=== PATIENT | female | born 1945 | race Caucasian/White ===

== ENCOUNTER 2016-11-07 08:13 | Observation (INO) | payer MEDICARE ==
[~2016-11-07] VITALS: Ht 162.6 cm; Wt 56.5 kg
[2016-11-07] VITALS (12 sets, daily range): BP systolic 134–165; BP diastolic 65–85; PULSE 60–148; RESP 17–23; O2SAT 93–100
[~2016-11-07 08:13] MED LIST: ALBU2.5V4 INHALATION; ALBU8.5H2 INHALATION; ALEN70TA51 PO; ATOR20TA PO; BECL8.7A6 INHALATION; BUSP15TA3 PO; CALC1CAP22 PO; CHOL10008 PO; DIGO125T73 PO; FLUO20CA25 PO; FLUT16SP NS; FURO40TA4 PO; KEN1O TOP; LISI10TA PO; LORA0.5T PO; METO-272 PO; MIRT15TA6 PO; OXYB5TAB10 PO; OXYC1TAB24 PO; PHEN30CA PO; PHN100C PO; POTA20TA16 PO; PRE10 PO; SENN-133 PO; SLO64 PO; TIOT18CA3 IH; WARF2.5T82 PO
[2016-11-07] MEDS ORDERED: 0.9% Sodium Chloride 1,000 ML IV ONE (08:47)
[2016-11-07] MEDS ORDERED: MeTOProlol 1 mg/mL 5 mL Inj IVPUSH SCH (08:55)
[2016-11-07] MEDS ORDERED: Albuterol-Ipratropium 3 mL Inhalation Solution NEB ONE ×2 (08:55→10:50)
[2016-11-07] MEDS ORDERED: FURO40TA4 PO (09:16)
[2016-11-07] MEDS ORDERED: VITA80006 PO (09:16)
[2016-11-07] MEDS ORDERED: METO100T3 PO (09:16)
[2016-11-07 09:21] LABS: BASOPHILS % (AUTO) 0.5 % (0-3); EOSINOPHILS % (AUTO) 2.1 % (0-5); MONOCYTES % (AUTO) 16.8 % (4-12); Mean Corpuscular Hemoglobin 34.3 pg (27.0-35.0); Mean Corpuscular Volume 104.5 fL (81-100); NEUTROPHILS % (AUTO) 58.9 % (40-74); Platelet Count 138 bil/L (150-400)
--- NOTE | 2016-11-07 09:37 | DRSVH ---
PROCEDURE: X-RAY CHEST ONE VIEW, PORTABLE ([id number]) INDICATIONS: SHORTNESS OF BREATH TECHNIQUE: One view of the chest was acquired. COMPARISON: [facility], CR, XR CHEST 1VW (PORTABLE), 10/28/2016, 8:27. FINDINGS: Surgical changes and devices: None. Lungs and pleura: No pleural effusions or pneumothorax. Interstitium is prominent similar to prior examination. Mild bibasilar airspace opacities present. Mediastinum: Mediastinal contours appear normal. Heart size is normal. Aortic calcification and tor tuosity. Bones and chest wall: No suspicious bony lesions. Overlying soft tissues appear unremarkable. IMPRESSION: 1. Mild interstitial prominence similar to prior examination. 2. Minimal bibasilar patchy densities which may be related to atelectasis but developing pneumonia or aspiration cannot be excluded. Correlate clinically. Dictated by: Nuno Chatterjee [facility] Interpreted: Fely Wilde MD on 11/07/2016 at 9:37 Transcribed by: LEXIE on 11/07/2016 at 9:37 Approved by: Fely Wilde MD, PhD on 11/07/2016 at 16:11
--- NOTE | 2016-11-07 09:47 | ED.REPORT ---
HPI-Dyspnea / Wheezing Date of Service Nov 07, 2016 ED Provider: Tammie Garcia MD Ms. Rebolledo is a 70-year-old female past medical history of COPD, CHF ( diastolic dysfunction), persistent A. fib with RVR, hypertension and hemachromatosis presents to ER via EMS secondary to shortness of breath 1 month with increase in severity over the last few days. This is accompanied with a chest tightness and productive cough of green thick sputum. Patient's downstairs neighbor called EMS this morning as she was kept awake throughout the night by patient's audible coughing from her upstairs apartment. On EMS arrival patient found to be satting in the low 90s on home O2 with increase in saturation level is 96% after nebulizer treatment. Patient also endorses diarrhea 1 month. Of note recently hospitalized and of September for same. Discussed status with patient, she confirms her wishes to be DNR/DNI. Nursing Notes Stated Complaint: SHORTNESS OF BREATH Chief Complaint: Respiratory Distress Nursing Notes Reviewed: Yes Allergies: Coded Allergies: Macrolide Antibiotics (Verified Allergy, Severe, SWELLING, 11/07/16) HIVES, SWELLING, SOB Penicillins (Verified Allergy, Severe, SWELLING, HIVES, 11/07/16) HIVES, SWELLING, SOB codeine (Verified Allergy, Severe, VOMITING, 11/07/16) erythromycin ethylsuccinate (Verified Allergy, Severe, INSIDE SWELL UP, ) TAPE (Verified Allergy, Unknown, PLASTIC TAPE, 11/07/16) ampicillin (Verified Allergy, Unknown, UNKNOWN, 11/07/16) clindamycin (Verified Allergy, Unknown, UNKNOWN, 11/07/16) GI BLEED... (07/11/15.. pt contacted at pharmacy request and asked about clindamycin allergy- states she knows something at one time had given her black stools- but she is not certain of whether or not it was clindamycin. Pharmacy notified of pt response.) Scheduled Alendronate (Binosto) 70 Mg Tablet.eff 70 MG PO WEEKLY ON SATURDAYS Atorvastatin (Lipitor) 20 Mg Tablet 20 MG PO DAILY Beclomethasone Dipropionate (Qvar) 8.7 Gm Aer.w.adap 1 PUFF INHALATION BID Buspirone (Buspirone) 15 Mg Tablet 15 MG PO TID AM, NOON, PM Calcium Carbonate/Vitamin D3 (Calcium 600 + Vit D 400 Softgl) 1 Each Capsule 1 EACH PO QAM Cholecalciferol (Vitamin D3) (Vitamin D3) 1,000 Unit Tab.chew 1,000 UNIT PO DAILY Digoxin (Digoxin) 125 Mcg Tablet 125 MCG PO noon Fluoxetine (Fluoxetine) 20 Mg Capsule 40 MG PO DAILY Furosemide (Furosemide) 40 Mg Tablet 60 MG PO DAILY Lisinopril (Lisinopril) 10 Mg Tablet 10 MG PO BID Metoprolol Tartrate (Metoprolol Tartrate) 100 Mg Tablet 100 MG PO BID Mirtazapine (Mirtazapine) 15 Mg Tablet 15 MG PO HS Oxybutynin Chloride (Oxybutynin Chloride) 5 Mg Tablet 5 MG PO TID AM, NOON, PM Phenytoin Sodium ER (Dilantin) 100 Mg Cap 100 MG PO TID AM, NOON, PM Phenytoin Sodium ER (Dilantin) 30 Mg Capsule 30 MG PO TID AM, NOON, PM Potassium Chloride (Potassium Chloride) 20 Meq Tab.er.prt 20 MEQ PO DAILYWL Sennosides (Senna) 8.6 Mg Tablet 17.2 MG PO QAM Vitamin A (Vitamin A) 8,000 Unit Capsule 8,000 UNIT PO QAM Warfarin Sodium (Warfarin Sodium) 2.5 Mg Tablet 2.5 MG PO ,, Warfarin Sodium (Warfarin Sodium) 2.5 Mg Tablet 5 MG PO ,,, Scheduled PRN Albuterol HFA (Proair HFA) 8.5 Gm Hfa.aer.ad 1 PUFFS INHALATION Q4H PRN PRN For Shortness of Breath Albuterol Neb Soln (Albuterol Neb Soln) 2.5 Mg/3 Ml Vial.neb 1 NEB INHALATION TID PRN PRN For Shortness of Breath Lorazepam (Lorazepam) 0.5 Mg Tablet 0.5 MG PO BID PRN PRN For Anxiety oxyCODONE-Acetaminophen 5-325 mg (oxyCODONE-Acetaminophen 5-325 mg) 1 Each Tablet 1 EACH PO BID PRN PRN For Pain General Time Seen by MD: 08:40 Chief Complaint Shortness of breath Past Medical History Past Medical History Notes: PCP: Arlene Dowling Past Medical History Cataracts Cirrhosis Hepatitis C Kidney stones Acute respiratory failure and hypoxemia Diastolic heart failure Anxiety hemachromatosis Arthritis Reports: Asthma, COPD, Congestive heart failure, Hypertension Reports: Atrial fibrillation, Depression, Renal failure, Seizure disorder Past Surgical History Knee surgery Appendectomy with partial colectomy Eye surgery Phlebotomy Hemochromotosis Tubal Shunt in arm Reports: Carpal tunnel Family History Noncontributory Smoking History Former Smoker Social History Alcohol Use: Denies alcohol use Drug Use: Denies drug use Other Social History: Lives alone, Local resident Occupation lives by self, has help once a week 09/27/2016 Ambulatory Status Walker Review of Systems Basic Review of Systems Eyes: Vision NL GI: No abdominal pain Hematologic: No bleeding Constitutional: Denies: Chills, Fever Respiratory: Reports: Dyspnea on exertion, Prod cough, green, Shortness of breath, Wheezing Cardiovascular: Reports: Dyspnea on exertion, Palpitations, Denies: Chest pain Musculoskeletal: Denies: Back pain Skin: Reports Bruising, Denies Rash Physical Exam General: Moderate distress, well-developed, well-nourished, appropriately interactive HEENT: Normocephalic, atraumatic. External ears without defect. Pupils equal, round, and reactive to light and accommodation. Neck: Supple with full range of motion. No jugular venous distension. Cardiovascular: Irregular rhythm with tachycardic rate, soft blowing murmur, heard best at left sternal second intercostal space. Pulmonary: Poor air movement slight expiratory crackles/wheezes. No accessory muscle usage noted Abdomen: Bowel tones present. Soft, nontender, nondistended. Extremities: No clubbing, cyanosis. Bilateral lower extremity edema, mild. Skin: Normal temperature, turgor, and texture; multiple areas of ecchymosis upper extremities. Neurological: Cranial nerves grossly intact. Psychiatric: Normal mood and affect. Alert and oriented to person, place, and time. Initial Vital Signs Vital Signs (First) Date Time Temp Pulse Resp B/P Pulse Ox O2 Delivery O2 Flow Rate FiO2 11/07/16 08:30 37.2 148 23 165/85 98 Nasal Cannula 3 Interpretation & Diagnostics X-RAY CHEST ONE VIEW, PORTABLE IMPRESSION: 1. Mild interstitial prominence similar to prior examination. 2. Minimal bibasilar patchy densities which may be related to atelectasis but developing pneumonia or aspiration cannot be excluded. Correlate clinically. Dictated by: Nuno NAPIER Interpreted: Fely Wilde MD on 11/07/2016 at 9:37 Lab Results Interpretation Result Diagram: 11/07/16 0906 11/07/16 0906 Test 11/07/16 09:06 11/07/16 09:40 White Blood Count 8.1th/mm3 (3.8-10.1) Red Blood Count 3.59mil/mm3 (3.90-5.20) Hemoglobin 12.3g/dL (12.0-15.6) Hematocrit 37.5% (35.0-46.0) Mean Corpuscular Volume 104.5fL (81-100) Mean Corpuscular Hemoglobin 34.3pg (27.0-35.0) Mean Corpuscular Hemoglobin Concent 32.8% (32.0-37.0) Red Cell Distribution Width 14.4% (12.3-15.4) Platelet Count 138bil/L (150-400) Neutrophils (%) (Auto) 58.9% (40-74) Lymphocytes (%) (Auto) 21.3% (14-46) Monocytes (%) (Auto) 16.8% (4-12) Eosinophils (%) (Auto) 2.1% (0-5) Basophils (%) (Auto) 0.5% (0-3) Sodium Level 140mEq/L (134-144) Potassium Level 3.6mEq/L (3.5-5.2) Chloride Level 100mEq/L (97-108) Carbon Dioxide Level 26mmol/L (18-29) Blood Urea Nitrogen 18mg/dL (8-27) Creatinine 0.92mg/dL (0.57-1.00) Estimat Glomerular Filtration Rate 86mL/min (>59) Glucose Level 95mg/dL (60-99) Calcium Level 8.9mg/dL (8.5-10.1) Magnesium Level 1.4mg/dL (1.6-2.6) Total Bilirubin 1.5mg/dL (0.0-1.2) Aspartate Amino Transf (AST/SGOT) 72U/L (0-50) Alanine Aminotransferase (ALT/SGPT) 33U/L (0-32) Alkaline Phosphatase 160U/L (25-165) Troponin T < 0.010ug/L (0.0-0.011) Pro-B-Type Natriuretic Peptide 5057pg/mL (0-301) Total Protein 7.8g/dL (6.4-8.4) Albumin 3.6g/dL (3.4-5.0) Procalcitonin 0.46ng/mL (See Comment) Digoxin Level 0.3nG/mL (0.9-2.0) Lactic Acid Level 1.2mmol/L (0.4-2.0) ECG Interpretation ECG Interpretation: A. fib with rapid ventricular response, anterior infarct old Interpreted by: ED physician (resident physician) Re-Eval/Medical Decision Med Decision/Clinical Course Patient presented with shortness of breath which was relieved with oxygen placement. Patient was originally tachycardic 170s, metoprolol 53 given with the fact as well as reinitiation of patient's home metoprolol tartrate 100 twice a day. Heart rate stabilized to low 100s though blood pressure remained elevated. Respiratory rate remained in 20s. Laboratory analysis unremarkable, barring low magnesium level slightly elevated liver function tests. Digoxin level unremarkable. Chest x-ray showed patchy densities possible developing pneumonia and a mild interstitial prominence similar to prior imaging. Patient responded to oxygen therapy, though was unable to saturate above 81% on ambulatory road test in ED Last echo 09/29/2016 showed EF of 60-65% with severe left and right atrial dilation Patient admitted to hospital for further evaluation. Consultation : Consulted With: Hospitalist Call Returned at: 11:23 Visual Specialist: Will see patient, Agrees with plan, Accepts admit Note: Plan and clinical presentation reviewed with Dr Jones Discharge & Departure Shift Change Sign-Out Patient Care Transferred: Yes Discussed Complaint(s): Yes Laboratory Evaluation: Lab evaluation discussed Imaging Studies: Imaging discussed Response to Therapy: Improved Impression: Primary Impression: A-fib Atrial fibrillation type: persistent Qualified Code: I48.1 - Persistent atrial fibrillation Additional Impressions: COPD with acute exacerbation Diastolic CHF Congestive heart failure chronicity: chronic Qualified Code: I50.32 - Chronic diastolic (congestive) heart failure Disposition: ADMITTED TO HOSPITAL Referrals: Arlene Dowling MD (PCP) Attending Statement Seen and examined Worsening dyspnea progressive over the last month. Very poor air movement throughout all lung lees on exam today No evidence for infection based on chest x-ray white blood cell count and lactic acid and pro calcitonin antibiotics not started in the emergency department Exacerbation of her chronic COPD, exacerbation of her chronic diastolic heart failure all contributing to her chronic atrial fibrillation now with rapid ventricular response responding well to her chronic medications Deciding factor for admission his oxygen saturations dropping to 80-81% on 2 L of oxygen with less than 50 feet of ambulation in the emergency department Agree with documentation and plan as above QAMAR CORRAL DO Nov 07, 2016 09:47 Tammie Garcia MD Nov 07, 2016 11:25
[2016-11-07 09:48] LABS: Magnesium 1.4 mg/dL (1.6-2.6)
[2016-11-07 09:52] LABS: TROPONIN T < 0.010 ug/L (0.0-0.011)
[2016-11-07] MEDS ORDERED: MAGNESIUM SULFATE IM ONE (10:35)
[2016-11-07] MEDS ORDERED: Hydrocortisone 50 mg/mL 2 mL Inj IVPUSH ONE (10:35)
[2016-11-07] MEDS ORDERED: Magnesium Sulf 2 Gm/50mL Water 2 GM in IV Premix 1 EACH IV ONE (10:40)
[2016-11-07] MEDS ORDERED: MethylprednisoLONE Sodium Succinate 62.5 mg/mL 2 mL Inj IVPUSH ONE (10:40)
[2016-11-07] MEDS ORDERED: Alum-Mag Hydrox-Simeth 30 mL Suspension PO PRN (11:40)
[2016-11-07] MEDS ORDERED: Ondansetron 2 mg/mL 2 mL Inj IVPUSH PRN (11:40)
--- NOTE | 2016-11-07 14:02 | NUR ---
Admit Pt admitted from ED, report received from Barbara Reina. Pt transported via stretcher, was able to transfer self to bed. Pt a/o x 3, oriented to room and call light, denies pain/discomfort.
[2016-11-07] MEDS ORDERED: Albuterol 2.5 mg/3 mL Inhalation Solution NEB PRN (16:15)
[2016-11-07] MEDS ORDERED: LORazepam 0.5 mg Tablet PO PRN (16:35)
--- NOTE | 2016-11-07 16:37 | PCM.HPMED ---
Subjective Date of Service Nov 07, 2016 Primary Provider: Admitting Physician: Ghulam Jones DO Primary Care Physician: Arlene Dowling MD Attending Physician: Ghulam Jones DO Admit Status: From the Emergency Department, Admit to [place] Team Chief Complaint: Shortness of breath History of Present Illness: Ms. Rebolledo is a 70 year old woman with history of hemochromatosis, epilepsy, COPD, and atrial fibrillation, that presented to [facility] via EMS for shortness of breath and increased productive cough. She was admitted for evaluation and treatment of suspected COPD exacerbation. She states she has had increased shortness of breath and increased cough for most recent day prior to admission. Denies any fever, chills, nausea, vomiting. Admits to history of diarrhea x recent month. Recent hospitalization approximately one month prior to this admission date for similar presentation of symptoms. She states that yesterday was a stressful day with family dynamics , and may have triggered her current symptoms. She was around small children. No known sick contacts. She says she feels safe returning home. She lives alone , has a vest tailor that comes by. She does not drive. Reports home O2 at 2L baseline. In the ED, T37.2, P148, BP 165/85, 98%NC3L; WBC 8.1; Mg 1.4, total bili 1.5, AST 72, ALT 33; troponin <0.010. Sputum and blood cultures obtained. CXR noted bibasilar patchy densities suggestive of PNA vs atelectasis. Patient [place] [facility]. Review of Systems: Complete ROS obtained; Pertinent positives and negatives as noted in HPI Allergies Coded Allergies: Macrolide Antibiotics (Verified Allergy, Severe, SWELLING, 11/07/16) HIVES, SWELLING, SOB Penicillins (Verified Allergy, Severe, SWELLING, HIVES, 11/07/16) HIVES, SWELLING, SOB codeine (Verified Allergy, Severe, VOMITING, 11/07/16) erythromycin ethylsuccinate (Verified Allergy, Severe, INSIDE SWELL UP, ) TAPE (Verified Allergy, Unknown, PLASTIC TAPE, 11/07/16) ampicillin (Verified Allergy, Unknown, UNKNOWN, 11/07/16) clindamycin (Verified Allergy, Unknown, UNKNOWN, 11/07/16) GI BLEED... (9/2/15.. pt contacted at pharmacy request and asked about clindamycin allergy- states she knows something at one time had given her black stools- but she is not certain of whether or not it was clindamycin. Pharmacy notified of pt response.) Home Medications From ED documentation at admission; med rec to be completed Alendronate (Binosto) 70 Mg Tablet.eff 70 MG PO WEEKLY ON SATURDAYS Atorvastatin (Lipitor) 20 Mg Tablet 20 MG PO DAILY Beclomethasone Dipropionate (Qvar) 8.7 Gm Aer.w.adap 1 PUFF INHALATION BID Buspirone (Buspirone) 15 Mg Tablet 15 MG PO TID AM, NOON, PM Calcium Carbonate/Vitamin D3 (Calcium 600 + Vit D 400 Softgl) 1 Each Capsule 1 EACH PO QAM Cholecalciferol (Vitamin D3) (Vitamin D3) 1,000 Unit Tab.chew 1,000 UNIT PO DAILY Digoxin (Digoxin) 125 Mcg Tablet 125 MCG PO noon Fluoxetine (Fluoxetine) 20 Mg Capsule 40 MG PO DAILY Furosemide (Furosemide) 40 Mg Tablet 60 MG PO DAILY Lisinopril (Lisinopril) 10 Mg Tablet 10 MG PO BID Metoprolol Tartrate (Metoprolol Tartrate) 100 Mg Tablet 100 MG PO BID Mirtazapine (Mirtazapine) 15 Mg Tablet 15 MG PO HS Oxybutynin Chloride (Oxybutynin Chloride) 5 Mg Tablet 5 MG PO TID AM, NOON, PM Phenytoin Sodium ER (Dilantin) 100 Mg Cap 100 MG PO TID AM, NOON, PM Phenytoin Sodium ER (Dilantin) 30 Mg Capsule 30 MG PO TID AM, NOON, PM Potassium Chloride (Potassium Chloride) 20 Meq Tab.er.prt 20 MEQ PO DAILYWL Sennosides (Senna) 8.6 Mg Tablet 17.2 MG PO QAM Vitamin A (Vitamin A) 8,000 Unit Capsule 8,000 UNIT PO QAM Warfarin Sodium (Warfarin Sodium) 2.5 Mg Tablet 2.5 MG PO ,, Warfarin Sodium (Warfarin Sodium) 2.5 Mg Tablet 5 MG PO ,,, Scheduled PRN Albuterol HFA (Proair HFA) 8.5 Gm Hfa.aer.ad 1 PUFFS INHALATION Q4H PRN PRN For Shortness of Breath Albuterol Neb Soln (Albuterol Neb Soln) 2.5 Mg/3 Ml Vial.neb 1 NEB INHALATION TID PRN PRN For Shortness of Breath Lorazepam (Lorazepam) 0.5 Mg Tablet 0.5 MG PO BID PRN PRN For Anxiety oxyCODONE-Acetaminophen 5-325 mg (oxyCODONE-Acetaminophen 5-325 mg) 1 Each Tablet 1 EACH PO BID PRN PRN For Pain PMH Cataracts Cirrhosis Hepatitis C Kidney stones Chronic respiratory failure and hypoxemia Diastolic heart failure Anxiety hemachromatosis Arthritis Reports: Asthma, COPD, Congestive heart failure, Hypertension Reports: Atrial fibrillation, Depression, Renal failure, Seizure disorder Surgical History Knee surgery Appendectomy with partial colectomy Eye surgery Phlebotomy Hemochromotosis Tubal Shunt in arm Reports: Carpal tunnel Family History Father: D. 53; unknown causes; suspect cancer Mother: D. late 80s, suspect 'old age' No other family has Dx hemochromatosis; denies FHx cardiac disease Social History Occupation: unemployed Hx Alcohol Use: No Hx Substance Use: No Hx Tobacco Use: Yes Smoking Status: Former Smoker Living Arrangement: Alone Exam Vital Signs Vital Sign - Last Date Time Temp Pulse Resp B/P Pulse Ox O2 Delivery O2 Flow Rate FiO2 11/07/16 14:51 Supplement Oxygen 11/07/16 14:00 36.9 74 18 148/84 98 2.00 Exam General: Frail; no acute distress; AAOx3 HENT: Atraumatic, sclera anicteric; mucus membranes moist Neck: Soft, trachea midline Cardiac: Irregular rate and rhythm at time of examination; no murmurs appreciated Respiratory: Adequate air flow all lees; no wheeze, no coarse sounds; no use accessory muscles Abdomen: Soft, nontender, nondistended Extremities: No edema; Healed scarring noted R knee Skin: Warm and dry Neuro: CNII-XII grossly intact; speech normal; no facial asymmetry Psych: Appropriate mood, affect, and responses to questioning; pleasant Lab and Diagnostics Result Diagram: 11/07/1690511/07/16905 Assessment & Plan Ms. Rebolledo is a 70 year old woman with history of hemochromatosis, epilepsy, COPD, and atrial fibrillation, that presented to [facility] via EMS for shortness of breath and increased productive cough. She was admitted for evaluation and treatment of suspected CHF and COPD exacerbation. - Hospital day 1 Acute COPD exacerbation, present on admission. Under therapy - Sx: Increased productive cough, increased SOB - DuoNeb QIDWA - Accuneb q2h prn - Budesonide neb BID - Prednisone 40mg x5 days - Incentive spirometer Exacerbation of Diastolic heart failure, acute on chronic. - Improved with Lasix given in the ER - Echo 09/2016: EF60-65, normal LV function; borderline RV enlargement, borderline reduction in function; severe dilation of LA and RA; severe TR; mild MR and AR - Continue Lasix Acute on chronic hypoxemic respiratory failure, present on admission. Resolved - Baseline reported as 2L continuous - Treat underlying cause: Suspected COPD and CHF exacerbation - H/o Rhinovirus September 2016 - Goals 88-92% - Resp PCR Diarrhea, chronicity unknown, present on admission. Under evaluation - Reports recent abx course, and contact with others, small children - Stool PCR Epilepsy, chronic. Presumed stable - Continue antiepileptic medications Atrial fibrillation on anticoagulation therapy, chronic. Presumed stable - Warfarin per pharmacy - Continue home meds - Digoxin levels as needed Electrolyte abnormalities, acute, present on admission. Treated - Mg replacement Elevated bili and transaminases, chronic. Presumed stable - Likely secondary to reported hemochromatosis - Monitor Other chronic conditions: Anxiety HCV Hemochromatosis - PRN: Bowel/fever/pain/antiemetic - DVT: Hep q8 - GI: Not indicated - DIET: Heart healthy - Code: DNR/DNI - PCP: Nitesh Patient status: Due to severity of presenting symptoms, likely course of care, and risk of adverse events, anticipated LOS > 2 midnights. Patient admitted with INPT status. Current needs include PT evaluation, HOG COOLER evaluation for possible addition of services if qualified. Pain Evaluation: Adequate Pain Control GI Prophylaxis: Not indicated VTE Prophylaxis: Sub-Q Heparin (Unfractionated) Resuscitation Status: DNR/DNI:Do Not Resuscitate/Intubate Time spent 65 minutes Attending Statement I reviewed this patients chart, discussed the plan of care with the resident and examined the patient. I agree with the above physical exam and assessment and plan. Mulu Mendoza DO Nov 07, 2016 16:34 Ghulam Jones DO Nov 08, 2016 14:46
[2016-11-07] MEDS ORDERED: Magnesium Chloride SR 64 mg ER24 Tablet PO SCH (16:40)
[2016-11-07] MEDS: Heparin 5,000 Unit/mL Inj SUBQ SCH (18:24)
[2016-11-07] MEDS: predniSONE 20 mg Tablet PO SCH (18:24)
[2016-11-07 19:00] LABS: APPEARANCE,URINE CLEAR (CLEAR,HAZY); COLOR,URINE DARK YELLOW (YELLOW); OCCULT BLOOD,URINE NEGATIVE (NEGATIVE)
[2016-11-07 19:10] LABS: INR 1.49 ratio
[2016-11-07] MEDS: Phenytoin 100 mg ER Capsule PO SCH (20:31)
[2016-11-07] MEDS: PHENYTOIN 30 MG PO SCH (20:31)
[2016-11-07] MEDS: BusPIRone 15 mg Dividose Tablet PO SCH (20:31)
[2016-11-07] MEDS: Budesonide 0.5 mg/2 mL Inhalation Solution NEB SCH (21:12)
[2016-11-07] MEDS: Albuterol-Ipratropium 3 mL Inhalation Solution NEB SCH (21:12)
[2016-11-08] VITALS (12 sets, daily range): BP systolic 141–173; BP diastolic 81–102; PULSE 51–113; RESP 18–22; O2SAT 91–99
[2016-11-08] MEDS: Heparin 5,000 Unit/mL Inj SUBQ SCH ×3 (00:30→18:10)
--- NOTE | 2016-11-08 03:40 | NUR ---
Uneventful night patient on 3L via NC. 02 maintained above 90% while sleeping. Patient has had no loose stools this shift. patient and family education on C-DIFF. patient states diarrhea started way before she had antibiotics for pneumonia and she does not believe the antibiotics caused her diarrhea. She reports coughing up mac/green sputum occasionally, none seen this shift. will continue to monitor.
[2016-11-08 07:02] LABS: BASOPHILS % (AUTO) 0.2 % (0-3); EOSINOPHILS % (AUTO) 0 % (0-5); MONOCYTES % (AUTO) 12.7 % (4-12); Mean Corpuscular Hemoglobin 34.4 pg (27.0-35.0); Mean Corpuscular Volume 103.3 fL (81-100); NEUTROPHILS % (AUTO) 77.4 % (40-74); Platelet Count 114 bil/L (150-400)
[2016-11-08 07:18] LABS: INR 1.51 ratio
[2016-11-08] MEDS: Albuterol-Ipratropium 3 mL Inhalation Solution NEB SCH ×4 (07:49→19:37)
[2016-11-08] MEDS: Budesonide 0.5 mg/2 mL Inhalation Solution NEB SCH ×2 (07:57→19:37)
[2016-11-08] MEDS ORDERED: Influenza (Adult) Vaccine 0.5 mL Syringe IM ONE (08:30)
[2016-11-08] MEDS: PHENYTOIN 30 MG PO SCH ×3 (09:56→19:59)
[2016-11-08] MEDS: Phenytoin 100 mg ER Capsule PO SCH ×3 (09:56→21:25)
[2016-11-08] MEDS: BusPIRone 15 mg Dividose Tablet PO SCH ×3 (09:57→19:58)
[2016-11-08] MEDS: predniSONE 20 mg Tablet PO SCH (09:58)
[2016-11-08 10:44] LABS: Magnesium 1.9 mg/dL (1.6-2.6); Phosphorus 2.4 mg/dL (2.5-4.9)
--- NOTE | 2016-11-08 10:55 | NUR ---
Flu Shot Pt. states that she does want flu shot but would like to wait until she is ready to discharge.
[2016-11-08] MEDS: oxyCODONE-Acetamin 5-325 mg Tablet PO PRN ×2 (11:32→20:00)
[2016-11-08] MEDS: Potassium Chloride 20 mEq SR Tablet PO SCH (14:03)
[2016-11-08 14:58] LABS: BASOPHILS % (AUTO) 0.1 % (0-3); EOSINOPHILS % (AUTO) 0.1 % (0-5); MONOCYTES % (AUTO) 10.2 % (4-12); Mean Corpuscular Hemoglobin 34.4 pg (27.0-35.0); Mean Corpuscular Volume 104.4 fL (81-100); NEUTROPHILS % (AUTO) 82.2 % (40-74); Platelet Count 143 bil/L (150-400)
--- NOTE | 2016-11-08 16:11 | NUR ---
Social Work-initial assessment/ readiness for discharge: Data:See initial assessment. Pt is a 70 y/o female who was admitted on 11/07/16 for AFIB per H&P. Pt's insurance is [facility] and PCP is Arlene Dowling MD. EMR Reviewed. CATRACHITO met with pt at bedside to discuss discharge planning, SW role explained.Pt alert and oriented x3.Pt resides at home alone in a ground floor apartment where pt remains independent with ADls. Pt uses a fww at baseline and does not drive. Pt either uses dial a ride or friends for transport. Pt has had HH in the past, but has never been to SNF. SW printed DPOA/ advanced directive paperwork on file, pt reviewed, and states this is the most up to date. SW placed copy in the chart. Pt states she has no issues getting her medications and is not interested in a supplemental insurance at this time. Pt has no LTC insurance or VA benefits. Pt states she hires a caregiver to come in and assist her. [facility] [employer]. Pt states her grandson Yovani [phone] or Gómez [phone] will provide transport home when medically stable. SW discussed HH services with pt, pt agreeable and states she is homebound. SW provided pt with HH choice list, pt would like to use [facility] having used them in the past. CATRACHITO spoke with Jenaro Kraft at [facility], Jenaro states they cannot take pt back on service. SW to follow up with pt regarding [facility]. CATRACHITO phone number and plan written on the [place] board.F2F in folder. SW will continue to follow. Assessment:Pt who is independent at baseline. Plan:Pt to likely discharge home when medically stable via POV. SW to follow up with pt regarding [facility] if she would be agreeable to this because [facility] not willing to take pt on service.F2F in folder. SW will continue to follow. ISHAN Layne Addendum: 11/08/16 at 1613 by JOSE KOHLER SS Amended: Links added.
--- NOTE | 2016-11-08 18:47 | PCM.PNMED ---
Subjective Date of Service Nov 08, 2016 Subjective Pt reports that she feels very weak. She states that she is weaker than normal. Pt reported to myself that she was experiencing diarrhea, but informed the hospitalist she had not had a bowel movement since admission. Pt reports that her chest hurts when she coughs. Pt reports that she is still finding it hard to breath. Exam Vital Signs Vital Sign - Last Date Time Temp Pulse Resp B/P Pulse Ox O2 Delivery O2 Flow Rate FiO2 11/08/16 15:32 20 Nasal Cannula 2.00 11/08/16 14:12 36.6 71 158/102 92 Intake and Output 11/07/16 11/07/16 11/08/16 Cumulative From/Thru 15:00 23:00 07:00 11/07/16 08:30 - 11/08/16 06:19 Intake Total 1000 ml 873 ml 336 ml 2209 ml Output Total 100 ml 0 ml 100 ml Balance 1000 ml 773 ml 336 ml 2109 ml Intake Oral 873 ml 336 ml 1209 ml IV Total 1000 ml 1000 ml Output Urine Total 100 ml 0 ml 100 ml # Bowel Movements 0 0 Exam General: No acute distress, appropriately interactive HEENT: Nasal canula in place. Normocephalic, atraumatic. Pupils equal, round, and reactive to light and accommodation. Anicteric sclerae, moist conjunctivae. Oropharynx with moist mucosa. Neck: Supple with full range of motion. Cardiovascular: Irregularly irregular rate and rhythm with no murmurs, rubs, or gallops appreciated Pulmonary: Clear to auscultation bilaterally with no crackles, wheezes, or rhonchi. Normal respiratory effort with no use of accessory muscles. Abdomen: Bowel tones present. Soft, nontender, nondistended. Extremities: No clubbing, cyanosis, edema, or lymphadenopathy appreciated. Skin: Normal temperature, turgor, and texture; no rash, ulcers, or subcutaneous nodules appreciated. Psychiatric: Normal mood and affect. Alert and oriented to person, place, and time. IVs and Medications Medications Reviewed: Medications were reviewed in detail Lab and Diagnostics Result Diagram: 11/08/16 1440 11/08/16 1440 X-Rays, CTs and MRIs PROCEDURE: X-RAY CHEST ONE VIEW, PORTABLE ([id number]) COMPARISON: [facility], CR, XR CHEST 1VW (PORTABLE), 10/28/2016, 8 :27. FINDINGS: Surgical changes and devices: None. Lungs and pleura: No pleural effusions or pneumothorax. Interstitium is prominent similar to prior examination. Mild bibasilar airspace opacities present. Mediastinum: Mediastinal contours appear normal. Heart size is normal. Aortic calcification and tortuosity. Bones and chest wall: No suspicious bony lesions. Overlying soft tissues appear unremarkable. IMPRESSION: 1. Mild interstitial prominence similar to prior examination. 2. Minimal bibasilar patchy densities which may be related to atelectasis but developing pneumonia or aspiration cannot be excluded. Correlate clinically. Dictated by: Nuno Chatterjee RRA Interpreted: Fely Wilde MD on 11/07/2016 at 9:37 Transcribed by: LEXIE on 11/07/2016 at 9:37 Approved by: Fely Wilde MD, PhD on 11/07/2016 at 16:11 Assessment & Plan Ms. Rebolledo is a 70 year old woman with history of hemochromatosis, epilepsy, COPD, and atrial fibrillation, that presented to [facility] via EMS for shortness of breath and increased productive cough. She was admitted for evaluation and treatment of suspected CHF and COPD exacerbation. - Hospital day 2 Acute exacerbation of COPD, present on admission. ongoing - Sx: Increased productive cough, increased SOB - DuoNeb QIDWA - Accuneb q2h prn - Budesonide neb BID - Prednisone 40mg x5 days - Incentive spirometer Acute exacerbation of chronic diastolic heart failure, present on admission, ongoing - Improved with Lasix given in the ER - Echo 09/2016: EF60-65, normal LV function; borderline RV enlargement, borderline reduction in function; severe dilation of LA and RA; severe TR; mild MR and AR - Continue Lasix home dose 60mg PO daily Atrial fibrillation on anticoagulation therapy, chronic. ongoing - Warfarin per pharmacy - Continue home meds--digoxin - Digoxin levels as needed -Review of records show pt was discharge home on 10/08, and advised to take Metoprolol XR 150mg daily, but she never filled the rx.Pt unaware of her medications for her afib. -Considering switching metoprolol 100mg BID to 150mg daily. Will reassess in the AM. Diarrhea, chronicity unknown, present on admission, - Reports recent abx course, and sick contacts - Stool PCR Cdiff ordered Acute on chronic hypoxemic respiratory failure, present on admission. Resolved - Baseline reported as 2L continuous - Treat underlying cause: Suspected COPD and CHF exacerbation - H/o Rhinovirus September 2016 - Goals 88-92% - Resp PCR negative Epilepsy, chronic. Presumed stable - Continue antiepileptic medications Electrolyte abnormalities, acute, present on admission. - Mg replacement as appropriate Elevated bili and transaminases, chronic. Presumed stable - Likely secondary to reported hemochromatosis - Monitor Other chronic conditions: Anxiety HCV Hemochromatosis - PRN: Bowel/fever/pain/antiemetic - DVT: Hep q8 - GI: Not indicated - DIET: Heart healthy - Code: DNR/DNI - PCP: [facility] Prophylaxis: Not indicated VTE Prophylaxis: Sub-Q Heparin (Unfractionated) Resuscitation Status: DNR/DNI:Do Not Resuscitate/Intubate Attending Statement I reviewed this patients chart, discussed the plan of care with the resident and examined the patient. I agree with the above physical exam and assessment and plan. Charu Eid DO Nov 08, 2016 17:24 Ghulam Jones DO Nov 09, 2016 16:57
--- NOTE | 2016-11-08 20:47 | NUR ---
Observation information provided and explained.
[2016-11-09] VITALS (7 sets, daily range): BP systolic 157–172; BP diastolic 91–99; PULSE 58–107; RESP 18–22; O2SAT 90–94
[2016-11-09] MEDS: Heparin 5,000 Unit/mL Inj SUBQ SCH ×2 (01:55→09:38)
[2016-11-09] MEDS: oxyCODONE-Acetamin 5-325 mg Tablet PO PRN (05:58)
[2016-11-09 06:27] LABS: BASOPHILS % (AUTO) 0.4 % (0-3); EOSINOPHILS % (AUTO) 0.9 % (0-5); MONOCYTES % (AUTO) 14.8 % (4-12); Mean Corpuscular Hemoglobin 34.4 pg (27.0-35.0); Mean Corpuscular Volume 104.8 fL (81-100); Platelet Count 180 bil/L (150-400)
[2016-11-09] MEDS: Albuterol-Ipratropium 3 mL Inhalation Solution NEB SCH ×2 (06:30→13:09)
[2016-11-09] MEDS: Budesonide 0.5 mg/2 mL Inhalation Solution NEB SCH (06:30)
[2016-11-09 06:49] LABS: INR 2.45 ratio
[2016-11-09] MEDS: Phenytoin 100 mg ER Capsule PO SCH ×2 (08:31→13:28)
[2016-11-09] MEDS: PHENYTOIN 30 MG PO SCH ×2 (08:31→13:26)
[2016-11-09] MEDS: BusPIRone 15 mg Dividose Tablet PO SCH ×2 (08:32→13:27)
[2016-11-09] MEDS: predniSONE 20 mg Tablet PO SCH (08:33)
[2016-11-09] MEDS ORDERED: guaiFENesin 600 mg ER12 Tablet PO SCH (09:25)
[2016-11-09] MEDS ORDERED: GUAI600T86 PO (12:07)
[2016-11-09] MEDS ORDERED: PRED-508 PO (12:07)
[2016-11-09] MEDS ORDERED: BENZ100C8 PO (12:07)
--- NOTE | 2016-11-09 12:14 | PCM.DIMED ---
Discharge Instructions Date of Service Nov 09, 2016 Dates of Hospitalization Nov 07, 2016 at 13:18 Discharge Diagnosis Discharge Diagnosis Acute exacerbation of COPD, present on admission. Improved Acute exacerbation of chronic diastolic heart failure, present on admission. Resolved Atrial fibrillation on anticoagulation therapy, chronic. Stable Diarrhea, chronicity unknown, present on admission, Resolved Acute on chronic hypoxemic respiratory failure, present on admission. Resolved Epilepsy, chronic. Presumed stable Electrolyte abnormalities, acute, present on admission. Resolved Elevated bili and transaminases, chronic. Presumed stable Medication Instructions NEW MEDICATIONS - Tessalon Perles - Take one tab three times daily as needed for cough - Guaifenesin 1200mg - Take 1200mg TWICE daily - This will help with chest congestion - Prednisone 40mg - Take 40mg daily, preferably in morning - Take your first dose tomorrow morning - Take for the next two days after discharge - Hard copies have been provided to you - We did not change any of your home medications; please continue to take as directed by their prescriber Diet Heart Healthy Activity Home Health Phyical Therapy Call your provider Fever or Chills, Shortness of breath, Bleeding, Chest pain, Excessive diarrhea, Weakness (unilateral) Patient Instructions - Participate in physical therapy; continue exercises safe to complete alone throughout the day - Stay well hydrated, drink water throughout the day Follow-up plan Follow up with your primary care within 7-10 days; at that visit, discuss - Your respiratory status - This hospitalization - Determine ways, if any, that can help prevent future admissions Follow-up Provider: Arlene Dowling MD Follow-up with PCP in: 2 weeks Mulu Mendoza DO Nov 09, 2016 12:14
[2016-11-09] MEDS: Potassium Chloride 20 mEq SR Tablet PO SCH (13:28)
--- NOTE | 2016-11-09 13:31 | NUR ---
choice list. ISHAN Layne
--- NOTE | 2016-11-09 13:32 | NUR ---
Social Work-discharge: Data:EMR Reviewed. Pt is on day 2 of hospitalization for AFIB per H&P. Pt is medically stable to discharge home today. Per RN notes, pt has been up independent in the room. SW followed up with pt regarding HH services. SW explained [facility] is not able to take pt on service, pt agreeable to [facility]. SW provided Referral to [facility] and faxed in F2F and orders for RN and PT. Pt has questions regarding finances, SW answered questions. Pt informed CATRACHITO that her grandson will provide transport home today. All updated and agreeable to plan. Assessment:Pt to benefit from HH. Plan:Pt to discharge home today via POV. F2F and orders faxed into [facility] for RN and PT. All updated and agreeable to plan. ISHAN Layne
[2016-11-09] MEDS ORDERED: Influenza (Adult) Vaccine 0.5 mL Syringe IM ONE (13:35)
--- NOTE | 2016-11-09 16:05 | NUR ---
Discharge Pt d/c home as ordered. Removed IV, catheter intact, no bleeding. Provided pt with d/c paperwork and instructions, including carenotes and prescriptions. All questions answered. Pt ready to d/c at 2pm but grandson could not pick up attendant until now. Pt taken off [facility]uel via w/c by SHIRIN, home in private vehicle with family.
--- NOTE | 2016-11-09 17:14 | PCM.DC.MED ---
Discharge Summary Date of Service Nov 09, 2016 Dates of Hospitalization Date of Hospital Admission Nov 07, 2016 at 13:18 Date of Discharge: Nov 09, 2016 Providers: Admitting Physician: Ghulam Jones DO Primary Care Physician: Arlene Dowling MD Attending Physician: Ghulam Jones DO Diagnosis at Time of Discharge Diagnosis at Time of Discharge Acute exacerbation of COPD, present on admission. Improved Acute exacerbation of chronic diastolic heart failure, present on admission. Resolved Atrial fibrillation on anticoagulation therapy, chronic. Stable Diarrhea, chronicity unknown, present on admission, Resolved Acute on chronic hypoxemic respiratory failure, present on admission. Resolved Epilepsy, chronic. Presumed stable Electrolyte abnormalities, acute, present on admission. Resolved Elevated bili and transaminases, chronic. Presumed stable Consultations None Procedures XRay, CTs & MRIs PROCEDURE: X-RAY CHEST ONE VIEW, PORTABLE ([id number]) IMPRESSION: 1. Mild interstitial prominence similar to prior examination. 2. Minimal bibasilar patchy densities which may be related to atelectasis but developing pneumonia or aspiration cannot be excluded. Correlate clinically. Dictated by: Nuno Chatterjee RRA Interpreted: Fely Wilde MD on 11/07/2016 at 9:37 Brief History History obtained from admission note, dated 11/07/2016, composed by Dr. Boby Goins: Ms. Rebolledo is a 70 year old woman with history of hemochromatosis, epilepsy, COPD, and atrial fibrillation, that presented to [facility] via EMS for shortness of breath and increased productive cough. She was admitted for evaluation and treatment of suspected COPD exacerbation. She states she has had increased shortness of breath and increased cough for most recent day prior to admission. Denies any fever, chills, nausea, vomiting. Admits to history of diarrhea x recent month. Recent hospitalization approximately one month prior to this admission date for similar presentation of symptoms. She states that yesterday was a stressful day with family dynamics , and may have triggered her current symptoms. She was around small children. No known sick contacts. She says she feels safe returning home. She lives alone , has a dry mixer that comes by. She does not drive. Reports home O2 at 2L baseline. In the ED, T37.2, P148, BP 165/85, 98%NC3L; WBC 8.1; Mg 1.4, total bili 1.5, AST 72, ALT 33; troponin <0.010. Sputum and blood cultures obtained. CXR noted bibasilar patchy densities suggestive of PNA vs atelectasis. Patient was transferred to [facility] in stable condition. Hospital Course Ms. Rebolledo is a 70 year old woman with history of hemochromatosis, epilepsy, COPD, and atrial fibrillation, that presented to [facility] via EMS for shortness of breath and increased productive cough. She was admitted for evaluation and treatment of suspected CHF and COPD exacerbation. She was provided systemic steroids, nebulizer therapies, and cough suppressants. She was discharged home in stable condition via POV, with home health RN and HHPT services. - Hospital day total: 3 Acute exacerbation of COPD, present on admission. Resolved - Sx: Increased productive cough, increased SOB - Rx at [facility]: - Prednisone 40mg x2 days; will complete 5 day course - Guaifenesin 1200mg BID - Tessalon perles 100mg TID - Incentive spirometer provided for continued use Acute exacerbation of chronic diastolic heart failure, present on admission, Resolved - Improved with Lasix given in the ER - Echo 09/2016: EF60-65, normal LV function; borderline RV enlargement, borderline reduction in function; severe dilation of LA and RA; severe TR; mild MR and AR - Continued Lasix home dose 60mg PO daily Atrial fibrillation on anticoagulation therapy, chronic. ongoing - Continued home meds--digoxin - Continued metoprolol tartrate 100mg BID; recommended outpatient follow up for changes Diarrhea, chronicity unknown, present on admission, Resolved - Reports recent abx course, and sick contacts - Also later reported daily senna use - No diarrheal events throughout stay Acute on chronic hypoxemic respiratory failure, present on admission. Resolved - Baseline reported as 2L continuous - Treated underlying cause: Suspected COPD and CHF exacerbation - H/o Rhinovirus September 2016 - Goals 88-92% - Resp PCR negative Epilepsy, chronic. Presumed stable - Continued antiepileptic medications Electrolyte abnormalities, acute, present on admission. Resolved - Mg replaced as appropriate Elevated bili and transaminases, chronic. Presumed stable - Likely secondary to reported hemochromatosis Other chronic, and stable, conditions: Anxiety HCV Hemochromatosis Exam Vital Signs (Last) Date Time Temp Pulse Resp B/P Pulse Ox O2 Delivery O2 Flow Rate FiO2 11/09/16 13:09 77 22 93 Nasal Cannula 2.00 11/09/16 09:14 36.3 157/99 Exam General: Frail; no acute distress; AAOx3 HENT: Atraumatic, sclera anicteric; mucus membranes moist Neck: Soft, trachea midline Cardiac: Irregular rate and rhythm at time of examination; no murmurs appreciated Respiratory: Adequate air flow all lees; no wheeze, no coarse sounds; no use accessory muscles Abdomen: Soft, nontender, nondistended Extremities: No edema; Healed scarring noted R knee Skin: Warm and dry Neuro: CNII-XII grossly intact; speech normal; no facial asymmetry Psych: Appropriate mood, affect, and responses to questioning; pleasant Test 11/07/16 09:06 11/07/16 09:40 11/07/16 18:15 11/08/16 06:25 Troponin T < 0.010ug/L (0.0-0.011) Procalcitonin 0.46ng/mL (See Comment) Lactic Acid Level 1.2mmol/L (0.4-2.0) Urine Color Dark yellow (YELLOW) Urine Appearance Clear (CLEAR,HAZY) Urine pH 6.0 (5.0-8.0) Urine Specific [place] 1.030 (1.003-1.035) Urine Protein 30mg/dL (NEG,TRACE) Urine Glucose (UA) 100mg/dL (NEGATIVE) Urine Ketones Negativemg/dL (NEGATIVE) Urine Occult Blood Negative (NEGATIVE) Urine Nitrite Negative (NEGATIVE) Urine Bilirubin Negative (NEGATIVE) Urine Urobilinogen 2.0mg/dL (NORMAL) Urine Leukocyte Esterase Negative (NEGATIVE) Urine RBC 0-2/hpf (0-2) Urine WBC 0-5/hpf (0-5) Urine Epithelial Cells None/hpf (NONE-MOD) Urine Crystals None seen (NONE SEEN) Urine Bacteria Few/hpf (NONE-FEW) Urine Hyaline Casts None/lpf (NONE) Urine Granular Casts None seen (NONE SEEN) Urine Waxy Casts None seen (NONE SEEN) Urine Red Blood Cell Casts None seen (NONE SEEN) Urine White Blood Cell Casts None seen (NONE SEEN) Urine Mucus Present (None Seen) Urine Trichomonas None seen (NONE SEEN) Urine Yeast None (NONE SEEN) Urinalysis Comment None Urine Culture Reflexed Not indicated Urine Legionella pneumophilia Ag Negative (Negative) Phosphorus Level 2.4mg/dL (2.5-4.9) Magnesium Level 1.9mg/dL (1.6-2.6) Digoxin Level < 0.3nG/mL (0.9-2.0) Test 11/09/16 05:55 White Blood Count 8.5th/mm3 (3.8-10.1) Red Blood Count 3.75mil/mm3 (3.90-5.20) Hemoglobin 12.9g/dL (12.0-15.6) Hematocrit 39.3% (35.0-46.0) Mean Corpuscular Volume 104.8fL (81-100) Mean Corpuscular Hemoglobin 34.4pg (27.0-35.0) Mean Corpuscular Hemoglobin Concent 32.8% (32.0-37.0) Red Cell Distribution Width 14.4% (12.3-15.4) Platelet Count 180bil/L (150-400) Neutrophils (%) (Auto) 63.0% (40-74) Lymphocytes (%) (Auto) 20.4% (14-46) Monocytes (%) (Auto) 14.8% (4-12) Eosinophils (%) (Auto) 0.9% (0-5) Basophils (%) (Auto) 0.4% (0-3) Prothrombin Time 26.7sec (8.1-12.5) Prothromb Time International Ratio 2.45ratio Sodium Level 138mEq/L (134-144) Potassium Level 4.5mEq/L (3.5-5.2) Chloride Level 99mEq/L (97-108) Carbon Dioxide Level 30mmol/L (18-29) Blood Urea Nitrogen 25mg/dL (8-27) Creatinine 1.09mg/dL (0.57-1.00) Estimat Glomerular Filtration Rate 71mL/min (>59) Glucose Level 71mg/dL (60-99) Calcium Level 8.7mg/dL (8.5-10.1) Total Bilirubin 0.7mg/dL (0.0-1.2) Aspartate Amino Transf (AST/SGOT) 57U/L (0-50) Alanine Aminotransferase (ALT/SGPT) 32U/L (0-32) Alkaline Phosphatase 160U/L (25-165) Pro-B-Type Natriuretic Peptide 7361pg/mL (0-301) Total Protein 7.4g/dL (6.4-8.4) Albumin 3.5g/dL (3.4-5.0) Discharge Medications Discharge Medications Alendronate (Binosto) 70 Mg Tablet.eff 70 MG PO WEEKLY (Reported) ON SATURDAYS Atorvastatin (Lipitor) 20 Mg Tablet 20 MG PO DAILY (Reported) Beclomethasone Dipropionate (Qvar) 8.7 Gm Aer.w.adap 1 PUFF INHALATION BID ( Reported) Buspirone (Buspirone) 15 Mg Tablet 15 MG PO TID (Reported) AM, NOON, PM Calcium Carbonate/Vitamin D3 (Calcium 600 + Vit D 400 Softgl) 1 Each Capsule 1 EACH PO QAM (Reported) Cholecalciferol (Vitamin D3) (Vitamin D3) 1,000 Unit Tab.chew 1,000 UNIT PO DAILY (Reported) Digoxin (Digoxin) 125 Mcg Tablet 125 MCG PO noon (Reported) Fluoxetine (Fluoxetine) 20 Mg Capsule 40 MG PO DAILY (Reported) Furosemide (Furosemide) 40 Mg Tablet 60 MG PO DAILY (Reported) Guaifenesin (Guaifenesin ER) 600 Mg Tab.er.12h 1,200 MG PO Q12 Prescribed by: MULU GOINS DO Lisinopril (Lisinopril) 10 Mg Tablet 10 MG PO BID (Reported) Metoprolol Tartrate (Metoprolol Tartrate) 100 Mg Tablet 100 MG PO BID (Reported ) Mirtazapine (Mirtazapine) 15 Mg Tablet 15 MG PO HS (Reported) Oxybutynin Chloride (Oxybutynin Chloride) 5 Mg Tablet 5 MG PO TID (Reported) AM, NOON, PM Phenytoin Sodium ER (Dilantin) 100 Mg Cap 100 MG PO TID (Reported) AM, NOON, PM Phenytoin Sodium ER (Dilantin) 30 Mg Capsule 30 MG PO TID (Reported) AM, NOON, PM Potassium Chloride (Potassium Chloride) 20 Meq Tab.er.prt 20 MEQ PO DAILYWL ( Reported) Prednisone (Deltasone) 20 Mg Tablet 40 MG PO DAILY Prescribed by: MULU GOINS DO Sennosides (Senna) 8.6 Mg Tablet 17.2 MG PO QAM (Reported) Vitamin A (Vitamin A) 8,000 Unit Capsule 8,000 UNIT PO QAM (Reported) Warfarin Sodium (Warfarin Sodium) 2.5 Mg Tablet 2.5 MG PO M,W,F (Reported) Warfarin Sodium (Warfarin Sodium) 2.5 Mg Tablet 5 MG PO ,,, (Reported) As needed Albuterol HFA (Proair HFA) 8.5 Gm Hfa.aer.ad 1 PUFFS INHALATION Q4H PRN PRN For Shortness of Breath (Reported) Albuterol Neb Soln (Albuterol Neb Soln) 2.5 Mg/3 Ml Vial.neb 1 NEB INHALATION TID PRN PRN For Shortness of Breath (Reported) Benzonatate (Benzonatate) 100 Mg Capsule 100 MG PO TID PRN PRN For Cough Prescribed by: MULU GOINS DO Lorazepam (Lorazepam) 0.5 Mg Tablet 0.5 MG PO BID PRN PRN For Anxiety (Reported ) oxyCODONE-Acetaminophen 5-325 mg (oxyCODONE-Acetaminophen 5-325 mg) 1 Each Tablet 1 EACH PO BID PRN PRN For Pain (Reported) Additional med instructions NEW MEDICATIONS - Tessalon Perles - Take one tab three times daily as needed for cough - Guaifenesin 1200mg - Take 1200mg TWICE daily - This will help with chest congestion - Prednisone 40mg - Take 40mg daily, preferably in morning - Take your first dose tomorrow morning - Take for the next two days after discharge - Hard copies have been provided to you - We did not change any of your home medications; please continue to take as directed by their prescriber Followup Plan Follow-up plan Follow up with your primary care within 7-10 days; at that visit, discuss - Your respiratory status - This hospitalization - Determine ways, if any, that can help prevent future admissions Discharge Diet: Heart Healthy Discharge Activity: Home Health Phyical Therapy Patient Instructions - Participate in physical therapy; continue exercises safe to complete alone throughout the day - Stay well hydrated, drink water throughout the day Follow-up Provider: Arlene Dowling MD Follow-up with PCP in: 2 weeks Mulu Goins DO Nov 09, 2016 17:14
[2016-11-14] MEDS ORDERED: ALENDRONATE 70 MG PO SCH (08:30)
== END 2016-11-09 16:00 | disposition home or self-care (01) ==
LOC: EDBD 08:13 → SED 08:13 → MPC 13:18 → INTOOBSV 13:18
PROVIDERS: ADMIT Family Medicine; ATTEND Family Medicine
DX: J44.1 Chronic obstructive pulmonary disease with (acute) exacerbation (principal); I50.33 Acute on chronic diastolic (congestive) heart failure; I48.2 Chronic atrial fibrillation; Z79.01 Long term (current) use of anticoagulants; R19.7 Diarrhea, unspecified; J96.91 Respiratory failure, unspecified with hypoxia; G40.909 Epilepsy, unspecified, not intractable, without status epilepticus; Z23 Encounter for immunization; E87.8 Other disorders of electrolyte and fluid balance, not elsewhere classified; R17 Unspecified jaundice; R74.0 Nonspecific elevation of levels of transaminase and lactic acid dehydrogenase [LDH]; E83.119 Hemochromatosis, unspecified
CPT/HCPCS: 36415; 71010; 80053; 80162; 81000; 82308; 83605; 83735; 83880; 84100; 84484; 85025; 85610; 86403; 87040; 87070; 87205; 87449; 87633; 94640; 94664; 96361; 96374; 96375; 99285; J1644; J2930; J7030; J7620; Q2039

== ENCOUNTER 2016-11-27 18:18 | Inpatient (IN) | payer MEDICARE ==
[~2016-11-27] VITALS: Ht 165.1 cm; Wt 58.6 kg
[~2016-11-27 18:18] MED LIST changes: +BENZ100C8 PO; -FLUT16SP NS; +GUAI600T86 PO; -KEN1O TOP; -METO-272 PO; +METO100T3 PO; -PRE10 PO; +PRED-508 PO; -SLO64 PO; -TIOT18CA3 IH; +VITA80006 PO
[2016-11-27 18:28] VITALS: BP 165/100; PULSE 52; RESP 20; O2SAT 93
--- NOTE | 2016-11-27 18:49 | ED.REPORT ---
HPI-Chest Pain 40 and Over Date of Service Nov 27, 2016 ED Provider: Rich Glez DO This patient is a 71 year old female with a history of atrial fibrillation on Warfarin, hepatitis C with cirrhosis, diastolic heart failure, hypertension, hemochromatosis, and COPD on home O2 presenting to the ED complaining of intermittent chest pressure and heart palpitations that been occurring all day. Patient states that the pain is substernal and radiates to her back. She also complains of cough, shortness of breath, and subjective fever. Patient is found to be atrial fibrillation with RVR on arrival to the ED and states that she feel when her heart is beating rapidly. She denies a history of aortic aneurysm or aortic dissection. Nursing Notes Stated Complaint: CHEST PAIN/SHORTNESS OF BREATH Chief Complaint: Chest Pain Nursing Notes Reviewed: Yes Allergies: Coded Allergies: Macrolide Antibiotics (Verified Allergy, Severe, SWELLING, 11/27/16) HIVES, SWELLING, SOB Penicillins (Verified Allergy, Severe, SWELLING, HIVES, 11/27/16) HIVES, SWELLING, SOB codeine (Verified Allergy, Severe, VOMITING, 11/27/16) erythromycin ethylsuccinate (Verified Allergy, Severe, INSIDE SWELL UP, ) TAPE (Verified Allergy, Unknown, PLASTIC TAPE, 11/27/16) ampicillin (Verified Allergy, Unknown, UNKNOWN, 11/27/16) clindamycin (Verified Allergy, Unknown, UNKNOWN, 11/27/16) GI BLEED... (07/11/15.. pt contacted at pharmacy request and asked about clindamycin allergy- states she knows something at one time had given her black stools- but she is not certain of whether or not it was clindamycin. Pharmacy notified of pt response.) Scheduled Alendronate (Binosto) 70 Mg Tablet.eff 70 MG PO WEEKLY ON SATURDAYS Atorvastatin (Lipitor) 20 Mg Tablet 20 MG PO DAILY Beclomethasone Dipropionate (Qvar) 8.7 Gm Aer.w.adap 1 PUFF INHALATION BID Buspirone (Buspirone) 15 Mg Tablet 15 MG PO TID AM, NOON, PM Calcium Carbonate/Vitamin D3 (Calcium 600 + Vit D 400 Softgl) 1 Each Capsule 1 EACH PO QAM Cholecalciferol (Vitamin D3) (Vitamin D3) 1,000 Unit Tab.chew 1,000 UNIT PO DAILY Digoxin (Digoxin) 125 Mcg Tablet 125 MCG PO noon Fluoxetine (Fluoxetine) 20 Mg Capsule 40 MG PO DAILY Furosemide (Furosemide) 40 Mg Tablet 60 MG PO DAILY Guaifenesin (Guaifenesin ER) 600 Mg Tab.er.12h 1,200 MG PO Q12 Lisinopril (Lisinopril) 10 Mg Tablet 10 MG PO BID Metoprolol Tartrate (Metoprolol Tartrate) 100 Mg Tablet 100 MG PO BID Mirtazapine (Mirtazapine) 15 Mg Tablet 15 MG PO HS Oxybutynin Chloride (Oxybutynin Chloride) 5 Mg Tablet 5 MG PO TID AM, NOON, PM Phenytoin Sodium ER (Dilantin) 100 Mg Cap 100 MG PO TID AM, NOON, PM Phenytoin Sodium ER (Dilantin) 30 Mg Capsule 30 MG PO TID AM, NOON, PM Potassium Chloride (Potassium Chloride) 20 Meq Tab.er.prt 20 MEQ PO DAILYWL Prednisone (Deltasone) 20 Mg Tablet 40 MG PO DAILY Vitamin A (Vitamin A) 8,000 Unit Capsule 8,000 UNIT PO QAM Warfarin Sodium (Warfarin Sodium) 2.5 Mg Tablet 2.5 MG PO ,,F Warfarin Sodium (Warfarin Sodium) 2.5 Mg Tablet 5 MG PO ,,, Scheduled PRN Albuterol HFA (Proair HFA) 8.5 Gm Hfa.aer.ad 1 PUFFS INHALATION Q4H PRN PRN For Shortness of Breath Albuterol Neb Soln (Albuterol Neb Soln) 2.5 Mg/3 Ml Vial.neb 1 NEB INHALATION TID PRN PRN For Shortness of Breath Benzonatate (Benzonatate) 100 Mg Capsule 100 MG PO TID PRN PRN For Cough Lorazepam (Lorazepam) 0.5 Mg Tablet 0.5 MG PO BID PRN PRN For Anxiety oxyCODONE-Acetaminophen 5-325 mg (oxyCODONE-Acetaminophen 5-325 mg) 1 Each Tablet 1 EACH PO BID PRN PRN For Pain General Time Seen by MD: 18:48 Chief Complaint Chest pain Hx Obtained From: Patient, Other family... Arrived By: Walk-in Sudden in Onset?: Yes Onset Occurred: 21 - 23 hours ago Symptom Duration: Intermittent Location: : Substernal Quality: Pressure Radiation: : Back Severity: Current: Mild Severity: Maximum: Mild Recent Healthcare: Recent doctor visit, Recent hospitalization Similar Sx Previous: Yes Past Medical History Past Medical History Notes: PCP: Arlene Dowling Past Medical History Cataracts Cirrhosis Hepatitis C Kidney stones Acute respiratory failure and hypoxemia Diastolic heart failure Anxiety hemachromatosis Arthritis Reports: Asthma, COPD, Congestive heart failure, Hypertension Reports: Atrial fibrillation, Depression, Seizure disorder Past Surgical History Knee surgery Appendectomy with partial colectomy Eye surgery Phlebotomy Hemochromotosis Tubal Shunt in arm Reports: Carpal tunnel Family History Noncontributory Smoking History Former Smoker Social History Alcohol Use: Denies alcohol use Drug Use: Denies drug use Other Social History: Lives alone, Local resident Occupation lives by self, has help once a week 09/27/2016 Ambulatory Status Walker Review of Systems Basic Review of Systems Eyes: Vision NL, No discharge ENT: Hearing NL Constitutional: Reports: Fever (subjective) Respiratory: Reports: Non-productive cough, Shortness of breath Cardiovascular: Reports: Chest pain (Intermittent; substernal ), Palpitations Complete sys rev & neg: except as marked. Physical Exam Initial Vital Signs Vital Signs (First) Date Time Temp Pulse Resp B/P Pulse Ox O2 Delivery O2 Flow Rate FiO2 11/27/16 18:28 36.3 52 20 165/100 93 Room Air Initial VS: Reviewed Head / Eyes: Atraumatic, Normocephalic, PERRL ENT: Mucous membranes moist, Conjunctiva normal, No scleral icterus Neck: Supple, Non-tender, Full range of motion Extremities: Vascular intact, Neuro intact Skin: Warm, Dry, No cyanosis Neurologic: Alert, Oriented, Nonfocal Psychiatric: Mood/affect normal, Behavior normal, Normal thought content General/Constitutional: Awake, Alert Respiratory / Chest: Atraumatic Resp Distress / Stridor: Positive: Resp distress mild Pursed lip breathing Diminished bilateral breath sounds Tachypneic Cardiovascular: Heart sounds NL Heart Rate / Rhythm: Positive: Irreg irregular rhythm, Tachycardia Trace edema bilateral legs Abdomen: Soft, Non-tender, No guarding, No rebound Interpretation & Diagnostics Interpretation & Diagnostics: NEGATIVE FOR INFLUENZA TYPE A AND B Lab Results Interpretation Result Diagram: 11/27/16 1900 11/28/16 0345 Test 11/27/16 19:00 White Blood Count 8.1th/mm3 (3.8-10.1) Red Blood Count 3.75mil/mm3 (3.90-5.20) Hemoglobin 12.7g/dL (12.0-15.6) Hematocrit 38.4% (35.0-46.0) Mean Corpuscular Volume 102.4fL (81-100) Mean Corpuscular Hemoglobin 33.9pg (27.0-35.0) Mean Corpuscular Hemoglobin Concent 33.1% (32.0-37.0) Red Cell Distribution Width 14.5% (12.3-15.4) Platelet Count 196bil/L (150-400) Neutrophils (%) (Auto) 68.5% (40-74) Lymphocytes (%) (Auto) 18.3% (14-46) Monocytes (%) (Auto) 10.8% (4-12) Eosinophils (%) (Auto) 1.6% (0-5) Basophils (%) (Auto) 0.6% (0-3) Magnesium Level 1.6mg/dL (1.6-2.6) Total Bilirubin 0.7mg/dL (0.0-1.2) Aspartate Amino Transf (AST/SGOT) 56U/L (0-50) Alanine Aminotransferase (ALT/SGPT) 28U/L (0-32) Alkaline Phosphatase 146U/L (25-165) Troponin T < 0.010ug/L (0.0-0.011) Pro-B-Type Natriuretic Peptide 4981pg/mL (0-301) Total Protein 7.3g/dL (6.4-8.4) Albumin 3.3g/dL (3.4-5.0) Procalcitonin 0.08ng/mL (See Comment) Hold Bridges Top Tube Received (Received) Pulse Oximetry Interpretation Pulse Oximetry Interpretation: 93% on room air ECG Interpretation ECG Interpretation: A-fib with rate of 134 Inferior infarct, old Anterior infarct, old Time: 18:45 Interpreted by: ED physician X-Ray Chest Interpretation Chest Xray Interpretation: IMPRESSION: Focal consolidation in the right lung base suspicious for pneumonia. Recommend followup imaging to resolution a finding to exclude underlying mass. Dictated by: Fely Wilde MD, PhD on 11/27/2016 at 19:46 Interpretation / Wet Read by: Interpret - Radiologist Re-Eval/Medical Decision Source of Hx: Old records Time of Eval: 21:04 Re-Evaluation/Progress Note: Pt. rechecked. Rates improved. Pt. still has chest pain with deep breathing. Treatment for pneumonia will be given in ED. Notified pt. of labs and results. Pt. will be admitted. Pt. understands and agrees with plan. All questions have been addressed. Consultation : Referral / Consult Name: Diane Anand DO Consulted With: Hospitalist Call Returned at: 21:27 Photolithographer: Will see patient, Agrees with eval, Agrees with plan, Accepts admit Note: Spoke with Dr. Anand, hospitalist, regarding pt.'s case. She agrees and accepts admit. Counseled Regarding: Diagnosis, Lab results, Need for admission Discharge & Departure Primary Impression: Right lower lobe pneumonia Pneumonia type: due to unspecified organism Qualified Code: J18.9 - Pneumonia, unspecified organism Additional Impression: Atrial fibrillation with rapid ventricular response Disposition: ADMITTED TO HOSPITAL Discharge Condition All VS Reviewed: Yes Condition: Stable Referrals: Arlene Dowling MD (PCP) Scribe Attestation Portions of this note were transcribed by Angie Lindsay and Jennifer Cordon I, Dr. Glez personally performed the history, physical exam and medical decision-making ; I reviewed and confirmed the accuracy of the information in the transcribed note. Signed by: Angie Lindsay and Clint Castanon, 11/28/2016 and 0055. copies to: Arlene Dowling MD, Todd P DO Nov 27, 2016 18:49 Keke Lindsay [Angie] Nov 27, 2016 19:00 Jennifer Cordon Nov 28, 2016 00:56 Pulse Oximetry Interpretation: 93% on room air ECG Interpretation ECG Interpretation: A-fib with rate of 134 Inferior infarct, old Anterior infarct, old Time: 18:45 Interpreted by: ED physician X-Ray Chest Interpretation Chest Xray Interpretation: IMPRESSION: Focal consolidation in the right lung base suspicious for pneumonia. Recommend followup imaging to resolution a finding to exclude underlying mass. Dictated by: Fely Wilde MD, PhD on 11/27/2016 at 19:46 Interpretation / Wet Read by: Interpret - Radiologist Re-Eval/Medical Decision Source of Hx: Old records Time of Eval: 21:04 Re-Evaluation/Progress Note: Pt. rechecked. Rates improved. Pt. still has chest pain with deep breathing. Treatment for pneumonia will be given in ED. Notified pt. of labs and results. Pt. will be admitted. Pt. understands and agrees with plan. All questions have been addressed. Consultation : Referral / Consult Name: Diane Anand DO Consulted With: Hospitalist Call Returned at: 21:27 Photolithographer: Will see patient, Agrees with eval, Agrees with plan, Accepts admit Note: Spoke with Dr. Anand, hospitalist, regarding pt.'s case. She agrees and accepts admit. Counseled Regarding: Diagnosis, Lab results, Need for admission Discharge & Departure Primary Impression: Right lower lobe pneumonia Pneumonia type: due to unspecified organism Qualified Code: J18.9 - Pneumonia, unspecified organism Additional Impression: Atrial fibrillation with rapid ventricular response Disposition: ADMITTED TO HOSPITAL Discharge Condition All VS Reviewed: Yes Condition: Stable Referrals: Arlene Dowling MD (PCP) Scribe Attestation Portions of this note were transcribed by Angie Lindsay and Jennifer Cordon I, Dr. Glez personally performed the history, physical exam and medical decision-making ; I reviewed and confirmed the accuracy of the information in the transcribed note. Signed by: Angie Lindsay and Clint Castanon, 11/28/2016 and 0055. copies to: Arlene Dowling MD, Todd P DO Nov 27, 2016 18:49 Keke Lindsay [Angie] Nov 27, 2016 19:00 Jennfier Cordon Nov 28, 2016 00:56
[2016-11-27] MEDS ORDERED: Diltiazem 5 mg/mL 5 mL Inj IVPUSH ONE (19:00)
[2016-11-27 19:11] LABS: BASOPHILS % (AUTO) 0.6 % (0-3); EOSINOPHILS % (AUTO) 1.6 % (0-5); MONOCYTES % (AUTO) 10.8 % (4-12); Mean Corpuscular Hemoglobin 33.9 pg (27.0-35.0); Mean Corpuscular Volume 102.4 fL (81-100); NEUTROPHILS % (AUTO) 68.5 % (40-74); Platelet Count 196 bil/L (150-400)
[2016-11-27 19:34] LABS: TROPONIN T < 0.010 ug/L (0.0-0.011)
[2016-11-27 19:39] LABS: INR 1.17 ratio
[2016-11-27 19:42] LABS: Magnesium 1.6 mg/dL (1.6-2.6)
--- NOTE | 2016-11-27 19:47 | DRSVH ---
PROCEDURE: X-RAY CHEST ONE VIEW, PORTABLE ([id number]) INDICATIONS: chest pain TECHNIQUE: One view of the chest was acquired. COMPARISON: [facility], CR, XR CHEST 1VW (PORTABLE), 11/07/2016, 9:09. FINDINGS: Surgical changes and devices: None. Lungs and pleura: No pleural effusions or pneumothorax. Focal opacity noted in the right lung base/c ostophrenic angle suspicious for pneumonia. Mediastinum: Mediastinal contours appear normal. Heart size is enlarged. Bones and chest wall: Old right ninth rib fracture is stable compared to prior examination. No suspi cious bony lesions. Overlying soft tissues appear unremarkable. IMPRESSION: Focal consolidation in the right lung base suspicious for pneumonia. Recommend followup imaging to resolution a finding to exclude underlying mass. Dictated by: Fely Wilde MD, PhD on 11/27/2016 at 19:46 Approved by: Fely Wilde MD, PhD on 11/27/2016 at 19:46
[2016-11-27] MEDS ORDERED: MethylprednisoLONE Sodium Succinate 62.5 mg/mL 2 mL Inj IVPUSH ONE (20:00)
[2016-11-27] MEDS ORDERED: Cefepime Inj 2 GM in IV Premix 1 EACH IV SCH (20:30)
[2016-11-27] MEDS ORDERED: Polyethylene Glycol (PEG) 17 Gm Powder PO PRN (21:30)
[2016-11-27] MEDS ORDERED: Ondansetron 2 mg/mL 2 mL Inj IVPUSH PRN (21:30)
[2016-11-27] MEDS ORDERED: Alum-Mag Hydrox-Simeth 30 mL Suspension PO PRN (21:30)
[2016-11-27 22:20] VITALS: BP 139/77; PULSE 118; RESP 26; O2SAT 93
[2016-11-27] MEDS ORDERED: Albuterol 2.5 mg/3 mL Inhalation Solution NEB PRN (22:40)
[2016-11-27 22:44] VITALS: BP 150/79; PULSE 108; RESP 24; O2SAT 100
[2016-11-27] MEDS ORDERED: levoFLOXacin Inj 500 MG in IV Premix 1 EACH IV SCH (22:55)
[2016-11-27] MEDS: Vancomycin Dose per Pharmacist XX SCH (22:55)
[2016-11-27 23:04] LABS: APPEARANCE,URINE HAZY (CLEAR,HAZY); COLOR,URINE DARK YELLOW (YELLOW)
[2016-11-27 23:06] LABS: OCCULT BLOOD,URINE NEGATIVE (NEGATIVE); UROBILINOGEN,URINE NORMAL (NORMAL)
[2016-11-27 23:07] LABS: ICTOTEST,URINE POSITIVE (Negative)
[2016-11-27] MEDS: HYDROcodone-APAP 5-325 mg Tablet PO PRN (23:12)
[2016-11-27] MEDS: 0.9% Sodium Chloride 1,000 ML IV SCH (23:12)
[2016-11-27] MEDS: MeTOProlol 1 mg/mL 5 mL Inj IVPUSH PRN (23:44)
[2016-11-27] MEDS ORDERED: levoFLOXacin Inj 500 MG in IV Premix 1 EACH IV ONE (23:46)
--- NOTE | 2016-11-27 23:48 | PCM.HPMED ---
Subjective Date of Service Nov 27, 2016 Primary Provider: Admitting Physician: Diane Anand DO Primary Care Physician: Arlene Dowling MD Attending Physician: Diane Anand DO Admit Status: From the Emergency Department Chief Complaint: sob, cough History of Present Illness: Ms. Rebolledo is a 70 year old woman with history of hemochromatosis, epilepsy, COPD on home oxygen, and chronic atrial fibrillation, that presented to the ED for complaint of intermittent substernal chest pain that radiates to her back. She describes the pain as chest pressure, and is worse with deep inhalation. She also complains of productive cough and shortness of breath, but denies any fever, chills, N/V/D, or myalgia. She was recently admitted a couple weeks ago for COPD exacerbation. She reports her symptoms from that admission and improved, but developed worsening productive cough and shortness of breath in the past few days. Denies any urinary or abdominal symptoms. She denies any sick contacts, she lives alone in an apartment here in [place]. She reports that she uses 2 L of oxygen at home and has not had to increase that. She denies any increase in her OVIEDO and reports only using 2 pillows at night. She has not noticed any peripheral edema. She report she has been compliant on her medications and denies any bleeding issues. In the ED she was afebrile and saturating around 93% on 2 L of oxygen. She was noted to be in A. fib with rates in the 120s and was given IV Cardizem 10 mg, without much effect. Her labs did not show an elevated white count or left shift and her proBNP was approximately baseline. Her INR was sub-therapeutic at 1.17. A chest x-ray showed right lower lobe consolidation, suspicious for pneumonia. An influenza screen was negative, and she was given IV methylprednisone but continued to be fairly wheezy on exam so she was subsequently started on IV cefepime for pneumonia. Review of Systems: 12 Point ROS negative except as stated in HPI Home Medications From ED documentation at admission; med rec to be completed Alendronate (Binosto) 70 Mg Tablet.eff 70 MG PO WEEKLY ON SATURDAYS Atorvastatin (Lipitor) 20 Mg Tablet 20 MG PO DAILY Beclomethasone Dipropionate (Qvar) 8.7 Gm Aer.w.adap 1 PUFF INHALATION BID Buspirone (Buspirone) 15 Mg Tablet 15 MG PO TID AM, NOON, PM Calcium Carbonate/Vitamin D3 (Calcium 600 + Vit D 400 Softgl) 1 Each Capsule 1 EACH PO QAM Cholecalciferol (Vitamin D3) (Vitamin D3) 1,000 Unit Tab.chew 1,000 UNIT PO DAILY Digoxin (Digoxin) 125 Mcg Tablet 125 MCG PO noon Fluoxetine (Fluoxetine) 20 Mg Capsule 40 MG PO DAILY Furosemide (Furosemide) 40 Mg Tablet (Per Dr. Dowling, patient take 40mg daily and can increase to 60mg if increase swelling noted) Lisinopril (Lisinopril) 10 Mg Tablet 10 MG PO BID Metoprolol PER DR. Dowling, patient is on Metoprolol Succinate 150mg Daily) Mirtazapine (Mirtazapine) 15 Mg Tablet 15 MG PO HS Oxybutynin Chloride (Oxybutynin Chloride) 5 Mg Tablet 5 MG PO TID AM, NOON, PM Phenytoin Sodium ER (Dilantin) 100 Mg Cap 100 MG PO TID AM, NOON, PM Potassium Chloride (Potassium Chloride) 20 Meq Tab.er.prt 20 MEQ PO DAILYWL Sennosides (Senna) 8.6 Mg Tablet 17.2 MG PO QAM Vitamin A (Vitamin A) 8,000 Unit Capsule 8,000 UNIT PO QAM Warfarin Sodium (Warfarin Sodium) 2.5 Mg Tablet 2.5 MG PO ,, Warfarin Sodium (Warfarin Sodium) 2.5 Mg Tablet 5 MG PO ,,, Scheduled PRN Albuterol HFA (Proair HFA) 8.5 Gm Hfa.aer.ad 1 PUFFS INHALATION Q4H PRN PRN For Shortness of Breath Albuterol Neb Soln (Albuterol Neb Soln) 2.5 Mg/3 Ml Vial.neb 1 NEB INHALATION TID PRN PRN For Shortness of Breath Lorazepam (Lorazepam) 0.5 Mg Tablet 0.5 MG PO BID PRN PRN For Anxiety oxyCODONE-Acetaminophen 5-325 mg (oxyCODONE-Acetaminophen 5-325 mg) 1 Each Tablet 1 EACH PO BID PRN PRN For Pain Allergies Coded Allergies: Macrolide Antibiotics (Verified Allergy, Severe, SWELLING, 11/27/16) HIVES, SWELLING, SOB Penicillins (Verified Allergy, Severe, SWELLING, HIVES, 11/27/16) HIVES, SWELLING, SOB codeine (Verified Allergy, Severe, VOMITING, 11/27/16) erythromycin ethylsuccinate (Verified Allergy, Severe, INSIDE SWELL UP, ) TAPE (Verified Allergy, Unknown, PLASTIC TAPE, 11/27/16) ampicillin (Verified Allergy, Unknown, UNKNOWN, 11/27/16) clindamycin (Verified Allergy, Unknown, UNKNOWN, 11/27/16) GI BLEED... (07/11/15.. pt contacted at pharmacy request and asked about clindamycin allergy- states she knows something at one time had given her black stools- but she is not certain of whether or not it was clindamycin. Pharmacy notified of pt response.) PMH PMH Cataracts Cirrhosis Hepatitis C Kidney stones Chronic respiratory failure and hypoxemia Diastolic heart failure -[id number]% Anxiety hemachromatosis Arthritis COPD on 2 L oxygen at home HTN Chronic persistent Afib Seizure disorder on Phenytoin Depression Surgical History Knee surgery Appendectomy with partial colectomy Eye surgery Phlebotomy Hemochromotosis Tubal Shunt in arm Reports: Carpal tunnel Family History Father: D. 53; unknown causes; suspect cancer Mother: D. late 80s, suspect 'old age' No other family has Dx hemochromatosis; denies FHx cardiac disease Social History Occupation: unemployed Hx Alcohol Use: No Hx Substance Use: No Hx Tobacco Use: Yes Smoking Status: Former Smoker Living Arrangement: Alone Social History Hx Alcohol Use: Yes (occasonally) Hx Substance Use: No Hx Tobacco Use: Yes Smoking Status: Former Smoker Living Arrangement: Alone Exam Vital Signs Vital Sign - Last Date Time Temp Pulse Resp B/P Pulse Ox O2 Delivery O2 Flow Rate FiO2 11/27/16 22:20 36.7 118 26 139/77 93 Nasal Cannula 2 Exam General: thin frail female in mild respiratory distress HEENT: Sclera anicteric oropharynx nonerythematous, PERRLA, oral mucosa dry Neck: Soft, nontender, no JVP noted CV: Irregularly irregular, with soft systolic murmur Respiratory: Mild diffuse wheezing, mild increase in respiratory effort, right lower lobe crackles noted Abdomen: Soft, obese, nontender, normoactive bowel sounds noted MSK: Muscle strength grossly intact, no peripheral edema noted Neuro: Alert and oriented 3, speaks full sentences, light sensation grossly intact Skin: Warm, dry, no rashes noted, patchy ecchymoses along arms Psych: Appropriate mood and affect Lab and Diagnostics Result Diagram: 11/27/16189911/27/161899 X-Rays, CTs and MRIs PROCEDURE: X-RAY CHEST ONE VIEW, PORTABLE ([id number]) INDICATIONS: chest pain TECHNIQUE: One view of the chest was acquired. COMPARISON: [facility], CR, XR CHEST 1VW (PORTABLE), 11/07/2016, 9: 09. FINDINGS: Surgical changes and devices: None. Lungs and pleura: No pleural effusions or pneumothorax. Focal opacity noted in the right lung base/costophrenic angle suspicious for pneumonia. Mediastinum: Mediastinal contours appear normal. Heart size is enlarged. Bones and chest wall: Old right ninth rib fracture is stable compared to prior examination. No suspicious bony lesions. Overlying soft tissues appear unremarkable. IMPRESSION: Focal consolidation in the right lung base suspicious for pneumonia. Recommend followup imaging to resolution a finding to exclude underlying mass. 12-lead ECG 11/27/16 at 1845 Atrial FIbrillation, rate of 134 with QTc of 463 Assessment & Plan Ms. Rebolledo is a 70 year old woman with history of hemochromatosis, epilepsy, COPD on home 2L O2, and chronic atrial fibrillation, that presented to the ED for CP, SOB, and productive cough that began a couple of days ago. She was also found to be in AFib with RVR. She was admitted for HCAP and Afib treatment. #Healthcare Associated Pneumonia, Acute, POA As demonstrated with reports of new productive cough, SOB, and RLL consolidation on CXR. Influenza screen negative. Due to her many allergies, will plan to start IV Cefepime, IV Levaquin, and IV Vancomycin for HCAP coverage (11/27). Consider narrower antibiotics when appropriate Blood cultures pending Procalcitonin pending IV NS at 60mls/hr for gentle rehydration. # Chronic Persistent Atrial fibrillation on anticoagulation therapy, POA Currently exacerbated by her Pneumonia and is in rapid rate. Given 10mg of IV Cardizem without much effect, will trial IV Metoprolol 5mg x 3 doses then oral Metoprolol succinate - Warfarin per pharmacy; she is currently subtherapeutic. - Continue home meds: Metoprolol Succinate 150mg Daily and Digoxin - Digoxin levels as needed #History of COPD, POA Requires 2L of Oxygen at home. Currently saturating well on 2 L SpO2 target of 88-92% #H/o Diastolic heart failure, POA - Currently clinically dehydrated - Echo 09/2016: [id number]%, Severe b/l Atrial enlargement - Will hold Lasix while she is being hydrated #Epilepsy, chronic. Presumed stable - Continue antiepileptic medications: Phenytoin -Phenytoin levels as needed Other stable chronic conditions: Anxiety HCV Hemochromatosis - PRN: Bowel/fever/pain/antiemetic - DIET: Heart healthy - Code: DNR/DNI - PCP: Nitesh Dispo: Due to patient's decompensation and medical complexity, she will require at least 2 midnights for evaluation and treatment. Pain Evaluation: Adequate Pain Control VTE Prophylaxis: Sub-Q Enoxaparin Resuscitation Status: DNR/DNI:Do Not Resuscitate/Intubate Attending Statement The patient was seen and examined together with house staff on 11/27/2016 and I agree with the history, exam and plan as outlined in the note above. copies to: Arlene Dowling MD [facility] Nov 27, 2016 22:32 Diane Anand DO Nov 28, 2016 06:23
[2016-11-28] VITALS (10 sets, daily range): BP systolic 117–151; BP diastolic 77–96; PULSE 75–128; RESP 18–24; O2SAT 94–100
[2016-11-28] MEDS: Vancomycin Inj 1,000 MG in IV Premix 1 EACH IV SCH (00:34)
--- NOTE | 2016-11-28 01:07 | PCM.CONPHA ---
Subjective Date of Service: Nov 27, 2016 Requesting Provider: Alessandro Hernandez DO sob, cough History of Present Illness HCAP Reason for Pharmacy Consult: Vancomycin Dosing Objective Vital Signs Date Time Temp Pulse Resp B/P Pulse Ox O2 Delivery O2 Flow Rate FiO2 11/27/16 22:54 Supplement Oxygen 11/27/16 22:44 37.1 108 24 150/79 100 Nasal Cannula 4.00 11/27/16 22:20 36.7 118 26 139/77 93 Nasal Cannula 2 11/27/16 18:28 36.3 52 20 165/100 93 Room Air Weight (Kilograms): 55.000 Height (Feet): 5 Height (Inches): 5.00 Test 11/27/16 19:00 11/27/16 19:01 11/27/16 22:40 White Blood Count 8.1th/mm3 (3.8-10.1) Red Blood Count 3.75mil/mm3 (3.90-5.20) Hemoglobin 12.7g/dL (12.0-15.6) Hematocrit 38.4% (35.0-46.0) Mean Corpuscular Volume 102.4fL (81-100) Mean Corpuscular Hemoglobin 33.9pg (27.0-35.0) Mean Corpuscular Hemoglobin Concent 33.1% (32.0-37.0) Red Cell Distribution Width 14.5% (12.3-15.4) Platelet Count 196bil/L (150-400) Neutrophils (%) (Auto) 68.5% (40-74) Lymphocytes (%) (Auto) 18.3% (14-46) Monocytes (%) (Auto) 10.8% (4-12) Eosinophils (%) (Auto) 1.6% (0-5) Basophils (%) (Auto) 0.6% (0-3) Sodium Level 138mEq/L (134-144) Potassium Level 4.4mEq/L (3.5-5.2) Chloride Level 100mEq/L (97-108) Carbon Dioxide Level 27mmol/L (18-29) Blood Urea Nitrogen 26mg/dL (8-27) Creatinine 1.01mg/dL (0.57-1.00) Estimat Glomerular Filtration Rate 77mL/min (>59) Glucose Level 151mg/dL (60-99) Calcium Level 9.0mg/dL (8.5-10.1) Magnesium Level 1.6mg/dL (1.6-2.6) Total Bilirubin 0.7mg/dL (0.0-1.2) Aspartate Amino Transf (AST/SGOT) 56U/L (0-50) Alanine Aminotransferase (ALT/SGPT) 28U/L (0-32) Alkaline Phosphatase 146U/L (25-165) Troponin T < 0.010ug/L (0.0-0.011) Pro-B-Type Natriuretic Peptide 4981pg/mL (0-301) Total Protein 7.3g/dL (6.4-8.4) Albumin 3.3g/dL (3.4-5.0) Hold Bridges Top Tube Received (Received) Prothrombin Time 12.6sec (8.1-12.5) Prothromb Time International Ratio 1.17ratio Urine Color Dark yellow (YELLOW) Urine Appearance Hazy (CLEAR,HAZY) Urine pH 6.0 (5.0-8.0) Urine Specific [place] 1.025 (1.003-1.035) Urine Protein Negativemg/dL (NEG,TRACE) Urine Glucose (UA) Negativemg/dL (NEGATIVE) Urine Ketones Negativemg/dL (NEGATIVE) Urine Occult Blood Negative (NEGATIVE) Urine Nitrite Negative (NEGATIVE) Urine Bilirubin Small (NEGATIVE) Urine Ictotest Positive (Negative) Urine Urobilinogen Normalmg/dL (NORMAL) Urine Leukocyte Esterase Trace (NEGATIVE) Urine RBC 0-2/hpf (0-2) Urine WBC 6-10/hpf (0-5) Urine Epithelial Cells Moderate/hpf (NONE-MOD) Urine Crystals None seen (NONE SEEN) Urine Bacteria None/hpf (NONE-FEW) Urine Hyaline Casts None/lpf (NONE) Urine Granular Casts None seen (NONE SEEN) Urine Waxy Casts None seen (NONE SEEN) Urine Red Blood Cell Casts None seen (NONE SEEN) Urine White Blood Cell Casts None seen (NONE SEEN) Urine Mucus Present (None Seen) Urine Trichomonas None seen (NONE SEEN) Urine Yeast None (NONE SEEN) Urine Culture Reflexed Indicated Assessment/Plan Assessment/Plan A/ - 71 y/o female patient admitted late 11/27 complaining of shortness of breath, suspected of pneumonia that required Vancomycin for empirical coverage - Afebrile, WBC: 8.6 without shift - Flu screen negative, blood and urine cultures: pending - In ER, received one time dose of Cefepime, comitant antibiotics including ceftriaxone and Levaquin (renal dosing) - Wt; 55kg, ht; 165cm, SCr: 1.01 mg/dL, estimated clearance ~ 43 ml/min (ABW ), Vd ~ 39 L - Target trough: 15-20 P/ - Give Vancomycin 1G iv q24, trough level ordered before 3rd dose @ 2330 on . Daily BPM ordered for next 5 days Pharmacy will continue to monitor and make necessary adjustment according to patient's clinical status and labs results Thank you for consulting clinical pharmacy Anant Coppola, PharmD, [facility] Fifi Coppola Nov 28, 2016 01:07
[2016-11-28 04:18] LABS: INR 1.26 ratio
[2016-11-28] MEDS ORDERED: cefTRIAXone Inj 1,000 MG in IV Premix 1 EACH IV SCH (08:30)
[2016-11-28] MEDS ORDERED: Influenza (Adult) Vaccine 0.5 mL Syringe IM ONE (08:30)
[2016-11-28] MEDS: Albuterol-Ipratropium 3 mL Inhalation Solution NEB SCH ×4 (08:30→20:30)
[2016-11-28] MEDS: MeTOProlol XL 50 mg ER24 Tablet PO SCH (08:59)
[2016-11-28] MEDS: BusPIRone 15 mg Dividose Tablet PO SCH ×3 (08:59→20:35)
[2016-11-28] MEDS: Vancomycin Dose per Pharmacist XX SCH (09:00)
[2016-11-28] MEDS ORDERED: Potassium Chloride 20 mEq SR Tablet PO SCH (12:00)
--- NOTE | 2016-11-28 13:11 | PCM.PNMED ---
Subjective Date of Service Nov 28, 2016 Subjective She feels globally weak. She is having dry cough. No fevers or chills. She left anterior pleuritic chest pain. Exam Vital Signs Vital Sign - Last Date Time Temp Pulse Resp B/P Pulse Ox O2 Delivery O2 Flow Rate FiO2 11/28/16 12:38 101 11/28/16 12:21 37.0 18 123/84 94 Nasal Cannula 2.00 Intake and Output 11/27/16 11/27/16 11/28/16 Cumulative From/Thru 14:59 22:59 06:59 11/27/16 18:28 - 11/28/16 06:12 Intake Total 754 ml 754 ml Output Total 200 ml 200 ml Balance 554 ml 554 ml Intake Oral 220 ml 220 ml IV Total 534 ml 534 ml Output Urine Total 200 ml 200 ml Exam O 3, fluent speech Supple. Lungs and elbow for 2 out of 4 breath sounds with expiratory wheezing. Heart is irregular without murmur gallop or rub Abdomen soft nondistended extremities are free of edema good pedal pulses. Skin is free of rash or lesions IVs and Medications Medications Reviewed: Medications were reviewed in detail Lab and Diagnostics Result Diagram: 11/27/16 1900 11/28/16 0345 X-Rays, CTs and MRIs PROCEDURE: X-RAY CHEST ONE VIEW, PORTABLE ([id number]) INDICATIONS: chest pain TECHNIQUE: One view of the chest was acquired. COMPARISON: [facility], CR, XR CHEST 1VW (PORTABLE), 11/07/2016, 9: 09. FINDINGS: Surgical changes and devices: None. Lungs and pleura: No pleural effusions or pneumothorax. Focal opacity noted in the right lung base/costophrenic angle suspicious for pneumonia. Mediastinum: Mediastinal contours appear normal. Heart size is enlarged. Bones and chest wall: Old right ninth rib fracture is stable compared to prior examination. No suspicious bony lesions. Overlying soft tissues appear unremarkable. IMPRESSION: Focal consolidation in the right lung base suspicious for pneumonia. Recommend followup imaging to resolution a finding to exclude underlying mass. 12-lead ECG 11/27/16 at 1845 Atrial FIbrillation, rate of 134 with QTc of 463 Assessment & Plan Ms. Rebolledo is a 70 year old woman with history of hemochromatosis, epilepsy, COPD on home 2L O2, and chronic atrial fibrillation, that presented to the ED for CP, SOB, and productive cough that began a couple of days ago. She was also found to be in AFib with RVR. She was admitted for HCAP and Afib treatment. #Healthcare Associated Pneumonia, Acute, POA As demonstrated with reports of new productive cough, SOB, and RLL consolidation on CXR. Influenza screen negative. Due to her many allergies, will plan to start IV Cefepime, IV Levaquin, and IV Vancomycin for HCAP coverage (11/27). Consider narrower antibiotics when appropriate No change to initial antibiotic plan at this point. Clinically she appears to be doing well. We will add a pneumococcal antigen test. # Chronic Persistent Atrial fibrillation on anticoagulation therapy, POA Currently exacerbated by her Pneumonia and is in rapid rate. Given 10mg of IV Cardizem without much effect, will trial IV Metoprolol 5mg x 3 doses then oral Metoprolol succinate - Warfarin per pharmacy; she is currently subtherapeutic. - Continue home meds: Metoprolol Succinate 150mg Daily and Digoxin - Digoxin levels as needed #History of COPD, POA. Mild exacerbation with reactive airways. Requires 2L of Oxygen at home. Currently saturating well on 2 L SpO2 target of 88-92% Bronchodilators when necessary. #H/o Diastolic heart failure, POA - Currently clinically dehydrated - Echo 09/2016: [id number]%, Severe b/l Atrial enlargement - Will hold Lasix while she is being hydrated #Epilepsy, chronic. Presumed stable - Continue antiepileptic medications: Phenytoin -Phenytoin levels as needed # Chronic kidney disease, stage III. POA. This appears to be stable. Will follow renal indices. Avoid nephrotoxins. Other stable chronic conditions: Anxiety HCV Hemochromatosis - PRN: Bowel/fever/pain/antiemetic - DIET: Heart healthy - Code: DNR/DNI - PCP: Nitesh Dispo: Due to patient's decompensation and medical complexity, she will require at least 2 midnights for evaluation and treatment. Pain Evaluation: Adequate Pain Control VTE Prophylaxis: Sub-Q Enoxaparin Resuscitation Status: DNR/DNI:Do Not Resuscitate/Intubate Time spent 30 minutes Adrien Pacheco MD Nov 28, 2016 13:11
[2016-11-28] MEDS: LORazepam 0.5 mg Tablet PO PRN (13:53)
[2016-11-28] MEDS ORDERED: oxyCODONE-Acetamin 5-325 mg Tablet PO PRN (13:55)
[2016-11-28] MEDS ORDERED: Albuterol 2.5 mg/3 mL Inhalation Solution NEB PRN (14:30)
--- NOTE | 2016-11-28 15:32 | PCM.CONPHA ---
Subjective Date of Service: Nov 28, 2016 atrial fibrillation Reason for Pharmacy Consult: Anticoagulation Management Objective Vital Signs Date Time Temp Pulse Resp B/P Pulse Ox O2 Delivery O2 Flow Rate FiO2 11/28/16 12:38 101 11/28/16 12:21 37.0 114 18 123/84 94 Nasal Cannula 2.00 11/28/16 11:23 100 18 99 Nasal Cannula 1.00 11/28/16 08:30 Supplement Oxygen 11/28/16 08:28 36.4 109 18 149/96 100 Nasal Cannula 1.00 11/28/16 06:02 80 11/28/16 03:42 36.9 95 20 151/77 100 Nasal Cannula 2.00 11/28/16 01:01 36.9 113 24 143/96 98 Nasal Cannula 2.00 11/27/16 22:54 Supplement Oxygen 11/27/16 22:44 37.1 108 24 150/79 100 Nasal Cannula 4.00 11/27/16 22:20 36.7 118 26 139/77 93 Nasal Cannula 2 11/27/16 18:28 36.3 52 20 165/100 93 Room Air Weight (Kilograms): 55.000 Height (Feet): 5 Height (Inches): 5.00 Test 11/27/16 19:00 11/27/16 22:40 11/28/16 03:45 White Blood Count 8.1th/mm3 (3.8-10.1) Red Blood Count 3.75mil/mm3 (3.90-5.20) Hemoglobin 12.7g/dL (12.0-15.6) Hematocrit 38.4% (35.0-46.0) Mean Corpuscular Volume 102.4fL (81-100) Mean Corpuscular Hemoglobin 33.9pg (27.0-35.0) Mean Corpuscular Hemoglobin Concent 33.1% (32.0-37.0) Red Cell Distribution Width 14.5% (12.3-15.4) Platelet Count 196bil/L (150-400) Neutrophils (%) (Auto) 68.5% (40-74) Lymphocytes (%) (Auto) 18.3% (14-46) Monocytes (%) (Auto) 10.8% (4-12) Eosinophils (%) (Auto) 1.6% (0-5) Basophils (%) (Auto) 0.6% (0-3) Magnesium Level 1.6mg/dL (1.6-2.6) Total Bilirubin 0.7mg/dL (0.0-1.2) Aspartate Amino Transf (AST/SGOT) 56U/L (0-50) Alanine Aminotransferase (ALT/SGPT) 28U/L (0-32) Alkaline Phosphatase 146U/L (25-165) Troponin T < 0.010ug/L (0.0-0.011) Pro-B-Type Natriuretic Peptide 4981pg/mL (0-301) Total Protein 7.3g/dL (6.4-8.4) Albumin 3.3g/dL (3.4-5.0) Procalcitonin 0.08ng/mL (See Comment) Hold Bridges Top Tube Received (Received) Urine Color Dark yellow (YELLOW) Urine Appearance Hazy (CLEAR,HAZY) Urine pH 6.0 (5.0-8.0) Urine Specific [place] 1.025 (1.003-1.035) Urine Protein Negativemg/dL (NEG,TRACE) Urine Glucose (UA) Negativemg/dL (NEGATIVE) Urine Ketones Negativemg/dL (NEGATIVE) Urine Occult Blood Negative (NEGATIVE) Urine Nitrite Negative (NEGATIVE) Urine Bilirubin Small (NEGATIVE) Urine Ictotest Positive (Negative) Urine Urobilinogen Normalmg/dL (NORMAL) Urine Leukocyte Esterase Trace (NEGATIVE) Urine RBC 0-2/hpf (0-2) Urine WBC 6-10/hpf (0-5) Urine Epithelial Cells Moderate/hpf (NONE-MOD) Urine Crystals None seen (NONE SEEN) Urine Bacteria None/hpf (NONE-FEW) Urine Hyaline Casts None/lpf (NONE) Urine Granular Casts None seen (NONE SEEN) Urine Waxy Casts None seen (NONE SEEN) Urine Red Blood Cell Casts None seen (NONE SEEN) Urine White Blood Cell Casts None seen (NONE SEEN) Urine Mucus Present (None Seen) Urine Trichomonas None seen (NONE SEEN) Urine Yeast None (NONE SEEN) Urine Culture Reflexed Indicated Urine Legionella pneumophilia Ag Negative (Negative) Prothrombin Time 13.5sec (8.1-12.5) Prothromb Time International Ratio 1.26ratio Sodium Level 138mEq/L (134-144) Potassium Level 4.8mEq/L (3.5-5.2) Chloride Level 100mEq/L (97-108) Carbon Dioxide Level 28mmol/L (18-29) Blood Urea Nitrogen 26mg/dL (8-27) Creatinine 1.02mg/dL (0.57-1.00) Estimat Glomerular Filtration Rate 76mL/min (>59) Glucose Level 278mg/dL (60-99) Calcium Level 8.6mg/dL (8.5-10.1) Assessment/Plan Assessment/Plan Assessment: * Patient is needing warfarin management for atrial fibrillation. * Patient received the home dosage of warfarin 5 mg on 11/27/16 after the baseline INR was 1.17. * Patient's INR goal range: 2-3 * Patient's INR on 11/28/16: 1.26 * Patient's INR is improving on the home regimen. Plan: * Will continue the warfarin home regimen for this patient by giving warfarin 2.5 mg on 11/28/16 and will reevaluate with the PT/INR on 11/29/16. * Will continue to follow. Leno Calderon Nov 28, 2016 15:32
[2016-11-28] MEDS: Phenytoin 100 mg ER Capsule PO SCH ×2 (15:37→20:34)
[2016-11-28] MEDS: MethylprednisoLONE Sodium Succinate 40 mg/mL Inj IVPUSH SCH (16:58)
[2016-11-28] MEDS: oxyCODONE-Acetamin 5-325 mg Tablet PO PRN (20:34)
[2016-11-28] MEDS: 0.9% Sodium Chloride 1,000 ML IV SCH ×2 (20:36→23:36)
[2016-11-28] MEDS: Fluticasone 100 mCg Inhaler INHALATION SCH (20:36)
[2016-11-28] MEDS: Cefepime Inj 2 GM in IV Premix 1 EACH IV SCH (20:37)
[2016-11-28] MEDS ORDERED: 0.9% Sodium Chloride 250 ML ONE (23:32)
[2016-11-29] VITALS (13 sets, daily range): BP systolic 128–159; BP diastolic 73–101; PULSE 67–131; RESP 16–22; O2SAT 94–99
[2016-11-29] MEDS: Levofloxacin 250 mg/50 mL D5W IV SCH ×2 (00:05→23:22)
[2016-11-29] MEDS: HYDROcodone-APAP 5-325 mg Tablet PO PRN ×3 (00:22→19:44)
[2016-11-29] MEDS: LORazepam 0.5 mg Tablet PO PRN ×2 (00:23→23:29)
[2016-11-29] MEDS: 0.9% Sodium Chloride 1,000 ML IV SCH ×3 (00:25→16:36)
[2016-11-29] MEDS: Vancomycin Inj 1,000 MG in IV Premix 1 EACH IV SCH (01:55)
[2016-11-29] MEDS: MethylprednisoLONE Sodium Succinate 40 mg/mL Inj IVPUSH SCH ×4 (01:55→23:22)
[2016-11-29] MEDS: oxyCODONE-Acetamin 5-325 mg Tablet PO PRN ×4 (03:53→23:29)
[2016-11-29 04:00] LABS: Mean Corpuscular Hemoglobin 34.4 pg (27.0-35.0); Mean Corpuscular Volume 102.1 fL (81-100)
[2016-11-29 04:10] LABS: INR 1.55 ratio
[2016-11-29] MEDS: Albuterol-Ipratropium 3 mL Inhalation Solution NEB SCH ×4 (07:41→22:32)
[2016-11-29] MEDS: MeTOProlol XL 50 mg ER24 Tablet PO SCH (09:52)
[2016-11-29] MEDS: Phenytoin 100 mg ER Capsule PO SCH ×3 (09:52→19:43)
[2016-11-29] MEDS: BusPIRone 15 mg Dividose Tablet PO SCH ×3 (09:52→19:42)
[2016-11-29] MEDS: Cefepime Inj 2 GM in IV Premix 1 EACH IV SCH (09:54)
[2016-11-29] MEDS: Fluticasone 100 mCg Inhaler INHALATION SCH ×2 (09:55→19:42)
--- NOTE | 2016-11-29 10:22 | PCM.PNMED ---
Subjective Date of Service Nov 29, 2016 Subjective Still having pruritic chest pain and a cough. Somewhat fatigued. No nausea or vomiting. No fevers or chills. She is globally weak. No bowel movement overnight. No problems with hematuria. Exam Vital Signs Vital Sign - Last Date Time Temp Pulse Resp B/P Pulse Ox O2 Delivery O2 Flow Rate FiO2 11/29/16 10:04 113 11/29/16 09:32 36.7 18 141/101 97 Nasal Cannula 1.00 Intake and Output 11/28/16 11/28/16 11/29/16 Cumulative From/Thru 15:00 23:00 07:00 11/27/16 18:28 - 11/29/16 06:24 Intake Total 1513 ml 880 ml 3147 ml Output Total 300 ml 300 ml 800 ml Balance 1213 ml 580 ml 2347 ml Intake Oral 880 ml 880 ml 1980 ml IV Total 633 ml 1167 ml Output Urine Total 300 ml 300 ml 800 ml # Voids 2 2 # Bowel Movements 1 1 Exam Alert oriented 3, normal affect Anicteric sclerae Neck supple Lungs are clear with normal effort. Heart is regular without murmur. Abdomen is soft nondistended. Extremities are free of edema good pedal pulses. IVs and Medications Medications Reviewed: Medications were reviewed in detail Lab and Diagnostics Result Diagram: 11/29/16 0340 11/29/16 0340 X-Rays, CTs and MRIs PROCEDURE: X-RAY CHEST ONE VIEW, PORTABLE ([id number]) INDICATIONS: chest pain TECHNIQUE: One view of the chest was acquired. COMPARISON: [facility], CR, XR CHEST 1VW (PORTABLE), 11/07/2016, 9: 09. FINDINGS: Surgical changes and devices: None. Lungs and pleura: No pleural effusions or pneumothorax. Focal opacity noted in the right lung base/costophrenic angle suspicious for pneumonia. Mediastinum: Mediastinal contours appear normal. Heart size is enlarged. Bones and chest wall: Old right ninth rib fracture is stable compared to prior examination. No suspicious bony lesions. Overlying soft tissues appear unremarkable. IMPRESSION: Focal consolidation in the right lung base suspicious for pneumonia. Recommend followup imaging to resolution a finding to exclude underlying mass. 12-lead ECG 11/27/16 at 1845 Atrial FIbrillation, rate of 134 with QTc of 463 Assessment & Plan Ms. Rebolledo is a 70 year old woman with history of hemochromatosis, epilepsy, COPD on home 2L O2, and chronic atrial fibrillation, that presented to the ED for CP, SOB, and productive cough that began a couple of days ago. She was also found to be in AFib with RVR. She was admitted for HCAP and Afib treatment. 1. Community-acquired Pneumonia, Acute, POA As demonstrated with reports of new productive cough, SOB, and RLL consolidation on CXR. Influenza screen negative. Due to her many allergies, will plan to start IV Cefepime, IV Levaquin, and IV Vancomycin for HCAP coverage (11/27). Consider narrower antibiotics when appropriate She had a negative pneumococcal antigen test. This point will focus her therapy to include ceftriaxone and doxycycline. 2. Chronic Persistent Atrial fibrillation on anticoagulation therapy, POA Currently exacerbated by her Pneumonia and is in rapid rate. Given 10mg of IV Cardizem without much effect, will trial IV Metoprolol 5mg x 3 doses then oral Metoprolol succinate - Warfarin per pharmacy; she is currently subtherapeutic. - Continue home meds: Metoprolol Succinate 150mg Daily and Digoxin - Digoxin levels as needed 3.COPD and chronic hypoxic respiratory failure, POA. Mild exacerbation with reactive airways. Requires 2L of Oxygen at home. Currently saturating well on 2 L SpO2 target of 88-92% Bronchodilators when necessary. 4. Chronic Diastolic heart failure, POA - Currently clinically dehydrated - Echo 09/2016: [id number]%, Severe b/l Atrial enlargement -We will resume for a semi-tomorrow. 5. Epilepsy, chronic. Presumed stable - Continue antiepileptic medications: Phenytoin -Phenytoin levels as needed 6. Chronic kidney disease, stage III. POA. This appears to be stable. Will follow renal indices. Avoid nephrotoxins. Other stable chronic conditions: Anxiety HCV Hemochromatosis - PRN: Bowel/fever/pain/antiemetic - DIET: Heart healthy - Code: DNR/DNI - PCP: Nitesh Dispo: Anticipate discharge on Thursday if she continues to improve clinically. Pain Evaluation: Adequate Pain Control VTE Prophylaxis: Sub-Q Enoxaparin Resuscitation Status: DNR/DNI:Do Not Resuscitate/Intubate Time spent 25 minutes Adrien Pacheco MD Nov 29, 2016 10:22
[2016-11-29] MEDS: PHENYTOIN 30 MG PO SCH ×2 (14:10→19:43)
[2016-11-29] MEDS: Cefepime Inj 2 GM in Dextrose 5% Minibag Plus 50 ML IV SCH (19:42)
[2016-11-29] MEDS: MeTOProlol 1 mg/mL 5 mL Inj IVPUSH PRN (22:22)
[2016-11-29] MEDS ORDERED: Vancomycin Serum Trough XX ONE (23:30)
[2016-11-30] VITALS (12 sets, daily range): BP systolic 136–160; BP diastolic 83–87; PULSE 64–97; RESP 16–24; O2SAT 92–100
[2016-11-30 03:31] LABS: Mean Corpuscular Hemoglobin 33.9 pg (27.0-35.0); Mean Corpuscular Volume 101.8 fL (81-100)
[2016-11-30 03:45] LABS: INR 1.86 ratio
[2016-11-30] MEDS: HYDROcodone-APAP 5-325 mg Tablet PO PRN ×2 (04:30→12:13)
[2016-11-30] MEDS: 0.9% Sodium Chloride 1,000 ML IV SCH (04:32)
[2016-11-30] MEDS: PHENYTOIN 30 MG PO SCH ×3 (07:36→20:50)
[2016-11-30] MEDS: Phenytoin 100 mg ER Capsule PO SCH ×3 (07:36→20:49)
[2016-11-30] MEDS: BusPIRone 15 mg Dividose Tablet PO SCH ×3 (07:36→20:49)
[2016-11-30] MEDS: MeTOProlol XL 50 mg ER24 Tablet PO SCH (07:37)
[2016-11-30] MEDS: Fluticasone 100 mCg Inhaler INHALATION SCH ×2 (07:37→20:49)
[2016-11-30] MEDS: MethylprednisoLONE Sodium Succinate 40 mg/mL Inj IVPUSH SCH ×2 (07:38→16:44)
[2016-11-30] MEDS: Cefepime Inj 2 GM in Dextrose 5% Minibag Plus 50 ML IV SCH ×2 (07:45→20:49)
[2016-11-30] MEDS: Albuterol-Ipratropium 3 mL Inhalation Solution NEB SCH ×4 (07:47→19:33)
[2016-11-30] MEDS: oxyCODONE-Acetamin 5-325 mg Tablet PO PRN ×2 (10:07→21:33)
--- NOTE | 2016-11-30 13:19 | PCM.PNMED ---
Subjective Date of Service Nov 30, 2016 Subjective Still having a lot of left anterior pleuritic chest pain. The pain increases with palpation. She continues to be somewhat dyspneic and had a low-grade fever this morning. Minimal cough. Nausea vomiting or abdominal pain. She had about yesterday. Exam Vital Signs Vital Sign - Last Date Time Temp Pulse Resp B/P Pulse Ox O2 Delivery O2 Flow Rate FiO2 11/30/16 12:13 95 11/30/16 11:33 36.5 160/87 92 Nasal Cannula 1.00 11/30/16 07:47 18 Intake and Output 11/29/16 11/29/16 11/30/16 Cumulative From/Thru 15:00 23:00 07:00 11/27/16 18:28 - 11/30/16 06:27 Intake Total 625 ml 1689 ml 5461 ml Output Total 1325 ml 1950 ml 4075 ml Balance -700 ml -261 ml 1386 ml Intake Oral 625 ml 973 ml 3578 ml IV Total 716 ml 1883 ml Output Urine Total 1325 ml 1950 ml 4075 ml # Voids 2 # Bowel Movements 1 Exam Third oriented 3 no distress Neck is supple Lungs are clear with diminished breath sounds in the bases some wheezing. Heart is regular without murmur gallop or rub Abdomen is soft nondistended. Extremities are free of edema good pedal pulses IVs and Medications Medications Reviewed: Medications were reviewed in detail Lab and Diagnostics Result Diagram: 11/30/16 0320 11/30/16 0320 X-Rays, CTs and MRIs PROCEDURE: X-RAY CHEST ONE VIEW, PORTABLE ([id number]) INDICATIONS: chest pain TECHNIQUE: One view of the chest was acquired. COMPARISON: [facility], CR, XR CHEST 1VW (PORTABLE), 11/07/2016, 9: 09. FINDINGS: Surgical changes and devices: None. Lungs and pleura: No pleural effusions or pneumothorax. Focal opacity noted in the right lung base/costophrenic angle suspicious for pneumonia. Mediastinum: Mediastinal contours appear normal. Heart size is enlarged. Bones and chest wall: Old right ninth rib fracture is stable compared to prior examination. No suspicious bony lesions. Overlying soft tissues appear unremarkable. IMPRESSION: Focal consolidation in the right lung base suspicious for pneumonia. Recommend followup imaging to resolution a finding to exclude underlying mass. 12-lead ECG 11/27/16 at 1845 Atrial FIbrillation, rate of 134 with QTc of 463 Assessment & Plan Ms. Rebolledo is a 70 year old woman with history of hemochromatosis, epilepsy, COPD on home 2L O2, and chronic atrial fibrillation, that presented to the ED for CP, SOB, and productive cough that began a couple of days ago. She was also found to be in AFib with RVR. She was admitted for HCAP and Afib treatment. 1. Community-acquired Pneumonia, Acute, POA She appears to be improving clinically. We will use cefepime only and stop levofloxacin. Will recheck x-ray today. We will increase her pain medicines for pleuritic pain on the left side which does not correlate to the right-sided infiltrate. 2. Chronic Persistent Atrial fibrillation on anticoagulation therapy, POA - Continue home meds: Metoprolol Succinate 150mg Daily and Digoxin - Digoxin levels as needed 3.COPD and chronic hypoxic respiratory failure, POA. Mild exacerbation with reactive airways. Requires 2L of Oxygen at home. Currently saturating well on 2 L SpO2 target of 88-92% Bronchodilators when necessary. 4. Chronic Diastolic heart failure, POA -Clinically compensated, resume oral Lasix today. 5. Epilepsy, chronic. Presumed stable - Continue antiepileptic medications: Phenytoin -Phenytoin levels as needed 6. Chronic kidney disease, stage III. POA. This appears to be stable. Will follow renal indices. Avoid nephrotoxins. Other stable chronic conditions: Anxiety HCV Hemochromatosis - PRN: Bowel/fever/pain/antiemetic - DIET: Heart healthy - Code: DNR/DNI - PCP: Nitesh Dispo: Anticipate discharge on Thursday if she continues to improve clinically. Pain Evaluation: Adequate Pain Control VTE Prophylaxis: Sub-Q Enoxaparin Resuscitation Status: DNR/DNI:Do Not Resuscitate/Intubate Time spent 20 minutes Adrien Pacheco MD Nov 30, 2016 13:19
--- NOTE | 2016-11-30 13:57 | DRSVH ---
PROCEDURE: X-RAY CHEST ONE VIEW, PORTABLE ([id number]) INDICATIONS: cp TECHNIQUE: One view of the chest was acquired. COMPARISON: [facility], CR, XR CHEST 1VW (PORTABLE), 11/27/2016, 19:09. FINDINGS: Surgical changes and devices: None. Lungs and pleura: Streaky opacities are present at the bilateral lung bases. No pleural effusion or p neumothorax. Mediastinum: Mediastinal contours appear normal. Heart size is normal. Bones and chest wall: No suspicious bony lesions. Overlying soft tissues appear unremarkable. IMPRESSION: Bilateral basilar radiopacities. Differential considerations include aspiration, infectio n, and atelectasis. Dictated by: Leigh aBbb M.D. on 11/30/2016 at 13:53 Approved by: Leigh Babb M.D. on 11/30/2016 at 13:55
[2016-11-30] MEDS: LORazepam 0.5 mg Tablet PO PRN (21:33)
[2016-12-01] MEDS: MethylprednisoLONE Sodium Succinate 40 mg/mL Inj IVPUSH SCH ×2 (00:25→07:39)
[2016-12-01 04:08] VITALS: BP 148/78; PULSE 83; RESP 20; O2SAT 94
[2016-12-01] MEDS: oxyCODONE-Acetamin 5-325 mg Tablet PO PRN ×2 (04:55→10:11)
[2016-12-01 05:00] LABS: Mean Corpuscular Hemoglobin 34.3 pg (27.0-35.0); Mean Corpuscular Volume 101.4 fL (81-100)
[2016-12-01 05:19] LABS: INR 2.45 ratio
[2016-12-01 07:32] VITALS: BP 149/109; PULSE 83; RESP 16; O2SAT 97
[2016-12-01] MEDS: MeTOProlol XL 50 mg ER24 Tablet PO SCH (07:38)
[2016-12-01] MEDS: Phenytoin 100 mg ER Capsule PO SCH ×2 (07:38→14:27)
[2016-12-01] MEDS: PHENYTOIN 30 MG PO SCH ×2 (07:38→14:27)
[2016-12-01] MEDS: BusPIRone 15 mg Dividose Tablet PO SCH ×2 (07:38→14:27)
[2016-12-01] MEDS: Fluticasone 100 mCg Inhaler INHALATION SCH (07:39)
[2016-12-01] MEDS: Cefepime Inj 2 GM in Dextrose 5% Minibag Plus 50 ML IV SCH (07:45)
[2016-12-01] MEDS: Albuterol-Ipratropium 3 mL Inhalation Solution NEB SCH ×2 (08:30→12:07)
--- NOTE | 2016-12-01 10:14 | PCM.PHAPRO ---
Progress atrial fibrillation Warfarin Dosing Indication AFIB Home dose: 2.5mg MWF, 5mg SuTuThSa Recent dosing: Date Nov 28-Nov 29-Nov 30-Dec 01-Dec 02-Dec 03-Dec 04-Nov INR 1.17 1.26 1.55 1.86 2.45 INR change 0.09 0.29 0.31 0.59 Warf Dose 5MG 2.5 MG 2.5 2.5 1 a/ INR jump today p/ 1mg today and follow Waldo Thurman S Pharm D Dec 01, 2016 10:14
[2016-12-01 11:11] VITALS: PULSE 102
--- NOTE | 2016-12-01 11:33 | PCM.DIMED ---
Discharge Instructions Date of Service Dec 01, 2016 Dates of Hospitalization Nov 27, 2016 at 22:18 Discharge Diagnosis Discharge Diagnosis 1. Pneumonia 2. COPD, mild exacerbation 3. CAD, Non ST elevation [place], November 2013 4. Hypertriglyceridemia 5. paroxysmal atrial tachycardia 6. Chronic CHF with systolic and diastolic dysfunction, echo November 2013 7. Chronic venous insufficiency 8. Hypertension Diet Low fat, Low Sodium Activity Limited until seen by PCP Call your provider Fever or Chills, Shortness of breath Patient Instructions Follow-up Provider: Arlene Dowling MD Follow-up with PCP in: 1 week Adrien Pacheco MD Dec 01, 2016 11:33
[2016-12-01] MEDS ORDERED: OXYC1TAB24 PO (11:36)
[2016-12-01] MEDS ORDERED: DOXY100C2 PO (11:36)
[2016-12-01 12:04] VITALS: BP 151/80; PULSE 75; O2SAT 99
[2016-12-01 12:07] VITALS: PULSE 83; RESP 18; O2SAT 99
[2016-12-01 12:11] VITALS: PULSE 75
--- NOTE | 2016-12-01 12:13 | PCM.DC.MED ---
Discharge Summary Date of Service Dec 01, 2016 Dates of Hospitalization Date of Hospital Admission Nov 27, 2016 at 22:18 Date of Discharge: Dec 01, 2016 Providers: Admitting Physician: Diane Anand DO Primary Care Physician: Arlene Dowling MD Attending Physician: Diane Anand DO Diagnosis at Time of Discharge Diagnosis at Time of Discharge 1. Pneumonia 2. COPD, mild exacerbation 3. CAD, Non ST elevation [place], November 2013 4. Hypertriglyceridemia 5. paroxysmal atrial tachycardia 6. Chronic CHF with systolic and diastolic dysfunction, echo November 2013 7. Chronic venous insufficiency 8. Hypertension Consultations None Procedures XRay, CTs & MRIs PROCEDURE: X-RAY CHEST ONE VIEW, PORTABLE ([id number]) INDICATIONS: chest pain TECHNIQUE: One view of the chest was acquired. COMPARISON: , , XR CHEST 1VW (PORTABLE), 11/07/2016, 9: 09. FINDINGS: Surgical changes and devices: None. Lungs and pleura: No pleural effusions or pneumothorax. Focal opacity noted in the right lung base/costophrenic angle suspicious for pneumonia. Mediastinum: Mediastinal contours appear normal. Heart size is enlarged. Bones and chest wall: Old right ninth rib fracture is stable compared to prior examination. No suspicious bony lesions. Overlying soft tissues appear unremarkable. IMPRESSION: Focal consolidation in the right lung base suspicious for pneumonia. Recommend followup imaging to resolution a finding to exclude underlying mass. ECG 12 Lead 11/27/16 at 1845 Atrial FIbrillation, rate of 134 with QTc of 463 Invasive Procedures None Brief History Ms. Rebolledo is a 70 year old woman with history of hemochromatosis, epilepsy, COPD on home oxygen, and chronic atrial fibrillation, that presented to the ED for complaint of intermittent substernal chest pain that radiates to her back. She describes the pain as chest pressure, and is worse with deep inhalation. She also complains of productive cough and shortness of breath, but denies any fever, chills, N/V/D, or myalgia. She was recently admitted a couple weeks ago for COPD exacerbation. She reports her symptoms from that admission and improved, but developed worsening productive cough and shortness of breath in the past few days. Denies any urinary or abdominal symptoms. She denies any sick contacts, she lives alone in an apartment here in [place]. She reports that she uses 2 L of oxygen at home and has not had to increase that. She denies any increase in her OVIEDO and reports only using 2 pillows at night. She has not noticed any peripheral edema. She report she has been compliant on her medications and denies any bleeding issues. In the ED she was afebrile and saturating around 93% on 2 L of oxygen. She was noted to be in A. fib with rates in the 120s and was given IV Cardizem 10 mg, without much effect. Her labs did not show an elevated white count or left shift and her proBNP was approximately baseline. Her INR was sub-therapeutic at 1.17. A chest x-ray showed right lower lobe consolidation, suspicious for pneumonia. An influenza screen was negative, and she was given IV methylprednisone but continued to be fairly wheezy on exam so she was subsequently started on IV cefepime for pneumonia. Hospital Course Ms. Rebolledo is a 70 year old woman with history of hemochromatosis, epilepsy, COPD on home 2L O2, and chronic atrial fibrillation, that presented to the ED for CP, SOB, and productive cough that began a couple of days ago. She was also found to be in AFib with RVR. She was admitted for HCAP and Afib treatment. 1. Community-acquired Pneumonia, Acute, POA She appears to be improving clinically. We will use cefepime only and stop levofloxacin. Will recheck x-ray today. We will increase her pain medicines for pleuritic pain on the left side which does not correlate to the right-sided infiltrate. 2. Chronic Persistent Atrial fibrillation on anticoagulation therapy, POA - Continue home meds: Metoprolol Succinate 150mg Daily and Digoxin - Digoxin levels as needed 3.COPD and chronic hypoxic respiratory failure, POA. Mild exacerbation with reactive airways. Requires 2L of Oxygen at home. Currently saturating well on 2 L SpO2 target of 88-92% Bronchodilators when necessary. 4. Chronic Diastolic heart failure, POA -Clinically compensated, resume oral Lasix today. 5. Epilepsy, chronic. Presumed stable - Continue antiepileptic medications: Phenytoin -Phenytoin levels as needed 6. Chronic kidney disease, stage III. POA. This appears to be stable. Will follow renal indices. Avoid nephrotoxins. Other stable chronic conditions: Anxiety HCV Hemochromatosis - PRN: Bowel/fever/pain/antiemetic - DIET: Heart healthy - Code: DNR/DNI - PCP: Nitesh Dispo: Anticipate discharge on Thursday if she continues to improve clinically. Hospital course. This patient has a history of hemochromatosis And probable COPD. She was admitted with pleuritic left-sided chest pain. Chest x-ray right lower lobe infiltrate. She was placed on empiric antibiotics. She also has chronic atrial fibrillation. She was continued on Coumadin and other usual medications. Her left-sided Pleurx chest pain improved with pain medications and time is likely related to musculoskeletal causes. She had no fevers in the last day and a half duration and minimal cough. Negative discharge she felt at her baseline was comfortable with discharge home with increased refill for oral pain medications in another week of a pill for pneumonia which will be doxycycline given her multiple allergies. Exam Vital Signs (Last) Date Time Temp Pulse Resp B/P Pulse Ox O2 Delivery O2 Flow Rate FiO2 12/01/16 12:07 83 18 99 Nasal Cannula 2.00 12/01/16 12:04 37.1 151/80 Exam Alert oriented no acute distress. Comfortable on oxygen at 3 L which is baseline Anicteric sclera. Neck supple Lungs with 3 out of 4 breath sounds no focal findings. Minimal forced expiration. Heart is regular. Extremities are free of edema. Test 11/27/16 19:00 11/27/16 22:40 12/01/16 04:45 Neutrophils (%) (Auto) 68.5% (40-74) Lymphocytes (%) (Auto) 18.3% (14-46) Monocytes (%) (Auto) 10.8% (4-12) Eosinophils (%) (Auto) 1.6% (0-5) Basophils (%) (Auto) 0.6% (0-3) Magnesium Level 1.6mg/dL (1.6-2.6) Total Bilirubin 0.7mg/dL (0.0-1.2) Aspartate Amino Transf (AST/SGOT) 56U/L (0-50) Alanine Aminotransferase (ALT/SGPT) 28U/L (0-32) Alkaline Phosphatase 146U/L (25-165) Troponin T < 0.010ug/L (0.0-0.011) Pro-B-Type Natriuretic Peptide 4981pg/mL (0-301) Total Protein 7.3g/dL (6.4-8.4) Albumin 3.3g/dL (3.4-5.0) Procalcitonin 0.08ng/mL (See Comment) Hold Bridges Top Tube Received (Received) Urine Color Dark yellow (YELLOW) Urine Appearance Hazy (CLEAR,HAZY) Urine pH 6.0 (5.0-8.0) Urine Specific [place] 1.025 (1.003-1.035) Urine Protein Negativemg/dL (NEG,TRACE) Urine Glucose (UA) Negativemg/dL (NEGATIVE) Urine Ketones Negativemg/dL (NEGATIVE) Urine Occult Blood Negative (NEGATIVE) Urine Nitrite Negative (NEGATIVE) Urine Bilirubin Small (NEGATIVE) Urine Ictotest Positive (Negative) Urine Urobilinogen Normalmg/dL (NORMAL) Urine Leukocyte Esterase Trace (NEGATIVE) Urine RBC 0-2/hpf (0-2) Urine WBC 6-10/hpf (0-5) Urine Epithelial Cells Moderate/hpf (NONE-MOD) Urine Crystals None seen (NONE SEEN) Urine Bacteria None/hpf (NONE-FEW) Urine Hyaline Casts None/lpf (NONE) Urine Granular Casts None seen (NONE SEEN) Urine Waxy Casts None seen (NONE SEEN) Urine Red Blood Cell Casts None seen (NONE SEEN) Urine White Blood Cell Casts None seen (NONE SEEN) Urine Mucus Present (None Seen) Urine Trichomonas None seen (NONE SEEN) Urine Yeast None (NONE SEEN) Urine Culture Reflexed Indicated Urine Legionella pneumophilia Ag Negative (Negative) White Blood Count 8.4th/mm3 (3.8-10.1) Red Blood Count 3.61mil/mm3 (3.90-5.20) Hemoglobin 12.4g/dL (12.0-15.6) Hematocrit 36.6% (35.0-46.0) Mean Corpuscular Volume 101.4fL (81-100) Mean Corpuscular Hemoglobin 34.3pg (27.0-35.0) Mean Corpuscular Hemoglobin Concent 33.9% (32.0-37.0) Red Cell Distribution Width 14.5% (12.3-15.4) Platelet Count 148bil/L (150-400) Prothrombin Time 26.7sec (8.1-12.5) Prothromb Time International Ratio 2.45ratio Sodium Level 134mEq/L (134-144) Potassium Level 3.6mEq/L (3.5-5.2) Chloride Level 95mEq/L (97-108) Carbon Dioxide Level 25mmol/L (18-29) Blood Urea Nitrogen 29mg/dL (8-27) Creatinine 1.28mg/dL (0.57-1.00) Estimat Glomerular Filtration Rate 59mL/min (>59) Glucose Level 144mg/dL (60-99) Calcium Level 7.9mg/dL (8.5-10.1) Microbiology Results Negative flu PCR, negative blood cultures except for one staph epi felt to be a contaminant. Negative strep pneumococcal antigen. Discharge Medications Discharge Medications Alendronate (Binosto) 70 Mg Tablet.eff 70 MG PO WEEKLY (Reported) ON SATURDAYS Atorvastatin (Lipitor) 20 Mg Tablet 20 MG PO DAILY (Reported) Beclomethasone Dipropionate (Qvar) 8.7 Gm Aer.w.adap 1 PUFF INHALATION BID ( Reported) Buspirone (Buspirone) 15 Mg Tablet 15 MG PO TID (Reported) AM, NOON, PM Calcium Carbonate/Vitamin D3 (Calcium 600 + Vit D 400 Softgl) 1 Each Capsule 1 EACH PO QAM (Reported) Cholecalciferol (Vitamin D3) (Vitamin D3) 1,000 Unit Tab.chew 1,000 UNIT PO DAILY (Reported) Digoxin (Digoxin) 125 Mcg Tablet 125 MCG PO noon (Reported) Doxycycline Hyclate (Doxycycline Hyclate) 100 Mg Capsule 100 MG PO BID Prescribed by: ADRIEN CHUA MD Fluoxetine (Fluoxetine) 20 Mg Capsule 40 MG PO DAILY (Reported) Furosemide (Furosemide) 40 Mg Tablet 60 MG PO DAILY (Reported) Guaifenesin (Guaifenesin ER) 600 Mg Tab.er.12h 1,200 MG PO Q12 Prescribed by: IAN GOINS DO Lisinopril (Lisinopril) 10 Mg Tablet 10 MG PO BID (Reported) Metoprolol Tartrate (Metoprolol Tartrate) 100 Mg Tablet 100 MG PO BID (Reported ) Mirtazapine (Mirtazapine) 15 Mg Tablet 15 MG PO HS (Reported) Oxybutynin Chloride (Oxybutynin Chloride) 5 Mg Tablet 5 MG PO TID (Reported) AM, NOON, PM Phenytoin Sodium ER (Dilantin) 100 Mg Cap 100 MG PO TID (Reported) AM, NOON, PM Phenytoin Sodium ER (Dilantin) 30 Mg Capsule 30 MG PO TID (Reported) AM, NOON, PM Potassium Chloride (Potassium Chloride) 20 Meq Tab.er.prt 20 MEQ PO DAILYWL ( Reported) Prednisone (Deltasone) 20 Mg Tablet 40 MG PO DAILY Prescribed by: IAN GOINS DO Vitamin A (Vitamin A) 8,000 Unit Capsule 8,000 UNIT PO QAM (Reported) Warfarin Sodium (Warfarin Sodium) 2.5 Mg Tablet 2.5 MG PO ,, (Reported) Warfarin Sodium (Warfarin Sodium) 2.5 Mg Tablet 5 MG PO ,,, (Reported) As needed Albuterol HFA (Proair HFA) 8.5 Gm Hfa.aer.ad 1 PUFFS INHALATION Q4H PRN PRN For Shortness of Breath (Reported) Albuterol Neb Soln (Albuterol Neb Soln) 2.5 Mg/3 Ml Vial.neb 1 NEB INHALATION TID PRN PRN For Shortness of Breath (Reported) Benzonatate (Benzonatate) 100 Mg Capsule 100 MG PO TID PRN PRN For Cough Prescribed by: IAN GOINS DO Lorazepam (Lorazepam) 0.5 Mg Tablet 0.5 MG PO BID PRN PRN For Anxiety (Reported ) oxyCODONE-Acetaminophen 5-325 mg (oxyCODONE-Acetaminophen 5-325 mg) 1 Each Tablet 1 EACH PO BID PRN PRN For Pain Prescribed by: ADRIEN CHUA MD Followup Plan Disposition: Home, with home health Discharge Diet: Low fat, Low Sodium Discharge Activity: Limited until seen by PCP Follow-up Provider: Arlene Dowling MD Follow-up with PCP in: 1 week Time spent 35 minutes Adrien Chua MD Dec 01, 2016 12:13
== END 2016-12-01 16:44 | disposition home health service (06) | DRG 194 ==
LOC: SED 18:18 → PCC 22:18
PROVIDERS: ADMIT Internal Medicine; ATTEND Internal Medicine
DX: J18.9 Pneumonia, unspecified organism (principal); I48.1 Persistent atrial fibrillation; J44.1 Chronic obstructive pulmonary disease with (acute) exacerbation; I50.32 Chronic diastolic (congestive) heart failure; J96.11 Chronic respiratory failure with hypoxia; J44.0 Chronic obstructive pulmonary disease with (acute) lower respiratory infection; B18.2 Chronic viral hepatitis C; Z79.01 Long term (current) use of anticoagulants; Z87.891 Personal history of nicotine dependence; I48.2 Chronic atrial fibrillation; G40.909 Epilepsy, unspecified, not intractable, without status epilepticus; Z66 Do not resuscitate; N18.3 Chronic kidney disease, stage 3 (moderate); Z99.81 Dependence on supplemental oxygen; I25.2 Old myocardial infarction; R79.1 Abnormal coagulation profile

== ENCOUNTER 2016-12-09 15:54 | Inpatient (IN) | payer MEDICARE ==
[~2016-12-09] VITALS: Ht 165.1 cm; Wt 53.7 kg
[~2016-12-09 15:54] MED LIST changes: +DOXY100C2 PO; -SENN-133 PO
[2016-12-09 15:57] VITALS: BP 124/69; PULSE 88; RESP 16; O2SAT 100
[2016-12-09 16:34] VITALS: BP 118/75; PULSE 69; RESP 16; O2SAT 100
[2016-12-09 17:00] LABS: BASOPHILS % (AUTO) 0.3 % (0-3); EOSINOPHILS % (AUTO) 0.7 % (0-5); MONOCYTES % (AUTO) 8.8 % (4-12); Mean Corpuscular Hemoglobin 33.9 pg (27.0-35.0); Mean Corpuscular Volume 101.1 fL (81-100); NEUTROPHILS % (AUTO) 77.1 % (40-74); Platelet Count 180 bil/L (150-400)
[2016-12-09 17:28] LABS: TROPONIN T < 0.010 ug/L (0.0-0.011)
--- NOTE | 2016-12-09 17:28 | DRSVH ---
PROCEDURE: X-RAY CHEST ONE VIEW, PORTABLE ([id number]) INDICATIONS: Chest pain TECHNIQUE: One view of the chest was acquired. COMPARISON: [facility], CR, XR CHEST 1VW (PORTABLE), 11/30/2016, 13:00. FINDINGS: Surgical changes and devices: None. Lungs and pleura: There is mild blunting of the right costophrenic angle suggesting a small right pl eural effusion. There are a few scattered indistinct on glass opacities bilaterally in the upper madeleine g zones. Mediastinum: There is a large hiatal hernia redemonstrated Heart size is enlarged. Bones and chest wall: No suspicious bony lesions. Overlying soft tissues appear unremarkable. IMPRESSION: 1. Scattered indistinct ground glass opacities in upper lung zones are nonspecific but suspicious fo r an infectious or inflammatory process. 2. Mild blunting of the right costophrenic angle suggestive of a small pleural effusion. Dictated by: Rolando Walsh M.D. on 12/09/2016 at 17:20 Approved by: Rolando Walsh M.D. on 12/09/2016 at 17:22
[2016-12-09 17:39] LABS: Magnesium 1.3 mg/dL (1.6-2.6)
--- NOTE | 2016-12-09 17:48 | ED.REPORT ---
HPI-Dyspnea / Wheezing Date of Service Dec 09, 2016 ED Provider: Daniel Rooney MD This is a 71 year old female with a history of hemochromatosis, epilepsy, COPD on home oxygen, CHF, stage III chronic kidney disease, and chronic atrial fibrillation presenting to the emergency department via EMS complaining of chronic left sided chest pain. Onset is known but she reports chest pain was present during previous admission and has persisted. Described as sharp and is exacerbated by deep inspiration. Associated symptoms include chills, headache, SOB, and constipation. Family members present in the room report progressively worsening generalized weakness, malaise, inability to ambulate or care for self. Last BM 5 days ago. Pt denies cough, nausea, vomiting, abdominal pain, or diarrhea. Pt was admitted to the hospital from 11/27-12/01/2016 for pneumonia. Nursing Notes Stated Complaint: POSS ALLERGIC REACTIONS, CHEST PAIN, SOB Chief Complaint: General Complaint Nursing Notes Reviewed: Yes Allergies: Coded Allergies: Macrolide Antibiotics (Verified Allergy, Severe, SWELLING, 11/27/16) HIVES, SWELLING, SOB Penicillins (Verified Allergy, Severe, SWELLING, HIVES, 11/27/16) HIVES, SWELLING, SOB codeine (Verified Allergy, Severe, VOMITING, 11/27/16) erythromycin ethylsuccinate (Verified Allergy, Severe, INSIDE SWELL UP, ) TAPE (Verified Allergy, Unknown, PLASTIC TAPE, 11/27/16) ampicillin (Verified Allergy, Unknown, UNKNOWN, 11/27/16) clindamycin (Verified Allergy, Unknown, UNKNOWN, 11/27/16) GI BLEED... (07/11/15.. pt contacted at pharmacy request and asked about clindamycin allergy- states she knows something at one time had given her black stools- but she is not certain of whether or not it was clindamycin. Pharmacy notified of pt response.) Scheduled Alendronate (Binosto) 70 Mg Tablet.eff 70 MG PO WEEKLY ON SATURDAYS Atorvastatin (Lipitor) 20 Mg Tablet 20 MG PO DAILY Beclomethasone Dipropionate (Qvar) 8.7 Gm Aer.w.adap 1 PUFF INHALATION BID Buspirone (Buspirone) 15 Mg Tablet 15 MG PO TID AM, NOON, PM Calcium Carbonate/Vitamin D3 (Calcium 600 + Vit D 400 Softgl) 1 Each Capsule 1 EACH PO QAM Cholecalciferol (Vitamin D3) (Vitamin D3) 1,000 Unit Tab.chew 1,000 UNIT PO DAILY Digoxin (Digoxin) 125 Mcg Tablet 125 MCG PO noon Doxycycline Hyclate (Doxycycline Hyclate) 100 Mg Capsule 100 MG PO BID Fluoxetine (Fluoxetine) 20 Mg Capsule 40 MG PO DAILY Furosemide (Furosemide) 40 Mg Tablet 60 MG PO DAILY Guaifenesin (Guaifenesin ER) 600 Mg Tab.er.12h 1,200 MG PO Q12 Lisinopril (Lisinopril) 10 Mg Tablet 10 MG PO BID Metoprolol Tartrate (Metoprolol Tartrate) 100 Mg Tablet 100 MG PO BID Mirtazapine (Mirtazapine) 15 Mg Tablet 15 MG PO HS Oxybutynin Chloride (Oxybutynin Chloride) 5 Mg Tablet 5 MG PO TID AM, NOON, PM Phenytoin Sodium ER (Dilantin) 100 Mg Cap 100 MG PO TID AM, NOON, PM Phenytoin Sodium ER (Dilantin) 30 Mg Capsule 30 MG PO TID AM, NOON, PM Potassium Chloride (Potassium Chloride) 20 Meq Tab.er.prt 20 MEQ PO DAILYWL Prednisone (Deltasone) 20 Mg Tablet 40 MG PO DAILY Vitamin A (Vitamin A) 8,000 Unit Capsule 8,000 UNIT PO QAM Warfarin Sodium (Warfarin Sodium) 2.5 Mg Tablet 2.5 MG PO ,W,F Warfarin Sodium (Warfarin Sodium) 2.5 Mg Tablet 5 MG PO ,,,Sa Scheduled PRN Albuterol HFA (Proair HFA) 8.5 Gm Hfa.aer.ad 1 PUFFS INHALATION Q4H PRN PRN For Shortness of Breath Albuterol Neb Soln (Albuterol Neb Soln) 2.5 Mg/3 Ml Vial.neb 1 NEB INHALATION TID PRN PRN For Shortness of Breath Benzonatate (Benzonatate) 100 Mg Capsule 100 MG PO TID PRN PRN For Cough Lorazepam (Lorazepam) 0.5 Mg Tablet 0.5 MG PO BID PRN PRN For Anxiety oxyCODONE-Acetaminophen 5-325 mg (oxyCODONE-Acetaminophen 5-325 mg) 1 Each Tablet 1 EACH PO BID PRN PRN For Pain General Time Seen by MD: 17:43 Chief Complaint Chest pain Hx Obtained From: Patient Arrived By: Walk-in Sudden in Onset?: No Onset Occurred: More than a week ago... Symptom Duration: Since onset Severity: Current: Mild Pertinent Negative: Pt denies other symptoms Recent Healthcare: No recent doctor visit, Recent hospitalization Similar Sx Previous: No Past Medical History Past Medical History Notes: PCP: Arlene Dowling Past Medical History Cataracts Cirrhosis Hepatitis C Kidney stones Acute respiratory failure and hypoxemia Diastolic heart failure Anxiety hemachromatosis Arthritis Reports: Asthma, COPD, Congestive heart failure, Hypertension Reports: Atrial fibrillation, Depression, Seizure disorder Past Surgical History Knee surgery Appendectomy with partial colectomy Eye surgery Phlebotomy Hemochromotosis Tubal Shunt in arm Reports: Carpal tunnel Family History Noncontributory Smoking History Former Smoker Social History Alcohol Use: Denies alcohol use Drug Use: Denies drug use Other Social History: Lives alone, Local resident Occupation lives by self, has help once a week 09/27/2016 Ambulatory Status Walker Review of Systems Constitutional: Reports: Chills, Malaise, Weakness - generalized, Denies: Fever Respiratory: Reports: Shortness of breath, Denies: Non-productive cough Cardiovascular: Reports: Chest pain Complete sys rev & neg: except as marked. GI: Reports: Constipation, Denies: Abdominal pain, Diarrhea, Melena, Nausea, Vomiting Female: Denies: Dysuria Neurologic: Reports: Headache Physical Exam Initial Vital Signs Vital Signs (First) Date Time Temp Pulse Resp B/P Pulse Ox O2 Delivery O2 Flow Rate FiO2 12/09/16 15:57 35.8 88 16 124/69 100 Room Air 12/09/16 16:34 2 Initial VS: Reviewed Head / Eyes: Atraumatic, Normocephalic, PERRL ENT: Mucous membranes moist, Conjunctiva normal, No scleral icterus Abdomen / GI: Soft, Non-tender, No guarding, No rebound, No distention Skin: Warm, Dry Neurologic: Alert, Oriented, Nonfocal Psychiatric: Mood/affect normal, Behavior normal, Normal thought content General/Constitutional: Awake, Alert Appearance / Presentation: Positive: Ill appearing/not toxic Neck: Atraumatic, Supple, No meningismus, Full range of motion, No swelling, Non-tender, No masses Respiratory / Chest: No wheezing Poor air movement. Cardiovascular: Heart rate NL, Heart sounds NL, No murmurs, No rubs, Peripheral circulation NL Heart Rate / Rhythm: Positive: Irreg irregular rhythm Rectum / Perineum: No fissures, No hemorrhoids Rectum / Perineum Abnl: Positive: Fecal impaction present Requiring digital disimpaction of hard brown stool Interpretation & Diagnostics Lab Results Interpretation Result Diagram: 12/09/165 12/09/16 1645 Test 12/09/16 16:45 12/09/16 18:41 12/09/16 19:17 White Blood Count 10.9th/mm3 (3.8-10.1) Red Blood Count 3.69mil/mm3 (3.90-5.20) Hemoglobin 12.5g/dL (12.0-15.6) Hematocrit 37.3% (35.0-46.0) Mean Corpuscular Volume 101.1fL (81-100) Mean Corpuscular Hemoglobin 33.9pg (27.0-35.0) Mean Corpuscular Hemoglobin Concent 33.5% (32.0-37.0) Red Cell Distribution Width 14.5% (12.3-15.4) Platelet Count 180bil/L (150-400) Neutrophils (%) (Auto) 77.1% (40-74) Lymphocytes (%) (Auto) 12.8% (14-46) Monocytes (%) (Auto) 8.8% (4-12) Eosinophils (%) (Auto) 0.7% (0-5) Basophils (%) (Auto) 0.3% (0-3) Prothrombin Time 57.1sec (8.1-12.5) Prothromb Time International Ratio 5.16ratio Sodium Level 137mEq/L (134-144) Potassium Level 3.8mEq/L (3.5-5.2) Chloride Level 94mEq/L (97-108) Carbon Dioxide Level 30mmol/L (18-29) Blood Urea Nitrogen 40mg/dL (8-27) Creatinine 1.12mg/dL (0.57-1.00) Estimat Glomerular Filtration Rate 68mL/min (>59) Glucose Level 120mg/dL (60-99) Calcium Level 8.6mg/dL (8.5-10.1) Magnesium Level 1.3mg/dL (1.6-2.6) Total Bilirubin 0.7mg/dL (0.0-1.2) Aspartate Amino Transf (AST/SGOT) 70U/L (0-50) Alanine Aminotransferase (ALT/SGPT) 36U/L (0-32) Alkaline Phosphatase 141U/L (25-165) Troponin T < 0.010ug/L (0.0-0.011) Total Protein 6.8g/dL (6.4-8.4) Albumin 3.3g/dL (3.4-5.0) Hold Bridges Top Tube Received (Received) Digoxin Level 0.4nG/mL (0.9-2.0) Phenytoin (Dilantin) Level 20.1uG/mL (10.0-20.0) Hold Urine Received (Received) Urine Color Yellow (YELLOW) Urine Appearance Clear (CLEAR,HAZY) Urine pH 5.5 (5.0-8.0) Urine Specific [place] 1.015 (1.003-1.035) Urine Protein Negativemg/dL (NEG,TRACE) Urine Glucose (UA) Negativemg/dL (NEGATIVE) Urine Ketones Tracemg/dL (NEGATIVE) Urine Occult Blood Negative (NEGATIVE) Urine Nitrite Negative (NEGATIVE) Urine Bilirubin Negative (NEGATIVE) Urine Urobilinogen Normalmg/dL (NORMAL) Urine Leukocyte Esterase Small (NEGATIVE) Urine RBC 0-2/hpf (0-2) Urine WBC 0-5/hpf (0-5) Urine Epithelial Cells None/hpf (NONE-MOD) Urine Crystals None seen (NONE SEEN) Urine Bacteria Few/hpf (NONE-FEW) Urine Hyaline Casts None/lpf (NONE) Urine Granular Casts None seen (NONE SEEN) Urine Waxy Casts None seen (NONE SEEN) Urine Red Blood Cell Casts None seen (NONE SEEN) Urine White Blood Cell Casts None seen (NONE SEEN) Urine Mucus Present (None Seen) Urine Trichomonas None seen (NONE SEEN) Urine Yeast None (NONE SEEN) Urinalysis Comment None Urine Culture Reflexed Indicated ECG Interpretation ECG Interpretation: A-fib at a rate of 68 Time: 19:24 Interpreted by: ED physician X-Ray Chest Interpretation Chest Xray Interpretation: CHEST X-RAY IMPRESSION: 1. Scattered indistinct ground glass opacities in upper lung zones are nonspecific but suspicious for an infectious or inflammatory process. 2. Mild blunting of the right costophrenic angle suggestive of a small pleural effusion. Dictated by: Rolando Walsh M.D. on 12/09/2016 at 17:20 Approved by: Rolando Walsh M.D. on 12/09/2016 at 17:22 Re-Eval/Medical Decision Med Decision/Clinical Course 71-year-old female who is chronically ill presenting with gait instability generalized weakness. Family relates this to the occurrence of a change in her Dilantin dose possibly increasing from 300-400 mg daily. She lives at home with family who are at present unable to care for her, patient is unable to ambulate or transfer. I note that is oxygen dependent COPD and frequent hospitalizations and emergency department visits. The patient does not believe that she has been seen by palliative care and this might be useful consultation. Her Dilantin level was found to be just above the top end of the therapeutic range however I did not compare it to her past levels or her goal. She has not overshot INR and given her frequent falls I think she should be observed in the hospital. She did not endorse having any head injury. No visible signs of head trauma imaging of the brain was not pursued. The patient underwent a manual disimpaction and we have an enema ordered also. I note concern for groundglass opacity on chest x-ray however does not have a fever or change in cough is present. Re-Evaluation/Progress : Time of Eval: 21:12 Re-Evaluation/Progress Note: Digital disimpaction performed, discussed plan for admission, pt understands and agrees with plan, all questions addressed. Consultation : Referral / Consult Name: Augustin Santo MD Consulted With: Hospitalist Call Returned at: 21:12 Rake Operator: Accepts admit Counseled Regarding: Diagnosis, Lab results, Need for follow-up, Need for admission Discharge & Departure Impression: Primary Impression: Generalized weakness Additional Impressions: Excessive anticoagulation Gait instability Fecal impaction Dehydration Disposition: ADMITTED TO HOSPITAL Discharge Condition All VS Reviewed: Yes Condition: Stable Referrals: Arlene Dowling MD (PCP) [place] Attestation Portions of this note were transcribed by Laura Valerio. I, Dr. Rooney personally performed the history, physical exam and medical decision-making; I reviewed and confirmed the accuracy of the information in the transcribed note. Signed by Clint Mckeon, 12/09/2016 at 20:00. Daniel Rooney MD Dec 09, 2016 17:48 LAURA VALERIO Dec 09, 2016 17:58
[2016-12-09 18:00] VITALS: BP 148/79; PULSE 78; RESP 14; O2SAT 100
[2016-12-09] MEDS ORDERED: 0.9% Sodium Chloride 500 ML IV ONE ×2 (18:05→21:15)
[2016-12-09 18:52] LABS: INR 5.16 ratio
[2016-12-09 20:21] LABS: APPEARANCE,URINE CLEAR (CLEAR,HAZY); COLOR,URINE YELLOW (YELLOW); OCCULT BLOOD,URINE NEGATIVE (NEGATIVE); PH,URINE 5.5 (5.0-8.0); UROBILINOGEN,URINE NORMAL (NORMAL)
[2016-12-09] MEDS ORDERED: Polyethylene Glycol (PEG) 17 Gm Powder PO PRN (21:30)
[2016-12-09] MEDS ORDERED: Ondansetron 2 mg/mL 2 mL Inj IVPUSH PRN (21:30)
[2016-12-09] MEDS ORDERED: Alum-Mag Hydrox-Simeth 30 mL Suspension PO PRN (21:30)
[2016-12-09] MEDS ORDERED: Magnesium Sulf 4 Gm/100 mL H2O 4 GM in IV Premix 1 EACH IV ONE (22:25)
--- NOTE | 2016-12-09 22:39 | PCM.HPMED ---
Subjective Date of Service Dec 09, 2016 Primary Provider: Admitting Physician: Augustin Santo MD Primary Care Physician: Arlene Dowling MD Attending Physician: Augustin Santo MD Admit Status: From the Emergency Department, Remote Telemetry Chief Complaint: Generalized weakness, chest wall pain with SOB History of Present Illness: Patient is a 71 year old female with a history of hemochromatosis, epilepsy, COPD on home oxygen, CHF, stage III chronic kidney disease, and chronic atrial fibrillation on warfarin, presenting to the emergency department via EMS complaining of generalized weakness and ongoing chronic left sided chest wall pain. Patient states she has not been able to get back to her baseline since recently discharged and has been feeling weak, reports of falling more than usual at home. Uses cane or walker at baseline. In regards to her chest wall pain, onset is unclear but she reports chest wall pain was present during previous admission and has persisted. Described as sharp and is exacerbated by deep inspiration. Associated symptoms include chills, headache, SOB, and constipation. In the ED, family members present in the room reported progressively worsening generalized weakness, malaise, inability to ambulate or care for self. Last BM 5 days ago. Pt denies cough, nausea, vomiting, abdominal pain, or diarrhea. Pt was admitted to the hospital from 11/27-12/01/2016 for pneumonia, discharged on Doxycycline. In the ED, vitals afebrile and stable. Labs significant for WBC 10.9, BUN 40, creatinine 1.12. INR supra-therapeutic at 5.16. ECG showed a-fib at rate of 68. Patient admitted on observation status to be monitored overnight. Review of Systems: All ROS reviewed negative otherwise noted on HPI. Allergies Coded Allergies: Macrolide Antibiotics (Verified Allergy, Severe, SWELLING, 11/27/16) HIVES, SWELLING, SOB Penicillins (Verified Allergy, Severe, SWELLING, HIVES, 11/27/16) HIVES, SWELLING, SOB codeine (Verified Allergy, Severe, VOMITING, 11/27/16) erythromycin ethylsuccinate (Verified Allergy, Severe, INSIDE SWELL UP, ) TAPE (Verified Allergy, Unknown, PLASTIC TAPE, 11/27/16) ampicillin (Verified Allergy, Unknown, UNKNOWN, 11/27/16) clindamycin (Verified Allergy, Unknown, UNKNOWN, 11/27/16) GI BLEED... (07/11/15.. pt contacted at pharmacy request and asked about clindamycin allergy- states she knows something at one time had given her black stools- but she is not certain of whether or not it was clindamycin. Pharmacy notified of pt response.) Home Medications Scheduled Alendronate (Binosto) 70 Mg Tablet.eff 70 MG PO WEEKLY ON SATURDAYS Atorvastatin (Lipitor) 20 Mg Tablet 20 MG PO DAILY Beclomethasone Dipropionate (Qvar) 8.7 Gm Aer.w.adap 1 PUFF INHALATION BID Buspirone (Buspirone) 15 Mg Tablet 15 MG PO TID AM, NOON, PM Calcium Carbonate/Vitamin D3 (Calcium 600 + Vit D 400 Softgl) 1 Each Capsule 1 EACH PO QAM Cholecalciferol (Vitamin D3) (Vitamin D3) 1,000 Unit Tab.chew 1,000 UNIT PO DAILY Digoxin (Digoxin) 125 Mcg Tablet 125 MCG PO noon Doxycycline Hyclate (Doxycycline Hyclate) 100 Mg Capsule 100 MG PO BID Fluoxetine (Fluoxetine) 20 Mg Capsule 40 MG PO DAILY Furosemide (Furosemide) 40 Mg Tablet 60 MG PO DAILY Guaifenesin (Guaifenesin ER) 600 Mg Tab.er.12h 1,200 MG PO Q12 Lisinopril (Lisinopril) 10 Mg Tablet 10 MG PO BID Metoprolol Tartrate (Metoprolol Tartrate) 100 Mg Tablet 100 MG PO BID Mirtazapine (Mirtazapine) 15 Mg Tablet 15 MG PO HS Oxybutynin Chloride (Oxybutynin Chloride) 5 Mg Tablet 5 MG PO TID AM, NOON, PM Phenytoin Sodium ER (Dilantin) 100 Mg Cap 100 MG PO TID AM, NOON, PM Phenytoin Sodium ER (Dilantin) 30 Mg Capsule 30 MG PO TID AM, NOON, PM Potassium Chloride (Potassium Chloride) 20 Meq Tab.er.prt 20 MEQ PO DAILYWL Prednisone (Deltasone) 20 Mg Tablet 40 MG PO DAILY Vitamin A (Vitamin A) 8,000 Unit Capsule 8,000 UNIT PO QAM Warfarin Sodium (Warfarin Sodium) 2.5 Mg Tablet 2.5 MG PO ,, Warfarin Sodium (Warfarin Sodium) 2.5 Mg Tablet 5 MG PO ,,, Scheduled PRN Albuterol HFA (Proair HFA) 8.5 Gm Hfa.aer.ad 1 PUFFS INHALATION Q4H PRN PRN For Shortness of Breath Albuterol Neb Soln (Albuterol Neb Soln) 2.5 Mg/3 Ml Vial.neb 1 NEB INHALATION TID PRN PRN For Shortness of Breath Benzonatate (Benzonatate) 100 Mg Capsule 100 MG PO TID PRN PRN For Cough Lorazepam (Lorazepam) 0.5 Mg Tablet 0.5 MG PO BID PRN PRN For Anxiety oxyCODONE-Acetaminophen 5-325 mg (oxyCODONE-Acetaminophen 5-325 mg) 1 Each Tablet 1 EACH PO BID PRN PRN For Pain PMH Cataracts Cirrhosis Hepatitis C Kidney stones Acute respiratory failure and hypoxemia Diastolic heart failure Anxiety hemochromatosis Arthritis Asthma, COPD, Congestive heart failure, Hypertension Atrial fibrillation, Depression, Seizure disorder Surgical History Knee surgery Appendectomy with partial colectomy Eye surgery Phlebotomy Hemochromotosis Tubal Shunt in arm Carpal tunnel Social History Hx Alcohol Use: Yes (Rarely) Hx Substance Use: No Hx Tobacco Use: Yes Smoking Status: Former Smoker Exam Vital Signs Vital Sign - Last Date Time Temp Pulse Resp B/P Pulse Ox O2 Delivery O2 Flow Rate FiO2 12/09/16 18:00 78 14 148/79 100 Nasal Cannula 2 12/09/16 15:57 35.8 Exam GEN: Frail appearing elderly female. Alert and oriented, NAD HEENT: NC/AT, PERRL, EOMI, sclera anicteric, moist mucous membranes, oral ulcers on buccal mucosa Neck: suppler with full ROM, trachea midline CV: irregular irregular, no murmurs, rubs or gallops appreciated Lungs: diffused crackles Abd: Soft, mildly distended, non-tender, normal active bowel tones Ext: no edema, cyanosis MSK: reproducible pain at rib 4 posteriorly and anteriorly, most significant at costovertebral junction. No midline tenderness Skin: Multiple ecchymosis on upper extremities, Warm, dry and intact Neuro: no focal deficits, normal speech Psych: normal mood and affect Lab and Diagnostics Result Diagram: 12/09/16 1645 12/09/16 1645 X-Rays, CTs and MRIs Chest Xray Interpretation: IMPRESSION: 1. Scattered indistinct ground glass opacities in upper lung zones are nonspecific but suspicious for an infectious or inflammatory process. 2. Mild blunting of the right costophrenic angle suggestive of a small pleural effusion. Dictated by: Rolando Walsh M.D. on 12/09/2016 at 17:20 Approved by: Rolando Walsh M.D. on 12/09/2016 at 17:22 12-lead ECG ECG Interpretation: A-fib at a rate of 68 Time: 19:24 Interpreted by: ED physician Assessment & Plan Patient is a 71 year old female with a history of hemochromatosis, epilepsy, COPD on home 2L O2, CHF, stage III chronic kidney disease, and chronic atrial fibrillation on warfarin, presenting to the emergency department via EMS complaining of generalized weakness and ongoing chronic left sided chest wall pain. Patient states she has not been able to get back to her baseline since recently discharged on 12/01/16 for pneumonia, and has been feeling weak, reports of falling more than usual at home. Generalized weakness with multiple falls on supra-therapeutic INR, POA - warfarin, heparin held - repeat INR in am Ongoing left sided chest wall pain, POA - most likely costochondritis, due to pain reproducible at same rib 4 anteriorly and posteriorly, no midline tenderness of spine - pain meds PRN Chronic Persistent Atrial fibrillation on anticoagulation therapy, POA - telemetry - Continue home meds: Metoprolol Succinate 150mg Daily and Digoxin - Digoxin levels as needed COPD and chronic hypoxic respiratory failure, POA. Mild exacerbation with reactive airways. - Requires 2L of Oxygen at home. Currently saturating well on 2 L - SpO2 target of 88-92% - Bronchodilators when necessary. Chronic Diastolic heart failure, POA - continue home Lasix with KCl Epilepsy, chronic. Presumed stable - Continue antiepileptic medications: Phenytoin - Phenytoin levels as needed Chronic kidney disease, stage III. POA. This appears to be stable. - Will follow renal indices. - Avoid nephrotoxins. Other stable chronic conditions: Anxiety HCV Hemochromatosis Patient admitted under observation status with expected length of stay < 2 midnights. - PRN: Bowel/fever/pain/antiemetic - DIET: Heart healthy, Renal healthy - Code: DNR/DNI - PCP: [facility] Prophylaxis: Not indicated VTE Prophylaxis: Theraputic Anticoag with Warfarin Resuscitation Status: DNR/DNI:Do Not Resuscitate/Intubate Attending Statement The patient was seen and examined together with Dr. Hu on 12/09 and I agree with the history, exam and plan as outlined in the note above. Ananya Hu DO Dec 09, 2016 21:38 Augustin Santo MD Dec 10, 2016 01:10
[2016-12-09] MEDS ORDERED: LORazepam 0.5 mg Tablet PO PRN (22:45)
[2016-12-09 23:22] VITALS: BP 138/88; PULSE 76; O2SAT 96
[2016-12-09 23:24] VITALS: BP 139/80; PULSE 74; RESP 20; O2SAT 92
[2016-12-10] VITALS (8 sets, daily range): BP systolic 109–142; BP diastolic 70–84; PULSE 69–87; RESP 16–20; O2SAT 98–99
[2016-12-10] MEDS ORDERED: Heparin 5,000 Unit/mL Inj SUBQ SCH ×2 (00:30)
[2016-12-10] MEDS: oxyCODONE-Acetamin 5-325 mg Tablet PO PRN ×3 (01:15→20:18)
--- NOTE | 2016-12-10 01:39 | PCM.CONPHA ---
Assessment/Plan Assessment/Plan ANTICOAGULATION MANAGEMENT BY PHARMACY -INDICATION: AFIB -HOME DOSE: 2.5 MG M,W,; 5 MG ,,, -CONCURRENT ANTICOAGULATION: NONE -CRCL: 37.71 ML/MIN -COAG TRENDS: Date -Nov INR 5.16 INR change ~ Warf Dose HOLD -[id number] SCORE: 4 PLAN: Patient presented to the ED with a supratherapeutic INR of 5.16 but with no s/s of bleeding. Will hold warfarin dose tonight and will dose as necessary when appropriate. Pharmacy will continue to monitor and adjust as appropriate. THANKS! Argelia Burgess PharmD Dec 10, 2016 01:39
--- NOTE | 2016-12-10 02:04 | NUR ---
admit pt admitted from ED to room 1009 at 2320. she arrived via stretcher and was transferred to hospital bed with sliding board. she is alert and oriented ROBERT antonio. she stated that she has pain in her chest but she said "not like heart pain" she says she has pain in her lower L ribs when she has been moving around. she did not want her percocet at that time, she says she spaces them out since she only takes two a day. pt arrived on 4L via NC. she denied any SOB. nurse was unable to get a good oxygen reading on pts fingers, as they were cold and had thick nails. RT was called who put a pulse oximeter on pts ear and turned her oxygen down to 2L which is what pt uses at home. the pulse ox showed pt at 99% but frequently has trouble reading on pts ear as well. it continously alarmed. so nurse has taken off pulse ox and is instead doing frequent spot checks of oxygen level. admit has been completed. pt did not have a list of her meds with her but says the med list on file should be correct, and nothing has changed. pt oriented to room call light and bed controls.
[2016-12-10 08:00] LABS: BASOPHILS % (AUTO) 0.2 % (0-3); EOSINOPHILS % (AUTO) 2.2 % (0-5); MONOCYTES % (AUTO) 10.2 % (4-12); Mean Corpuscular Hemoglobin 33.4 pg (27.0-35.0); Mean Corpuscular Volume 101.2 fL (81-100); NEUTROPHILS % (AUTO) 70.3 % (40-74); Platelet Count 134 bil/L (150-400)
[2016-12-10 08:27] LABS: INR 4.87 ratio
[2016-12-10] MEDS ORDERED: PHENYTOIN 30 MG PO SCH (08:30)
[2016-12-10] MEDS ORDERED: Phenytoin 100 mg ER Capsule PO SCH (08:30)
[2016-12-10 08:36] LABS: Magnesium 2.4 mg/dL (1.6-2.6)
--- NOTE | 2016-12-10 08:37 | PCM.PNMED ---
Subjective Date of Service Dec 10, 2016 Subjective Patient is resting comfortably in bed. She does have left-sided chest pain tender to movement and touch. She recently was here hospitalized with pneumonia and had significant cough and that is improving. She does live alone. Exam Vital Signs Vital Sign - Last Date Time Temp Pulse Resp B/P Pulse Ox O2 Delivery O2 Flow Rate FiO2 12/10/16 05:32 36.7 69 18 142/84 99 Nasal Cannula 2.00 Intake and Output 12/09/16 12/09/16 12/10/16 Cumulative From/Thru 14:59 22:59 06:59 12/09/16 15:57 - 12/10/16 06:05 Intake Total 1000 ml 300 ml 1300 ml Output Total 100 ml 100 ml Balance 1000 ml 200 ml 1200 ml Intake Oral 300 ml 300 ml IV Total 1000 ml 1000 ml Output Urine Total 100 ml 100 ml # Voids 1 1 2 # Bowel Movements 0 0 Exam Constitutional: Elderly woman who appears very frail and weak Head: Normocephalic atraumatic Chest: Decreased breath sounds diffusely Cor: Regular rate and rhythm S1-S2 Abdomen: Soft nontender bowel sounds present Extremities: No pedal edema Neuro: Alert and oriented 3, motor strength intact bilaterally Lab and Diagnostics Result Diagram: 12/10/16 0745 12/09/16 1645 X-Rays, CTs and MRIs Chest Xray Interpretation: IMPRESSION: 1. Scattered indistinct ground glass opacities in upper lung zones are nonspecific but suspicious for an infectious or inflammatory process. 2. Mild blunting of the right costophrenic angle suggestive of a small pleural effusion. Dictated by: Rolando Walsh M.D. on 12/09/2016 at 17:20 Approved by: Rolando Walsh M.D. on 12/09/2016 at 17:22 12-lead ECG ECG Interpretation: A-fib at a rate of 68 Time: 19:24 Interpreted by: ED physician Assessment & Plan Patient is a 71 year old female with a history of hemochromatosis, epilepsy, COPD on home 2L O2, CHF, stage III chronic kidney disease, and chronic atrial fibrillation on warfarin, presenting to the emergency department via EMS complaining of generalized weakness and ongoing chronic left sided chest wall pain. Patient states she has not been able to get back to her baseline since recently discharged on 12/01/16 for pneumonia, and has been feeling weak, reports of falling more than usual at home. Generalized weakness with multiple falls -We will go ahead and get physical therapy consultation for evaluation of gait stability -Patient may need placement at significant for continuing physical therapy prior to being discharged to home. Significant hypomagnesemia, acute, present on admission - Was repleted last night will need to recheck and monitor. - Most likely contributing to her significant weakness. supra-therapeutic INR, POA - warfarin, heparin held - repeat INR in am Ongoing left sided chest wall pain, POA - most likely costochondritis, due to pain reproducible at same rib 4 anteriorly and posteriorly, no midline tenderness of spine - pain meds PRN Chronic Persistent Atrial fibrillation on anticoagulation therapy, POA - telemetry - Continue home meds: Metoprolol Succinate 150mg Daily and Digoxin - Digoxin levels as needed COPD and chronic hypoxic respiratory failure, POA. Mild exacerbation with reactive airways. - Requires 2L of Oxygen at home. Currently saturating well on 2 L - SpO2 target of 88-92% - Bronchodilators when necessary. -We will add prednisone to her treatment- Chronic Diastolic heart failure, POA - continue home Lasix with KCl Epilepsy, chronic. Presumed stable - Continue antiepileptic medications: Phenytoin - Phenytoin levels as needed Chronic kidney disease, stage III. POA. This appears to be stable. - Will follow renal indices. - Avoid nephrotoxins. Other stable chronic conditions: Anxiety HCV Hemochromatosis Patient admitted under observation status with expected length of stay < 2 midnights. - PRN: Bowel/fever/pain/antiemetic - DIET: Heart healthy, Renal healthy - Code: DNR/DNI - PCP: [facility] Prophylaxis: Not indicated VTE Prophylaxis: Theraputic Anticoag with Warfarin VTE Mechanical Devices: Intermittant Pneumatic CD Resuscitation Status: DNR/DNI:Do Not Resuscitate/Intubate Time spent 30 minutes Marcy Hunter MD Dec 10, 2016 08:37
[2016-12-10 08:48] LABS: Unsaturated Iron Binding 127.8 ug/dL
--- NOTE | 2016-12-10 09:10 | PCM.PHAPRO ---
Progress Warfarin Management: -Indication: afib -Home Dose: 2.5 MG M,W,F; 5 MG ,,, -Concurrent Anticoagulation: none -CRCL: 37.71 ML/MIN -COAG TRENDS: Inr on admit, 12/09= 5.16 12/10= 4.87 Date INR 5.16 INR change ~ Warf Dose HOLD -[id number] SCORE: 4 PLAN: Continue to hold dose this evening and follow Jacque Rodriguez [facility] Dec 10, 2016 09:10
[2016-12-10] MEDS: Fluticasone 100 mCg Inhaler INHALATION SCH ×2 (09:28→21:44)
[2016-12-10] MEDS: BusPIRone 15 mg Dividose Tablet PO SCH ×3 (09:34→21:44)
[2016-12-10] MEDS: predniSONE 20 mg Tablet PO SCH (09:34)
--- NOTE | 2016-12-10 10:46 | NUR ---
Palliative Care Palliative Care received verbal order from Dr Hunter 12/10/16 to assist with goals of care. Patient is a 71 year old woman with history of hemochromatosis, epilepsy, COPD, CHF, stage III chronic kidney disease and chronic atrial fibrillation. She was readmitted 12/09/16 due to generalized weakness and ongoing chronic left sided chest wall pain. Patient was just hospitalized at [facility] 11/27/16-12/01/16 for care of pneumonia. Notes indicate patient stated at time of admit that she has not been able to get back to her baseline since she recently discharged. Gómez Bonilla (grandson) [phone] Alley Churchill (friend) [phone] Palliative Care to follow. Leandra Osei
--- NOTE | 2016-12-10 11:35 | NUR ---
Palliative care note D/A: Case discussed today in [facility] rounds. New referral received from Dr. Schumacher. Note that pt is a readmission from Nov. Review of EMR reveals full admit, possible prior qualifying stay for SNF placement. Pt reportedly asking for SNF placement at admission as she seems to be failing at home. Message left for Stacey OLMSTEAD, bhumi about possible prior qualifying stay in regards to SNF. Regan A to research. Need for possible FCTM. Dr. Terry is working on pt. He will discuss with her in regards to desire for family to attend. P: Palliative to continue to follow. Sulma GONZALEZ, CCM
[2016-12-10] MEDS: Potassium Chloride 20 mEq SR Tablet PO SCH (12:36)
--- NOTE | 2016-12-10 12:48 | PCM.CONPAL ---
Date of Service Dec 10, 2016 Date of Hospital Admission: Dec 09, 2016 at 21:28 Date of Palliative Consult: Dec 10, 2016 Requesting Provider: Marcy Hunter MD Reason Palliative Care Consult: Goals of Care Discussion Hospital Unit @time of consult: Orthopedic/Surgical Care Palliative Care Recommendation 71 yo female with multiple hospitalizations in last 12 months, readmitted with progressive weakness and falls at home, in the setting of longstanding COPD ( with chronic home O2), recent pneumonia, diastolic CHF, atrial fibrillation, etc. Palliative medicine consulted to assist patient and family in determination of goals of care. Summary of palliative recommendations: -Symptom management (Pain/other)- no significant symptoms of distress. She had complained of rib pain to the nurse, but by the time I saw her (after receiving appropriate pain medications) she was feeling much better. Continued management per medical/hospitalist team -DPOA/Advanced Directives/POLST- she has not previously completed POA documentation. She wants her grandsons Pacheco and Gómez to share POA duty. I left a copy of the paperwork with her and will review this further in the coming days and we will try to get the form completed and notarized prior to her discharge. She has a POLST on her refrigerator at home. Reviewed its status- she is very clear that she is DO NOT RESUSCITATE/DO NOT INTUBATE/limited interventions/ hospitalization and antibiotics OK/no artificial nutrition. Family members will try to bring in the POLST so we can make a copy. -Family/emotional support- sounds like she has excellent support from her family. Will pass along to discharge planners their interest in obtaining RIANA support for care at home. Was interested in some possible DME including a bedside commode. She was also interested in the possibility of home health nurse/physical therapy. -Spiritual support- will pass along to him specialist her wish for a visit Patient Goals: 1. Patient wants to be told the truth about her illness, even if it is unpleasant. 2. Patient would like to be told prognosis when it can be predicted, to better guide treatment decisions. Additional Medical Diagnoses with primary management by Hospitalist team include : Generalized weakness with multiple falls -We will go ahead and get physical therapy consultation for evaluation of gait stability -Patient may need placement at SNF for continuing physical therapy supra-therapeutic INR, POA Ongoing left sided chest wall pain, POA Chronic Persistent Atrial fibrillation on anticoagulation therapy, POA COPD and chronic hypoxic respiratory failure, POA. Mild exacerbation with reactive airways. Chronic Diastolic heart failure, POA Epilepsy, chronic. Presumed stable Chronic kidney disease, stage III. POA. Other stable chronic conditions: Anxiety HCV Hemochromatosis Problems: End of Life Preferences DO NOT RESUSCITATE/DO NOT INTUBATE/limited interventions/antibiotics and hospitalization OK/no artificial nutrition Goals of Care Recovery and stabilization with plans to move in with her grandson and his SO Disposition As above Resuscitation Status Resuscitation Status: DNR/DNI:Do Not Resuscitate/Intubate Limited Interventions: Medications and IV Fluid POLST Updates/Changes Previous POLST?: Yes (per prior SW notes) Antibiotics: Determine Use or Limitations Artificially Admin Nutrition: No Artifical Nutrition by Tube POLST Discussed with: Patient POLST Review Outcome: No Change . Advanced Care Planning Address: POLST, Durable Power of Museum Archivist Pain: None Symptom management: Dyspnea Pt History History of Present Illness Per admission H&P: Patient is a 71 year old female with a history of hemochromatosis, epilepsy, COPD on home oxygen, CHF, stage III chronic kidney disease, and chronic atrial fibrillation on warfarin, presenting to the emergency department via EMS complaining of generalized weakness and ongoing chronic left sided chest wall pain. Patient states she has not been able to get back to her baseline since recently discharged and has been feeling weak, reports of falling more than usual at home. Uses cane or walker at baseline. In regards to her chest wall pain, onset is unclear but she reports chest wall pain was present during previous admission and has persisted. Described as sharp and is exacerbated by deep inspiration. Associated symptoms include chills, headache, SOB, and constipation. In the ED, family members present in the room reported progressively worsening generalized weakness, malaise, inability to ambulate or care for self. Last BM 5 days ago. Pt denies cough, nausea, vomiting, abdominal pain, or diarrhea. Pt was admitted to the hospital from 11/27-12/01/2016 for pneumonia, discharged on Doxycycline. Multiple (8) hospitalizations in last 12 months, with reported progressive decline in functional status. Palliative medicine consulted to assist patient and family in determining goals of care. Prior to visiting, reviewed her records in the EMR in detail. Spoke with her bedside nurse. When I arrived, she was sitting at bedside. Oriented and quite pleasant. In no distress. Denied any significant dyspnea or other distress. Said that she is feeling better than at admission. She feels that her decline over the last year is a consequence of recurrent/persistent pneumonia which seems to now finally be improving. We reviewed details of this hospitalization and then talked at length about her living situation, her plans and goals, reviewed her pertinent documentation, etc. She plans on moving in with grandsusana Bergman and his significant other Brooklyn when she is ready for discharge. Today tells me she has no plans to go to an SNF She admits that she has just come to realize that "I need more help" with day- to-day activities and managing life Past Medical History Significant PMH Noted: Failure to thrive with increasing weakness, multiple falls, etc. COPD Congestive heart failure, chronic, diastolic Hypertension Atrial fibrillation, on chronic warfarin anticoagulation Depression Seizure disorder Acute on chronic respiratory failure and hypoxemia Cataracts Cirrhosis Hepatitis C Kidney stones Anxiety Hemochromatosis Arthritis Asthma Surgical History Knee surgery Appendectomy with partial colectomy Eye surgery Phlebotomy Tubal ligation Shunt in arm Carpal tunnel Social History Occupation: Retired; lives alone in her own apartment but has given notice that she will be leaving there Family Members Issues: Plans on moving in with her grandson Pacheco Bonilla and his significant other Brooklyn and their 2 children Brooklyn apparently wants to become her official caregiver and they are looking into RIANA support She has another grandson Gómez with whom she is close; a third grandson named Emanuel who is not involved (Her daughter Teresita, who lives in [facility], is the mother of Gómez Bergman and Emanuel) In addition to her daughter Teresita, she has 2 sons, Pacheco and Rolando (with whom she has reconnected after adopting out as an ) who live in [place] and another son Nas who lives in [place] She tells me her family members are in communication with each other and pretty much on the same page regarding her plans Her mother 3 years ago in her late 80's; her father young (55 yo) but she does not know details Social Support: Good support from her family members in the area Socially active with a ute mountain of friends with who she likes to talk frequently Enjoys going to the movies and watching movies at home. She has very fond memories of going to the movies with her father when she was a child. She would love to visit [place] in [place] before the end of her life Spiritual Support Spiritual Support Raised as a Church, baptized as a [employer] 6 years ago after becoming friends with a nun in [place] (who has since ) Not a regular churchgoer at this time Has enjoyed visits from him specialistmerna Hi here in the past Palliative Performance Scale PPS Patient Status: Baseline PPS Ambulation: Reduced (uses a walker) PPS Activity: Unable to do normal job/work PPS Self-Care: Full Self Care PPS Intake: Normal or reduced PPS Conscious Level: Full Performance Scale: 70% ADLs ADL Patient Status: Baseline ADL Ambulation: Reduced ADL Dressing: Full ADL Feeding: Full ADL Hygene/bathing: Full ADL Transfers: Full POLST at Time of Admission Previous POLST?: Yes (not available for review- family will bring it in from home) Cardiopulmonary Resuscitation: DNR: Do Not Attempt Resuscitation Medical Interventions: Limited Additional Interventions Antibiotics: Determine Use or Limitations Artificially Admin Nutrition: No Artifical Nutrition by Tube POLST Discussed with: Patient POLST Status: No change from last encounter Allergy Allergies Reviewed: Yes Medications Current Medications: Current Medications Heparin Sodium (Porcine) 5,000 unit Q8 SUBQ; Start 12/10/16 at 00:30; Status Cancel Al Hydrox/Mg Hydrox/Simethicone 30 ml Q6H PRN PO; Start 12/09/16 at 21:30 Ondansetron HCl 4 to 8 mg Q4H PRN IVPUSH; Start 12/09/16 at 21:30 Senna 17.2 mg BID PRN PO; Start 12/09/16 at 21:30 Polyethylene Glycol 17 gm DAILY PRN PO; Start 12/09/16 at 21:30 Acetaminophen 650 mg Q4H PRN PO; Start 12/09/16 at 21:30; Stop 12/09/16 at 21: 45; Status DC Heparin Sodium (Porcine) 5,000 unit Q8 SUBQ; Start 12/10/16 at 00:30; Status UNV Atorvastatin Calcium 20 mg DAILY PO Last administered on 12/10/16 09:33; Admin Dose 20 MG; Start 12/10/16 at 08:30 Fluticasone Propionate 1 puff BID INHALATION Last administered on 12/10/16 09:28 ; Admin Dose 1 PUFF; Start 12/10/16 at 08:30 Buspirone HCl 15 mg TID PO Last administered on 12/10/16 09:34; Admin Dose 15 MG ; Start 12/10/16 at 08:30 Digoxin 0.125 mg noon PO; Start 12/10/16 at 12:00 Fluoxetine HCl 40 mg DAILY PO Last administered on 12/10/16 09:32; Admin Dose 40 MG; Start 12/10/16 at 08:30 Furosemide 60 mg DAILY PO Last administered on 12/10/16 09:37; Admin Dose 60 MG ; Start 12/10/16 at 08:30 Lisinopril 10 mg BID PO Last administered on 12/10/16 09:36; Admin Dose 10 MG; Start 12/10/16 at 08:30 Lorazepam 0.5 mg BID PRN PO; Start 12/09/16 at 22:45 Metoprolol Tartrate 100 mg BID PO Last administered on 12/10/16 09:33; Admin Dose 100 MG; Start 12/10/16 at 08:30 Mirtazapine 15 mg HS PO; Start 12/10/16 at 21:00 Oxybutynin Chloride 5 mg TID PO Last administered on 12/10/16 08:30; Admin Dose 5 MG; Start 12/10/16 at 08:30 Oxycodone/ Acetaminophen 1 tab BID PRN PO Last administered on 12/10/16 09:36; Admin Dose 1 TAB; Start 12/09/16 at 22:45 Phenytoin 30 mg TID PO; Start 12/10/16 at 08:30; Stop 12/10/16 at 10:15; Status DC Phenytoin 100 mg TID PO; Start 12/10/16 at 08:30; Stop 12/10/16 at 10:15; Status DC Potassium Chloride 20 meq DAILYWL PO; Start 12/10/16 at 12:00 Pharmacy Consult 1 ea DAILY@17 XX; Start 12/10/16 at 17:00 Prednisone 20 mg DAILY PO Last administered on 12/10/16 09:34; Admin Dose 20 MG ; Start 12/10/16 at 08:40 Phenytoin 90 mg TID PO; Start 12/10/16 at 14:30 Scheduled Alendronate (Binosto) 70 Mg Tablet.eff 70 MG PO WEEKLY ON SATURDAYS Atorvastatin (Lipitor) 20 Mg Tablet 20 MG PO DAILY Beclomethasone Dipropionate (Qvar) 8.7 Gm Aer.w.adap 1 PUFF INHALATION BID Buspirone (Buspirone) 15 Mg Tablet 15 MG PO TID AM, NOON, PM Calcium Carbonate/Vitamin D3 (Calcium 600 + Vit D 400 Softgl) 1 Each Capsule 1 EACH PO QAM Cholecalciferol (Vitamin D3) (Vitamin D3) 1,000 Unit Tab.chew 1,000 UNIT PO DAILY Digoxin (Digoxin) 125 Mcg Tablet 125 MCG PO noon Doxycycline Hyclate (Doxycycline Hyclate) 100 Mg Capsule 100 MG PO BID Fluoxetine (Fluoxetine) 20 Mg Capsule 40 MG PO DAILY Furosemide (Furosemide) 40 Mg Tablet 60 MG PO DAILY Guaifenesin (Guaifenesin ER) 600 Mg Tab.er.12h 1,200 MG PO Q12 Lisinopril (Lisinopril) 10 Mg Tablet 10 MG PO BID Metoprolol Tartrate (Metoprolol Tartrate) 100 Mg Tablet 100 MG PO BID Mirtazapine (Mirtazapine) 15 Mg Tablet 15 MG PO HS Oxybutynin Chloride (Oxybutynin Chloride) 5 Mg Tablet 5 MG PO TID AM, NOON, PM Phenytoin Sodium ER (Dilantin) 100 Mg Cap 100 MG PO TID AM, NOON, PM Phenytoin Sodium ER (Dilantin) 30 Mg Capsule 30 MG PO TID AM, NOON, PM Potassium Chloride (Potassium Chloride) 20 Meq Tab.er.prt 20 MEQ PO DAILYWL Prednisone (Deltasone) 20 Mg Tablet 40 MG PO DAILY Vitamin A (Vitamin A) 8,000 Unit Capsule 8,000 UNIT PO QAM Warfarin Sodium (Warfarin Sodium) 2.5 Mg Tablet 2.5 MG PO ,,F Warfarin Sodium (Warfarin Sodium) 2.5 Mg Tablet 5 MG PO ,,, Scheduled PRN Albuterol HFA (Proair HFA) 8.5 Gm Hfa.aer.ad 1 PUFFS INHALATION Q4H PRN PRN For Shortness of Breath Albuterol Neb Soln (Albuterol Neb Soln) 2.5 Mg/3 Ml Vial.neb 1 NEB INHALATION TID PRN PRN For Shortness of Breath Benzonatate (Benzonatate) 100 Mg Capsule 100 MG PO TID PRN PRN For Cough Lorazepam (Lorazepam) 0.5 Mg Tablet 0.5 MG PO BID PRN PRN For Anxiety oxyCODONE-Acetaminophen 5-325 mg (oxyCODONE-Acetaminophen 5-325 mg) 1 Each Tablet 1 EACH PO BID PRN PRN For Pain Current Treatments Oxygen: Yes Telemetry: Yes Objective Findings Exam Vital Sign - Last Date Time Temp Pulse Resp B/P Pulse Ox O2 Delivery O2 Flow Rate FiO2 12/10/16 10:49 Supplement Oxygen 12/10/16 10:40 36.3 73 20 109/70 99 12/10/16 05:32 2.00 Intake and Output 12/09/16 12/09/16 12/10/16 Cumulative From/Thru 15:00 23:00 07:00 12/09/16 15:57 - 12/10/16 06:05 Intake Total 1000 ml 300 ml 1300 ml Output Total 100 ml 100 ml Balance 1000 ml 200 ml 1200 ml Intake Oral 300 ml 300 ml IV Total 1000 ml 1000 ml Output Urine Total 100 ml 100 ml # Voids 1 1 2 # Bowel Movements 0 0 Objective Pleasant, oriented, very thin elderly woman sitting in bed. Vital signs noted. Skin is warm and dry. Head and neck exam without acute focal findings. Kyphoscoliosis of the T-spine. Lungs with decreased breath sounds diffusely and bibasilar rhonchi; no wheezes or rales. Heart sounds irregular. Abdomen soft, scaphoid, nontender. Extremities without pitting edema. Neurologic exam grossly intact throughout. Lab/Diagnostics Lab and Imaging results reviewed in detail in EMR. Time spent Total time 90 minutes; >50% face to face with patient, providing counselling regarding plans and recommendations, and in care coordination with her medical teams. Of the above total time, 10 minutes counseling for advanced care planning with the patient reviewing her pertinent paperwork including POA documentation, POLST , etc. copies to: Arlene Dowling MD, David F MD Dec 10, 2016 11:37
--- NOTE | 2016-12-10 12:50 | NUR ---
Case Management: IMM given and explained to pt at 12:30 Alina KHAN RN
--- NOTE | 2016-12-10 15:44 | NUR ---
Evaluation completed. Please go to "Notes" then click on "Assessments and Notes" (bottom left corner of screen). Then select appropriate discipline tab on top of screen.
[2016-12-10] MEDS: PHENYTOIN 30 MG PO SCH ×2 (16:31→21:43)
--- NOTE | 2016-12-10 18:16 | NUR ---
spiritual care: physician referral conversational visit. pt in good spirits, described home and medical events, her missing her dog and concern over family matters. pt appreciative of spiritual care support and eucharistic visitors
[2016-12-11] VITALS (8 sets, daily range): BP systolic 102–163; BP diastolic 65–95; PULSE 63–81; RESP 16; O2SAT 92–99
[2016-12-11] MEDS: oxyCODONE-Acetamin 5-325 mg Tablet PO PRN ×4 (03:28→22:31)
[2016-12-11] MEDS: BusPIRone 15 mg Dividose Tablet PO SCH ×3 (09:07→21:33)
[2016-12-11] MEDS: Fluticasone 100 mCg Inhaler INHALATION SCH ×2 (09:07→20:30)
[2016-12-11] MEDS: PHENYTOIN 30 MG PO SCH ×3 (09:09→21:29)
[2016-12-11] MEDS: predniSONE 20 mg Tablet PO SCH (09:09)
[2016-12-11 09:28] LABS: BASOPHILS % (AUTO) 0.2 % (0-3); EOSINOPHILS % (AUTO) 2.8 % (0-5); MONOCYTES % (AUTO) 7.9 % (4-12); Mean Corpuscular Hemoglobin 33.5 pg (27.0-35.0); Mean Corpuscular Volume 102.7 fL (81-100); Platelet Count 113 bil/L (150-400)
[2016-12-11 09:42] LABS: INR 3.61 ratio
[2016-12-11 10:03] LABS: Magnesium 1.8 mg/dL (1.6-2.6)
--- NOTE | 2016-12-11 11:44 | NUR ---
Gave access and faxed facesheet to April Gilbert per [employer] DEVELOPMENT TEAM LEAD
--- NOTE | 2016-12-11 12:18 | NUR ---
Palliative care note D/A: Case discussed in PC rounds. Dr. Terry notes that he discussed at length with pt on 12/10/16 what her wishes might be in relation to her discharge. Pt indicates that she is currently moving out of her apt and is moving in with her grandson and his partner [place]. Pt would like to receive HH P.T. Both she and Brooklyn would like [place] to be her RIANA provider. Pt is noted to be DNR/DNI with POLST completed. Dr. Terry has given her DPOA paperwork to complete. Case discussed in rounds, pt here for a couple more days. Review of EMR reveals that pt is listed as only having Medicare. Past accounts reveal Medicare and . Past KNITTER HELPER notes reveal that was was formerly receiving services from [facility] and that on 05/24- a referral was made for an expedited RIANA assessment. Unclear if pt was able to follow through on obtaining RIANA. Have left message and also discussed with bhumi Contreras in relation to above. Dr. Terry notes that pt is agreeing to short term SNF placement as well. P: Palliative to follow as needed. Sulma GONZALEZ, CCM
[2016-12-11] MEDS: Potassium Chloride 20 mEq SR Tablet PO SCH (12:36)
--- NOTE | 2016-12-11 12:43 | NUR ---
Social Work Initial Assessment: SW met with patient at bedside to discuss discharge plan. Patient is a 71 year old female admitted on 12/09/16 for general weakness and over anticoagulates. Patient payer as Medicare. Patient PCP as MD Dowling. Patient has no prison disability nor VA benefits. Patient resides alone in [facility]. Patient states that she and her grandson Pacheco, have been coordinating care for patient to live with him and his [place], to care and assist with patient needs. Patient pharmacy of choice as [facility]. Patient current with [facility] but [facility] has yet to establish care for patient as a result to recurring readmissions. Patient has a walker, cane, and 02 at home. 02 supplied via [employer]. Patient has no previous SNF history. Patient states having AD and SW encouraged patient to bring in copy. SW discussed discharge options of SNF placement with patient. Patient requested that contact to grandson Pacheco be made. SW contacted grandson with patient at bedside. Patient and grandson in agreement to SNF placement at [facility]. SNF choice list provided to patient at bedside. SW advised patient and family of importance of calling [facility] company for appropriate care and services to reduce readmission. Patient son states that he and his will be coordinating arrangements to have patient resides with them following discharge. Patient son inquired about possible [employer] referral for patient daughter in law Brooklyn to be caregiver. SW contacted RIANA, [phone] and rep confirmed no active open case on patient. CATRACHITO completed [employer] application and faxed to [phone]. CATRACHITO also contacted [facility] and left message for Soniya to possible assist with Medicaid to assist with prison care assistance. CATRACHITO requested that UR specialist send referral to [facility] for possible consideration. SW to follow. PLAN: Possible SNF placement at [facility], pending acceptance. RIANA referral initiated. CATRACHITO to follow for SNF placement. Current with [facility]. Amanda OLMSTEAD Addendum: 12/11/16 at 1256 by BEAU MEJIA Amended: Links added.
--- NOTE | 2016-12-11 13:11 | PCM.PALLBR ---
Palliative Care Recommendation 71 yo female with multiple hospitalizations in last 12 months, readmitted with progressive weakness and falls at home, in the setting of longstanding COPD ( with chronic home O2), recent pneumonia, diastolic CHF, atrial fibrillation, etc. Palliative medicine consulted to assist patient and family in determination of goals of care. Summary of palliative recommendations: -Symptom management (Pain/other)- no significant symptoms of distress. Continued management per medical/hospitalist team -DPOA/Advanced Directives/POLST- she has not previously completed POA documentation. She wants her grandsons Pacheco and Gómez to share POA duty. I gave her a blank POA which she will complete with her grandsons, either prior to discharge or once she is at SNF. She has a POLST on her refrigerator at home. Reviewed its status- she is very clear that she is DO NOT RESUSCITATE/DO NOT INTUBATE/limited interventions/ hospitalization and antibiotics OK/no artificial nutrition. Family members will try to bring in the POLST so we can make a copy. -Family/emotional support- sounds like she has excellent support from her family. Discharge planners assisting with application for RIANA support for care at home. Also interested in some possible DME including a bedside commode and the possibility of home health nurse/physical therapy. Discharge planning is aware of all of these concerns and is working on them. -Spiritual support- passed along to dural mechanic her wish for a visit As she is clinically stable at this time and no significant pending issues, palliative medicine will sign off. Please contact us if we may be of further assistance. Patient Goals: 1. Patient wants to be told the truth about her illness, even if it is unpleasant. 2. Patient would like to be told prognosis when it can be predicted, to better guide treatment decisions. Additional Medical Diagnoses with primary management by Hospitalist team include : Generalized weakness with multiple falls -We will go ahead and get physical therapy consultation for evaluation of gait stability -Patient may need placement at SNF for continuing physical therapy supra-therapeutic INR, POA Ongoing left sided chest wall pain, POA Chronic Persistent Atrial fibrillation on anticoagulation therapy, POA COPD and chronic hypoxic respiratory failure, POA. Mild exacerbation with reactive airways. Chronic Diastolic heart failure, POA Epilepsy, chronic. Presumed stable Chronic kidney disease, stage III. POA. Other stable chronic conditions: Anxiety HCV Hemochromatosis Problems: End of Life Preferences DO NOT RESUSCITATE/DO NOT INTUBATE/limited interventions/antibiotics and hospitalization OK/no artificial nutrition Goals of Care Recovery and stabilization with plans to move in with her grandson and his SO Disposition As above Resuscitation Status Resuscitation Status: DNR/DNI:Do Not Resuscitate/Intubate Limited Interventions: Medications and IV Fluid POLST Updates/Changes Previous POLST?: Yes (per prior SW notes) Antibiotics: Determine Use or Limitations Artificially Admin Nutrition: No Artifical Nutrition by Tube POLST Discussed with: Patient POLST Review Outcome: No Change . Pain: None Symptom management: Dyspnea (mild) Total time 25 minutes; >50% face to face with patient, providing counselling regarding plans and recommendations, and in care coordination with her medical teams as well as reviewing her advanced directive issues and documentation. copies to: Arlene Dowling MD Palliative Brief Note Date of Service Dec 11, 2016 . Returned to reevaluate patient. Prior to visiting, reviewed her updated records in the EMR. On my arrival, she is resting in bed. Had just gotten herself back into bed after sitting up in chair for an hour. She continues to say she is feeling better. She does now say she is willing to go to an SNF for several days for rehabilitation. Her family has not been in and so she did not take any action on the POA paperwork. On exam, vital signs noted. Skin is pale, warm and dry. She is quite thin. Lungs with decreased breath sounds diffusely, heart sounds are regular, abdomen soft and benign. Extremities without pitting edema. Labs and imaging studies reviewed. He Terry MD Dec 11, 2016 13:11
--- NOTE | 2016-12-11 13:40 | PCM.PHAPRO ---
Progress Date Nov 09-Dec 11-Dec INR 5.16 4.87 3.61 INR change -0.29 -1.26 Warf Dose HOLD HOLD hold Efren Wagoner Dec 11, 2016 13:40
--- NOTE | 2016-12-11 14:30 | PCM.PNMED ---
Subjective Date of Service Dec 11, 2016 Subjective Patient sitting up in chair and notes that her breathing is low but better today. She has worked with physical therapy a bit today.Also she does tell me that she noted a sore on her right hip area and she does not know how that occurred. She does not remember falling.. Exam Vital Signs Vital Sign - Last Date Time Temp Pulse Resp B/P Pulse Ox O2 Delivery O2 Flow Rate FiO2 12/11/16 13:55 Nasal Cannula 2.00 12/11/16 12:40 36.5 76 16 118/74 99 Intake and Output 12/10/16 12/10/16 12/11/16 Cumulative From/Thru 15:00 23:00 07:00 12/09/16 15:57 - 12/11/16 06:44 Intake Total 780 ml 200 ml 2280 ml Output Total 1100 ml 400 ml 1600 ml Balance -320 ml -200 ml 680 ml Intake Oral 780 ml 200 ml 1280 ml IV Total 1000 ml Output Urine Total 1100 ml 400 ml 1600 ml # Voids 6 8 # Bowel Movements 0 0 Exam Constitutional: Elderly woman in no acute distress Head: Normocephalic atraumatic Chest: Decreased breath sounds but improved aeration compared to yesterday. Cor: Regular rate and rhythm S1-S2 Abdomen: Soft nontender bowel sounds present Extremities: No pedal edema noted. She does have a large contusion and possible hematoma on the right lateral hip area. Lab and Diagnostics Result Diagram: 12/11/16 0911 12/11/16 0911 X-Rays, CTs and MRIs Chest Xray Interpretation: IMPRESSION: 1. Scattered indistinct ground glass opacities in upper lung zones are nonspecific but suspicious for an infectious or inflammatory process. 2. Mild blunting of the right costophrenic angle suggestive of a small pleural effusion. Dictated by: Rolando Walsh M.D. on 12/09/2016 at 17:20 Approved by: Rolando Walsh M.D. on 12/09/2016 at 17:22 12-lead ECG ECG Interpretation: A-fib at a rate of 68 Time: 19:24 Interpreted by: ED physician Assessment & Plan Patient is a 71 year old female with a history of hemochromatosis, epilepsy, COPD on home 2L O2, CHF, stage III chronic kidney disease, and chronic atrial fibrillation on warfarin, presenting to the emergency department via EMS complaining of generalized weakness and ongoing chronic left sided chest wall pain. Patient states she has not been able to get back to her baseline since recently discharged on 12/01/16 for pneumonia, and has been feeling weak, reports of falling more than usual at home. Generalized weakness with multiple falls -We will go ahead and get physical therapy consultation for evaluation of gait stability -Patient may need placement at significant for continuing physical therapy prior to being discharged to home. Significant hypomagnesemia, acute, present on admission - Was repleted last night will need to recheck and monitor. - Most likely contributing to her significant weakness. supra-therapeutic INR, POA - warfarin, heparin held - repeat INR in am - Improving Right hip contusion -We will check CT of head without contrast to further investigate. Need to rule out occult fracture. Most likely hematoma after some impact her fall. Now that her INR is improving hopefully will resolve. Ongoing left sided chest wall pain, POA - most likely costochondritis, due to pain reproducible at same rib 4 anteriorly and posteriorly, no midline tenderness of spine - pain meds PRN Chronic Persistent Atrial fibrillation on anticoagulation therapy, POA - telemetry - Continue home meds: Metoprolol Succinate 150mg Daily and Digoxin - Digoxin levels as needed COPD and chronic hypoxic respiratory failure, POA. Mild exacerbation with reactive airways. - Requires 2L of Oxygen at home. Currently saturating well on 2 L - SpO2 target of 88-92% - Bronchodilators when necessary. -We will add prednisone to her treatment- Chronic Diastolic heart failure, POA - continue home Lasix with KCl Epilepsy, chronic. Presumed stable - Continue antiepileptic medications: Phenytoin - Phenytoin levels as needed Chronic kidney disease, stage III. POA. This appears to be stable. - Will follow renal indices. - Avoid nephrotoxins. Other stable chronic conditions: Anxiety HCV Hemochromatosis Patient admitted under observation status with expected length of stay < 2 midnights. - PRN: Bowel/fever/pain/antiemetic - DIET: Heart healthy, Renal healthy - Code: DNR/DNI - PCP: [facility] Prophylaxis: Not indicated VTE Prophylaxis: Theraputic Anticoag with Warfarin VTE Mechanical Devices: Intermittant Pneumatic CD Resuscitation Status: DNR/DNI:Do Not Resuscitate/Intubate Limited Interventions: Medications and IV Fluid Time spent 30 minutes Marcy Hunter MD Dec 11, 2016 14:30
--- NOTE | 2016-12-11 15:44 | NUR ---
PAIN Patient complains of 'soreness' pain to R hip. Upon assessment, large dark purple bruise present with hard tissue present in middle. Patient reports she didn't have any falls recently. Was over anticoagulated upon admission. Administered 1 tab of percocet 5/325 with good pain relief. Also gave patient ice pack for R hip.
--- NOTE | 2016-12-11 19:00 | DRSVH ---
PROCEDURE: CT HIP RIGHT W/O CONTRAST (72503) INDICATIONS: contusion right hip TECHNIQUE: Noncontrast 3 mm axial sections acquired through the bony pelvis. Additional 3 mm axial sections acq uired through the symptomatic hip joint, with coronal and sagittal reformats. COMPARISON: None. FINDINGS: Image quality: Limited by motion artifact. Bones: There is diffuse osteopenia. Mild to moderate right hip degeneration. Linear calcific density on image 30 series 602 and the joint space could represent chondrocalcinosis, versus loose body or un united osteophyte. Multilevel discogenic changes and facet arthropathy Soft tissues: There is bilateral flank soft tissue and subcutaneous edema however right greater than left. There is also a large 5.3 x 4.5 cm soft tissue mass versus complex fluid collection image 71 se marco antonio 2 in the right hip subcutaneous soft tissues. IMPRESSION: Large complex mass within the subcutaneous soft tissues of the right hip. This could represent hemato ma (bland or infected) although cannot exclude neoplasm. Please correlate clinically and if there is no history of trauma, then recommend followup with contrast-enhanced right hip MRI to evaluate for so ft tissue neoplasm Mild to moderate right hip degeneration. Dictated by: Timoteo Isaac M.D. on 12/11/2016 at 18:53 Approved by: Timoteo Isaac M.D. on 12/11/2016 at 18:59
[2016-12-12] VITALS (7 sets, daily range): BP systolic 124–145; BP diastolic 53–86; PULSE 64–79; RESP 16; O2SAT 95–100
--- NOTE | 2016-12-12 03:59 | NUR ---
Pain Patient reports pain in right hip managed with oral pain medications. Denies CP, SOB, and abdominal discomfort. Educated patient on proper way to use inhaler and follow up with mouth rinse. Patient had refused evening dose stating " It caused the thrush in my mouth" This RN did not find any signs of thrush, or any labs r/o thrush. Patient's grand daughter was in the room at that time.
[2016-12-12 06:08] LABS: BASOPHILS % (AUTO) 0.3 % (0-3); EOSINOPHILS % (AUTO) 3.6 % (0-5); MONOCYTES % (AUTO) 9.9 % (4-12); Mean Corpuscular Hemoglobin 33.4 pg (27.0-35.0); Mean Corpuscular Volume 102.5 fL (81-100); NEUTROPHILS % (AUTO) 66.7 % (40-74); Platelet Count 129 bil/L (150-400)
[2016-12-12 06:21] LABS: INR 2.8 ratio
[2016-12-12 06:30] LABS: Magnesium 1.5 mg/dL (1.6-2.6)
[2016-12-12] MEDS: Fluticasone 100 mCg Inhaler INHALATION SCH (08:24)
[2016-12-12] MEDS: predniSONE 20 mg Tablet PO SCH (08:27)
[2016-12-12] MEDS: BusPIRone 15 mg Dividose Tablet PO SCH ×2 (08:27→14:44)
[2016-12-12] MEDS: PHENYTOIN 30 MG PO SCH ×2 (08:28→14:45)
[2016-12-12] MEDS: oxyCODONE-Acetamin 5-325 mg Tablet PO PRN (09:39)
--- NOTE | 2016-12-12 10:09 | PCM.PHAPRO ---
Progress Date of Service: Dec 12, 2016 Warfarin dosing A/ INR is now therapeutic at 2.8. P/ Continue home dosing of 2.5mg today and continue to monitor daily. Date Nov 09-Dec 11-Dec 12-Dec INR 5.16 4.87 3.61 2.8 INR change -0.29 -1.26 -0.81 Warf Dose HOLD HOLD HOLD 2.5 MG Aramis Watson Dec 12, 2016 10:09
[2016-12-12] MEDS: Potassium Chloride 20 mEq SR Tablet PO SCH (12:32)
--- NOTE | 2016-12-12 13:17 | PCM.DIMED ---
Discharge Instructions Date of Service Dec 12, 2016 Dates of Hospitalization Dec 09, 2016 at 21:28 Discharge Diagnosis Discharge Diagnosis Hypomagnesemia,Weakness, COPD exacerbation Diet Heart Healthy Activity Other (as tolerated) Call your provider Fever or Chills, Shortness of breath, Chest pain, Vomitting, Excessive diarrhea , Weakness (unilateral) Marcy Hunter MD Dec 12, 2016 13:17
[2016-12-12] MEDS ORDERED: ALBU2.5V4 INHALATION (13:30)
[2016-12-12] MEDS ORDERED: ALBU8.5H2 INHALATION (13:30)
[2016-12-12] MEDS ORDERED: BUSP15TA3 PO (13:30)
[2016-12-12] MEDS ORDERED: ALEN70TA51 PO (13:30)
[2016-12-12] MEDS ORDERED: CALC1CAP22 PO (13:30)
[2016-12-12] MEDS ORDERED: WARF2.5T PO (13:31)
[2016-12-12] MEDS ORDERED: CHOL10008 PO (13:31)
[2016-12-12] MEDS ORDERED: FLUO20CA25 PO (13:31)
[2016-12-12] MEDS ORDERED: ATOR20TA65 PO (13:31)
[2016-12-12] MEDS ORDERED: MIRT15TA6 PO (13:31)
[2016-12-12] MEDS ORDERED: POTA20TA16 PO (13:31)
[2016-12-12] MEDS ORDERED: FUR20 PO (13:31)
[2016-12-12] MEDS ORDERED: METO100T3 PO (13:31)
[2016-12-12] MEDS ORDERED: LISI-610 PO (13:31)
[2016-12-12] MEDS ORDERED: LORA-302 PO (13:31)
[2016-12-12] MEDS ORDERED: LAN125 PO (13:31)
[2016-12-12] MEDS ORDERED: PHEN30CA PO (13:31)
[2016-12-12] MEDS ORDERED: PRED-508 PO (13:31)
[2016-12-12] MEDS ORDERED: OXYC1TAB24 PO (13:31)
[2016-12-12] MEDS ORDERED: OXYB5TAB10 PO (13:31)
[2016-12-12] MEDS ORDERED: FLUT100D2 INHALATION (13:31)
--- NOTE | 2016-12-12 13:57 | PCM.DC.MED ---
Discharge Summary Date of Service Dec 12, 2016 Dates of Hospitalization Date of Hospital Admission Dec 09, 2016 at 21:28 Date of Discharge: Dec 12, 2016 Providers: Admitting Physician: Augustin Santo MD Primary Care Physician: Arlene Dowling MD Attending Physician: Augustin Santo MD Diagnosis at Time of Discharge Diagnosis at Time of Discharge Hypomagnesemia,Weakness, COPD exacerbation Procedures XRay, CTs & MRIs Chest Xray Interpretation: IMPRESSION: 1. Scattered indistinct ground glass opacities in upper lung zones are nonspecific but suspicious for an infectious or inflammatory process. 2. Mild blunting of the right costophrenic angle suggestive of a small pleural effusion. Dictated by: Rolando Walsh M.D. on 12/09/2016 at 17:20 Approved by: Rolando Walsh M.D. on 12/09/2016 at 17:22 ECG 12 Lead ECG Interpretation: A-fib at a rate of 68 Time: 19:24 Interpreted by: ED physician Brief History Per admission H&P: Patient is a 71 year old female with a history of hemochromatosis, epilepsy, COPD on home oxygen, CHF, stage III chronic kidney disease, and chronic atrial fibrillation on warfarin, presenting to the emergency department via EMS complaining of generalized weakness and ongoing chronic left sided chest wall pain. Patient states she has not been able to get back to her baseline since recently discharged and has been feeling weak, reports of falling more than usual at home. Uses cane or walker at baseline. In regards to her chest wall pain, onset is unclear but she reports chest wall pain was present during previous admission and has persisted. Described as sharp and is exacerbated by deep inspiration. Associated symptoms include chills, headache, SOB, and constipation. In the ED, family members present in the room reported progressively worsening generalized weakness, malaise, inability to ambulate or care for self. Last BM 5 days ago. Pt denies cough, nausea, vomiting, abdominal pain, or diarrhea. Pt was admitted to the hospital from 11/27-12/01/2016 for pneumonia, discharged on Doxycycline. Multiple (8) hospitalizations in last 12 months, with reported progressive decline in functional status. Palliative medicine consulted to assist patient and family in determining goals of care. Prior to visiting, reviewed her records in the EMR in detail. Spoke with her bedside nurse. When I arrived, she was sitting at bedside. Oriented and quite pleasant. In no distress. Denied any significant dyspnea or other distress. Said that she is feeling better than at admission. She feels that her decline over the last year is a consequence of recurrent/persistent pneumonia which seems to now finally be improving. We reviewed details of this hospitalization and then talked at length about her living situation, her plans and goals, reviewed her pertinent documentation, etc. She plans on moving in with grandsusana Bergman and his significant other [place] when she is ready for discharge. Today tells me she has no plans to go to an SNF She admits that she has just come to realize that "I need more help" with day- to-day activities and managing life Hospital Course Patient is a 71 year old female with a history of hemochromatosis, epilepsy, COPD on home 2L O2, CHF, stage III chronic kidney disease, and chronic atrial fibrillation on warfarin, presenting to the emergency department via EMS complaining of generalized weakness and ongoing chronic left sided chest wall pain. Patient states she has not been able to get back to her baseline since recently discharged on 12/01/16 for pneumonia, and has been feeling weak, reports of falling more than usual at home. Generalized weakness with multiple falls -We will go ahead and get physical therapy consultation for evaluation of gait stability -Patient may need placement at significant for continuing physical therapy prior to being discharged to home. Significant hypomagnesemia, acute, present on admission - Was repleted last night will need to recheck and monitor. - Most likely contributing to her significant weakness. supra-therapeutic INR, POA - warfarin, heparin held - repeat INR in am - Improving -Pharmacy adjusting and monitoring dosing Right hip contusion -We will check CT of head without contrast to further investigate. Need to rule out occult fracture. Most likely hematoma after some impact after a fall. Now that her INR is improving hopefully will resolve. Ongoing left sided chest wall pain, POA - most likely costochondritis, due to pain reproducible at same rib 4 anteriorly and posteriorly, no midline tenderness of spine - pain meds PRN Chronic Persistent Atrial fibrillation on anticoagulation therapy, POA - telemetry - Continue home meds: Metoprolol Succinate 150mg Daily and Digoxin - Digoxin levels as needed COPD and chronic hypoxic respiratory failure, POA. Mild exacerbation with reactive airways. - Requires 2L of Oxygen at home. Currently saturating well on 2 L - SpO2 target of 88-92% - Bronchodilators when necessary. -We will add prednisone to her treatment- Chronic Diastolic heart failure, POA - continue home Lasix with KCl Epilepsy, chronic. Presumed stable - Continue antiepileptic medications: Phenytoin - Phenytoin levels as needed -Phenytoin level was elevated so pharmacy adjusted her dosing. Chronic kidney disease, stage III. POA. This appears to be stable. - Will follow renal indices. - Avoid nephrotoxins. Other stable chronic conditions: Anxiety HCV Hemochromatosis Patient admitted under observation status with expected length of stay < 2 midnights. - PRN: Bowel/fever/pain/antiemetic - DIET: Heart healthy, Renal healthy - Code: DNR/DNI - PCP: [facility] Exam Vital Signs (Last) Date Time Temp Pulse Resp B/P Pulse Ox O2 Delivery O2 Flow Rate FiO2 12/12/16 12:32 74 12/12/16 12:16 36.8 16 124/82 100 Nasal Cannula 2.00 Exam Constitutional: Well-appearing female in no acute distress Head: Normocephalic atraumatic Chest: Improvement in breath sounds today no wheezes noted. Cor: Regular rate and rhythm S1-S2 Abdomen: Soft nontender bowel sounds present Extremities: No pedal edema Test 12/09/16 16:45 12/09/16 18:41 12/09/16 19:17 12/10/16 07:45 Troponin T < 0.010ug/L (0.0-0.011) Hold Bridges Top Tube Received (Received) Digoxin Level 0.4nG/mL (0.9-2.0) Phenytoin (Dilantin) Level 20.1uG/mL (10.0-20.0) Hold Urine Received (Received) Urine Color Yellow (YELLOW) Urine Appearance Clear (CLEAR,HAZY) Urine pH 5.5 (5.0-8.0) Urine Specific [place] 1.015 (1.003-1.035) Urine Protein Negativemg/dL (NEG,TRACE) Urine Glucose (UA) Negativemg/dL (NEGATIVE) Urine Ketones Tracemg/dL (NEGATIVE) Urine Occult Blood Negative (NEGATIVE) Urine Nitrite Negative (NEGATIVE) Urine Bilirubin Negative (NEGATIVE) Urine Urobilinogen Normalmg/dL (NORMAL) Urine Leukocyte Esterase Small (NEGATIVE) Urine RBC 0-2/hpf (0-2) Urine WBC 0-5/hpf (0-5) Urine Epithelial Cells None/hpf (NONE-MOD) Urine Crystals None seen (NONE SEEN) Urine Bacteria Few/hpf (NONE-FEW) Urine Hyaline Casts None/lpf (NONE) Urine Granular Casts None seen (NONE SEEN) Urine Waxy Casts None seen (NONE SEEN) Urine Red Blood Cell Casts None seen (NONE SEEN) Urine White Blood Cell Casts None seen (NONE SEEN) Urine Mucus Present (None Seen) Urine Trichomonas None seen (NONE SEEN) Urine Yeast None (NONE SEEN) Urinalysis Comment None Urine Culture Reflexed Indicated Iron Level 78ug/dL (35-150) Total Iron Binding Capacity 206ug/dL (250-450) Percent Iron Saturation 38%sat (15-50) Unsaturated Iron Binding 127.8ug/dL Vitamin B12 Level 1151pg/mL (211-946) Folate 18.1ng/mL (>3.0) Test 12/12/16 05:45 White Blood Count 9.3th/mm3 (3.8-10.1) Red Blood Count 3.23mil/mm3 (3.90-5.20) Hemoglobin 10.8g/dL (12.0-15.6) Hematocrit 33.1% (35.0-46.0) Mean Corpuscular Volume 102.5fL (81-100) Mean Corpuscular Hemoglobin 33.4pg (27.0-35.0) Mean Corpuscular Hemoglobin Concent 32.6% (32.0-37.0) Red Cell Distribution Width 14.2% (12.3-15.4) Platelet Count 129bil/L (150-400) Neutrophils (%) (Auto) 66.7% (40-74) Lymphocytes (%) (Auto) 19.3% (14-46) Monocytes (%) (Auto) 9.9% (4-12) Eosinophils (%) (Auto) 3.6% (0-5) Basophils (%) (Auto) 0.3% (0-3) Prothrombin Time 30.6sec (8.1-12.5) Prothromb Time International Ratio 2.80ratio Sodium Level 139mEq/L (134-144) Potassium Level 3.9mEq/L (3.5-5.2) Chloride Level 98mEq/L (97-108) Carbon Dioxide Level 31mmol/L (18-29) Blood Urea Nitrogen 29mg/dL (8-27) Creatinine 1.05mg/dL (0.57-1.00) Estimat Glomerular Filtration Rate 74mL/min (>59) Glucose Level 71mg/dL (60-99) Calcium Level 8.1mg/dL (8.5-10.1) Magnesium Level 1.5mg/dL (1.6-2.6) Total Bilirubin 0.6mg/dL (0.0-1.2) Aspartate Amino Transf (AST/SGOT) 71U/L (0-50) Alanine Aminotransferase (ALT/SGPT) 35U/L (0-32) Alkaline Phosphatase 138U/L (25-165) Total Protein 5.9g/dL (6.4-8.4) Albumin 3.0g/dL (3.4-5.0) Discharge Medications Discharge Medications Alendronate (Binosto) 70 Mg Tablet.eff 70 MG PO WEEKLY ON SATURDAYS Prescribed by: MARCY HUNTER MD Atorvastatin Calcium (Atorvastatin Calcium) 20 Mg Tablet 20 MG PO DAILY Prescribed by: MARCY HUNTER MD Buspirone (Buspirone) 15 Mg Tablet 15 MG PO TID AM, NOON, PM Prescribed by: MARCY HUNTER MD Calcium Carbonate/Vitamin D3 (Calcium 600 + Vit D 400 Softgl) 1 Each Capsule 1 EACH PO QAM Prescribed by: MARCY HUNTER MD Cholecalciferol (Vitamin D3) (Vitamin D3) 1,000 Unit Tab.chew 1,000 UNIT PO DAILY Prescribed by: MARCY HUNTER MD Digoxin (Lanoxin) 0.125 Mg Tablet 0.125 MG PO noon Prescribed by: MARCY HUNTER MD Fluoxetine (Fluoxetine) 20 Mg Capsule 40 MG PO DAILY Prescribed by: MARCY HUNTER MD Fluticasone Propionate (Flovent Diskus) 100 Mcg Disk.w.dev 1 PUFF INHALATION BID Prescribed by: MARCY HUNTER MD Furosemide (Furosemide) 20 Mg Tab 60 MG PO DAILY Prescribed by: MARCY HUNTER MD Lisinopril (Zestril) 10 Mg Tablet 10 MG PO BID Prescribed by: MARCY HUNTER MD Metoprolol Tartrate (Metoprolol Tartrate) 100 Mg Tablet 100 MG PO BID Prescribed by: MARCY HUNTER MD Mirtazapine (Mirtazapine) 15 Mg Tablet 15 MG PO HS Prescribed by: MARCY HUNTER MD Oxybutynin Chloride (Oxybutynin Chloride) 5 Mg Tablet 5 MG PO TID Prescribed by: MARCY HUNTER MD Phenytoin Sodium ER (Dilantin) 30 Mg Capsule 90 MG PO TID Prescribed by: MARCY HUNTER MD Potassium Chloride (Potassium Chloride) 20 Meq Tab.er.prt 20 MEQ PO DAILYWL Prescribed by: MARCY HUNTER MD Prednisone (Deltasone) 20 Mg Tablet 20 MG PO DAILY Prescribed by: MARCY HUNTER MD Warfarin Sodium (Coumadin) 2.5 Mg Tablet 2.5 MG PO OT Prescribed by: MARCY HUNTER MD As needed Albuterol HFA (Proair HFA) 8.5 Gm Hfa.aer.ad 1 PUFFS INHALATION Q4H PRN PRN For Shortness of Breath Prescribed by: MARCY HUNTER MD Albuterol Neb Soln (Albuterol Neb Soln) 2.5 Mg/3 Ml Vial.neb 1 NEB INHALATION Q4H PRN PRN For Shortness of Breath Prescribed by: MARCY HUNTER MD Lorazepam (Ativan) 0.5 Mg Tablet 0.5 MG PO BID PRN PRN For Anxiety Prescribed by: MARCY HUNTER MD oxyCODONE-Acetaminophen 5-325 mg (oxyCODONE-Acetaminophen 5-325 mg) 1 Each Tablet 1 TAB PO Q6 PRN PRN FOR PAIN Prescribed by: MARCY HUNTER MD Followup Plan Discharge Diet: Heart Healthy Discharge Activity: Other (as tolerated) Time spent 60 minutes Marcy Hunter MD Dec 12, 2016 13:57
--- NOTE | 2016-12-12 17:49 | NUR ---
Discharge Orders for discharge to alf facility received. Patient agreeable to go after some consideration. Patient information faxed to accepting care facility. Nurse to nurse report given via telephone call. At time of discharge patient ambulated into a wheelchair and was wheeled to an awaiting transport vehicle at the main entrance. At the time of discharge the patient was alert and oriented, with no complaints of out of control pain, nausea, shortness of breath or other difficulties. Patient discharged on 2L of O2 via nasal cannula, sats mid 90s.
== END 2016-12-12 15:18 | DRG 641 ==
LOC: SED 15:54 → OBSVTOIN 21:28 → OSC 21:28
PROVIDERS: ADMIT Hospitalist; ATTEND Hospitalist
DX: E83.42 Hypomagnesemia (principal); J96.11 Chronic respiratory failure with hypoxia; I50.32 Chronic diastolic (congestive) heart failure; J44.1 Chronic obstructive pulmonary disease with (acute) exacerbation; G40.909 Epilepsy, unspecified, not intractable, without status epilepticus; N18.3 Chronic kidney disease, stage 3 (moderate); I48.2 Chronic atrial fibrillation; Z99.81 Dependence on supplemental oxygen; Z87.891 Personal history of nicotine dependence; K56.41 Fecal impaction; E83.119 Hemochromatosis, unspecified; R29.6 Repeated falls; R53.1 Weakness; Z79.01 Long term (current) use of anticoagulants; S70.01XA Contusion of right hip, initial encounter; Z91.81 History of falling; W19.XXXA Unspecified fall, initial encounter

== ENCOUNTER 2016-12-20 01:56 | Emergency (ER) | payer MEDICARE ==
[~2016-12-20] VITALS: Ht 165.1 cm; Wt 59.1 kg
[~2016-12-20 01:56] MED LIST changes: -ATOR20TA PO; +ATOR20TA65 PO; -BECL8.7A6 INHALATION; -BENZ100C8 PO; -DIGO125T73 PO; -DOXY100C2 PO; +FLUT100D2 INHALATION; +FUR20 PO; -FURO40TA4 PO; -GUAI600T86 PO; +LAN125 PO; +LISI-610 PO; -LISI10TA PO; +LORA-302 PO; -LORA0.5T PO; -PHN100C PO; -VITA80006 PO; +WARF2.5T PO; -WARF2.5T82 PO
--- NOTE | 2016-12-20 02:00 | ED.REPORT ---
HPI-Head Prob / Injury Date of Service Dec 20, 2016 ED Provider: Earnest Mendosa MD Patient is a 71 year old female with a history of hemochromatosis, epilepsy, COPD on home oxygen, congestive heart failure, stage III chronic kidney disease , and chronic atrial fibrillation on Coumadin who presents to the ED via EMS with blunt head trauma after an unwitnessed ground level fall this morning. Staff at [facility] found the patient laying on the bathroom floor this morning , with estimated fall time between 1am-1:30am. Patient was found to have a large hematoma at the back of her head and complained of left sided rib pain. She denies a headache or loss of consciousness. Patient denies neck pain or sustaining any other injuries. Patient was also found to be hypoglycemic by medics. Patient also has a cough and was found to be 94% on room air by EMS. Patient denies feeling short of breath. Patient denies abdominal pain, nausea, or vomiting. Nursing Notes Stated Complaint: GLF, HEAD INJURY, WARFARIN Nursing Notes Reviewed: Yes Allergies: Coded Allergies: Macrolide Antibiotics (Verified Allergy, Severe, SWELLING, 12/20/16) HIVES, SWELLING, SOB Penicillins (Verified Allergy, Severe, SWELLING, HIVES, 12/20/16) HIVES, SWELLING, SOB codeine (Verified Allergy, Severe, VOMITING, 12/20/16) erythromycin ethylsuccinate (Verified Allergy, Severe, INSIDE SWELL UP, 09/25) TAPE (Verified Allergy, Unknown, PLASTIC TAPE, 12/20/16) ampicillin (Verified Allergy, Unknown, UNKNOWN, 12/20/16) clindamycin (Verified Allergy, Unknown, UNKNOWN, 12/20/16) GI BLEED... (07/11/15.. pt contacted at pharmacy request and asked about clindamycin allergy- states she knows something at one time had given her black stools- but she is not certain of whether or not it was clindamycin. Pharmacy notified of pt response.) Uncoded Allergies: KETOLIDE (Allergy, Unknown, 12/20/16) Unknown reaction Scheduled Alendronate (Binosto) 70 Mg Tablet.eff 70 MG PO WEEKLY ON SATURDAYS Atorvastatin Calcium (Atorvastatin Calcium) 20 Mg Tablet 20 MG PO DAILY Buspirone (Buspirone) 15 Mg Tablet 15 MG PO TID AM, NOON, PM Calcium Carbonate/Vitamin D3 (Calcium 600 + Vit D 400 Softgl) 1 Each Capsule 1 EACH PO QAM Cholecalciferol (Vitamin D3) (Vitamin D3) 1,000 Unit Tab.chew 1,000 UNIT PO DAILY Digoxin (Lanoxin) 0.125 Mg Tablet 0.125 MG PO noon Fluoxetine (Fluoxetine) 20 Mg Capsule 40 MG PO DAILY Fluticasone Propionate (Flovent Diskus) 100 Mcg Disk.w.dev 1 PUFF INHALATION BID Furosemide (Furosemide) 20 Mg Tab 60 MG PO DAILY Lisinopril (Zestril) 10 Mg Tablet 10 MG PO BID Metoprolol Tartrate (Metoprolol Tartrate) 100 Mg Tablet 100 MG PO BID Mirtazapine (Mirtazapine) 15 Mg Tablet 15 MG PO HS Oxybutynin Chloride (Oxybutynin Chloride) 5 Mg Tablet 5 MG PO TID Phenytoin Sodium ER (Dilantin) 30 Mg Capsule 90 MG PO TID Potassium Chloride (Potassium Chloride) 20 Meq Tab.er.prt 20 MEQ PO DAILYWL Prednisone (Deltasone) 20 Mg Tablet 20 MG PO DAILY Warfarin Sodium (Coumadin) 2.5 Mg Tablet 2.5 MG PO OT Scheduled PRN Albuterol HFA (Proair HFA) 8.5 Gm Hfa.aer.ad 1 PUFFS INHALATION Q4H PRN PRN For Shortness of Breath Albuterol Neb Soln (Albuterol Neb Soln) 2.5 Mg/3 Ml Vial.neb 1 NEB INHALATION Q4H PRN PRN For Shortness of Breath Lorazepam (Ativan) 0.5 Mg Tablet 0.5 MG PO BID PRN PRN For Anxiety oxyCODONE-Acetaminophen 5-325 mg (oxyCODONE-Acetaminophen 5-325 mg) 1 Each Tablet 1 TAB PO Q6 PRN PRN FOR PAIN General Time Seen by Provider: 02:07 Chief Complaint Blunt head trauma Hx Obtained From: Patient, EMS Arrived By: Ambulance Onset Occurred: 46 - 59 minutes ago Symptom Duration: Since onset Caused by: Fall from (ground) Recent Healthcare: No recent doctor visit, No recent hospitalization Similar Sx Previous: No Past Medical History Past Medical History Notes: PCP: Arlene Dowling Past Medical History Cataracts Cirrhosis Hepatitis C Kidney stones Acute respiratory failure and hypoxemia Diastolic heart failure Anxiety hemachromatosis Arthritis Reports: Asthma, COPD, Congestive heart failure, Hypertension Reports: Atrial fibrillation, Depression, Seizure disorder Past Surgical History Knee surgery Appendectomy with partial colectomy Eye surgery Phlebotomy Hemochromotosis Tubal Shunt in arm Reports: Carpal tunnel Family History Noncontributory Smoking History Former Smoker Social History Alcohol Use: Denies alcohol use Drug Use: Denies drug use Other Social History: Lives alone, Local resident Occupation lives by self, has help once a week 09/27/2016 Ambulatory Status Walker Review of Systems GI: Denies: Abdominal pain, Nausea, Vomiting Musculoskeletal: Denies: Extremity pain, Neck pain Neurologic: Denies: Change LOC, Headache Complete sys rev & neg: except as marked. Respiratory: Reports: Non-productive cough Cardiovascular: Reports: Chest pain (left rib pain) Hematologic: Reports Bleeding, Reports Bruising Physical Exam Physical Exam Notes: Initial Vital Signs Vital Signs (First) Date Time Temp Pulse Resp B/P Pulse Ox O2 Delivery O2 Flow Rate FiO2 12/20/16 02:13 36.8 70 19 147/75 100 Nasal Cannula 2.5 Initial VS: Reviewed, Vital signs normal General/Constitutional: No acute distress, Cooperative resting quietly with eyes closed, but responds to voice patient is laying supine Head / Eyes: Normocephalic, PERRL Trauma - General: Positive: Hematoma (large occipital hematoma), Laceration ( laceration associated with occipital hematoma) dried blood on her face from occipital scalp wound ENT: Airway patent, Mucous membranes moist Neck: Supple, No JVD Neurologic: Oriented X3, Speech NL, No motor deficits, No sensory deficits Respiratory / Chest: No respiratory distress, No rales Rales / Rhonchi: Positive: Rhonchi diffuse (nonfocal) Cardiovascular: Heart rate NL, No murmurs Heart Rate / Rhythm: Positive: Irreg irregular rhythm (consistent with atrial fibrillation) Upper Extremity / MS: No swelling, Neurologic intact, Vascular intact, No edema Trauma / Burn / Environmental: Positive: Hematoma (large hematoma left biceps, mid left upper arm) Lower Extremity / Pelvis / MS: No swelling, No edema Abdomen: Soft, Non-tender Organomegaly / Mass / Hernia: Positive: Hernia is reducible, Hernia ventral, Negative: Hernia is tender Interpretation & Diagnostics Lab Results Interpretation Result Diagram: 12/20/1622412/20/16224 Test 12/20/16 02:25 White Blood Count 8.2th/mm3 (3.8-10.1) Red Blood Count 3.24mil/mm3 (3.90-5.20) Hemoglobin 10.9g/dL (12.0-15.6) Hematocrit 33.6% (35.0-46.0) Mean Corpuscular Volume 103.7fL (81-100) Mean Corpuscular Hemoglobin 33.6pg (27.0-35.0) Mean Corpuscular Hemoglobin Concent 32.4% (32.0-37.0) Red Cell Distribution Width 14.9% (12.3-15.4) Platelet Count 158bil/L (150-400) Neutrophils (%) (Auto) 63.5% (40-74) Lymphocytes (%) (Auto) 18.1% (14-46) Monocytes (%) (Auto) 12.9% (4-12) Eosinophils (%) (Auto) 4.9% (0-5) Basophils (%) (Auto) 0.2% (0-3) Prothrombin Time 29.2sec (8.1-12.5) Prothromb Time International Ratio 2.67ratio Activated Partial Thromboplast Time 43.4sec (22.8-33.0) Sodium Level 139mEq/L (134-144) Potassium Level 4.3mEq/L (3.5-5.2) Chloride Level 98mEq/L (97-108) Carbon Dioxide Level 29mmol/L (18-29) Blood Urea Nitrogen 28mg/dL (8-27) Creatinine 1.12mg/dL (0.57-1.00) Estimat Glomerular Filtration Rate 68mL/min (>59) Glucose Level 147mg/dL (60-99) Calcium Level 8.4mg/dL (8.5-10.1) Total Bilirubin 0.9mg/dL (0.0-1.2) Aspartate Amino Transf (AST/SGOT) 60U/L (0-50) Alanine Aminotransferase (ALT/SGPT) 34U/L (0-32) Alkaline Phosphatase 143U/L (25-165) Troponin T 0.010ug/L (0.0-0.011) Total Protein 6.7g/dL (6.4-8.4) Albumin 3.0g/dL (3.4-5.0) Hold Bridges Top Tube Received (Received) ECG Interpretation ECG Interpretation: Atrial fibrillation, rate 62 Anteroseptal infarct, age indeterminate Time: 02:19 Interpreted by: ED physician Normal ECG Interpretation: No acute ischemic changes X-Ray Chest Interpretation Chest Xray Interpretation: Impression: Left lower lobe pneumonia. View: Portable Interpretation / Wet Read by: Wet read ED physician CT Head Interpretation CONCLUSION: Mild atrophy and periventricular white matter changes consistent with the patient's age. No hemorrhage or other specific acute intracranial abnormality demonstrated. Study: Head CT no contrast Interpretation / Wet Read by: Interpret - Radiologist Re-Eval/Medical Decision Med Decision/Clinical Course 71-year-old female with atrial fibrillation on warfarin presents with ground- level fall and exceptional scalp laceration. Emergent CT scan was done which was negative. Her INR was therapeutic at 2.4. Chest x-ray showed that she probably has a left lower lobe pneumonia. Labs were unremarkable otherwise. Blood cultures were sent. She has a scalp laceration which will require repair and she will need a repeat CAT scan at 4-6 hours. Her care is being turned over at change of shift to Dr. Garcia. Please see her chart further details. Source of Hx: Old records Re-Evaluation/Progress #1: Time of Eval: 04:00 Re-Evaluation/Progress Note: Patient is sleeping in the ED comfortably. Re-Evaluation/Progress #2: Time of Eval: 06:00 Re-Evaluation/Progress Note: Rechecked the patient. She was informed that her care will be transferred to Dr. Garcia and a resident will repair her scalp laceration. No acute problem was found on CT scan, EKG, or labs. Re-Evaluation/Progress #3: Time of Eval: 06:32 Re-Evaluation/Progress Note: Informed the patient that she has pneumonia on x-ray. She will be treated with antibiotics. Discharge & Departure Shift Change Sign-Out Patient Care Transferred: Yes Discussed Complaint(s): Yes Laboratory Evaluation: Back, reviewed by me Imaging Studies: Done, reviewed by me Awaiting laceration repair. Primary Impression: Blunt head trauma Encounter type: initial encounter Qualified Code: S09.8XXA - Other specified injuries of head, initial encounter Additional Impressions: Occipital scalp laceration Encounter type: initial encounter Qualified Code: S01.01XA - Laceration without foreign body of scalp, initial encounter Scalp hematoma Encounter type: initial encounter Qualified Code: S00.03XA - Contusion of scalp, initial encounter Fall from ground level Left lower lobe pneumonia Pneumonia type: due to unspecified organism Qualified Code: J18.9 - Pneumonia, unspecified organism Referrals: Arlene Dowling MD (PCP) Care Transferred to: Dr. Garcia Care Transferred at: 06:00 Clint Attestation Portions of this note were transcribed by Jennifer Cordon. I, Dr. Mendosa personally performed the history, physical exam and medical decision-making; I reviewed and confirmed the accuracy of the information in the transcribed note. Signed by: Clint Castanon, 12/20/2016 0632 copies to: Arlene Dowling MD, Earnest Mason MD Dec 20, 2016 02:00 Jennifer Cordon Dec 20, 2016 02:08
[2016-12-20 02:13] VITALS: BP 147/75; PULSE 70; RESP 19; O2SAT 100
[2016-12-20 02:45] LABS: BASOPHILS % (AUTO) 0.2 % (0-3); EOSINOPHILS % (AUTO) 4.9 % (0-5); MONOCYTES % (AUTO) 12.9 % (4-12); Mean Corpuscular Hemoglobin 33.6 pg (27.0-35.0); Mean Corpuscular Volume 103.7 fL (81-100); NEUTROPHILS % (AUTO) 63.5 % (40-74); Platelet Count 158 bil/L (150-400)
[2016-12-20 02:57] LABS: INR 2.67 ratio
[2016-12-20 03:03] LABS: TROPONIN T 0.01 ug/L (0.0-0.011)
[2016-12-20 05:28] VITALS: BP 131/69; PULSE 66; RESP 18; O2SAT 100
[2016-12-20] MEDS ORDERED: Dextrose 5% 0.9% NaCl 1,000 ML IV ONE (06:20)
[2016-12-20] MEDS ORDERED: cefTRIAXone Inj 2,000 MG in Dextrose 5% Minibag Plus 50 ML IV STA (06:28)
[2016-12-20] MEDS ORDERED: Lidocaine-Epi-Tetracaine Solution 3 mL Syringe TOPICAL ONE (06:35)
--- NOTE | 2016-12-20 08:09 | DRSVH ---
PROCEDURE: CT BRAIN WITHOUT CONTRAST ([id number]) INDICATIONS: warfarin, head trauma TECHNIQUE: Noncontrast 4.5 mm thick angled axial sections acquired from the foramen magnum to the vertex, with c oronal reformats. COMPARISON: None. FINDINGS: Image quality: Excellent. Motion artifact limits evaluation. CSF spaces: Basal cisterns are patent. No extra-axial fluid collections. The ventricles are symmetric in size and shape. Brain: No intracranial bleeds or masses. There is marked cerebral volume loss for age, with resulta nt ventricular and sulcal prominence. There are extensive periventricular and deep white matter customer training specialist viral small vessel ischemic changes. There is intracranial internal carotid artery atherosclerosis. Skull and face: A small subgaleal hematoma overlies the left occipital bone. Calvarium and visualize d facial bones appear intact, without suspicious lesions. Sinuses: Mucosal thickening is present within the left maxillary sinus. Visualized sinuses and masto ids are otherwise clear. IMPRESSION: 1. No acute intracranial findings. 2. Extensive findings likely associated with microvascular ischemia. 3. Left subgaleal hematoma without underlying calvarial abnormality. These findings are concordant with the overnight interpretation. Dictated by: Leigh Babb M.D. on 12/20/2016 at 8:06 Approved by: Leigh Babb M.D. on 12/20/2016 at 8:07
--- NOTE | 2016-12-20 08:22 | DRSVH ---
PROCEDURE: CT BRAIN WITHOUT CONTRAST ([id number]) INDICATIONS: fall, coumadin TECHNIQUE: Noncontrast 4.5 mm thick angled axial sections acquired from the foramen magnum to the vertex, with c oronal reformats. COMPARISON: [facility], CT, CT BRAIN WO CON, 12/20/2016, 2:03. FINDINGS: Image quality: Excellent. CSF spaces: Basal cisterns are patent. No extra-axial fluid collections. The ventricles are symmet raf in size and shape. Brain: No intracranial bleeds or masses. There is cerebral volume loss for age, with resultant vent ricular and sulcal prominence. There are extensive periventricular and deep white matter chronic sma ll vessel ischemic changes. There is intracranial internal carotid artery atherosclerosis. Skull and face: There is a small subgaleal hematoma over the occipital bones. Calvarium and visualiz ed facial bones appear intact, without suspicious lesions. Sinuses: Frothy appearing fluid is present in the left maxillary sinus. Visualized sinuses and masto ids are otherwise clear. IMPRESSION: 1. No acute intracranial findings. 2. Small occipital subgaleal hematoma without underlying calvarial abnormality. 3. Findings suspicious for acute left maxillary sinusitis. This was not well characterized on the galina or study from earlier today. 4. Findings likely associated with chronic microvascular ischemic changes. Dictated by: Leigh Babb M.D. on 12/20/2016 at 8:18 Approved by: Leigh Babb M.D. on 12/20/2016 at 8:21
--- NOTE | 2016-12-20 08:24 | DRSVH ---
PROCEDURE: X-RAY PELVIS W/LAT HIP (RT) ([id number]) INDICATIONS: possible hip fracture TECHNIQUE: AP pelvis with lateral view(s) of the right hip(s). COMPARISON: None. FINDINGS: Bones: No fractures or dislocations. Pelvic ring appears intact. No suspicious bony lesions. Soft tissues: The visualized bowel gas pattern is normal. No suspicious soft tissue calcifications. IMPRESSION: No definite fracture visualized. If there is high clinical suspicion for occult fracture, CT of the hip is recommended. Dictated by: Leigh Babb M.D. on 12/20/2016 at 8:21 Approved by: Leigh Babb M.D. on 12/20/2016 at 8:22
--- NOTE | 2016-12-20 08:27 | DRSVH ---
PROCEDURE: X-RAY CHEST ONE VIEW ([id number]) INDICATIONS: Lateral view only TECHNIQUE: One view of the chest was acquired. COMPARISON: [facility], CR, XR CHEST 2VW, 10/05/2016, 18:04. FINDINGS: Surgical changes and devices: None. Lungs and pleura: No pleural effusions or pneumothorax. Lungs are clear. Mediastinum: Mediastinal contours appear normal. Heart size is enlarged. Bones and chest wall: Bones are severely osteopenic. Severe wedge compression deformities are present within the mid thoracic spine and the lower thoracic spine likely similar in extent to the study chelle ed 10/05/16. A wedge compression deformity at L2 is redemonstrated. IMPRESSION: Multiple thoracolumbar spine wedge compression deformities. Overall these are similar in appearance to the comparison study dated 10/05/16. However, if there is high clinical suspicion for n ew fracture, MRI of the thoracolumbar spine may be helpful to evaluate for marrow edema in the acute setting. Dictated by: Leigh Babb M.D. on 12/20/2016 at 8:23 Approved by: Leigh Babb M.D. on 12/20/2016 at 8:25
[2016-12-20 08:56] LABS: APPEARANCE,URINE HAZY (CLEAR,HAZY); COLOR,URINE YELLOW (YELLOW); OCCULT BLOOD,URINE SMALL (NEGATIVE); PH,URINE 6.5 (5.0-8.0); UROBILINOGEN,URINE NORMAL (NORMAL)
[2016-12-20] MEDS ORDERED: LEVO500T16 PO (09:10)
[2016-12-20 10:06] VITALS: BP 126/74; PULSE 75; RESP 24; O2SAT 96
--- NOTE | 2016-12-20 10:06 | DRSVH ---
PROCEDURE: X-RAY CHEST ONE VIEW, PORTABLE ([id number]) INDICATIONS: poor O2 sats, rhonchi, fall TECHNIQUE: One view of the chest was acquired. COMPARISON: [facility], CR, CHEST 1 VIEW, 12/04/2016, 6:03. [facility], CR, XR CHES T 1VW, 12/20/2016, 7:13. FINDINGS: Surgical changes and devices: None. Lungs and pleura: No pleural effusions or pneumothorax. Lungs are clear. Mediastinum: Mediastinal contours appear normal. Heart size is enlarged, as before, and the aorta i s tortuous and calcified. Bones and chest wall: No suspicious bony lesions. Overlying soft tissues appear unremarkable. IMPRESSION: Stable cardiomegaly. No acute cardiopulmonary findings. Dictated by: Leigh Babb M.D. on 12/20/2016 at 10:04 Approved by: Leigh Babb M.D. on 12/20/2016 at 10:05
== END 2016-12-20 10:08 | disposition home or self-care (01) ==
LOC: SED 01:56
DX: S01.01XA Laceration without foreign body of scalp, initial encounter (principal); S09.8XXA Other specified injuries of head, initial encounter; W18.30XA Fall on same level, unspecified, initial encounter; Y92.121 Bathroom in nursing home as the place of occurrence of the external cause; Y93.89 Activity, other specified; Y99.8 Other external cause status; J18.9 Pneumonia, unspecified organism; E16.2 Hypoglycemia, unspecified; R07.81 Pleurodynia; I50.30 Unspecified diastolic (congestive) heart failure; J45.909 Unspecified asthma, uncomplicated; J44.9 Chronic obstructive pulmonary disease, unspecified; I12.9 Hypertensive chronic kidney disease with stage 1 through stage 4 chronic kidney disease, or unspecified chronic kidney disease; N18.3 Chronic kidney disease, stage 3 (moderate); I48.2 Chronic atrial fibrillation; G40.909 Epilepsy, unspecified, not intractable, without status epilepticus; Z86.2 Personal history of diseases of the blood and blood-forming organs and certain disorders involving the immune mechanism; Z99.81 Dependence on supplemental oxygen; Z87.891 Personal history of nicotine dependence; Z79.01 Long term (current) use of anticoagulants; Z88.1 Allergy status to other antibiotic agents; Z88.0 Allergy status to penicillin; Z88.5 Allergy status to narcotic agent
CPT/HCPCS: 12031; 36415; 70450; 71010; 73501; 80053; 81000; 82308; 82948; 84484; 85025; 85610; 85730; 87070; 87086; 87088; 87185; 87205; 93005; 96365; 96375; 99285; G0480; J0696

== ENCOUNTER 2017-01-02 07:29 | Emergency (ER) | payer MEDICARE ==
[2017-01-02 07:29] VITALS: BP 131/78; PULSE 77; RESP 16; O2SAT 100
[~2017-01-02 07:29] MED LIST changes: +LEVO500T16 PO
--- NOTE | 2017-01-02 07:37 | ED.REPORT ---
HPI-Trauma Minor / Fall Date of Service Jan 02, 2017 ED Provider: Tammie Garcia MD Patient is a 71 year old female with a hx of hemochromatosis, epilepsy, COPD on home oxygen, congestive heart failure, stage III chronic kidney disease, and chronic atrial fibrillation on Coumadin who presents to the ED via EMS after a GLF this morning with no LOC. Patient was walking when she tripped, fell backwards and hit the back of her head. Pt was rehabbing at [facility] for a fall on 12/20/16. She was due to be released from [facility] today. She complains that her head hurts and denies LOC, dizziness, chest pain, and SOB. Nursing Notes Stated Complaint: GLF Chief Complaint: Multiple Trauma/Fall Nursing Notes Reviewed: Yes Allergies: Coded Allergies: Macrolide Antibiotics (Verified Allergy, Severe, SWELLING, 12/20/16) HIVES, SWELLING, SOB Penicillins (Verified Allergy, Severe, SWELLING, HIVES, 12/20/16) HIVES, SWELLING, SOB codeine (Verified Allergy, Severe, VOMITING, 12/20/16) erythromycin ethylsuccinate (Verified Allergy, Severe, INSIDE SWELL UP, 09/25) TAPE (Verified Allergy, Unknown, PLASTIC TAPE, 12/20/16) ampicillin (Verified Allergy, Unknown, UNKNOWN, 12/20/16) clindamycin (Verified Allergy, Unknown, UNKNOWN, 12/20/16) GI BLEED... (07/11/15.. pt contacted at pharmacy request and asked about clindamycin allergy- states she knows something at one time had given her black stools- but she is not certain of whether or not it was clindamycin. Pharmacy notified of pt response.) Uncoded Allergies: KETOLIDE (Allergy, Unknown, 12/20/16) Unknown reaction Scheduled Alendronate (Binosto) 70 Mg Tablet.eff 70 MG PO WEEKLY ON SATURDAYS Atorvastatin Calcium (Atorvastatin Calcium) 20 Mg Tablet 20 MG PO DAILY Buspirone (Buspirone) 15 Mg Tablet 15 MG PO TID AM, NOON, PM Calcium Carbonate/Vitamin D3 (Calcium 600 + Vit D 400 Softgl) 1 Each Capsule 1 EACH PO QAM Cholecalciferol (Vitamin D3) (Vitamin D3) 1,000 Unit Tab.chew 1,000 UNIT PO DAILY Digoxin (Lanoxin) 0.125 Mg Tablet 0.125 MG PO noon Fluoxetine (Fluoxetine) 20 Mg Capsule 40 MG PO DAILY Fluticasone Propionate (Flovent Diskus) 100 Mcg Disk.w.dev 1 PUFF INHALATION BID Furosemide (Furosemide) 20 Mg Tab 60 MG PO DAILY Levofloxacin (Levaquin) 500 Mg Tablet 500 MG PO DAILY Lisinopril (Zestril) 10 Mg Tablet 10 MG PO BID Metoprolol Tartrate (Metoprolol Tartrate) 100 Mg Tablet 100 MG PO BID Mirtazapine (Mirtazapine) 15 Mg Tablet 15 MG PO HS Oxybutynin Chloride (Oxybutynin Chloride) 5 Mg Tablet 5 MG PO TID Phenytoin Sodium ER (Dilantin) 30 Mg Capsule 90 MG PO TID Potassium Chloride (Potassium Chloride) 20 Meq Tab.er.prt 20 MEQ PO DAILYWL Prednisone (Deltasone) 20 Mg Tablet 20 MG PO DAILY Warfarin Sodium (Coumadin) 2.5 Mg Tablet 2.5 MG PO OT Scheduled PRN Albuterol HFA (Proair HFA) 8.5 Gm Hfa.aer.ad 1 PUFFS INHALATION Q4H PRN PRN For Shortness of Breath Albuterol Neb Soln (Albuterol Neb Soln) 2.5 Mg/3 Ml Vial.neb 1 NEB INHALATION Q4H PRN PRN For Shortness of Breath Lorazepam (Ativan) 0.5 Mg Tablet 0.5 MG PO BID PRN PRN For Anxiety oxyCODONE-Acetaminophen 5-325 mg (oxyCODONE-Acetaminophen 5-325 mg) 1 Each Tablet 1 TAB PO Q6 PRN PRN FOR PAIN General Time Seen by MD: 07:37 Chief Complaint Fall Hx Obtained From: Patient Arrived By: Ambulance Onset Occurred: Just prior to arrival Symptom Duration: Since onset Caused by: Fall on ground Location: Head Quality: Painful Severity: Current: Mild Recent Healthcare: Recent doctor visit, Recent hospitalization Similar Sx Previous: Yes Past Medical History Past Medical History Notes: PCP: Arlene Dowling Past Medical History Cataracts Cirrhosis Hepatitis C Kidney stones Acute respiratory failure and hypoxemia Diastolic heart failure Anxiety hemachromatosis Arthritis Reports: Asthma, COPD, Congestive heart failure, Hypertension Reports: Atrial fibrillation, Depression, Seizure disorder Past Surgical History Knee surgery Appendectomy with partial colectomy Eye surgery Phlebotomy Hemochromotosis Tubal Shunt in arm Reports: Carpal tunnel Family History Noncontributory Smoking History Former Smoker Social History Alcohol Use: Denies alcohol use Drug Use: Denies drug use Other Social History: Lives alone, Local resident Occupation lives by self, has help once a week 09/27/2016 Ambulatory Status Walker Review of Systems Respiratory: Denies: Shortness of breath Skin: Reports Bruising (occiput) Neurologic: Denies: Change LOC, Dizziness Complete sys rev & neg: except as marked. Cardiovascular: Denies: Chest pain Physical Exam Initial Vital Signs Vital Signs (First) Date Time Temp Pulse Resp B/P Pulse Ox O2 Delivery O2 Flow Rate FiO2 01/02/17 07:29 36.8 77 16 131/78 100 Nasal Cannula 3 Initial VS: Reviewed Respiratory: Breath sounds normal, Clear to auscultation, No respiratory distress Cardiovascular: Regular rate & rhythm, Heart sounds normal, Intact distal pulses Abdomen / GI: Soft, Non-tender, No guarding, No rebound, No distention Neck: Atraumatic, Supple, No meningismus, Full range of motion, No swelling, Non-tender, No midline vertebral tend Head / Eyes: Normocephalic, PERRL, EOMI 5 by 5 hematoma w/out laceration to occiput Back: Atraumatic, Inspection NL, Full range of motion, Painless range of motion , Non-tender, No midline vertebral tend, No paraspinal tenderness, No CVA tenderness no bruising or tenderness at spine Upper Extremity / MS: Atraumatic, Inspection NL, Full range of motion no bruising on elbows Lower Extremity / Pelvis / MS: Atraumatic, Inspection NL, Full range of motion stable hips Interpretation & Diagnostics Lab Results Interpretation Test 01/02/17 07:45 Prothrombin Time 29.0sec (8.1-12.5) Prothromb Time International Ratio 2.66ratio Hold Bridges Top Tube Received (Received) ECG Interpretation ECG Interpretation: no changes from 12/20/16 Time: 08:23 Interpreted by: ED physician Rhythm / Conduction: Atrial fibrillation (79) CT Head Interpretation IMPRESSION: 1. No acute intracranial findings. 2. Findings associated with chronic microvascular ischemic changes. 3. Right occipital subgaleal hematoma without underlying calvarial abnormality. Dictated by: Leigh Babb M.D. on 01/02/2017 at 8:20 Approved by: Leigh Babb M.D. on 01/02/2017 at 8:21 Study: Head CT no contrast Interpretation / Wet Read by: Interpret - Radiologist Re-Eval/Medical Decision Counseled Regarding: Diagnosis, Lab results, Need for follow-up, When/why to return to ED Discharge & Departure Impression: Primary Impression: Fall from ground level Additional Impression: Scalp hematoma Encounter type: initial encounter Qualified Code: S00.03XA - Contusion of scalp, initial encounter Ruled Out: Intracranial hemorrhage Disposition: Home Discharge Condition All VS Reviewed: Yes Additional Instructions: Thank you for coming to the Emergency Department today. Please take medication as directed. Return to the Emergency Department if you experience any new or worsening symptoms. We hope you feel better soon! Referrals: Arlene Dowling MD (PCP) Scribtrish Attestation Portion of this note were transcribed by Rebecca Ovalles. I, Dr. Garcia, personally performed the history, physical exam, and medical decision-making: I reviewed and confirmed the accuracy for the information in the transcribed note. Signed by: robyn Ramirez, 01/02/17 1000 copies to: Arlene Dowling MD, Shawna L MD Jan 02, 2017 07:37 REBECCA OVALLES Jan 02, 2017 09:48
--- NOTE | 2017-01-02 08:23 | DRSVH ---
PROCEDURE: CT BRAIN WITHOUT CONTRAST ([id number]) INDICATIONS: trauma, fall TECHNIQUE: Noncontrast 4.5 mm thick angled axial sections acquired from the foramen magnum to the vertex, with c oronal reformats. COMPARISON: [facility], CT, CT BRAIN WO CON, 12/20/2016, 7:07. FINDINGS: Image quality: Excellent. CSF spaces: Basal cisterns are patent. No extra-axial fluid collections. The ventricles are symmet raf in size and shape. Brain: No intracranial bleeds or masses. There is cerebral volume loss for age, with resultant vent ricular and sulcal prominence. There are periventricular and deep white matter chronic small vessel ischemic changes. There is intracranial internal carotid artery atherosclerosis. Skull and face: There is a moderate right occipital subgaleal hematoma. Calvarium and visualized fac ial bones appear intact, without suspicious lesions. Sinuses: Visualized sinuses and mastoids are clear. IMPRESSION: 1. No acute intracranial findings. 2. Findings associated with chronic microvascular ischemic changes. 3. Right occipital subgaleal hematoma without underlying calvarial abnormality. Dictated by: Leigh Babb M.D. on 01/02/2017 at 8:20 Approved by: Leigh Babb M.D. on 01/02/2017 at 8:21
[2017-01-02 08:28] LABS: INR 2.66 ratio
[2017-01-02 08:41] VITALS: BP 125/60; PULSE 67; RESP 16; O2SAT 99
== END 2017-01-02 10:30 | disposition home or self-care (01) ==
LOC: SED 07:29 → EDUNIT# 07:29 → EDBD 07:29 → SED 10:30
DX: S00.03XA Contusion of scalp, initial encounter (principal); W01.10XA Fall on same level from slipping, tripping and stumbling with subsequent striking against unspecified object, initial encounter; Y92.9 Unspecified place or not applicable; Y93.01 Activity, walking, marching and hiking; Y99.8 Other external cause status; G40.909 Epilepsy, unspecified, not intractable, without status epilepticus; J45.909 Unspecified asthma, uncomplicated; I50.30 Unspecified diastolic (congestive) heart failure; I12.9 Hypertensive chronic kidney disease with stage 1 through stage 4 chronic kidney disease, or unspecified chronic kidney disease; N18.3 Chronic kidney disease, stage 3 (moderate); I48.2 Chronic atrial fibrillation; J44.9 Chronic obstructive pulmonary disease, unspecified; Z86.2 Personal history of diseases of the blood and blood-forming organs and certain disorders involving the immune mechanism; Z99.81 Dependence on supplemental oxygen; Z87.891 Personal history of nicotine dependence; Z79.01 Long term (current) use of anticoagulants; Z88.1 Allergy status to other antibiotic agents; Z88.0 Allergy status to penicillin; Z88.5 Allergy status to narcotic agent

== ENCOUNTER 2017-01-09 08:55 | Emergency (ER) | payer MEDICARE ==
[~2017-01-09] VITALS: Ht 165.1 cm; Wt 60.0 kg
--- NOTE | 2017-01-09 09:07 | ED.REPORT ---
HPI-Headache Date of Service Jan 09, 2017 ED Provider: Miguel Luciano MD Patient is as 71 year old female w/ a hx of hemochromatosis, epilepsy, COPD on home oxygen, congestive heart failure, stage III chronic kidney disease, and chronic atrial fibrillation who presents to the ED via EMS from [facility] with a headache the past 24 hrs. She reports inability to swallow, onset yesterday, but she has still been able to eat and drink. She has not had any Tylenol or Ibuprofen for the headache and describes it as "sharp and pretty intense." She denies numbness, fevers, SOB and weakness. She was taken off Coumadin a few days ago due to issues with ground level falls. Pt was last at the ED due to a GLF fall and head abrasion a week ago. Patient was admitted 2016 for generalized weakness and COPD, along with 2 ED visits for GLF's in 2016. Nursing Notes Stated Complaint: HEADACHE Nursing Notes Reviewed: Yes ([employer] not reconciled - EMR indicates ho warfarin use) Allergies: Coded Allergies: Macrolide Antibiotics (Verified Allergy, Severe, SWELLING, 12/20/16) HIVES, SWELLING, SOB Penicillins (Verified Allergy, Severe, SWELLING, HIVES, 12/20/16) HIVES, SWELLING, SOB codeine (Verified Allergy, Severe, VOMITING, 12/20/16) erythromycin ethylsuccinate (Verified Allergy, Severe, INSIDE SWELL UP, 09/25) TAPE (Verified Allergy, Unknown, PLASTIC TAPE, 12/20/16) ampicillin (Verified Allergy, Unknown, UNKNOWN, 12/20/16) clindamycin (Verified Allergy, Unknown, UNKNOWN, 12/20/16) GI BLEED... (07/11/15.. pt contacted at pharmacy request and asked about clindamycin allergy- states she knows something at one time had given her black stools- but she is not certain of whether or not it was clindamycin. Pharmacy notified of pt response.) Uncoded Allergies: KETOLIDE (Allergy, Unknown, 12/20/16) Unknown reaction Scheduled Alendronate (Binosto) 70 Mg Tablet.eff 70 MG PO WEEKLY ON SATURDAYS Atorvastatin Calcium (Atorvastatin Calcium) 20 Mg Tablet 20 MG PO DAILY Buspirone (Buspirone) 15 Mg Tablet 15 MG PO TID AM, NOON, PM Calcium Carbonate/Vitamin D3 (Calcium 600 + Vit D 400 Softgl) 1 Each Capsule 1 EACH PO QAM Cholecalciferol (Vitamin D3) (Vitamin D3) 1,000 Unit Tab.chew 1,000 UNIT PO DAILY Digoxin (Lanoxin) 0.125 Mg Tablet 0.125 MG PO noon Fluoxetine (Fluoxetine) 20 Mg Capsule 40 MG PO DAILY Fluticasone Propionate (Flovent Diskus) 100 Mcg Disk.w.dev 1 PUFF INHALATION BID Furosemide (Furosemide) 20 Mg Tab 60 MG PO DAILY Levofloxacin (Levaquin) 500 Mg Tablet 500 MG PO DAILY Lisinopril (Zestril) 10 Mg Tablet 10 MG PO BID Metoprolol Tartrate (Metoprolol Tartrate) 100 Mg Tablet 100 MG PO BID Mirtazapine (Mirtazapine) 15 Mg Tablet 15 MG PO HS Oxybutynin Chloride (Oxybutynin Chloride) 5 Mg Tablet 5 MG PO TID Phenytoin Sodium ER (Dilantin) 30 Mg Capsule 90 MG PO TID Phenytoin Sodium ER (Dilantin) 30 Mg Capsule 60 MG PO BID Potassium Chloride (Potassium Chloride) 20 Meq Tab.er.prt 20 MEQ PO DAILYWL Prednisone (Deltasone) 20 Mg Tablet 20 MG PO DAILY Warfarin Sodium (Coumadin) 2.5 Mg Tablet 2.5 MG PO OT Scheduled PRN Albuterol HFA (Proair HFA) 8.5 Gm Hfa.aer.ad 1 PUFFS INHALATION Q4H PRN PRN For Shortness of Breath Albuterol Neb Soln (Albuterol Neb Soln) 2.5 Mg/3 Ml Vial.neb 1 NEB INHALATION Q4H PRN PRN For Shortness of Breath Lorazepam (Ativan) 0.5 Mg Tablet 0.5 MG PO BID PRN PRN For Anxiety oxyCODONE-Acetaminophen 5-325 mg (oxyCODONE-Acetaminophen 5-325 mg) 1 Each Tablet 1 TAB PO Q6 PRN PRN FOR PAIN General Time Seen by MD: 09:03 Chief Complaint Headache Hx Obtained From: Patient Arrived By: Ambulance Sudden in Onset?: Yes Onset Occurred: Yesterday Symptom Duration: Since onset Location: : Generalized Quality: Sharp Severity: Current: Moderate Recent Healthcare: Recent doctor visit, Recent hospitalization Similar Sx Previous: No Past Medical History Past Medical History Notes: PCP: Arlene Dowling Admit 12/2016 for generalized weakness, COPD ED visits x2 for GLF's in 12/2016 Past Medical History Cataracts Cirrhosis Hepatitis C Kidney stones history of Acute respiratory failure and hypoxemia Diastolic heart failure Anxiety hemachromatosis Arthritis COPD Anticoagulated on Warfarin (A fib) per EMR - patient states recently discontinued in recent days (12/2016) Reports: Asthma, COPD, Congestive heart failure, Hypertension Reports: Atrial fibrillation, Depression, Seizure disorder Past Surgical History Knee surgery Appendectomy with partial colectomy Eye surgery Phlebotomy Hemochromotosis Tubal Shunt in arm Reports: Carpal tunnel Family History Noncontributory Smoking History Former Smoker Social History Alcohol Use: Denies alcohol use Drug Use: Denies drug use Other Social History: Lives alone, Local resident Occupation lives by self, has help once a week 09/27/2016 Ambulatory Status Walker Review of Systems Review of Systems Note: inability to swallow Constitutional: Denies: Fever Neurologic: Reports: Headache, Denies: Numbness, Weakness Complete sys rev & neg: except as marked. Respiratory: Denies: Shortness of breath Physical Exam Initial Vital Signs Vital Signs (First) Date Time Temp Pulse Resp B/P Pulse Ox O2 Delivery O2 Flow Rate FiO2 01/09/17 09:08 36.5 79 20 138/90 79 Room Air Initial VS: Reviewed, Unavailable (none on chart, ordered) Respiratory: Breath sounds normal, Clear to auscultation, No respiratory distress Cardiovascular: Regular rate & rhythm, Heart sounds normal, Intact distal pulses Abdomen / GI: Soft, Non-tender, No guarding, No rebound, No distention Back: No CVA tenderness Extremities: Vascular intact, Neuro intact, No swelling, No tenderness Skin: Warm, Dry, No cyanosis Psychiatric: Mood/affect normal, Behavior normal, Normal thought content General/Constitutional: Awake, Alert, Cooperative globally weak Head / Eyes: Normocephalic, PERRL, EOMI large hematoma on right occipital parietal Neck: Atraumatic, Supple, No meningismus, Full range of motion, No swelling, Non-tender Neurologic: Oriented X3, Speech NL, No motor deficits, No sensory deficits ENT: Atraumatic Mouth: Positive: Mucous membranes dry Interpretation & Diagnostics Lab Results Interpretation Result Diagram: 01/09/17 1005 01/09/17 1005 Test 01/09/17 10:05 White Blood Count 5.3th/mm3 (3.8-10.1) Red Blood Count 3.04mil/mm3 (3.90-5.20) Hemoglobin 10.3g/dL (12.0-15.6) Hematocrit 32.3% (35.0-46.0) Mean Corpuscular Volume 106.3fL (81-100) Mean Corpuscular Hemoglobin 33.9pg (27.0-35.0) Mean Corpuscular Hemoglobin Concent 31.9% (32.0-37.0) Red Cell Distribution Width 15.0% (12.3-15.4) Platelet Count 176bil/L (150-400) Neutrophils (%) (Auto) 60.2% (40-74) Lymphocytes (%) (Auto) 22.5% (14-46) Monocytes (%) (Auto) 14.6% (4-12) Eosinophils (%) (Auto) 2.1% (0-5) Basophils (%) (Auto) 0.4% (0-3) Prothrombin Time 13.0sec (8.1-12.5) Prothromb Time International Ratio 1.21ratio Sodium Level 138mEq/L (134-144) Potassium Level 4.2mEq/L (3.5-5.2) Chloride Level 99mEq/L (97-108) Carbon Dioxide Level 27mmol/L (18-29) Blood Urea Nitrogen 28mg/dL (8-27) Creatinine 1.09mg/dL (0.57-1.00) Estimat Glomerular Filtration Rate 70mL/min (>59) Glucose Level 105mg/dL (60-99) Calcium Level 8.1mg/dL (8.5-10.1) Total Bilirubin 0.8mg/dL (0.0-1.2) Aspartate Amino Transf (AST/SGOT) 51U/L (0-50) Alanine Aminotransferase (ALT/SGPT) 20U/L (0-32) Alkaline Phosphatase 158U/L (25-165) Total Protein 6.5g/dL (6.4-8.4) Albumin 3.1g/dL (3.4-5.0) Hold Bridges Top Tube Received (Received) Digoxin Level 0.8nG/mL (0.9-2.0) Phenytoin (Dilantin) Level 23.3uG/mL (10.0-20.0) Lab Results Interpretation: CBC normal CMP normal Dilantin supratherapeutic INR has normalized following discontinuation of warfarin CT Head Interpretation IMPRESSION: 1. No acute intracranial disease process. 2. Right parietal scalp hematoma. Please correlate with clinical data. Dictated by: Fely Wilde MD, PhD on 01/09/2017 at 10:09 Approved by: Fely Wilde MD, PhD on 01/09/2017 at 10:13 Study: Head CT no contrast Interpretation / Wet Read by: Interpret - Radiologist Re-Eval/Medical Decision Med Decision/Clinical Course This is a 71-year-old female sent in from a residential facility with a chief complaint of a headache. Patient had been on Coumadin, which has been recently discontinued after a multitude of falls-patient's department recently for several falls, and is now developed a headache. She still has a large hematoma on the posterior lateral side of the head-so sent back in for reevaluation she has not yet had a repeat warfarin level following the discontinuation of that medication. She presents as well completely was since of discomfort global fatigue and generalized weakness. The retirement also had some comments regarding that yesterday she had little bit of difficulty swallowing. For me she has no focal deficits, she does appear fatigued-I do not appreciate nystagmus. She does indeed have a sizable hematoma remaining on her scalp. No neck tenderness, again no focal deficits, just a bit of bruising on her arms which is old but no tenderness and I do not find any other site of injury. The patient had a repeat head CT which was negative. Blood work as revealed the patient now has a normal INR. However blood work is also notable for supratherapeutic Dilantin level at 23- patient for she has not had seizure now about 2 years. Interestingly she is already on a low-dose of 90 mg twice a day, and her albumin is slightly low at 3.1. Consulted pharmacy for their recommendations, and after discussion the final plan is to have the patient hold her Dilantin today and tomorrow entirely , then restart Dilantin on Thursday at 60 mg twice a reduced dose-with request for repeat Dilantin level to be drawn in 2 weeks. It is certainly possible the Dilantin level is contributing to falling, dizziness and her generalized weakness. However the patient still appears stable for discharge, and while supratherapeutic given she is monitored in a residential facility does not require emergent hospitalization at this time. Patient's therapy was also consult for their input. They made some recommendations based more generalized weakness, than any specific finding-and again this may improve with the reduction in the Dilantin. All this was reviewed the patient, his headache was almost the Tylenol administration of department. She is ordered for Tylenol facility but has not received any yet today. She is advised to continue this medication. Once again return and discharge precautions/instructions reviewed with the patient, and the patient is being discharged back to the skilled facility in stable condition. Source of Hx: Old records, EMS Differential Diagnosis: Positive: Headache (post-trauma), Headache, post- traumatic, Negative: Carbon monoxide toxicity, Carotid artery dissection, Cerebrovascular accident, Dental infection, Hemorrhage, epidural, Hemorrhage, intracerebral, Hemorrhage, subarachnoid, Intracranial abscess, Medication reaction, Meningitis, Post-traumatic/concussion, TMJ syndrome, Temporal arteritis Counseled Regarding: Diagnosis, Lab results, Need for follow-up, When/why to return to ED Discharge & Departure Impression: Primary Impression: Headache Headache type: post-traumatic Headache chronicity pattern: acute headache Intractability: not intractable Qualified Code: G44.319 - Acute post- traumatic headache, not intractable Additional Impressions: Generalized weakness Subtherapeutic serum dilantin level Disposition: Home Discharge Condition All VS Reviewed: Yes Condition: Stable Additional Instructions: 1. Your head CT was normal-no signs of new injury (you do still have a bruise ( hematoma) on the outside of the skull, but the brain and skull are normal) 2. Continue Tylenol if needed for headache 3. Increased weakness and dizziness may be in part due to the fact that your Dilantin level is too high-despite the low dose that you are normally taking. Your records indicate that you currently taking 90 mg twice a day. I discussed the recommendations with pharmacy, and our recommendation is to a) hold your Dilantin and not take anymore either today or tomorrow b) start at a reduced dose of 60 mg twice a day beginning Thursday and c) have a repeat Dilantin level drawn in about 2 weeks. 4. You were so seen by speech therapy. They recommended the following: Due to generalized weakness, poor dentition, and dyspnea with eating, recommend dysphagia mechanical textures, nectar thick liquids with meals, general textured snacks, and precise oral care after all PO. After oral care, pt may have thin water for hydration and QOL. Pt would benefit from compensatory strategy instruction for safe swallow; however, this is likely her least restrictive diet. Referrals: Arlene Dowling MD (PCP) Scribe Attestation Portion of this note were transcribed by Melissa Ovalles. I, Dr. Luciano, personally performed the history, physical exam, and medical decision-making: I reviewed and confirmed the accuracy for the information in the transcribed note. Signed by: robyn Ramirez, 01/09/17 1300 copies to: Arlene Dowling MD, Matthew F MD Jan 09, 2017 09:07 Melissa Ovalles Jan 09, 2017 09:28
[2017-01-09 09:08] VITALS: BP 138/90; PULSE 79; RESP 20; O2SAT 79
--- NOTE | 2017-01-09 10:15 | DRSVH ---
PROCEDURE: CT BRAIN WITHOUT CONTRAST ([id number]) INDICATIONS: Headache, on Coumadin TECHNIQUE: Noncontrast 4.5 mm thick angled axial sections acquired from the foramen magnum to the vertex, with c oronal reformats. COMPARISON: [facility], CT, CT BRAIN WO CON, 01/02/2017, 8:06. [facility], C T, CT BRAIN WO CON, 12/20/2016, 7:07. [facility], CR, WRIST COMP MIN 3VW (LT), 05/24/2015 , 13:31. [facility], CT, BRAIN W/O CONTRAST, 06/03/2008, 15:55. [facility], CT, CT BRAIN WO CON, 10/28/2016, 8:30. [facility], CT, CT BRAIN WO CON, 12/20/2016, 2:03. FINDINGS: Image quality: Excellent. CSF spaces: Basal cisterns are patent. No extra-axial fluid collections. The ventricles are symmet raf in size and shape. Brain: No intracranial bleeds or masses. There is cerebral volume loss for age, with resultant vent ricular and sulcal prominence. There are periventricular and deep white matter chronic small vessel ischemic changes. Chronic, small, right thalamic lacunar infarct is stable. There is intracranial int ernal carotid artery and vertebral artery atherosclerosis. Skull and face: Calvarium and visualized facial bones appear intact, without suspicious lesions. Rig ht parietal scalp hematoma is noted. Sinuses: Visualized sinuses and mastoids are clear. IMPRESSION: 1. No acute intracranial disease process. 2. Right parietal scalp hematoma. Please correlate with clinical data. Dictated by: Fely Wilde MD, PhD on 01/09/2017 at 10:09 Approved by: Fely Wilde MD, PhD on 01/09/2017 at 10:13
[2017-01-09 10:19] LABS: BASOPHILS % (AUTO) 0.4 % (0-3); EOSINOPHILS % (AUTO) 2.1 % (0-5); MONOCYTES % (AUTO) 14.6 % (4-12); Mean Corpuscular Hemoglobin 33.9 pg (27.0-35.0); Mean Corpuscular Volume 106.3 fL (81-100); NEUTROPHILS % (AUTO) 60.2 % (40-74); Platelet Count 176 bil/L (150-400)
[2017-01-09 10:40] LABS: INR 1.21 ratio
--- NOTE | 2017-01-09 10:41 | NUR ---
Evaluation completed. Please go to "Notes" then click on "Assessments and Notes" (bottom left corner of screen). Then select appropriate discipline tab on top of screen.
[2017-01-09] MEDS ORDERED: PHEN30CA PO (12:44)
== END 2017-01-09 13:37 | disposition home or self-care (01) ==
LOC: SED 08:55 → EDBD 08:55 → SED 13:37
DX: G44.319 Acute post-traumatic headache, not intractable (principal); R53.1 Weakness; R79.89 Other specified abnormal findings of blood chemistry; R13.0 Aphagia; I13.0 Hypertensive heart and chronic kidney disease with heart failure and stage 1 through stage 4 chronic kidney disease, or unspecified chronic kidney disease; I50.30 Unspecified diastolic (congestive) heart failure; N18.3 Chronic kidney disease, stage 3 (moderate); J44.9 Chronic obstructive pulmonary disease, unspecified; I48.2 Chronic atrial fibrillation; Z87.828 Personal history of other (healed) physical injury and trauma; Z79.01 Long term (current) use of anticoagulants; Z87.891 Personal history of nicotine dependence; Z88.0 Allergy status to penicillin; Z88.1 Allergy status to other antibiotic agents; Z88.5 Allergy status to narcotic agent; Z88.8 Allergy status to other drugs, medicaments and biological substances
CPT/HCPCS: 36415; 70450; 80053; 80162; 80185; 85025; 85610; 86850; 92610; 99284; G8996; G8997

== ENCOUNTER 2017-01-12 20:03 | Inpatient (IN) | payer MEDICARE ==
[~2017-01-12] VITALS: Ht 162.6 cm; Wt 57.4 kg
[2017-01-12 20:19] VITALS: BP 104/57; PULSE 104; RESP 33; O2SAT 91
[2017-01-12 20:37] LABS: APPEARANCE,URINE CLEAR (CLEAR,HAZY); COLOR,URINE DARK YELLOW (YELLOW); OCCULT BLOOD,URINE NEGATIVE (NEGATIVE); PH,URINE 5.5 (5.0-8.0); UROBILINOGEN,URINE NORMAL (NORMAL)
--- NOTE | 2017-01-12 20:45 | DRSVH ---
PROCEDURE: X-RAY CHEST ONE VIEW, PORTABLE ([id number]) INDICATIONS: FEVER, COUGH TECHNIQUE: One view of the chest was acquired. COMPARISON: [facility], CR, XR CHEST 1VW (PORTABLE), 12/20/2016, 2:21. [facility], CR, XR CHEST 1VW, 12/20/2016, 7:13. FINDINGS: Surgical changes and devices: None. Lungs and pleura: There is patchy areas of opacity within the right upper and lower lobes, new compar ed to prior exam. Anterior opacities also noted in the left upper lobe and retrocardiac region. Mediastinum: Mediastinal contours appear normal. Heart size is normal. Bones and chest wall: No suspicious bony lesions. Overlying soft tissues appear unremarkable. IMPRESSION: Bilateral areas of focal opacity most prominent in the retrocardiac and right upper lobes as above. Findings are suspicious for multifocal pneumonia. There is underlying edema and/or atelect asis cannot be excluded. Dictated by: Maribeth Edmonds M.D. on 01/12/2017 at 20:43 Approved by: Maribeth Edmonds M.D. on 01/12/2017 at 20:44
[2017-01-12] MEDS ORDERED: Albuterol-Ipratropium 3 mL Inhalation Solution ONE (20:47)
[2017-01-12 20:54] VITALS: PULSE 92; RESP 29; O2SAT 99
[2017-01-12] MEDS ORDERED: 0.9% Sodium Chloride 1,000 ML IV ONE (20:55)
[2017-01-12 20:57] LABS: EOSINOPHILS % (AUTO) 0 % (0-5); Mean Corpuscular Hemoglobin 33.8 pg (27.0-35.0); Mean Corpuscular Volume 104.6 fL (81-100); Platelet Count 144 bil/L (150-400)
[2017-01-12] MEDS ORDERED: Albuterol 2.5 mg/3 mL Inhalation Solution NEB ONE ×2 (21:00→21:10)
[2017-01-12 21:07] VITALS: PULSE 119; RESP 31; O2SAT 90
[2017-01-12 21:09] LABS: INR 1.35 ratio
[2017-01-12] MEDS ORDERED: levoFLOXacin Inj 750 MG in IV Premix 1 EACH IV ONE (21:10)
[2017-01-12] MEDS ORDERED: Vancomycin Dose per Pharmacist XX ONE (21:10)
[2017-01-12] MEDS ORDERED: MethylprednisoLONE Sodium Succinate 62.5 mg/mL 2 mL Inj IVPUSH ONE (21:10)
[2017-01-12] MEDS ORDERED: Cefepime Inj 2 GM in IV Premix 1 EACH IV ONE (21:10)
--- NOTE | 2017-01-12 21:11 | ED.REPORT ---
HPI-Dyspnea / Wheezing Date of Service Jan 12, 2017 ED Provider: Miguel Luciano MD A 71 year old female with an extensive medical history including asthma, CHF, COPD, atrial fibrillation, cirrhosis, hypertension, seizure disorder, and anxiety presents to the ED via EMS from [facility] with a fever (39.1 in ED) onset yesterday. The patient also reports cough, wheeze, and shortness of breath. She denies abdominal pain, nausea, vomiting, diarrhea, dysuria, or other symptoms. EMS found the patient with a BP of 103/68 and a pulse of 110- 120. The patient had pneumonia less than two weeks ago and believes she is currently taking an antibiotic. She took Tylenol today, with some relief. The patient is on 2L O2 at home. She was in the ED three days ago with elevated Dilantin levels and a headache after two ground level falls. Nursing Notes Stated Complaint: FEVER Chief Complaint: General Complaint Nursing Notes Reviewed: Yes ([employer], meds not reconciled) Allergies: Coded Allergies: Macrolide Antibiotics (Verified Allergy, Severe, SWELLING, 12/20/16) HIVES, SWELLING, SOB Penicillins (Verified Allergy, Severe, SWELLING, HIVES, 12/20/16) HIVES, SWELLING, SOB codeine (Verified Allergy, Severe, VOMITING, 12/20/16) erythromycin ethylsuccinate (Verified Allergy, Severe, INSIDE SWELL UP, 09/25) TAPE (Verified Allergy, Unknown, PLASTIC TAPE, 12/20/16) ampicillin (Verified Allergy, Unknown, UNKNOWN, 12/20/16) clindamycin (Verified Allergy, Unknown, UNKNOWN, 12/20/16) GI BLEED... (07/11/15.. pt contacted at pharmacy request and asked about clindamycin allergy- states she knows something at one time had given her black stools- but she is not certain of whether or not it was clindamycin. Pharmacy notified of pt response.) Uncoded Allergies: KETOLIDE (Allergy, Unknown, 12/20/16) Unknown reaction Scheduled Alendronate (Binosto) 70 Mg Tablet.eff 70 MG PO WEEKLY ON SATURDAYS Atorvastatin Calcium (Atorvastatin Calcium) 20 Mg Tablet 20 MG PO DAILY Buspirone (Buspirone) 15 Mg Tablet 15 MG PO TID AM, NOON, PM Calcium Carbonate/Vitamin D3 (Calcium 600 + Vit D 400 Softgl) 1 Each Capsule 1 EACH PO QAM Cholecalciferol (Vitamin D3) (Vitamin D3) 1,000 Unit Tab.chew 1,000 UNIT PO DAILY Digoxin (Lanoxin) 0.125 Mg Tablet 0.125 MG PO noon Fluoxetine (Fluoxetine) 20 Mg Capsule 40 MG PO DAILY Fluticasone Propionate (Flovent Diskus) 100 Mcg Disk.w.dev 1 PUFF INHALATION BID Furosemide (Furosemide) 20 Mg Tab 60 MG PO DAILY Levofloxacin (Levaquin) 500 Mg Tablet 500 MG PO DAILY Lisinopril (Zestril) 10 Mg Tablet 10 MG PO BID Metoprolol Tartrate (Metoprolol Tartrate) 100 Mg Tablet 100 MG PO BID Mirtazapine (Mirtazapine) 15 Mg Tablet 15 MG PO HS Oxybutynin Chloride (Oxybutynin Chloride) 5 Mg Tablet 5 MG PO TID Phenytoin Sodium ER (Dilantin) 30 Mg Capsule 90 MG PO TID Phenytoin Sodium ER (Dilantin) 30 Mg Capsule 60 MG PO BID Potassium Chloride (Potassium Chloride) 20 Meq Tab.er.prt 20 MEQ PO DAILYWL Prednisone (Deltasone) 20 Mg Tablet 20 MG PO DAILY Warfarin Sodium (Coumadin) 2.5 Mg Tablet 2.5 MG PO OT Scheduled PRN Albuterol HFA (Proair HFA) 8.5 Gm Hfa.aer.ad 1 PUFFS INHALATION Q4H PRN PRN For Shortness of Breath Albuterol Neb Soln (Albuterol Neb Soln) 2.5 Mg/3 Ml Vial.neb 1 NEB INHALATION Q4H PRN PRN For Shortness of Breath Lorazepam (Ativan) 0.5 Mg Tablet 0.5 MG PO BID PRN PRN For Anxiety oxyCODONE-Acetaminophen 5-325 mg (oxyCODONE-Acetaminophen 5-325 mg) 1 Each Tablet 1 TAB PO Q6 PRN PRN FOR PAIN General Time Seen by MD: 20:47 Chief Complaint Other (Fever) Hx Obtained From: Patient, EMS Arrived By: Ambulance Sudden in Onset?: No Onset Occurred: Yesterday Symptom Duration: Since onset Location: : None Severity: Current: No pain currently Severity: Maximum: No pain Associated with: Reports: Cough, Wheeze, Denies: Nausea, Vomiting Pertinent Negative: Relieved by nothing Context Related History: Reports: Anxiety, COPD, Congestive heart failure, Pneumonia Asthma History: Asthma diagnosed Recent Healthcare: Recent doctor visit Similar Sx Previous: Yes Past Medical History Past Medical History Notes: PCP: Arlene Dowling Admit 12/2016 for generalized weakness, COPD ED visits x2 for GLF's in 12/2016 Seen in ED recently, dilantin elevated Past Medical History Cataracts Cirrhosis Hepatitis C Kidney stones history of Acute respiratory failure and hypoxemia Diastolic heart failure Anxiety hemachromatosis Arthritis COPD Anticoagulated on Warfarin (A fib) per EMR - patient states recently discontinued in recent days (12/2016) Reports: Asthma, COPD, Congestive heart failure, Hypertension Reports: Atrial fibrillation, Depression, Seizure disorder Past Surgical History Knee surgery Appendectomy with partial colectomy Eye surgery Phlebotomy Hemochromotosis Tubal Shunt in arm Reports: Carpal tunnel Family History Noncontributory Smoking History Former Smoker Social History Patient is DO NOT RESUSCITATE/DO NOT INTUBATE-this is confirmed as previous CODE STATUS and recent admissions, and was reviewed with patient and family at bedside Alcohol Use: Denies alcohol use Drug Use: Denies drug use Other Social History: Lives alone, Local resident Occupation lives by self, has help once a week 09/27/2016 Ambulatory Status Walker Review of Systems Constitutional: Reports: Fever (39.1 in ED) Respiratory: Reports: Non-productive cough, Shortness of breath, Wheezing Complete sys rev & neg: except as marked. GI: Denies: Abdominal pain, Diarrhea, Nausea, Vomiting Female: Denies: Dysuria Physical Exam Physical Exam Notes: Initial Vital Signs Vital Signs (First) Date Time Temp Pulse Resp B/P Pulse Ox O2 Delivery O2 Flow Rate FiO2 01/12/17 20:19 39.1 104 33 104/57 91 Nasal Cannula 2 Initial VS: Reviewed, Vital signs abnormal Abdomen / GI: Soft, Non-tender Skin: Warm, Dry Neurologic: Alert, Oriented, Nonfocal Psychiatric: Mood/affect normal, Behavior normal, Normal thought content General/Constitutional: Awake, Alert Appearance / Presentation: Positive: Cachectic, Ill appearing/not toxic Febrile Patient is sitting upright, answering questions, and mentating adequately Neck: Supple, Full range of motion, No adenopathy Wheezing / Retractions: Positive: Wheezing moderate (All lees) Rales / Rhonchi: Positive: Rhonchi diffuse (All lees) Tachypneic and mild to moderate dyspnea Cardiovascular: Regular rhythm, Heart sounds NL Heart Rate / Rhythm: Positive: Tachycardia ENT: Airway patent, Mucous membranes moist Septal hematoma unchanged from previous visit Lower Extremity / Pelvis / MS: Inspection NL, No swelling Interpretation & Diagnostics INFLUENZA NEGATIVE Lab Results Interpretation Result Diagram: 01/12/17203701/12/172037 Test 01/12/17 20:17 01/12/17 20:21 01/12/17 20:38 Hold Urine Received (Received) Prothrombin Time 14.5sec (8.1-12.5) Prothromb Time International Ratio 1.35ratio Urine Color Dark yellow (YELLOW) Urine Appearance Clear (CLEAR,HAZY) Urine pH 5.5 (5.0-8.0) Urine Specific Emerson 1.020 (1.003-1.035) Urine Protein Tracemg/dL (NEG,TRACE) Urine Glucose (UA) Negativemg/dL (NEGATIVE) Urine Ketones Negativemg/dL (NEGATIVE) Urine Occult Blood Negative (NEGATIVE) Urine Nitrite Negative (NEGATIVE) Urine Bilirubin Negative (NEGATIVE) Urine Urobilinogen Normalmg/dL (NORMAL) Urine Leukocyte Esterase Small (NEGATIVE) Urine RBC 0-2/hpf (0-2) Urine WBC 6-10/hpf (0-5) Urine Epithelial Cells Moderate/hpf (NONE-MOD) Urine Crystals None seen (NONE SEEN) Urine Bacteria Many/hpf (NONE-FEW) Urine Hyaline Casts Occasional/lpf (NONE) Urine Granular Casts None seen (NONE SEEN) Urine Waxy Casts None seen (NONE SEEN) Urine Red Blood Cell Casts None seen (NONE SEEN) Urine White Blood Cell Casts None seen (NONE SEEN) Urine Mucus None seen (None Seen) Urine Trichomonas None seen (NONE SEEN) Urine Yeast None (NONE SEEN) Urinalysis Comment None Urine Culture Reflexed Indicated White Blood Count 11.4th/mm3 (3.8-10.1) Red Blood Count 3.05mil/mm3 (3.90-5.20) Hemoglobin 10.3g/dL (12.0-15.6) Hematocrit 31.9% (35.0-46.0) Mean Corpuscular Volume 104.6fL (81-100) Mean Corpuscular Hemoglobin 33.8pg (27.0-35.0) Mean Corpuscular Hemoglobin Concent 32.3% (32.0-37.0) Red Cell Distribution Width 15.2% (12.3-15.4) Platelet Count 144bil/L (150-400) Neutrophils (%) (Auto) 66% (40-74) Lymphocytes (%) (Auto) 12% (14-46) Monocytes (%) (Auto) 2% (4-12) Eosinophils (%) (Auto) 0% (0-5) Basophils (%) (Auto) 0% (0-3) Band Neutrophils % 20% (1-5) Sodium Level 136mEq/L (134-144) Potassium Level 3.3mEq/L (3.5-5.2) Chloride Level 97mEq/L (97-108) Carbon Dioxide Level 23mmol/L (18-29) Blood Urea Nitrogen 29mg/dL (8-27) Creatinine 1.51mg/dL (0.57-1.00) Estimat Glomerular Filtration Rate 48mL/min (>59) Glucose Level 167mg/dL (60-99) Lactic Acid Level 3.7mmol/L (0.4-2.0) Calcium Level 8.1mg/dL (8.5-10.1) Total Bilirubin 1.1mg/dL (0.0-1.2) Aspartate Amino Transf (AST/SGOT) 72U/L (0-50) Alanine Aminotransferase (ALT/SGPT) 24U/L (0-32) Alkaline Phosphatase 102U/L (25-165) Troponin T 0.027ug/L (0.0-0.011) Pro-B-Type Natriuretic Peptide 01126tf/mL (0-301) Total Protein 6.6g/dL (6.4-8.4) Albumin 3.1g/dL (3.4-5.0) Phenytoin (Dilantin) Level 11.0uG/mL (10.0-20.0) Lab Results Interpretation: CBC positive leukocytosis CP mild hypokalemia, renal insufficiency Lactic acid severely elevated Turpin troponin elevated ProBNP elevated UA marginally abnormal INR near-normal Blood cultures 2 pending Influenza negative Dilantin now back into normal therapeutic range ECG Interpretation ECG Interpretation: Three ECGS taken over 20 minutes because patient is tremulous and has difficulty sitting still, making baselines difficult to interpret. Upon review of ECGS: Atrial fibrillation with a rate in the low 100s without clear ischemic findings Time: 20:23 Interpreted by: ED physician X-Ray Chest Interpretation Chest Xray Interpretation: IMPRESSION: Bilateral areas of focal opacity most prominent in the retrocardiac and right upper lobes as above. Findings are suspicious for multifocal pneumonia. There is underlying edema and/or atelectasis cannot be excluded. Dictated by: Maribeth Edmonds M.D. on 01/12/2017 at 20:43 View: Portable, 1 view Interpretation / Wet Read by: Interpret - Radiologist Re-Eval/Medical Decision Med Decision/Clinical Course Please note [employer] crashed completely during visit and an dictated addendum was created. This is a 71-year-old female who presents clinically septic with a multilobar pneumonia from a fci. She has had pneumonia in November, but her chest x-ray in December but did not demonstrate overt infiltrate. She has had recent ED visits for multiple falls and was found to be mildly supratherapeutic on Dilantin which is now back in the normal therapeutic range. She was also recently taken off warfarin secondary to his multiple falls and now has a normal INR. Patient appears quite ill is febrile, tachypneic, tachycardic, hypoxic, and hypotensive. A chest x-ray demonstrates a markedly abnormal severe infiltrates and a suggestive multilobar pneumonia. He also indicates fluid edema cannot be excluded, the patient's history fever exam strongly indicates pneumonia is present. The patient was titrated on 2-10 main pain is sat of 88-91%, with a goal of avoiding hypercapnia through hyperoxia. Patient was significant hypotensive but responded to fluid boluses. She has been started on healthcare associated associated pneumonia given her multiple hospitalizations in recent month, previous pneumonia, and current nursing home facilities status for empiric treatment of her pneumonia. Cultures are pending. The patient is DO NOT RESUSCITATE, DO NOT INTUBATE-and was this status previously. When the family arrived they initially thought the patient should be full code, however when I reviewed with her clear statements and a previous hospitalization a admitted recalling that she stated indeed that she did not wish to be resuscitated, but she did not wish to be intubated or on a ventilator and respect this. However I have explained this is a elderly patient with multiple comorbidities and COPD presents hypotensive and critically ill-attempt to explain the patient has a reasonable probability of not surviving this admission, but that empiric treatment with antibiotics and supportive care are indeed appropriate and are being pursued as both the patient with family request. The patient received multiple nebulizer therapy, steroids, and antipyretics for comfort as well. He remains ill at time of admission. The case is discussed with many hospitalist Source of Hx: Old records Re-Evaluation/Progress : Time of Eval: 21:50 Patient Status: Condition unchanged Re-Evaluation/Progress Note: The nurse reported the patient's mental status had decreased slightly. Patient rechecked. Discussed patient's case with her family. Discussed with patient and her family x-ray and lab results, diagnosis, and plan for admit. Patient and her family agree with plan for care and all questions were addressed. 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, Agrees with plan, Accepts admit Differential Diagnosis: Positive: Pneumonia, Respiratory failure, Negative: Bronchitis Counseled Regarding: Diagnosis, Lab results, Need for admission Discharge & Departure Impression: Primary Impression: Pneumonia Pneumonia type: due to unspecified organism Laterality: bilateral Lung location: unspecified part of lung Qualified Code: J18.9 - Pneumonia, unspecified organism Additional Impressions: Sepsis Sepsis type: sepsis due to unspecified organism Qualified Code: A41.9 - Sepsis, unspecified organism COPD (chronic obstructive pulmonary disease) COPD type: COPD with acute lower respiratory infection Qualified Code: J44.0 - Chronic obstructive pulmonary disease with acute lower respiratory infection Atrial fibrillation Atrial fibrillation type: chronic Qualified Code: I48.2 - Chronic atrial fibrillation Septic shock Elevated lactic acid level Acute renal insufficiency Elevated troponin Elevated brain natriuretic peptide (BNP) level Disposition: ADMITTED TO HOSPITAL Discharge Condition All VS Reviewed: Yes Condition: Improved Referrals: Arlene Dowling MD (PCP) Crit Care Except Billable Proc Time Spent: 30-74 minutes Services Performed: Patient management by me, Time spent at bedside, Reviewing test results, Reviewing imaging, Discussing patient care, Documentation in record, Time with fam/surrogate Scribe Attestation Portions of this note were transcribed by Eugenia Cruz. I, Dr. Luciano, personally performed the history, physical exam, and medical decision-making; I reviewed and confirmed the accuracy of the information in the transcribed note. Signed by: Clint Crow, 01/12/2017, 23:30 copies to: Arlene Dowling MD, Matthew F MD Jan 12, 2017 21:11 EUGENIA CRUZ Jan 12, 2017 21:43
[2017-01-12 21:15] LABS: NEUTROPHILS % (AUTO) 66 % (40-74)
[2017-01-12 21:16] LABS: BASOPHILS % (AUTO) 0 % (0-3); MONOCYTES % (AUTO) 2 % (4-12)
[2017-01-12 21:23] LABS: TROPONIN T 0.027 ug/L (0.0-0.011)
[2017-01-12] MEDS ORDERED: Vancomycin Inj 1,000 MG in IV Premix 1 EACH IV ONE (21:30)
[2017-01-12 21:48] VITALS: BP 86/55; PULSE 119; RESP 32; O2SAT 91
[2017-01-12 22:45] VITALS: BP 91/54; PULSE 114; RESP 26; O2SAT 93
--- NOTE | 2017-01-12 23:56 | ER ---
[address] [address] EMERGENCY DEPT ADMIT NOTE PATIENT: JEANNETTE OCHOA : 1945 MR#: [id number] ADMIT: 01/12/2017 JOB ID: [id number] DATE: 01/12/2017 This is being dictated secondary to the [employer] system being entirely down, unable to access any of my previous records. BRIEF HISTORY OF PRESENT ILLNESS: This is a 71-year-old female, resides at [facility], who was sent in with fevers and some increasing shortness of breath. The patient complains of just feeling poorly, reports some increasing shortness of breath for the past possible 1-2 days although the exact timeline is a little unclear. She was recently admitted for pneumonia in November, was also recently seen in the ED after several ground level falls and noted to have an elevated Dilantin level so her dosing had been backed off. She had been on Coumadin, but this has been discontinued. The patient just complains of being fatigued. PAST MEDICAL HISTORY: Please refer to the details documented previously to which I no longer have access due to the [employer] being down. PAST SURGICAL HISTORY: Same as above. PHYSICAL EXAMINATION: Vitals: Patient's febrile, tachycardic, tachypneic, hypoxic, and hypotensive. General appearance: Patient is ill appearing, chronically ill, 71-year-old female, she is tachypneic, mildly dyspneic but answering questions. I saw her recently and she was alert and perky-she is fatigued and ill-appearing tonight. However, she is able to give answers and respond to questions. HEENT: Still reveals a septal hematoma on the posterior occiput that was identified previously and is unchanged. Pupils are normal. Chest: Scattered rhonchi bilaterally with increased work of breathing, tachypnea and dyspnea. Cardiac is tachycardic without murmurs, rubs, or gallops. Abdomen is flat, soft and nontender. Extremities: Atraumatic. Skin is warm dry intact. Lymph: No adenopathy, edema. Neurologic: Patient is awake, alert, oriented, and appropriate but is slow to respond, drowsy and moderately ill. She has decreased pulses in the extremities and no appreciable lymphedema. She has a flat affect. Labs are not accessible due to the [employer] being down but were notable for findings consistent with sepsis with an elevated lactic acid, leukocytosis, monitored marginally elevated troponin, marginally elevated BMP and a chest x-ray suggestive of multilobar pneumonia. As the patient has had multiple risk factors for healthcare-associated pneumonia, the patient is started on broad-spectrum antibiotics and received IV fluids. Her pressures responded, she received Tylenol and is improved but remains critically ill. However, the patient is a DO NOT RESUSCITATE/DO NOT INTUBATE and was listed as such on recent admission, and this was again confirmed tonight. Family is at bedside and understanding of this situation. The case has been discussed with the hospitalist, and the patient is being admitted for continued management. ADMISSION DIAGNOSES: 1. Multilobar pneumonia. 2. Sepsis. 3. Renal insufficiency. 4. Elevated lactic acid. 5. Elevated troponin. 6. Chronic obstructive pulmonary disease. TIME SPENT: Critical care time spent with this patient is 30 minutes.
[2017-01-13] VITALS (13 sets, daily range): BP systolic 78–150; BP diastolic 52–88; PULSE 86–134; RESP 19–32; O2SAT 92–99
[2017-01-13] MEDS ORDERED: Alum-Mag Hydrox-Simeth 30 mL Suspension PO PRN (00:25)
[2017-01-13] MEDS ORDERED: Polyethylene Glycol (PEG) 17 Gm Powder PO PRN (00:25)
[2017-01-13] MEDS ORDERED: Senna-Docusate 8.6-50 mg Tablet PO PRN (00:25)
[2017-01-13] MEDS ORDERED: Ondansetron 2 mg/mL 2 mL Inj IVPUSH PRN (00:25)
--- NOTE | 2017-01-13 00:32 | PCM.HPMED ---
Subjective Date of Service Jan 13, 2017 Primary Provider: Admitting Physician: Diane Anand DO Primary Care Physician: Arlene Dowling MD Attending Physician: Diane Anand DO Admit Status: From the Emergency Department Chief Complaint: headache, dyspnea History of Present Illness: Patient is a 71 year old female with a history of hemochromatosis, epilepsy, COPD on home 2L O2, CHF, stage III chronic kidney disease, and chronic atrial fibrillation admitted with acute respiratory distress and fever. Patient is unable to give any information as she is minimally responsive at this time. Family is at bedside and feel that during visits over the past week Mrs. Rebolledo has been steadily declining. She has been admitted 9 times over the past 12 months and has been seen numerous times in the emergency department as well. She was admitted from 11/27-12/01 and 12/09-12/12. Today she was sent in from [facility] due to 1-2 days of dyspnea and new onset fevers. Review of Systems: unable to obtain as patient is minimally responsive Allergies Coded Allergies: Macrolide Antibiotics (Verified Allergy, Severe, SWELLING, 01/13/17) HIVES, SWELLING, SOB Penicillins (Verified Allergy, Severe, SWELLING, HIVES, 01/13/17) HIVES, SWELLING, SOB codeine (Verified Allergy, Severe, VOMITING, 01/13/17) erythromycin ethylsuccinate (Verified Allergy, Severe, INSIDE SWELL UP, 01/13/17) TAPE (Verified Allergy, Unknown, PLASTIC TAPE, 01/13/17) ampicillin (Verified Allergy, Unknown, UNKNOWN, 01/13/17) clindamycin (Verified Allergy, Unknown, UNKNOWN, 01/13/17) GI BLEED... (07/11/15.. pt contacted at pharmacy request and asked about clindamycin allergy- states she knows something at one time had given her black stools- but she is not certain of whether or not it was clindamycin. Pharmacy notified of pt response.) Uncoded Allergies: KETOLIDE (Allergy, Unknown, 12/20/16) Unknown reaction Home Medications As per [facility] med list Alendronate ASA Atorvastatin Calcium carbonate Digoxin Fluoxetine Furosemide Mirtazapine Phenytoin Potassium chloride Slow-mag Spiriva D3 Voltaren Flovent Lisinopril Metoprolol Buspirone oxybutynin Oxygen 2L Albuterol Lorazepam As per discharge summary 12/12/16. med rec pending Discharge Medications (12/12/2016) Alendronate (Binosto) 70 Mg Tablet.eff 70 MG PO WEEKLY ON SATURDAYS Prescribed by: PATSY XIE MD Atorvastatin Calcium (Atorvastatin Calcium) 20 Mg Tablet 20 MG PO DAILY Prescribed by: PATSY XIE MD Buspirone (Buspirone) 15 Mg Tablet 15 MG PO TID AM, NOON, PM Prescribed by: PATSY XIE MD Calcium Carbonate/Vitamin D3 (Calcium 600 + Vit D 400 Softgl) 1 Each Capsule 1 EACH PO QAM Prescribed by: PATSY XIE MD Cholecalciferol (Vitamin D3) (Vitamin D3) 1,000 Unit Tab.chew 1,000 UNIT PO DAILY Prescribed by: PATSY XIE MD Digoxin (Lanoxin) 0.125 Mg Tablet 0.125 MG PO noon Prescribed by: PATSY XIE MD Fluoxetine (Fluoxetine) 20 Mg Capsule 40 MG PO DAILY Prescribed by: PATSY XIE MD Fluticasone Propionate (Flovent Diskus) 100 Mcg Disk.w.dev 1 PUFF INHALATION BID Prescribed by: PATSY XIE MD Furosemide (Furosemide) 20 Mg Tab 60 MG PO DAILY Prescribed by: PATSY XIE MD Lisinopril (Zestril) 10 Mg Tablet 10 MG PO BID Prescribed by: PATSY XIE MD Metoprolol Tartrate (Metoprolol Tartrate) 100 Mg Tablet 100 MG PO BID Prescribed by: PATSY XIE MD Mirtazapine (Mirtazapine) 15 Mg Tablet 15 MG PO HS Prescribed by: PATSY XIE MD Oxybutynin Chloride (Oxybutynin Chloride) 5 Mg Tablet 5 MG PO TID Prescribed by: PATSY XIE MD Phenytoin Sodium ER (Dilantin) 30 Mg Capsule 90 MG PO TID Prescribed by: PATSY XIE MD Potassium Chloride (Potassium Chloride) 20 Meq Tab.er.prt 20 MEQ PO DAILYWL Prescribed by: PATSY XIE MD Prednisone (Deltasone) 20 Mg Tablet 20 MG PO DAILY Prescribed by: PATSY XIE MD Warfarin Sodium (Coumadin) 2.5 Mg Tablet 2.5 MG PO OT Prescribed by: PATSY XIE MD As needed Albuterol HFA (Proair HFA) 8.5 Gm Hfa.aer.ad 1 PUFFS INHALATION Q4H PRN PRN For Shortness of Breath Prescribed by: PATSY XIE MD Albuterol Neb Soln (Albuterol Neb Soln) 2.5 Mg/3 Ml Vial.neb 1 NEB INHALATION Q4H PRN PRN For Shortness of Breath Prescribed by: PTASY XIE MD Lorazepam (Ativan) 0.5 Mg Tablet 0.5 MG PO BID PRN PRN For Anxiety Prescribed by: PATSY XIE MD oxyCODONE-Acetaminophen 5-325 mg (oxyCODONE-Acetaminophen 5-325 mg) 1 Each Tablet 1 TAB PO Q6 PRN PRN FOR PAIN Prescribed by: PATSY XIE MD [facility] Cataracts Cirrhosis Hepatitis C Kidney stones Acute respiratory failure and hypoxemia Diastolic heart failure Anxiety hemochromatosis Arthritis Asthma, COPD, Congestive heart failure, Hypertension Atrial fibrillation, Depression, Seizure disorder Surgical History Knee surgery Appendectomy with partial colectomy Eye surgery Phlebotomy Hemochromotosis Tubal Shunt in arm Carpal tunnel Family History Unable to obtain as patient is minimally responsive Social History Occupation: retired Hx Alcohol Use: Yes (Rarely) Hx Substance Use: No Hx Tobacco Use: Yes Smoking Status: Former Smoker Exam Vital Signs Vital Sign - Last Date Time Temp Pulse Resp B/P Pulse Ox O2 Delivery O2 Flow Rate FiO2 01/12/17 21:48 119 32 86/55 91 Nasal Cannula 2 01/12/17 20:19 39.1 Intake and Output 01/12/17 01/12/17 01/13/17 Cumulative From/Thru 15:00 23:00 07:00 01/12/17 20:19 - 01/12/17 23:34 Intake Total 1000 ml 200 ml 1200 ml Balance 1000 ml 200 ml 1200 ml Intake IV Total 1000 ml 200 ml 1200 ml Exam General: Not Alert, Slumped in bed, minimally responsive. Able to speak to family and tell them she loves them Eyes: PERRLA, Scleral Anicteric Mouth: Mouth Normal, Mucous Membranes Dry/[place], dentures present? Neck: Supple, no Thyromegaly, trachea central. Chest & Lungs: diffuse rhonchi and wheezes, poor inspiratory effort Cardiovascular: Normal S1, Normal S2, No Murmurs/Rubs/Gallops, tachy/ reg Rhythm , Murmur Pulses: Radial (present and equal), Dorsalis Pedi (present and equal) Abdomen: Soft, Non-tender, Non-distended, Normoactive bowel tones. Musculoskeletal: Unremarkable. Normal range of motion, no swollen or erythematous joints Extremities: No edema, no cyanosis, no clubbing. Skin: No rashes. Warm and dry, no erythematous areas Neurological: Grossly neurologically intact, has generalized weakness, Normal Speech, Sensation Intact Lymphatic: Lymph nodes Cervical and Axillary not palpable Lab and Diagnostics Result Diagram: 01/12/17203701/12/172037 X-Rays, CTs and MRIs Patient Name: JEANNETTE REBOLLEDO MR#: [id number] Location: SED Ordering Phys: MILTON, ED Date of Service: 01/12/172017 PROCEDURE: X-RAY CHEST ONE VIEW, PORTABLE ([id number]) INDICATIONS: FEVER, COUGH TECHNIQUE: One view of the chest was acquired. COMPARISON: [facility], CR, XR CHEST 1VW (PORTABLE), 12/20/2016, 2: 21. [facility], CR, XR CHEST 1VW, 12/20/2016, 7:13. FINDINGS: Surgical changes and devices: None. Lungs and pleura: There is patchy areas of opacity within the right upper and lower lobes, new compared to prior exam. Anterior opacities also noted in the left upper lobe and retrocardiac region. Mediastinum: Mediastinal contours appear normal. Heart size is normal. Bones and chest wall: No suspicious bony lesions. Overlying soft tissues appear unremarkable. IMPRESSION: Bilateral areas of focal opacity most prominent in the retrocardiac and right upper lobes as above. Findings are suspicious for multifocal pneumonia. There is underlying edema and/or atelectasis cannot be excluded. Assessment & Plan Patient is a 71 year old female with a history of hemochromatosis, epilepsy, COPD on home 2L O2, CHF, stage III chronic kidney disease, and chronic atrial fibrillation admitted with acute respiratory distress and fever. Severe Sepsis, acute, POA -secondary to HCAP, HR>90, T>38 -hypotension on admission, likely transition to septic shock -treatment as below Health care associated pneumonia, acute, POA -cefepime, levofloxacin, and vancomycin started in ED, continue -monitor I&Os, cautious fluids in the setting of acute decompensated heart failure, -isolation, droplet precaution -patient is DNI, considered bipap despite PNA for decompensation however patient unable to tolerate -albuterol and additional nebs as below LOLIS, acute, POA -history of CKD stage III -worsening renal function -likely intrarenal vs prerenal -continue to monitor, avoid nephrotoxic medications Acute decompensated diastolic heart failure, acute, POA -elevated BNP from ~5000 to ~49911 -holding beta mikael in the setting of hypotension restart when appropriate -holding VEENA d/t LOLIS and hypotension, restart when appropriate Elevated troponin, acute, POA -likely secondary to LOLIS and CHF -trend -EKG if patient develops CP Hypokalemia -monitor -replete PRN Chronic Persistent Atrial fibrillation, POA - telemetry - Hold Metoprolol Succinate d/t hypotension continue digoxin when med rec completes - Digoxin levels as needed Epilepsy, chronic. Presumed stable - Continue antiepileptic medications: Phenytoin, order pending med rec completion - Phenytoin levels as needed - Dose recently adjusted, decreased to to elevated levels Chronic hypoxic respiratory failure, chronic -h/o COPD, continue home nebs -on 2L oxygen at SNF ([facility]) -goal oxygen level 88-92% Macrocytic anemia, chronic -continue to monitor -h&h are at baseline Other stable chronic conditions: Anxiety HCV Hemochromatosis Patient admitted under inpatient status in CCU due to nursing needs with expected length of stay > 2 midnights. - PRN: Bowel/fever/pain/antiemetic - DIET: Heart healthy, Renal healthy - Code: DNR/DNI, discussed with grandson and his significant other poor prognosis at this time. They maintain DNR/DNI status. Discussed potentially transitioning to comfort focus. - PCP: Nitesh Pain Evaluation: Adequate Pain Control VTE Prophylaxis: Sub-Q Heparin (Unfractionated) Resuscitation Status: DNR/DNI:Do Not Resuscitate/Intubate Diane Anand DO Jan 13, 2017 00:32
[2017-01-13] MEDS: Vancomycin Dose per Pharmacist XX SCH ×2 (00:40→10:05)
[2017-01-13] MEDS ORDERED: Albuterol 2.5 mg/3 mL Inhalation Solution NEB PRN (01:25)
--- NOTE | 2017-01-13 01:56 | ABG ---
DateTimeAnalyzed 01:51:00 -_ pH ____7.420 - 7.350 7.450 pCO2 ___37.5__ -mmHg 35.0 45.0 pO2 ___60.6__ -mmHg 69.0 116 HCO3- ___23.9__ -mmol/L 22.0 26.0 ABE ____0.1__ -mmol/L -2.0 2.0 tHb ___10.1__ -g/dL O2Hb ___90.2__ -% COHb ____2.0__ -% MetHb ____0.6__ -% sO2 ___92.6__ -% FIO2 ___21.0__ -% Drawn By MD - Date/Time Notified____ 01:55:00 -_ Liter_Flow ____2.0__ -L/min Oxygen Device 1 __CANNULA - Notified By MD - Notified Whom DR SULLENBERGER - B 757 -mmHg tO2 ___12.8__ -Vol% Adrien test _Positive -
--- NOTE | 2017-01-13 02:00 | NUR ---
Admit to CCU 2019 Pt admitted to CCU room 2019 from ED in stable condition. At first she was A&O x 3. Initial admission assessment lasted ~1hour and toward end, pt became vary somnolent and appeared to be agonally breathing. Tele shows Afib 110s-140s. SPO2 initially mid to low 90s on 2L NC. Reports SOB with exertion. Denies CP, palpitations, n/v/d or abdominal pain. MD called into room to report breathing status and hypotension, as pt is DNR/DNI and plan for care is unclear. ABG performed and was roughly WNL. O2 increased to maintain SpO2 >94, and pt placed on Oxymask 5L. Attempted BIPAP, but pt could not tolerate it. Family and MD had meeting and decided to continue with abx care, but do not escalate care (no pressors). Family oriented to room, floor, and call light. Will continue to monitor pt. Care ongoing
[2017-01-13] MEDS: Albuterol-Ipratropium 3 mL Inhalation Solution NEB SCH ×4 (02:20→19:48)
[2017-01-13] MEDS: MethylprednisoLONE Sodium Succinate 62.5 mg/mL 2 mL Inj IVPUSH SCH ×4 (02:28→19:53)
[2017-01-13] MEDS ORDERED: Vancomycin Inj 1,000 MG in IV Premix 1 EACH IV ONE (02:30)
[2017-01-13 03:02] LABS: Mean Corpuscular Hemoglobin 33.7 pg (27.0-35.0); Mean Corpuscular Volume 104.5 fL (81-100); Platelet Count 113 bil/L (150-400)
[2017-01-13 03:21] LABS: BASOPHILS % (AUTO) 0 % (0-3); EOSINOPHILS % (AUTO) 0 % (0-5); MONOCYTES % (AUTO) 1 % (4-12); NEUTROPHILS % (AUTO) 64 % (40-74)
[2017-01-13 03:38] LABS: Magnesium 1.4 mg/dL (1.6-2.6)
[2017-01-13] MEDS ORDERED: Magnesium Sulf 2 Gm/50mL Water 2 GM in IV Premix 1 EACH IV ONE (04:05)
[2017-01-13] MEDS ORDERED: predniSONE 10 mg Tablet PO SCH (08:30)
[2017-01-13] MEDS ORDERED: 0.9% Sodium Chloride 1,000 ML IV ONE ×2 (08:35→14:45)
[2017-01-13] MEDS: Heparin 5,000 Unit/mL Inj SUBQ SCH ×2 (10:02→19:54)
[2017-01-13] MEDS: Cefepime Inj 2,000 MG in Dextrose 5% Minibag Plus 50 ML IV SCH ×2 (10:03→19:54)
[2017-01-13] MEDS ORDERED: TIOT18CA3 (11:06)
--- NOTE | 2017-01-13 11:11 | NUR ---
Palliative Care Palliative Care received verbal order from Dr Mookie Pacheco 01/13/17 to assist with goals of care. Patient is a 71 year old woman with history of hemochromatosis, epilepsy, COPD, CHF, stage III chronic kidney disease and chronic atrial fibrillation. She was admitted 01/13/17 for care of acute respiratory distress and fever. Patient has had frequent/multiple admissions over the past year. The Palliative Care Team has seen patient multiple times before. Patient resides at [facility] [phone] Palliative Care to follow. Leandra Osei
--- NOTE | 2017-01-13 11:40 | ABG ---
DateTimeAnalyzed 11:34:00 -_ pH ____7.369 - 7.350 7.450 pCO2 ___37.7__ -mmHg 35.0 45.0 pO2 ___71.8__ -mmHg 70.0 100 HCO3- ___21.3__ -mmol/L 22.0 26.0 ABE ___-3.1__ -mmol/L -2.0 2.0 tHb ___10.1__ -g/dL 12.0 18.0 O2Hb ___92.3__ -% 95.0 COHb ____1.6__ -% 1.5 MetHb ____0.8__ -% 0.4 1.5 sO2 ___94.6__ -% FIO2 ___36.0__ -% Drawn By jmw - Date/Time Notified____ 11:40:00 -_ Oxygen Device 1 __OXYMASK - Notified By JMW - Notified Whom DR DE HOUSSA - B 755 -mmHg tO2 ___13.2__ -Vol% Adrien test _Positive -
--- NOTE | 2017-01-13 11:51 | PCM.PNMED ---
Subjective Date of Service Jan 13, 2017 Subjective Patient is barely responsive but appears comfortable. ROS and subjective not obtainable. Exam Vital Signs Vital Sign - Last Date Time Temp Pulse Resp B/P Pulse Ox O2 Delivery O2 Flow Rate FiO2 01/13/17 08:10 104 21 98 OxyMask 4.00 01/13/17 07:54 36.5 85/56 Intake and Output 01/12/17 01/12/17 01/13/17 Cumulative From/Thru 15:00 23:00 07:00 01/12/17 20:19 - 01/13/17 06:28 Intake Total 1000 ml 772 ml 1772 ml Output Total 100 ml 100 ml Balance 1000 ml 672 ml 1672 ml Intake IV Total 1000 ml 772 ml 1772 ml Output Urine Total 100 ml 100 ml # Bowel Movements 0 0 Exam She is chronically ill in appearance. Neck supple. Lungs with normal rate and effort no focal findings no wheezing Heart is regular. Abdomen is distended but nontender. Extremities are free of edema Good radial pulses. The patient does have dry skin turgor. IVs and Medications Medications Reviewed: Medications were reviewed in detail Lab and Diagnostics Result Diagram: 01/13/1725401/13/17254 X-Rays, CTs and MRIs Patient Name: JEANNETTE OCHOA MR#: [id number] [place] [facility] [place] Phys: MILTON, LOUANN LOPEZ Date of Service: 01/12/172017 PROCEDURE: X-RAY CHEST ONE VIEW, PORTABLE ([id number]) INDICATIONS: FEVER, COUGH TECHNIQUE: One view of the chest was acquired. COMPARISON: [facility], CR, XR CHEST 1VW (PORTABLE), 12/20/2016, 2: 21. [facility], CR, XR CHEST 1VW, 12/20/2016, 7:13. FINDINGS: Surgical changes and devices: None. Lungs and pleura: There is patchy areas of opacity within the right upper and lower lobes, new compared to prior exam. Anterior opacities also noted in the left upper lobe and retrocardiac region. Mediastinum: Mediastinal contours appear normal. Heart size is normal. Bones and chest wall: No suspicious bony lesions. Overlying soft tissues appear unremarkable. IMPRESSION: Bilateral areas of focal opacity most prominent in the retrocardiac and right upper lobes as above. Findings are suspicious for multifocal pneumonia. There is underlying edema and/or atelectasis cannot be excluded. Assessment & Plan Patient is a 71 year old female with a history of hemochromatosis, epilepsy, COPD on home 2L O2, CHF, stage III chronic kidney disease, and chronic atrial fibrillation admitted with acute respiratory distress and fever. 1. Severe Sepsis, acute, POA -secondary to HCAP, HR>90, T>38 -The patient remains hypotensive. Pressors are not within her level of care. Will continue aggressive fluid resuscitation and trend her lactic acid which she has been elevated. We will continue broad-spectrum antibiotics. 2. Health care associated pneumonia, acute, POA -cefepime, levofloxacin, and vancomycin started in ED, continue -monitor I&Os, cautious fluids in the setting of acute decompensated heart failure, -isolation, droplet precaution -patient is DNI, considered bipap despite PNA for decompensation however patient unable to tolerate -albuterol and additional nebs as below Infectious disease consultation to review current antibiotics. 3. LOLIS, acute, POA -history of CKD stage III -worsening renal function -likely intrarenal vs prerenal -continue to monitor, avoid nephrotoxic medications. Ongoing fluid resuscitation. 4. Chronic compensated diastolic heart failure, acute, POA -elevated BNP from ~5000 to ~49712 -holding beta mikael in the setting of hypotension restart when appropriate -holding VEENA d/t LOLIS and hypotension, restart when appropriate. The patient does not have any have evidence of edema and chest x-ray listed saturations and in spite of an elevated BNP appears to be compensated. 5. Elevated troponin, acute, POA -likely secondary to LOLIS acute illness. This could be demand ischemia. We will simply trend this at this point. -trend -EKG if patient develops CP 6. Hypokalemia, replete and follow. This was present on admit. 7. Acute toxic encephalopathy versus hepatic encephalopathy, POA. We will check ammonia and continue to treat her infection. 8. Chronic Persistent Atrial fibrillation, POA - telemetry - Hold Metoprolol Succinate d/t hypotension continue digoxin when med rec completes - Digoxin levels as needed 9. Epilepsy, chronic. Presumed stable - Continue antiepileptic medications: Phenytoin, order pending med rec completion - Phenytoin levels as needed - Dose recently adjusted, decreased to to elevated levels 10. Chronic hypoxic respiratory failure, chronic -h/o COPD, continue home nebs -on 2L oxygen at SNF ([facility]) -goal oxygen level 88-92% 11. Hemochromatosis with liver cirrhosis, POA. 12. Hepatitis C. POA. Macrocytic anemia, chronic -continue to monitor -h&h are at baseline Patient admitted under inpatient status in CCU due to nursing needs with expected length of stay > 2 midnights. - PRN: Bowel/fever/pain/antiemetic - DIET: Heart healthy, Renal healthy - Code: DNR/DNI, discussed with grandson and his significant other poor prognosis at this time. They maintain DNR/DNI status. Discussed potentially transitioning to comfort focus. - PCP: Nitesh Clarify level with daughter Teresita who is not to [facility]. The patient is DNR/ DNI. We will use fluids and BiPAP and avoid intubation and pressors. Continue to address this with family members next day or 2. VTE Prophylaxis: Sub-Q Heparin (Unfractionated) Resuscitation Status: DNR/DNI:Do Not Resuscitate/Intubate Time spent 30 minute Adrien Pacheco MD Jan 13, 2017 11:51
--- NOTE | 2017-01-13 12:20 | PCM.CONPAL ---
Date of Service Jan 13, 2017 Date of Hospital Admission: Jan 13, 2017 at 00:16 Date of Palliative Consult: Jan 13, 2017 Requesting Provider: Adrien Pacheco MD Reason Palliative Care Consult: Goals of Care Discussion Reason for Consultation Palliative Care received verbal order from Dr Mookie Pacheco 01/13/17 to assist with goals of care. Patient is a 71 year old woman with history of hemochromatosis, epilepsy, COPD, CHF, stage III chronic kidney disease and chronic atrial fibrillation. She was admitted 01/13/17 for care of acute respiratory distress and fever. Patient has had frequent/multiple admissions over the past year. The Palliative Care Team has seen patient multiple times before. Patient was at [facility] just prior to this admission. Dwayne Bonilla (grandson) [phone] Palliative Care Recommendation Summary of palliative recommendations: Symptom management (Pain/other): DPOA/Advanced Directives/POLST: 1. Code status: DNR/DNI. 2. Advanced Directives: not on paper but established through prior talks with family and pt. Daughter Teresita sitting at bedside reports to Dr. Hay that Gracia had told family a long time ago that she did not want to be intubated/put on a breathing machine. They are sorrowful about this, but accept that this is her wish and they accept this decision of the patient. To this end, family asks providers to use IVFs to support her blood pressure , IV antibiotics to treat infection, and face masks (as patient tolerates them) to assist in her breathing. They do not want more escalation of her care with advanced life support procedures/interventions. At her Dec 2016 admission, Dr. Terry of Palliative Care gave her a blank POA document. At that time she said she wants her gsons Pacheco and Dwayne to share POA duty. It was not completed at time of that discharge. Dr. Terry also found out from pt in Dec 2016 that she has a POLST on her refrigerator at home. He reviewed its status. She told him, she was very clear (in Dec 2016) that she wants DO NOT RESUSCITATE/DO NOT INTUBATE/limited interventions/hospitalization and antibiotics OK/no artificial nutrition. Family members were going to bring in the POLST so we could make a copy, but apparently that didn't happen prior to her Dec discharge. POLST: Dr. Hay will ask family to bring in that POLST this admission. POA: again, not clear if pt ever signed a POA, but she did state she would want Pacheco and Dwayne to share this role. Pacheco not available today to discuss goals any further (he was working). Family/emotional support: Excellent support from daughter, pt's 4 adult grandsons. Oldest grandson Yovani and his GF [place] are committed to taking care of Gracia in their home, when she recovers enough to go home. Spiritual support: not yet explored. Patient Goals: As Above. Reasonable interventions to try to recover to former baseline, but no heroics. Additional Medical Diagnoses with primary management by Hospitalist team include : 1. Severe Sepsis, acute, POA -secondary to HCAP, HR>90, T>38 -The patient remains hypotensive. Pressors are not within her level of care. Will continue aggressive fluid resuscitation and trend her lactic acid which she has been elevated. We will continue broad-spectrum antibiotics. 2. Health care associated pneumonia, acute, POA -cefepime, levofloxacin, and vancomycin started in ED, continue -monitor I&Os, cautious fluids in the setting of acute decompensated heart failure, -isolation, droplet precaution -patient is DNI, considered bipap despite PNA for decompensation however patient unable to tolerate -albuterol and additional nebs as below Infectious disease consultation to review current antibiotics. 3. LOLIS, acute, POA -history of CKD stage III -worsening renal function -likely intrarenal vs prerenal -continue to monitor, avoid nephrotoxic medications. Ongoing fluid resuscitation. 4. Chronic compensated diastolic heart failure, acute, POA -elevated BNP from ~5000 to ~80148 -holding beta mikael in the setting of hypotension restart when appropriate -holding VEENA d/t LOLIS and hypotension, restart when appropriate. The patient does not have any have evidence of edema and chest x-ray listed saturations and in spite of an elevated BNP appears to be compensated. 5. Elevated troponin, acute, POA -likely secondary to LOLIS acute illness. This could be demand ischemia. We will simply trend this at this point. -trend -EKG if patient develops CP 6. Hypokalemia, replete and follow. This was present on admit. 7. Acute toxic encephalopathy versus hepatic encephalopathy, POA. We will check ammonia and continue to treat her infection. 8. Chronic Persistent Atrial fibrillation, POA - telemetry - Hold Metoprolol Succinate d/t hypotension continue digoxin when med rec completes - Digoxin levels as needed 9. Epilepsy, chronic. Presumed stable - Continue antiepileptic medications: Phenytoin, order pending med rec completion - Phenytoin levels as needed - Dose recently adjusted, decreased to to elevated levels 10. Chronic hypoxic respiratory failure, chronic -h/o COPD, continue home nebs -on 2L oxygen at SNF ([facility]) -goal oxygen level 88-92% 11. Hemochromatosis with liver cirrhosis, POA. 12. Hepatitis C. POA. Macrocytic anemia, chronic -continue to monitor -h&h are at baseline Problems: Resuscitation Status Resuscitation Status: DNR/DNI:Do Not Resuscitate/Intubate POLST Updates/Changes Previous POLST?: Yes POLST Discussed with: Spouse/Other (daughter at bedside (but she is not POA), waiting for POA to arrive.) . Advanced Care Planning Address: POLST, Durable Power of Graphic Artist Pt History History of Present Illness Patient is a 71 year old female with a history of hemochromatosis, epilepsy, COPD on home 2L O2, CHF, stage III chronic kidney disease, and chronic atrial fibrillation admitted 01/13/17 from [facility] after 2 days SOB and new onset fever with acute respiratory distress. Patient is unable to give any information as she is minimally responsive at this time. Family is at bedside and feel that during visits over the past week Mrs. Rebolledo has been steadily declining. She has been admitted 9 times over the past 12 months and has been seen numerous times in the emergency department as well. She was admitted from 11/27-12/01 and 12/09-12/12. Hospital Course: Discussed extensively in CCU today, as under joint care of Drs. Pimentel and Ghulam Dubois. She has a Community-acquired large right side pneumonia and her kidney function is worsening. Past Medical History Significant PMH Noted: Cataracts Cirrhosis Hepatitis C Kidney stones Acute respiratory failure and hypoxemia Diastolic heart failure Anxiety hemochromatosis Arthritis Asthma, COPD, Congestive heart failure, Hypertension Atrial fibrillation, Depression, Seizure disorder Surgical History Knee surgery Appendectomy with partial colectomy Eye surgery Phlebotomy Tubal Shunt in arm Carpal tunnel Family History Mother in her late 80s, Father young (age 55yo) but details of unknown. Social History Occupation: retired. Rare drinker of alcohol. Former smoker. Living situation: was living alone at her own apt, but recently was at [facility] for about 2 1/2 weeks before this admission. The plan was to move from her apt to the home of her grandson Yovani Bonilla and his S.O. Brooklyn in [place]. They were going to look into making Brooklyn her Mayi caregiver. Family connections: Her daughter Teresita, who lives in [place], is the mother of Gracia's 3 grandsons: Yovani, Emanuel, Corby. Gracia's children are her daughter Teresita and 3 sons Pacheco, Nas (lives in [place]) and Rolando ( lives in [place]). There are numerous great-grandchildren. Enjoys: talking to her [place] of friends, going to movies and watching movies at home. Would like to visit [facility] in [place] before she dies. POLST at Time of Admission Cardiopulmonary Resuscitation: DNR: Do Not Attempt Resuscitation Medications Current Medications: Current Medications Ondansetron HCl 4 to 8 mg Q4H PRN IVPUSH; Start 01/13/17 at 00:25 Senna 2 tablet BID PRN PO; Start 01/13/17 at 00:25 Al Hydrox/Mg Hydrox/Simethicone 30 ml Q6 PRN PO; Start 01/13/17 at 00:25 Polyethylene Glycol 17 gm DAILY PRN PO; Start 01/13/17 at 00:25 Pharmacy Consult 1 ea 1 ea DAILY XX Last administered on 01/13/17 00:40; Admin Dose 1 EA; Start 01/13/17 at 00:40 Cefepime HCl 2000 mg/Dextrose/Water 50 ml @ 12.5 mls/hr Q12 IV Last administered on 01/13/17 10:03; Admin Dose 12.5 MLS/HR; Start 01/13/17 at 08:30 Levofloxacin/ Dextrose/Premix 150 ml @ 100 mls/hr Q48 IV; Start 01/14/17 at 08: 30 Albuterol 2.5 mg Q2H PRN NEB; Start 01/13/17 at 01:25 Albuterol/ Ipratropium 3 ml Q6 NEB Last administered on 01/13/17 08:10; Admin Dose 3 ML; Start 01/13/17 at 02:30 Prednisone 60 mg DAILY PO; Start 01/13/17 at 08:30; Stop 01/13/17 at 08:30; Status DC Methylprednisolone Sodium Succinate 125 mg Q6 IVPUSH Last administered on 10:02; Admin Dose 125 MG; Start 01/13/17 at 02:30 Heparin Sodium (Porcine) 5000 unit 5,000 unit Q12 SUBQ Last administered on 10:02; Admin Dose 5,000 UNIT; Start 01/13/17 at 08:30 Vancomycin HCl/ Sodium Chloride 250 ml @ 166.667 mls/hr Q24H IV; Start 01/14/17 at 02:30 Scheduled Alendronate (Binosto) 70 Mg Tablet.eff 70 MG PO WEEKLY ON SATURDAYS Atorvastatin Calcium (Atorvastatin Calcium) 20 Mg Tablet 20 MG PO DAILY Buspirone (Buspirone) 15 Mg Tablet 15 MG PO TID AM, NOON, PM Calcium Carbonate/Vitamin D3 (Calcium 600 + Vit D 400 Softgl) 1 Each Capsule 1 EACH PO QAM Cholecalciferol (Vitamin D3) (Vitamin D3) 1,000 Unit Tab.chew 1,000 UNIT PO DAILY Digoxin (Lanoxin) 0.125 Mg Tablet 0.125 MG PO noon Fluoxetine (Fluoxetine) 20 Mg Capsule 40 MG PO DAILY Fluticasone Propionate (Flovent Diskus) 100 Mcg Disk.w.dev 1 PUFF INHALATION BID Furosemide (Furosemide) 20 Mg Tab 60 MG PO DAILY Levofloxacin (Levaquin) 500 Mg Tablet 500 MG PO DAILY Lisinopril (Zestril) 10 Mg Tablet 10 MG PO BID Metoprolol Tartrate (Metoprolol Tartrate) 100 Mg Tablet 100 MG PO BID Mirtazapine (Mirtazapine) 15 Mg Tablet 15 MG PO HS Oxybutynin Chloride (Oxybutynin Chloride) 5 Mg Tablet 5 MG PO TID Phenytoin Sodium ER (Dilantin) 30 Mg Capsule 90 MG PO TID Phenytoin Sodium ER (Dilantin) 30 Mg Capsule 60 MG PO BID Potassium Chloride (Potassium Chloride) 20 Meq Tab.er.prt 20 MEQ PO DAILYWL Prednisone (Deltasone) 20 Mg Tablet 20 MG PO DAILY Tiotropium [place] (Spiriva) 18 Mcg Cap.w.dev 1 CAPSULE DAILY Warfarin Sodium (Coumadin) 2.5 Mg Tablet 2.5 MG PO OT Scheduled PRN Albuterol HFA (Proair HFA) 8.5 Gm Hfa.aer.ad 1 PUFFS INHALATION Q4H PRN PRN For Shortness of Breath Albuterol Neb Soln (Albuterol Neb Soln) 2.5 Mg/3 Ml Vial.neb 1 NEB INHALATION Q4H PRN PRN For Shortness of Breath Lorazepam (Ativan) 0.5 Mg Tablet 0.5 MG PO BID PRN PRN For Anxiety oxyCODONE-Acetaminophen 5-325 mg (oxyCODONE-Acetaminophen 5-325 mg) 1 Each Tablet 1 TAB PO Q6 PRN PRN FOR PAIN Objective Findings Exam Vital Sign - Last Date Time Temp Pulse Resp B/P Pulse Ox O2 Delivery O2 Flow Rate FiO2 01/13/17 08:10 104 21 98 OxyMask 4.00 01/13/17 07:54 36.5 85/56 Intake and Output 01/12/17 01/12/17 01/13/17 Cumulative From/Thru 15:00 23:00 07:00 01/12/17 20:19 - 01/13/17 06:28 Intake Total 1000 ml 772 ml 1772 ml Output Total 100 ml 100 ml Balance 1000 ml 672 ml 1672 ml Intake IV Total 1000 ml 772 ml 1772 ml Output Urine Total 100 ml 100 ml # Bowel Movements 0 0 Objective General: chronically ill appearing, minimally responsive HEENT: Head NC/AT, amish wasting, Lungs: no rhonchi, rales, wheezes. Heart: S1,S2, rrr. Abdomen: nontender, nondistended Ext: no edema. Skin: poor turgor. Lab/Diagnostics Lab and Imaging results reviewed in detail in EMR. Time spent Total time 70 minutes; >50% face to face with patient and/or family, providing counselling regarding plans and recommendations, and in care coordination with his/her medical teams. I also spent an additional 30 minutes counseling for advanced care planning with the patient/the patients family/the surrogate decision maker. Azalea Hay MD Jan 13, 2017 12:20
--- NOTE | 2017-01-13 13:04 | NUR ---
NUTRITION ASSESSMENT: ASSESS: Pt is a 71yo F admitted to CCU for pneumonia and sepsis. Pt is currently NPOx1 day and minimally responsive. Palliative care is involved for goals of care. PMHX: Cirrhosis, Hep C, CHF, COPD, HTN, Afib, Seizures LABS: Reviewed. K 3.4, Bun 34, Railroad Purchasing Agent 1.51, Glu 166, Ca 7.3, phos 2.0, Mg 1.4, AST 65, Alb 2.5 MEDS: Reviewed. GI: 0 BM yet SKIN: Ruperto 13 CURRENT WTS: 57.4kg, BMI 21.7kg/m2 DIET: NPO EST. NEEDS: Kcals: 1435-1725kcal/day (25-30kcal/kg) Pro: 70-85g/day (1.2-1.5g/kg) NUTRITION DIAGNOSIS: 1.) Inadequate oral intake related to decreased ability to consume sufficient energy as evidenced by current NPO status. NUTRITION INTERVENTION: 1.) Will continue to monitor NPO status 2.) Recommend advance diet when medically appropriate MONITOR / EVAL: NPO, diet advance, wt, labs, POC, nutrition status. Will continue to monitor per high nutrition risk guidelines.
--- NOTE | 2017-01-13 15:49 | CONS ---
[address] [address] CONSULTATION REPORT PATIENT: JEANNETTE OCHOA : 1945 MR#: [id number] ADMIT: 01/13/2017 JOB ID: [id number] DATE OF SERVICE: 01/13/2017 INFECTIOUS DISEASE CONSULT: I thank Dr. Pimentel for this timely consult. REASON FOR CONSULTATION: Right-sided pneumonia with bacteremia. HISTORY OF THE PRESENT ILLNESS: The patient is an unfortunate 71-year-old woman with a collection of medical problems including hemochromatosis with cirrhosis and congestive heart failure, as well as hepatitis C, chronic renal insufficiency and COPD. She has been a frequent visitor to our hospital recently with admissions in September for a rhinovirus pneumonia and in December from moraxella pneumonia. On this occasion, she was admitted to the hospital last night with progressive increasing shortness of breath, as well as rigors and elevated fever. She has been residing over the past month or so after her last admission at the [facility], and they sent her over because of the shortness of breath, as well as the shaking. It was thought that perhaps her rigors might have represented a seizure, as the patient has a seizure disorder, and there have been questions about whether or not she has been receiving her Dilantin therapy on time. This afternoon the patient tells us she continues to be quite short of breath with a minimal nonproductive cough. The shaking apparently has improved overnight, and she does not report any fevers today. She notes that she was having a sensation of fullness and inability to void and this earlier today resulted in the placement of a Francisco catheter, which drained 400 cc of a dark dwight fluid. She denies though having urgency or frequency but rather just difficulty with voiding and fullness in the bladder area. She has not had any significant sputum production, though she does have a cough. She notes that [facility] she is able to ambulate a little bit but has great trouble with balance which limits her mobility. It was noted yesterday that the patient was minimally responsive. This afternoon the patient is able to give us some more history, though it is still a bit limited. PAST MEDICAL HISTORY: 1. Seizure disorder since she was a teenager, for which she receives Dilantin. 2. Hepatitis C secondary to blood transfusions many years ago. 3. Congestive heart failure. 4. Hemochromatosis, which has resulted in cirrhosis. 5. Chronic renal insufficiency. 6. COPD. SOCIAL HISTORY: The patient is an ex-smoker, having quit about 18 months ago. She drinks alcohol minimally and not at all now as she lives at [facility] the last month or so. She had many jobs in her life including working as a outpatient services director, bar maid and client analyst. She has lived in [place], where she was born, as well as numerous locations in [facility] before moving here 15 years ago. FAMILY HISTORY: Negative for TB in her first-degree relatives. REVIEW OF SYSTEMS: Done. The patient tells us today she has no significant headache. No visual change. No sores in the mouth or trouble swallowing. She denies any stiff neck. She notes she has a chronic cough, which is worse the last few days, and she is much more short of breath than she is at baseline the last day or two. No pleuritic chest pain. No nausea, vomiting, diarrhea. She had the bladder fullness, which required the Francisco, but no dysuria. She notes her extremities are strong, and she denies focal neurologic complaint but she also reports a very poor balance, which leads to falls, and she has fallen frequently. Remainder of the review of systems was noncontributory. PHYSICAL EXAMINATION: Reveals a woman who was febrile to 39.1 degrees when she was hit the ED late last night. Right now, she is 36.7, pulse is 110-130 and irregular. The monitor shows AFib. Respiratory rate in the 20s, blood pressure 84/59. She is not on any vasopressor agents. She is saturating 94% on 4 L OxyMask. Overall, the patient is a chronically ill-appearing woman who looks quite frail. Her BMI is 22. Her weight 57 kg. She does not have overt temporal wasting. Her eyes are without notable scleral icterus or conjunctivitis. Oral cavity without thrush or pharyngitis. She does have dentures. No buccal erosions or ulcers are noted. The neck is reasonably supple without adenopathy. The lungs are notable for right-sided coarse breath sounds bilaterally perhaps more on the right. There is fair air flow bilaterally. Cardiac tones are regular rate and rhythm. Pulse is about 120. No overt murmur is heard but it is difficult to tell at this rate. Abdomen soft and nontender. I did not feel any hepatosplenomegaly or ascites. Francisco catheter is present. There is no suprapubic fullness. The Francisco has dark dwight clear fluid. Visualized genitalia normal. Extremities without significant edema. There is some bruising on the lower extremities and minimal venous stasis type changes. No synovitis is noted in the major joints. Neurologically, the patient is intact. She has about 4+/5 strength which seems to be intact throughout. Because the patient is currently mildly hypotensive and weak, no attempt was made to stand her up and see how she can ambulate. There was no significant adenopathy noted, and the remainder of the exam is unremarkable. LABORATORIES: Include white count 11,000 last night in the ED. Now 6000 with a huge left shift, 16% bands, 3% metamyelocytes, 2% myelocytes. Lactic acid was 3.7 when she came in last night. It is no better now at 3.8. Creatinine is 1.51; this was the same as yesterday. Compared to her baseline that creatinine is slightly elevated, as she tends to run about 0.9-1.2. Now, she is 1.51. LFT notable for AST 65, ALT 22, alk phos 82. Ammonia normal at 43. Albumin 2.5. Procalcitonin 0.12 and that was done last month. It has not been repeated at this admission. Serologic studies include urine legionella, which is negative. Urinalysis is notable for 6-10 white cells, which are probably normal. Micro studies are important in that we now have 4/4 blood cultures growing a streptococcal organism to be identified. The strep was discussed with the Micro Lab, and they reported some chains, which would argue against either Strep pneumoniae or enterococcus. Her urine, however, is growing greater than 100,000 probable enterococcus, with final identification and susceptibilities to follow. Respiratory viral PCR panel is negative. A MRSA screen is pending. IMAGING: Reviewed at the bedside with the patient. It shows a significant right upper lobe infiltrate, as well as a possible retrocardiac infiltrate. An abdominal ultrasound has been ordered but has not yet been completed. IMPRESSION: This is an unfortunate elderly woman with multiple medical problems, who is currently a DO NOT RESUSCITATE/DO NOT INTUBATE patient because of her progressive and severe overlapping multiple medical problems. She was admitted back in September and in December with two prior episodes of pneumonia in the last three or four months and this time, is admitted basically with increasing shortness of breath and what sounds like violent shaking rigors, which may been mistaken for a seizure yesterday. She has borderline hypotension and a very severe left shift in her white blood count consistent with a severe infection. She could probably be reasonably classified as septic shock based on her low blood pressure, though she is not yet requiring any vasopressor agents. The micro etiology of this process has been established, as we now have four positive blood cultures for a streptococcal species in conjunction with a very extensive right-sided pulmonary infiltrate and her history of rigors years and leukocytosis. This is probably not going to be a pneumococcal organism, though that would be the most common streptococcal cause of pneumonia as these organisms are in lengthy chains and raises the possibility possibly of a beta hemolytic streptococcal pneumonia. This is not enterococcal, as enterococci do not cause pneumonia. Also remotely possible here would be a Streptococcus anginosus group organism. RECOMMENDATIONS: 1. The patient is currently on vancomycin, cefepime and levofloxacin. Given that we have identified a streptococcus in her blood cultures, we can go ahead and reasonably stop the levofloxacin. Will continue the vancomycin and cefepime at least overnight until we see for certain what is going on with the urine, as well as the blood cultures. 2. We do not have any hepatitis C serologies at all in our computer, so I think we should at this time go ahead and check a hep C viral load and genotype just so we better understand the overall clinical situation with this patient. 3. I agree with the ultrasound of the abdomen which has been ordered to better characterize her liver. There are still questions about cirrhosis we can order the FibroSure assay, which will give us an in vitro measure of whether or not she has cirrhosis due to her hep C and hemochromatosis. 4. A stat strep urine antigen has been ordered, as we do not have one. 5. It would be reasonable to repeat a procalcitonin tomorrow morning, and will go ahead and order that, though we already know she is bacteremic but that may give us something to follow in terms of antibiotic duration. 6. This case discussed extensively at the bedside with the patient and her daughter who is visiting.
--- NOTE | 2017-01-13 16:34 | DRSVH ---
PROCEDURE: US ABDOMEN, LIMITED ([id number]) INDICATIONS: CONFUSION (ASCITES?) TECHNIQUE: Real-time focused scanning was performed of the abdomen, with image documentation. COMPARISON: None. FINDINGS: No free intraperitoneal fluid seen within all 4 quadrants of the abdomen. Small left pleu ral effusion. IMPRESSION: No ascites and trace left pleural effusion. Dictated by: Nuno Chatterjee RRA Interpreted: Fely Wilde MD on 01/13/2017 at 15:54 Transcribed by: JOSE on 01/13/2017 at 19:33 Approved by: Fely Wilde MD, PhD on 01/14/2017 at 11:03
[2017-01-13 16:46] LABS: Mean Corpuscular Hemoglobin 33.7 pg (27.0-35.0); Mean Corpuscular Volume 104.7 fL (81-100)
[2017-01-14] VITALS (13 sets, daily range): BP systolic 107–142; BP diastolic 53–81; PULSE 66–126; RESP 22–32; O2SAT 83–99
[2017-01-14] MEDS: MethylprednisoLONE Sodium Succinate 62.5 mg/mL 2 mL Inj IVPUSH SCH ×4 (02:27→21:58)
[2017-01-14 03:47] LABS: Mean Corpuscular Hemoglobin 33.3 pg (27.0-35.0); Mean Corpuscular Volume 104.4 fL (81-100)
--- NOTE | 2017-01-14 04:54 | NUR ---
Cardiac Tele afib 120s-150s at beginning of shift with SBP 80s-90s. Pt asymptomatic, denies pain or dyspnea. Steady decrease throughout shift in HR, with tele at present afib 90s-110s and SBP 90s-110s. Pt AOx2, rousable to light touch or voice, participates in conversation and able to verbalize needs. 4L oxymask with SPO2 95-100%.
[2017-01-14] MEDS: cefTRIAXone Inj 2,000 MG in Dextrose 5% Minibag Plus 50 ML IV SCH (06:31)
[2017-01-14] MEDS: Albuterol-Ipratropium 3 mL Inhalation Solution NEB SCH ×4 (08:18→20:43)
[2017-01-14] MEDS ORDERED: levoFLOXacin Inj 750 MG in IV Premix 1 EACH IV SCH (08:30)
--- NOTE | 2017-01-14 08:35 | PROG NOTE ---
[address] [address] PROGRESS NOTE PATIENT: JEANNETTE OCHOA : 1945 MR#: [id number] ADMIT: 01/13/2017 JOB ID: [id number] DATE: 01/14/2017 INFECTIOUS DISEASE FOLLOW UP NOTE: REASON FOR FOLLOWUP: Bacteremic right-sided pneumococcal pneumonia. INTERVAL HISTORY: Shortly after we saw the patient yesterday, the stat urine pneumococcal antigen we ordered returned positive confirming that she has bacteremic pneumococcal pneumonia with extensive infiltrates on the right side. The patient has rallied somewhat overnight and reports that she is free of fever or chills. She is still somewhat short of breath and requiring supplemental oxygen but she notes she is much better and is hungry for milk shakes in particular. She has had, as noted, no fever, no chills, minimal cough which is productive of some thick sputum and no pleuritic chest pain. No nausea, vomiting or diarrhea. PHYSICAL EXAMINATION: Reveals an afebrile woman. Temperature 36.6, pulse 105, respiratory rate 24, blood pressure 116/74. She is saturating well on 4 L. Examination of mental status reveals she is quite clear today. Oral cavity without thrush. Lungs with some transmitted upper airway rattling type sounds as well as rales in the right upper chest area. Left lung is fairly clear. Cardiac tones without new murmur. Abdomen soft and nontender. No skin rash. LABORATORIES: Include white count of 5000, which has completely normalized. Platelets down a bit to 108. Creatinine 1.62 which is stable. LFTs normal. Procalcitonin 15 and that was obtained this morning. Urinalysis with mild pyuria, 6-10 white cells. Hep C studies are pending as the patient reports a history of hepatitis C, but it is not proven as per our notes. Blood cultures have all grown strep pneumoniae and urine antigen is also positive for strep pneumoniae. Susceptibilities should be out later this morning. Respiratory viral panel was negative. Repeat chest x-ray has been done today and shows an extensive right-sided infiltrate. IMPRESSION: This patient seems considerably improved on her antibiotics for pneumococcal pneumonia which we now know to be the definitive diagnosis here. I would anticipate that if she makes it through the next day or two successfully her course will be one of steady improvement and we can consider discharge towards the end of the week perhaps. RECOMMENDATIONS: 1. Will continue with ceftriaxone which we had switched the patient when we saw her yesterday. 2. Will continue with doxycycline as well. There is some data that with bacteremic pneumococcal pneumonia the prognosis is improved when a non beta-lactam is added to the beta-lactam agent even though the organism is susceptible to the original beta-lactam agent. Ordinarily one would use azithromycin for this purpose but in view of her long QT interval, we have decided to use doxy. The doxycycline will need to go for 3-5 days whereas the ceftriaxone will prior need to continue for a week or so. 3. We have discontinued the vancomycin as it is not indicated in this situation. Thank you very much. Will continue to follow this interesting patient with you.
--- NOTE | 2017-01-14 09:10 | DRSVH ---
PROCEDURE: X-RAY CHEST ONE VIEW, PORTABLE ([id number]) INDICATIONS: dyspnea TECHNIQUE: One view of the chest was acquired. COMPARISON: [facility], CR, XR CHEST 1VW (PORTABLE), 01/12/2017, 20:15. FINDINGS: Surgical changes and devices: None. Lungs and pleura: There is patchy areas of opacity within the right upper and lower lobes, new compar ed to prior exam. Anterior opacities also noted in the left upper lobe and retrocardiac region. Mediastinum: Mediastinal contours appear normal. Heart size is normal. Bones and chest wall: No suspicious bony lesions. Overlying soft tissues appear unremarkable. IMPRESSION: No significant change from prior examination suggestive of multifocal pneumonia and/or pu lmonary edema. Recommend clinical correlation. Dictated by: Nuno Chatterjee [facility] Interpreted: Leigh Babb MD on 01/14/2017 at 9:09 Transcribed by: JOSÉ MANUEL on 01/14/2017 at 9:10 Approved by: Leigh Babb M.D. on 01/14/2017 at 16:32
[2017-01-14] MEDS: Heparin 5,000 Unit/mL Inj SUBQ SCH ×2 (09:42→22:00)
--- NOTE | 2017-01-14 12:20 | PCM.PNMED ---
Subjective Date of Service Jan 14, 2017 Subjective Patient is awake and notes that she feels better relative to yesterday. She is on chronic oxygen 2 L at [facility]. Exam Vital Signs Vital Sign - Last Date Time Temp Pulse Resp B/P Pulse Ox O2 Delivery O2 Flow Rate FiO2 01/14/17 12:09 36.9 72 26 142/58 92 OxyMask 4.00 Intake and Output 01/13/17 01/13/17 01/14/17 Cumulative From/Thru 15:00 23:00 07:00 01/12/17 20:19 - 01/14/17 06:14 Intake Total 424 ml 2196 ml Output Total 150 ml 250 ml Balance 274 ml 1946 ml Intake Oral 0 ml 0 ml IV Total 424 ml 2196 ml Output Urine Total 150 ml 250 ml # Bowel Movements 0 Exam Constitutional: Elderly woman in some respiratory distress with tachypnea Head: Hemispheric atraumatic Chest reveals crackles on the left side approximately a third way up the base and the right side reveals crackles with some decreased breath sounds at the right base Cor: Irregularly irregular rate and rhythm S1-S2 without murmurs Abdomen: Soft nontender bowel sounds present Extremities: No pedal edema Neuro: Alert and oriented 3, motor strength is intact bilaterally IVs and Medications Medications Reviewed: Medications were reviewed in detail Medications Current Medications Ondansetron HCl 4 to 8 mg Q4H PRN IVPUSH; Start 01/13/17 at 00:25 Senna 2 tablet BID PRN PO; Start 01/13/17 at 00:25 Al Hydrox/Mg Hydrox/Simethicone 30 ml Q6 PRN PO; Start 01/13/17 at 00:25 Polyethylene Glycol 17 gm DAILY PRN PO; Start 01/13/17 at 00:25 Pharmacy Consult 1 ea 1 ea DAILY XX Last administered on 01/13/17 00:40; Admin Dose 1 EA; Start 01/13/17 at 00:40; Stop 01/14/17 at 05:13; Status DC Cefepime HCl 2000 mg/Dextrose/Water 50 ml @ 12.5 mls/hr Q12 IV Last administered on 01/13/17 19:54; Admin Dose 12.5 MLS/HR; Start 01/13/17 at 08:30; Stop 01/14/17 at 05:13; Status DC Levofloxacin/ Dextrose/Premix 150 ml @ 100 mls/hr Q48 IV; Start 01/14/17 at 08: 30; Stop 01/14/17 at 08:30; Status DC Albuterol 2.5 mg Q2H PRN NEB; Start 01/13/17 at 01:25 Albuterol/ Ipratropium 3 ml Q6 NEB Last administered on 01/14/17 08:18; Admin Dose 3 ML; Start 01/13/17 at 02:30 Prednisone 60 mg DAILY PO; Start 01/13/17 at 08:30; Stop 01/13/17 at 08:30; Status DC Methylprednisolone Sodium Succinate 125 mg Q6 IVPUSH Last administered on 09:42; Admin Dose 125 MG; Start 01/13/17 at 02:30 Heparin Sodium (Porcine) 5000 unit 5,000 unit Q12 SUBQ Last administered on 09:42; Admin Dose 5,000 UNIT; Start 01/13/17 at 08:30 Vancomycin HCl 750 mg/Dextrose/ Water 250 ml @ 166.667 mls/hr Q24H IV Last administered on 01/14/17 02:27; Admin Dose 166.667 MLS/HR; Start 01/14/17 at 02: 30; Stop 01/14/17 at 07:00; Status DC Ceftriaxone Sodium/Dextrose/ Water 50 ml @ 100 mls/hr Q24H IV Last administered on 01/14/17 06:31; Admin Dose 100 MLS/HR; Start 01/14/17 at 06:00 Doxycycline Hyclate 100 mg BID PO; Start 01/14/17 at 08:30 Lorazepam 0.5 mg TID PRN PO; Start 01/14/17 at 12:05 Lab and Diagnostics Laboratory Tests 72 Hours Test 01/12/17 20:17 01/12/17 20:21 01/12/17 20:38 01/13/17 01:06 Hold Urine Received (Received) Prothrombin Time 14.5sec (8.1-12.5) Prothromb Time International Ratio 1.35ratio Urine Color Dark yellow (YELLOW) Urine Appearance Clear (CLEAR,HAZY) Urine pH 5.5 (5.0-8.0) Urine Specific [place] 1.020 (1.003-1.035) Urine Protein Tracemg/dL (NEG,TRACE) Urine Glucose (UA) Negativemg/dL (NEGATIVE) Urine Ketones Negativemg/dL (NEGATIVE) Urine Occult Blood Negative (NEGATIVE) Urine Nitrite Negative (NEGATIVE) Urine Bilirubin Negative (NEGATIVE) Urine Urobilinogen Normalmg/dL (NORMAL) Urine Leukocyte Esterase Small (NEGATIVE) Urine RBC 0-2/hpf (0-2) Urine WBC 6-10/hpf (0-5) Urine Epithelial Cells Moderate/hpf (NONE-MOD) Urine Crystals None seen (NONE SEEN) Urine Bacteria Many/hpf (NONE-FEW) Urine Hyaline Casts Occasional/lpf (NONE) Urine Granular Casts None seen (NONE SEEN) Urine Waxy Casts None seen (NONE SEEN) Urine Red Blood Cell Casts None seen (NONE SEEN) Urine White Blood Cell Casts None seen (NONE SEEN) Urine Mucus None seen (None Seen) Urine Trichomonas None seen (NONE SEEN) Urine Yeast None (NONE SEEN) Urinalysis Comment None Urine Culture Reflexed Indicated White Blood Count 11.4th/mm3 (3.8-10.1) Red Blood Count 3.05mil/mm3 (3.90-5.20) Hemoglobin 10.3g/dL (12.0-15.6) Hematocrit 31.9% (35.0-46.0) Mean Corpuscular Volume 104.6fL (81-100) Mean Corpuscular Hemoglobin 33.8pg (27.0-35.0) Mean Corpuscular Hemoglobin Concent 32.3% (32.0-37.0) Red Cell Distribution Width 15.2% (12.3-15.4) Platelet Count 144bil/L (150-400) Neutrophils (%) (Auto) 66% (40-74) Lymphocytes (%) (Auto) 12% (14-46) Monocytes (%) (Auto) 2% (4-12) Eosinophils (%) (Auto) 0% (0-5) Basophils (%) (Auto) 0% (0-3) Band Neutrophils % 20% (1-5) Sodium Level 136mEq/L (134-144) Potassium Level 3.3mEq/L (3.5-5.2) Chloride Level 97mEq/L (97-108) Carbon Dioxide Level 23mmol/L (18-29) Blood Urea Nitrogen 29mg/dL (8-27) Creatinine 1.51mg/dL (0.57-1.00) Estimat Glomerular Filtration Rate 48mL/min (>59) Glucose Level 167mg/dL (60-99) Lactic Acid Level 3.7mmol/L (0.4-2.0) 3.4mmol/L (0.4-2.0) Calcium Level 8.1mg/dL (8.5-10.1) Total Bilirubin 1.1mg/dL (0.0-1.2) Aspartate Amino Transf (AST/SGOT) 72U/L (0-50) Alanine Aminotransferase (ALT/SGPT) 24U/L (0-32) Alkaline Phosphatase 102U/L (25-165) Troponin T 0.027ug/L (0.0-0.011) Pro-B-Type Natriuretic Peptide 19757yu/mL (0-301) Total Protein 6.6g/dL (6.4-8.4) Albumin 3.1g/dL (3.4-5.0) Phenytoin (Dilantin) Level 11.0uG/mL (10.0-20.0) Test 01/13/17 02:55 01/13/17 09:50 01/13/17 15:33 01/13/17 15:48 White Blood Count 5.8th/mm3 (3.8-10.1) 8.4th/mm3 (3.8-10.1) Red Blood Count 2.91mil/mm3 (3.90-5.20) 3.00mil/mm3 (3.90-5.20) Hemoglobin 9.8g/dL (12.0-15.6) 10.1g/dL (12.0-15.6) Hematocrit 30.4% (35.0-46.0) 31.4% (35.0-46.0) Mean Corpuscular Volume 104.5fL (81-100) 104.7fL (81-100) Mean Corpuscular Hemoglobin 33.7pg (27.0-35.0) 33.7pg (27.0-35.0) Mean Corpuscular Hemoglobin Concent 32.2% (32.0-37.0) 32.2% (32.0-37.0) Red Cell Distribution Width 15.2% (12.3-15.4) 15.1% (12.3-15.4) Platelet Count 113bil/L (150-400) 115bil/L (150-400) Neutrophils (%) (Auto) 64% (40-74) Lymphocytes (%) (Auto) 14% (14-46) Monocytes (%) (Auto) 1% (4-12) Eosinophils (%) (Auto) 0% (0-5) Basophils (%) (Auto) 0% (0-3) Band Neutrophils % 16% (1-5) Metamyelocytes % 3% (0-0) Myelocytes % 2% (0-0) Sodium Level 138mEq/L (134-144) 139mEq/L (134-144) Potassium Level 3.4mEq/L (3.5-5.2) 4.0mEq/L (3.5-5.2) Chloride Level 102mEq/L (97-108) 102mEq/L (97-108) Carbon Dioxide Level 21mmol/L (18-29) 20mmol/L (18-29) Blood Urea Nitrogen 34mg/dL (8-27) 38mg/dL (8-27) Creatinine 1.51mg/dL (0.57-1.00) 1.64mg/dL (0.57-1.00) Estimat Glomerular Filtration Rate 48mL/min (>59) 44mL/min (>59) Glucose Level 166mg/dL (60-99) 162mg/dL (60-99) Lactic Acid Level 2.8mmol/L (0.4-2.0) 3.8mmol/L (0.4-2.0) 4.3mmol/L (0.4-2.0) Calcium Level 7.3mg/dL (8.5-10.1) 7.4mg/dL (8.5-10.1) Phosphorus Level 2.0mg/dL (2.5-4.9) Magnesium Level 1.4mg/dL (1.6-2.6) Total Bilirubin 1.3mg/dL (0.0-1.2) 1.4mg/dL (0.0-1.2) Aspartate Amino Transf (AST/SGOT) 65U/L (0-50) 50U/L (0-50) Alanine Aminotransferase (ALT/SGPT) 22U/L (0-32) 21U/L (0-32) Alkaline Phosphatase 82U/L (25-165) 72U/L (25-165) Total Protein 6.0g/dL (6.4-8.4) 6.0g/dL (6.4-8.4) Albumin 2.5g/dL (3.4-5.0) 2.5g/dL (3.4-5.0) Ammonia 43ug/dL (18-53) Test 01/13/17 20:30 01/14/17 03:30 Lactic Acid Level 2.8mmol/L (0.4-2.0) 1.7mmol/L (0.4-2.0) White Blood Count 5.0th/mm3 (3.8-10.1) Red Blood Count 2.97mil/mm3 (3.90-5.20) Hemoglobin 9.9g/dL (12.0-15.6) Hematocrit 31.0% (35.0-46.0) Mean Corpuscular Volume 104.4fL (81-100) Mean Corpuscular Hemoglobin 33.3pg (27.0-35.0) Mean Corpuscular Hemoglobin Concent 31.9% (32.0-37.0) Red Cell Distribution Width 15.2% (12.3-15.4) Platelet Count 108bil/L (150-400) Sodium Level 140mEq/L (134-144) Potassium Level 3.9mEq/L (3.5-5.2) Chloride Level 106mEq/L (97-108) Carbon Dioxide Level 22mmol/L (18-29) Blood Urea Nitrogen 45mg/dL (8-27) Creatinine 1.62mg/dL (0.57-1.00) Estimat Glomerular Filtration Rate 45mL/min (>59) Glucose Level 187mg/dL (60-99) Calcium Level 7.5mg/dL (8.5-10.1) Total Bilirubin 1.1mg/dL (0.0-1.2) Aspartate Amino Transf (AST/SGOT) 38U/L (0-50) Alanine Aminotransferase (ALT/SGPT) 18U/L (0-32) Alkaline Phosphatase 65U/L (25-165) Total Protein 5.9g/dL (6.4-8.4) Albumin 2.5g/dL (3.4-5.0) Procalcitonin 14.81ng/mL (0.00-0.08) Result Diagram: 01/14/1732901/14/17 033 X-Rays, CTs and MRIs Patient Name: JEANNETTE OCHOA MR#: [id number] Location: [facility] [place] Ordering Phys: LOUANN ROSE MD Date of Service: 01/12/172017 PROCEDURE: X-RAY CHEST ONE VIEW, PORTABLE ([id number]) INDICATIONS: FEVER, COUGH TECHNIQUE: One view of the chest was acquired. COMPARISON: [facility], CR, XR CHEST 1VW (PORTABLE), 12/20/2016, 2: 21. [facility], CR, XR CHEST 1VW, 12/20/2016, 7:13. FINDINGS: Surgical changes and devices: None. Lungs and pleura: There is patchy areas of opacity within the right upper and lower lobes, new compared to prior exam. Anterior opacities also noted in the left upper lobe and retrocardiac region. Mediastinum: Mediastinal contours appear normal. Heart size is normal. Bones and chest wall: No suspicious bony lesions. Overlying soft tissues appear unremarkable. IMPRESSION: Bilateral areas of focal opacity most prominent in the retrocardiac and right upper lobes as above. Findings are suspicious for multifocal pneumonia. There is underlying edema and/or atelectasis cannot be excluded. Assessment & Plan Patient is a 71 year old female with a history of hemochromatosis, epilepsy, COPD on home 2L O2, CHF, stage III chronic kidney disease, and chronic atrial fibrillation admitted with acute respiratory distress and fever. 1. Severe Sepsis, acute, POA -secondary to HCAP, HR>90, T>38 -The patient remains hypotensive. Pressors are not within her level of care. Will continue aggressive fluid resuscitation and trend her lactic acid which she has been elevated. Her lactic acid levels markedly improved with IV hydration. We will continue broad-spectrum antibiotics. Urine antigen is positive for streptococcus pneumonia. Appreciate infectious disease consultation and she will be on the following antibiotic regimen which includes IV Rocephin and by mouth doxycycline. Cefepime L ofloxacin and vancomycin have been DC'd. 2. Health care associated pneumonia, acute, POA -IV Rocephin and by mouth doxycycline to treat Streptococcus pneumonia -monitor I&Os, cautious fluids in the setting of acute decompensated heart failure, -patient is DNI, considered bipap despite PNA for decompensation however patient unable to tolerate -albuterol and additional nebs as below 3. LOLIS, acute, POA -history of CKD stage III -worsening renal function -likely intrarenal vs prerenal -continue to monitor, avoid nephrotoxic medications. Ongoing fluid resuscitation. 4. Chronic compensated diastolic heart failure, acute, POA -elevated BNP from ~5000 to ~41687 -holding beta mikael in the setting of hypotension restart when appropriate -holding VEENA d/t LOLIS and hypotension, restart when appropriate. The patient does not have any have evidence of edema and chest x-ray listed saturations and in spite of an elevated BNP appears to be compensated. 5. Elevated troponin, acute, POA -likely secondary to LOLIS acute illness. This could be demand ischemia. We will simply trend this at this point. -trend -EKG if patient develops CP 6. Hypokalemia, replete and follow. This was present on admit. 7. Acute toxic encephalopathy versus hepatic encephalopathy, POA. We will check ammonia and continue to treat her infection. 8. Chronic Persistent Atrial fibrillation, POA - telemetry - Hold Metoprolol Succinate d/t hypotension continue digoxin when med rec completes - Digoxin levels as needed 9. Epilepsy, chronic. Presumed stable - Continue antiepileptic medications: Phenytoin, order pending med rec completion - Phenytoin levels as needed - Dose recently adjusted, decreased to to elevated levels 10. Chronic hypoxic respiratory failure, chronic -h/o COPD, continue home nebs -on 2L oxygen at SNF ([facility]) -goal oxygen level 88-92% 11. Hemochromatosis with liver cirrhosis, POA. 12. Hepatitis C. POA. Macrocytic anemia, chronic -continue to monitor -h&h are at baseline Patient admitted under inpatient status in CCU due to nursing needs with expected length of stay > 2 midnights. - PRN: Bowel/fever/pain/antiemetic - DIET: Heart healthy, Renal healthy - Code: DNR/DNI, discussed with grandson and his significant other poor prognosis at this time. They maintain DNR/DNI status. Discussed potentially transitioning to comfort focus. - PCP: Nitesh Clarify level with daughter Teresita who is not to [facility]. The patient is DNR/ DNI. We will use fluids and BiPAP and avoid intubation and pressors. Continue to address this with family members next day or 2. VTE Prophylaxis: Sub-Q Heparin (Unfractionated) Resuscitation Status: DNR/DNI:Do Not Resuscitate/Intubate Time spent 30 minutes Marcy Hunter MD Jan 14, 2017 12:20
--- NOTE | 2017-01-14 13:27 | NUR ---
spiritual care: routine conversational visit/ [facility] shirt folder support
[2017-01-14] MEDS: LORazepam 0.5 mg Tablet PO PRN ×2 (14:33→21:57)
--- NOTE | 2017-01-14 15:03 | NUR ---
Evaluation completed. Please go to "Notes" then click on "Assessments and Notes" (bottom left corner of screen). Then select appropriate discipline tab on top of screen.
--- NOTE | 2017-01-14 15:17 | PCM.PALLBR ---
Palliative Care Recommendation Summary of palliative recommendations: Symptom management (Pain/other): DPOA/Advanced Directives/POLST: 1. Code status: DNR/DNI. 2. Advanced Directives: not on paper but established through prior talks with family and pt. 01/14: Yovani and his GF have been here today, but I missed them. Pall Care trying to ask family to bring in old POLST and ask if POA paperwork was ever completed. 01/13: Daughter Teresita sitting at bedside reports to Dr. Hay that Gracia had told family a long time ago that she did not want to be intubated/put on a breathing machine. They are sorrowful about this, but accept that this is her wish and they accept this decision of the patient. To this end, family asks providers to use IVFs to support her blood pressure , IV antibiotics to treat infection, and face masks (as patient tolerates them) to assist in her breathing. They do not want more escalation of her care with advanced life support procedures/interventions. Background Information: At her Dec 2016 admission, Dr. Terry of Palliative Care gave her a blank POA document. At that time she said she wants her gsons Pacheco and Gómez to share POA duty. It was not completed at time of that discharge. Dr. Terry also found out from pt in Dec 2016 that she has a POLST on her refrigerator at home. He reviewed its status. She told him, she was very clear ( in Dec 2016) that she wants DO NOT RESUSCITATE/DO NOT INTUBATE/limited interventions/hospitalization and antibiotics OK/no artificial nutrition. Family members were going to bring in the POLST so we could make a copy, but apparently that didn't happen prior to her Dec discharge. Pall Care Goals: POLST: Dr. Hay will ask family to bring in that POLST this admission. POA: again, not clear if pt ever signed a POA, but she did state she would want Pacheco and Gómez to share this role. Pacheco not available today to discuss goals any further (he was working). Family/emotional support: Excellent support from daughter, pt's 4 adult grandsons. Oldest grandson Yovani and his GF [place] are committed to taking care of Gracia in their home, when she recovers enough to go home. Spiritual support: not yet explored. Patient Goals: As Above. Reasonable interventions to try to recover to former baseline, but no heroics. Additional Medical Diagnoses with primary management by Hospitalist team include : Patient is a 71 year old female with a history of hemochromatosis, epilepsy, COPD on home 2L O2, CHF, stage III chronic kidney disease, and chronic atrial fibrillation admitted with acute respiratory distress and fever. 1. Severe Sepsis, acute, POA -secondary to HCAP, HR>90, T>38 -The patient remains hypotensive. Pressors are not within her level of care. Will continue aggressive fluid resuscitation and trend her lactic acid which she has been elevated. Her lactic acid levels markedly improved with IV hydration. We will continue broad-spectrum antibiotics. Urine antigen is positive for streptococcus pneumonia. Appreciate infectious disease consultation and she will be on the following antibiotic regimen which includes IV Rocephin and by mouth doxycycline. Cefepime L ofloxacin and vancomycin have been DC'd. 2. Health care associated pneumonia, acute, POA -IV Rocephin and by mouth doxycycline to treat Streptococcus pneumonia -monitor I&Os, cautious fluids in the setting of acute decompensated heart failure, -patient is DNI, considered bipap despite PNA for decompensation however patient unable to tolerate -albuterol and additional nebs as below 3. LOLIS, acute, POA -history of CKD stage III -worsening renal function -likely intrarenal vs prerenal -continue to monitor, avoid nephrotoxic medications. Ongoing fluid resuscitation. 4. Chronic compensated diastolic heart failure, acute, POA -elevated BNP from ~5000 to ~34924 -holding beta mikael in the setting of hypotension restart when appropriate -holding VEENA d/t LOLIS and hypotension, restart when appropriate. The patient does not have any have evidence of edema and chest x-ray listed saturations and in spite of an elevated BNP appears to be compensated. 5. Elevated troponin, acute, POA -likely secondary to LOLIS acute illness. This could be demand ischemia. We will simply trend this at this point. -trend -EKG if patient develops CP 6. Hypokalemia, replete and follow. This was present on admit. 7. Acute toxic encephalopathy versus hepatic encephalopathy, POA. We will check ammonia and continue to treat her infection. 8. Chronic Persistent Atrial fibrillation, POA - telemetry - Hold Metoprolol Succinate d/t hypotension continue digoxin when med rec completes - Digoxin levels as needed 9. Epilepsy, chronic. Presumed stable - Continue antiepileptic medications: Phenytoin, order pending med rec completion - Phenytoin levels as needed - Dose recently adjusted, decreased to to elevated levels 10. Chronic hypoxic respiratory failure, chronic -h/o COPD, continue home nebs -on 2L oxygen at SNF ([facility]) -goal oxygen level 88-92% 11. Hemochromatosis with liver cirrhosis, POA. 12. Hepatitis C. POA. Macrocytic anemia, chronic -continue to monitor -h&h are at baseline Problems: Resuscitation Status Resuscitation Status: DNR/DNI:Do Not Resuscitate/Intubate POLST Updates/Changes Previous POLST?: Yes POLST Discussed with: Spouse/Other (daughter at bedside (but she is not POA), waiting for POA to arrive.) Total time 35 minutes; >50% face to face with patient and/or family, providing counselling regarding plans and recommendations, and in care coordination with his/her medical teams. Palliative Brief Note Date of Service Jan 14, 2017 . Patient Identification: Patient is a 71 year old female with a history of hemochromatosis, epilepsy, COPD on home 2L O2, CHF, stage III chronic kidney disease, and chronic atrial fibrillation admitted 01/13/17 from [facility] after 2 days SOB and new onset fever with acute respiratory distress. On admission, pt is unable to give any information as she was minimally responsive. Family reported over the past week Mrs. Rebolledo had been steadily declining. She has been admitted 9 times over the past 12 months and has been seen numerous times in the emergency department as well. She was last admitted to [facility] 11/27-12/01 and 12/09-12/12. Hospital Course: Under care of Yellow team hospitalist Dr. Hunter. Pt has a community-acquired large right side pneumonia, now known to be Strep pneumoniae , she remains hypotensive with IVF hydration and her kidney function is worsening. On rounds today, pt is much more alert, interactive and interested in eating. She has no complains except for generalized weakness. She wants her catheter out and to get out of bed and be wheeled around in hallways for more social interaction. Denies pain, seems somewhat SOB when talking, but she denies this. Exam: Lungs: crackles on the left side approximately a third way up the base, right decreased bs at base. Heart: S1, S2, Irregularly irregular rate and rhythm without murmurs Abdomen: Soft nontender bowel sounds present Extremities: No pedal edema Neuro: Alert and oriented 3, motor strength is intact bilaterally Azalea Hay MD Jan 14, 2017 15:17
--- NOTE | 2017-01-14 16:01 | DRSVH ---
[facility] [address] [place] [address] Echocardiogram Report Name: JEANNETTE OCHOA LStudy Date: 06/2017 Height: 64 in Hospital Exam Location: [facility] Weight: 125 lb Gender: Female BSA: 1.6 m2 : 1945 Age: 71 yrs BP: 116/74 mmHg Reason For Study: Dyspnea Ordering Physician: HOSPITALIST MONTYerformed By: Maciel Moraes Referring Physician: CHARLEEN CHUA Interpretation Summary The patient was in atrial fibrillation with rapid ventricular response during the exam with a heart rate exceeding 100 bpm. The heart rate ranged between 144-184 bpm during the study. The left ventricle is normal in size. The left ventricle is hyperdynamic. The ejection fraction is estimated to be >80%. Left ventricular wall motion is normal. The right ventricle is borderline dilated. The right ventricular systolic function is normal. The right ventricular systolic pressure is estimated at 59 mmHg assuming a right atrial pressure of 15 mm Hg. Compared to the prior echo exam, there has been an increase in the severity of pulmonary hypertension. The left atrium is severely dilated. The right atrium is moderate to severely dilated. There is mild to moderate mitral regurgitation. Compared to the prior echo study, there has been an increase in the severity of mitral regurgitation. There is severe tricuspid regurgitation. Compared to the prior echo exam, there has been no change in TR severity. There is no other significant valvular heart disease. The aortic root is normal size. Procedure: A two-dimensional transthoracic echocardiogram with color flow and Doppler was performed. The study quality was technically adequate. Comparison is made with the echocardiogram of 09/29/16. The patient was in atrial fibrillation with rapid ventricular response during the exam with a heart rate exceeding 100 bpm. The heart rate ranged between 144-184 bpm during the study. Left Ventricle: The left ventricle is normal in size. There is normal left ventricular wall thickness. Proximal septal thickening is noted. The left ventricle is hyperdynamic. The ejection fraction is estimated to be >80%. Left ventricular wall motion is normal. Right Ventricle: The right ventricle is borderline dilated. The right ventricular systolic function is normal. Atria: The left atrium is severely dilated. The right atrium is moderate to severely dilated. The interatrial septum is intact with no evidence for an atrial septal defect. Mitral Valve: The mitral valve leaflets appear to open well. There is mild to moderate mitral regurgitation. Compared to the prior echo study, there has been an increase in the severity of mitral regurgitation. Aortic Valve: The aortic valve is normal in structure and function. There is no hemodynamically significant valvular aortic stenosis. There is trace aortic regurgitation. Tricuspid Valve: The tricuspid valve leaflets are thickened and/or calcified, but open well. There is severe tricuspid regurgitation. Compared to the prior echo exam, there has been no change in TR severity. The right ventricular systolic pressure is estimated at 59 mmHg assuming a right atrial pressure of 15 mm Hg. Compared to the prior echo exam, there has been an increase in the severity of pulmonary hypertension. Pulmonic Valve: The pulmonic valve leaflets are thin and pliable; valve motion is normal. There is a trace or physiologic amount of pulmonic regurgitation. There is no other significant valvular heart disease. Great Vessels: The aortic root is normal size. The dimensions of the ascending aorta are normal. The pulmonary artery is normal size. The IVC is dilated (diameter is greater than 2.1 cm) and it collapses less than 50% with a sniff. This suggests a high right atrial pressure of 15 mm Hg. Pericardium/ Pleura There is no pericardial effusion. There is no pleural effusion. MMode/2D Measurements & Calculations LVIDd: 4.3 cm RA long axis LVOT diam: 1.7 cm LVIDs: 3.3 cm LA A2 area: 22.4 cm AoV Opening FS: 22.1 % LA A4 area: 27.1 cm RA area IVSd: 0.77 cm LA length (vol) Ao root diam LVPWd: 0.60 cm : 24.9 cm LA vol: 84.5 ml RA vol asc Aorta Diam LA vol index : 75.3 ml RA Ao Arch Diam (Prox : 47.0 mm2 Trans): 2.9 cm IVC diam: 2.1 cm LV sanchez. diameter/BSA LV sys. diameter/BSA (cm/m^2): 2.7 (cm/m^2): 2.1 Doppler Measurements & Calculations Ao V2 max MV E max villa TR max villa Ao V2 mean : 152.6 cm/sec : 100.9 cm/sec : 334.4 cm/sec : 108.2 cm/sec Ao max PG TR max PG Ao V2 VTI : 9.4 mmHg : 44.8 mmHg Ao mean PG CARMINE(V,D): 1.6 cm2 LVOT Max Villa : 105.5 cm/sec CARMINE(I,D): 1.8 cm sev ratio LV V1 max PG CARMINE indexed to BSA (cm^2/m^2): 1.1 LV V1 VTI: 15.9 cm Reading Physician:NAVEED
[2017-01-14] MEDS ORDERED: 0.9% Sodium Chloride 250 ML ONE (17:50)
--- NOTE | 2017-01-14 19:05 | NUR ---
Anxiety/Weakness/Poor Apatite Pt. this morning had moderate anxiety as stated per Pt. abd MD was made aware. PRN ativan was prescribed and Pt. requested one. Pt. is noted to have generalized weakness, I was able to have her stand up with assistance and using a FWW. Pt. stated feeling weak and stood on her feet for about 2min before sitting back on the bed. Pt. was NPO for half the day before ST eval. and placed her on dysphagia mech. diet. Pt. stated not feeling hungry this afternoon and refused dinner, Pt. appears very exhausted at this time.
[2017-01-15] VITALS (14 sets, daily range): BP systolic 130–153; BP diastolic 76–91; PULSE 68–148; RESP 24–32; O2SAT 90–100
[2017-01-15] MEDS ORDERED: Vancomycin Serum Trough XX ONE (02:00)
[2017-01-15] MEDS: Albuterol-Ipratropium 3 mL Inhalation Solution NEB SCH ×4 (02:12→20:27)
[2017-01-15 03:44] LABS: BASOPHILS % (AUTO) 0 % (0-3); EOSINOPHILS % (AUTO) 0 % (0-5); MONOCYTES % (AUTO) 5.9 % (4-12); Mean Corpuscular Hemoglobin 33.1 pg (27.0-35.0); Mean Corpuscular Volume 104.9 fL (81-100); NEUTROPHILS % (AUTO) 89.1 % (40-74); Platelet Count 88 bil/L (150-400)
[2017-01-15] MEDS: MethylprednisoLONE Sodium Succinate 62.5 mg/mL 2 mL Inj IVPUSH SCH ×3 (04:04→16:10)
[2017-01-15] MEDS: cefTRIAXone Inj 2,000 MG in Dextrose 5% Minibag Plus 50 ML IV SCH (05:53)
--- NOTE | 2017-01-15 06:11 | NUR ---
Francisco Catheter/Post Void: Francisco catheter dc'd last night as ordered per MD. Pt had yet to void by 0400. Bladder scan performed indicating a volume of 206 mls. Pt was later able to void per bedpan 50 mls of cloudy dwight urine. Upon re-scanning the post void, 0 mls of volume showed per scan. Will cont. to monitor and update oncoming RN.
--- NOTE | 2017-01-15 06:15 | NUR ---
Oxygenation: Upon initial assessment, RT was present with the pt administering a neb tx. RT reported that she had found the pt mouth breathing on 2L of oxygen per NC and saturating in the low 80s. After, the tx, the pt was placed on 4L per oxymask and remained on it throughout the night saturating well without any further complication.
--- NOTE | 2017-01-15 06:17 | NUR ---
HR: Last night, pt's heart rated escalated to the 140s to the 170s. Dr. Santo was notified of the pt's increased irregular heart rate at 2117 and the pt was started on oral digoxin. The pt's heart rate improved through the night. HR noted in the 100s to 120s primarily after administration of medication--Atrial fibrillation.
--- NOTE | 2017-01-15 08:33 | PROG NOTE ---
[address] [address] PROGRESS NOTE PATIENT: JEANNETTE OCHOA : 1945 MR#: [id number] ADMIT: 01/13/2017 JOB ID: [id number] DATE: 01/15/2017 INFECTIOUS DISEASE FOLLOW UP NOTE: REASON FOR FOLLOWUP: Bacteremic pneumococcal pneumonia in a frail elderly woman. INTERVAL HISTORY: Overnight, the patient developed atrial fibrillation with rapid ventricular response and medical measures have been employed to control her rate. The patient reports she is still somewhat short of breath. She denies nausea vomiting, diarrhea. She does note she has a dry mouth and a bit of a sore throat, perhaps related to her rapid respiratory rate. She is receiving a mechanical soft diet. No fevers, chills or sweats overnight. PHYSICAL EXAMINATION: Reveals a somewhat tachypneic woman lying supine in her hospital bed. She is afebrile. Temperature 36.9. She has been afebrile now for three full days since admission when she had a high fever to 39. Her pulse has jumped and is basically 150 now and is irregular. Respiratory rate in the 30s. Blood pressure 148/85. She is saturating fairly well on 4 L face mask. She is awake, alert and responsive. Eyes without scleral icterus. Oral cavity is extremely dry but without evidence of pharyngitis. Lungs: Right-sided coarse rales as before. Cardiac tones: Very rapid irregular rate and rhythm without appreciable murmur. The abdomen is soft and basically nontender at this point. No new skin rashes noted. LABORATORIES: Include a white count of 4400, hematocrit 30, platelets dropping and now 89,000. Creatinine 1.46, slightly improved. LFTs are normal. Procalcitonin was 14 yesterday and that is our first measurement and we will be repeating one today. Urinalysis: Modest pyuria. Hep C antibody is positive and the patient had told that she has a history of hepatitis C, but it was not confirmed in the chart and now we have this positive serology with HIV quantitative load and a genotype pending. Micro studies include positive blood cultures and a urine antigen for pneumococcus. Respiratory viral PCR panel negative but pneumococcus turns out to be exquisitely sensitive to both penicillin and ceftriaxone. IMAGING: Was last done yesterday. Her chest x-ray then shows multifocal pneumonia but mainly on the right. IMPRESSION: This elderly female continues to be quite ill with respect to her pneumococcal pneumonia which is now complicated by AFib with rapid ventricular response. She continues to be tachypneic in addition to her tachycardia though she is hemodynamically stable at least. There is no question that the ceftriaxone and/or penicillin would be the ideal drugs in this situation and she is tolerating ceftriaxone without difficulty. She reports a very questionable history of PENICILLIN allergy which she says occurred early in her life and she actually has no idea what the reaction was. Nonetheless we will continue with ceftriaxone. RECOMMENDATIONS: 1. Continue with ceftriaxone which we would plan to treat for about a week or so or until her procalcitonin is essentially normal. 2. Will continue with a short course of doxycycline as perhaps a "synergistic" therapy based on somewhat controversial literature about using two drugs for pneumococcal bacteremia. 3. Will continue to follow this patient with you and will watch her platelet count with close interest as well as it is unclear to me at this point why her platelet count is dropping significantly.
--- NOTE | 2017-01-15 08:34 | PCM.PALLBR ---
Palliative Care Recommendation Summary of palliative recommendations: Symptom management (Pain/other): DPOA/Advanced Directives/POLST: 1. Code status: DNR/DNI. 2. Advanced Directives: not on paper but established through prior talks with family and pt. 01/15: unable to reach family to confirm POA paperwork. 01/14: Yovani and his GF have been here today, but Dr. Hay missed them on rounds. Pall Care trying to ask family to bring in old POLST and ask if POA paperwork was ever completed. 01/13: Daughter Teresita sitting at bedside reports to Dr. Hay that Gracia had told family a long time ago that she did not want to be intubated/put on a breathing machine. They are sorrowful about this, but accept that this is her wish and they accept this decision of the patient. To this end, family asks providers to use IVFs to support her blood pressure , IV antibiotics to treat infection, and face masks (as patient tolerates them) to assist in her breathing. They do not want more escalation of her care with advanced life support procedures/interventions. Background Information: At her Dec 2016 admission, Dr. Terry of Palliative Care gave her a blank POA document. At that time she said she wants her gsons Pacheco and Gómez to share POA duty. It was not completed at time of that discharge. Dr. Terry also found out from pt in Dec 2016 that she has a POLST on her refrigerator at home. He reviewed its status. She told him, she was very clear ( in Dec 2016) that she wants DO NOT RESUSCITATE/DO NOT INTUBATE/limited interventions/hospitalization and antibiotics OK/no artificial nutrition. Family members were going to bring in the POLST so we could make a copy, but apparently that didn't happen prior to her Dec discharge. Pall Care Goals: POLST: Dr. Hay will ask family to bring in that POLST this admission. POA: again, not clear if pt ever signed a POA, but she did state she would want Pacheco and Gómez to share this role. Pacheco not available today to discuss goals any further (he was working). Family/emotional support: Excellent support from daughter, pt's 4 adult grandsons. Oldest grandson Yovani and his GF [place] are committed to taking care of Gracia in their home, when she recovers enough to go home. Spiritual support: not yet explored. Patient Goals: As Above. Reasonable interventions to try to recover to former baseline, but no heroics. Additional Medical Diagnoses with primary management by Hospitalist team include : Patient is a 71 year old female with a history of hemochromatosis, epilepsy, COPD on home 2L O2, CHF, stage III chronic kidney disease, and chronic atrial fibrillation admitted with acute respiratory distress and fever. 1. Severe Sepsis, acute, POA -secondary to HCAP, HR>90, T>38 -The patient remains hypotensive. Pressors are not within her level of care. Will continue aggressive fluid resuscitation and trend her lactic acid which she has been elevated. Her lactic acid levels markedly improved with IV hydration. We will continue broad-spectrum antibiotics. Urine antigen is positive for streptococcus pneumonia. Appreciate infectious disease consultation and she will be on the following antibiotic regimen which includes IV Rocephin and by mouth doxycycline. Cefepime L ofloxacin and vancomycin have been DC'd. 2. Health care associated pneumonia, acute, POA -IV Rocephin and by mouth doxycycline to treat Streptococcus pneumonia -monitor I&Os, cautious fluids in the setting of acute decompensated heart failure, -patient is DNI, considered bipap despite PNA for decompensation however patient unable to tolerate -albuterol and additional nebs as below 3. LOLIS, acute, POA -history of CKD stage III -worsening renal function -likely intrarenal vs prerenal -continue to monitor, avoid nephrotoxic medications. Ongoing fluid resuscitation. 4. Chronic compensated diastolic heart failure, acute, POA -elevated BNP from ~5000 to ~26691 -holding beta mikael in the setting of hypotension restart when appropriate -holding VEENA d/t LOLIS and hypotension, restart when appropriate. The patient does not have any have evidence of edema and chest x-ray listed saturations and in spite of an elevated BNP appears to be compensated. 5. Elevated troponin, acute, POA -likely secondary to LOLIS acute illness. This could be demand ischemia. We will simply trend this at this point. -trend -EKG if patient develops CP 6. Hypokalemia, replete and follow. This was present on admit. 7. Acute toxic encephalopathy versus hepatic encephalopathy, POA. We will check ammonia and continue to treat her infection. 8. Chronic Persistent Atrial fibrillation, POA - telemetry - Hold Metoprolol Succinate d/t hypotension continue digoxin when med rec completes - Digoxin levels as needed 9. Epilepsy, chronic. Presumed stable - Continue antiepileptic medications: Phenytoin, order pending med rec completion - Phenytoin levels as needed - Dose recently adjusted, decreased to to elevated levels 10. Chronic hypoxic respiratory failure, chronic -h/o COPD, continue home nebs -on 2L oxygen at SNF ([facility]) -goal oxygen level 88-92% 11. Hemochromatosis with liver cirrhosis, POA. 12. Hepatitis C. POA. Macrocytic anemia, chronic -continue to monitor -h&h are at baseline Problems: Resuscitation Status Resuscitation Status: DNR/DNI:Do Not Resuscitate/Intubate POLST Updates/Changes Previous POLST?: Yes POLST Discussed with: Spouse/Other (daughter at bedside (but she is not POA), waiting for POA to arrive.) Total time 25 minutes; >50% face to face with patient and/or family, providing counselling regarding plans and recommendations, and in care coordination with his/her medical teams. Palliative Brief Note Date of Service Jan 15, 2017 . Patient Identification: Patient is a 71 year old female with a history of hemochromatosis, epilepsy, COPD on home 2L O2, CHF, stage III chronic kidney disease, and chronic atrial fibrillation admitted 01/13/17 from [facility] after 2 days SOB and new onset fever with acute respiratory distress. She has been admitted 9 times over the past 12 months and has been seen numerous times in the emergency department as well. She was last admitted to [facility] 11/27-12/01 and 12/09-12/12. Hospital Course: Under care of Yellow team hospitalist Dr. Hunter. Pt has a community-acquired large right side pneumonia, now known to be Strep pneumoniae , she remains hypotensive with IVF hydration and her kidney function is worsening. On rounds today, pt is more alert, interactive. Denies pain, seems somewhat SOB when talking, but she denies this. No family in room Exam: Lungs: crackles on the left side approximately a third way up the base, right decreased bs at base. Heart: S1, S2, Irregularly irregular rate and rhythm without murmurs Abdomen: Soft nontender bowel sounds present Extremities: No pedal edema Neuro: Alert and oriented 3, motor strength is intact bilaterally Azalea Hay MD Jan 15, 2017 08:33 Neuro: Alert and oriented 3, motor strength is intact bilaterally Azalea Hay MD Jan 15, 2017 08:33
[2017-01-15] MEDS: Heparin 5,000 Unit/mL Inj SUBQ SCH (08:59)
[2017-01-15] MEDS: LORazepam 0.5 mg Tablet PO PRN ×2 (10:08→16:39)
--- NOTE | 2017-01-15 10:29 | NUR ---
Gave access and faxed facesheet to [facility], patient comes from there and is likely to return. Updated [facility]
[2017-01-15] MEDS ORDERED: Potassium Chloride 20 mEq/15 mL 15mL Oral Soln PO ONE (10:40)
[2017-01-15] MEDS ORDERED: MeTOProlol 1 mg/mL 5 mL Inj IV ONE (10:50)
--- NOTE | 2017-01-15 11:05 | PCM.PNMED ---
Subjective Date of Service Jan 15, 2017 Subjective Patient is fairly tachypneic this morning. She tells me she has had a bowel movement recently. Speech therapy did do a swallow eval and cleared her for mechanical dysphagia diet. Exam Vital Signs Vital Sign - Last Date Time Temp Pulse Resp B/P Pulse Ox O2 Delivery O2 Flow Rate FiO2 01/15/17 09:45 83 30 98 OxyMask 4.00 01/15/17 08:49 36.5 144/81 Intake and Output 01/14/17 01/14/17 01/15/17 Cumulative From/Thru 14:59 22:59 06:59 01/12/17 20:19 - 01/15/17 06:19 Intake Total 404 ml 916 ml 3516 ml Output Total 150 ml 150 ml 550 ml Balance 254 ml 766 ml 2966 ml Intake Oral 240 ml 800 ml 1040 ml IV Total 164 ml 116 ml 2476 ml Output Urine Total 150 ml 150 ml 550 ml # Bowel Movements 0 Exam Constitutional: Elderly cachectic female who is tachypneic Head: Normocephalic atraumatic Chest: Diffuse rhonchi wheezes Cor: Irregular regular rate and rhythm tachycardic, S1-S2 Abdomen: Soft nontender bowel sounds present Extremities: No pedal edema Neuro: Alert and oriented 3, motor strength is intact bilaterally IVs and Medications Medications Current Medications Levofloxacin/ Dextrose 750 mg/ Premix 150 ml @ 100 mls/hr Q48 IV; Start at 08:30; Stop 01/14/17 at 08:30; Status DC Vancomycin HCl 750 mg/Dextrose/ Water 250 ml @ 166.667 mls/hr Q24H IV Last administered on 01/14/17 02:27; Admin Dose 166.667 MLS/HR; Start 01/14/17 at 02: 30; Stop 01/14/17 at 07:00; Status DC Ceftriaxone Sodium/Dextrose/ Water 50 ml @ 100 mls/hr Q24H IV Last administered on 01/15/17 05:53; Admin Dose 100 MLS/HR; Start 01/14/17 at 06:00 Doxycycline Hyclate 100 mg BID PO Last administered on 01/15/17 09:00; Admin Dose 100 MG; Start 01/14/17 at 08:30 Lorazepam 0.5 mg TID PRN PO Last administered on 01/15/17 10:08; Admin Dose 0.5 MG; Start 01/14/17 at 12:05 Digoxin 0.125 mg noon PO; Start 01/15/17 at 12:00; Stop 01/15/17 at 12:00; Status DC Digoxin 0.125 mg noon PO Last administered on 01/14/17 21:54; Admin Dose 0.125 MG; Start 01/14/17 at 21:20 Methylprednisolone Sodium Succinate 80 mg Q8H IVPUSH; Start 01/15/17 at 16:30 Lab and Diagnostics Laboratory Tests 72 Hours Test 01/12/17 20:17 01/12/17 20:21 01/12/17 20:38 01/13/17 01:06 Hold Urine Received (Received) Prothrombin Time 14.5sec (8.1-12.5) Prothromb Time International Ratio 1.35ratio Urine Color Dark yellow (YELLOW) Urine Appearance Clear (CLEAR,HAZY) Urine pH 5.5 (5.0-8.0) Urine Specific [place] 1.020 (1.003-1.035) Urine Protein Tracemg/dL (NEG,TRACE) Urine Glucose (UA) Negativemg/dL (NEGATIVE) Urine Ketones Negativemg/dL (NEGATIVE) Urine Occult Blood Negative (NEGATIVE) Urine Nitrite Negative (NEGATIVE) Urine Bilirubin Negative (NEGATIVE) Urine Urobilinogen Normalmg/dL (NORMAL) Urine Leukocyte Esterase Small (NEGATIVE) Urine RBC 0-2/hpf (0-2) Urine WBC 6-10/hpf (0-5) Urine Epithelial Cells Moderate/hpf (NONE-MOD) Urine Crystals None seen (NONE SEEN) Urine Bacteria Many/hpf (NONE-FEW) Urine Hyaline Casts Occasional/lpf (NONE) Urine Granular Casts None seen (NONE SEEN) Urine Waxy Casts None seen (NONE SEEN) Urine Red Blood Cell Casts None seen (NONE SEEN) Urine White Blood Cell Casts None seen (NONE SEEN) Urine Mucus None seen (None Seen) Urine Trichomonas None seen (NONE SEEN) Urine Yeast None (NONE SEEN) Urinalysis Comment None Urine Culture Reflexed Indicated White Blood Count 11.4th/mm3 (3.8-10.1) Red Blood Count 3.05mil/mm3 (3.90-5.20) Hemoglobin 10.3g/dL (12.0-15.6) Hematocrit 31.9% (35.0-46.0) Mean Corpuscular Volume 104.6fL (81-100) Mean Corpuscular Hemoglobin 33.8pg (27.0-35.0) Mean Corpuscular Hemoglobin Concent 32.3% (32.0-37.0) Red Cell Distribution Width 15.2% (12.3-15.4) Platelet Count 144bil/L (150-400) Neutrophils (%) (Auto) 66% (40-74) Lymphocytes (%) (Auto) 12% (14-46) Monocytes (%) (Auto) 2% (4-12) Eosinophils (%) (Auto) 0% (0-5) Basophils (%) (Auto) 0% (0-3) Band Neutrophils % 20% (1-5) Sodium Level 136mEq/L (134-144) Potassium Level 3.3mEq/L (3.5-5.2) Chloride Level 97mEq/L (97-108) Carbon Dioxide Level 23mmol/L (18-29) Blood Urea Nitrogen 29mg/dL (8-27) Creatinine 1.51mg/dL (0.57-1.00) Estimat Glomerular Filtration Rate 48mL/min (>59) Glucose Level 167mg/dL (60-99) Lactic Acid Level 3.7mmol/L (0.4-2.0) 3.4mmol/L (0.4-2.0) Calcium Level 8.1mg/dL (8.5-10.1) Total Bilirubin 1.1mg/dL (0.0-1.2) Aspartate Amino Transf (AST/SGOT) 72U/L (0-50) Alanine Aminotransferase (ALT/SGPT) 24U/L (0-32) Alkaline Phosphatase 102U/L (25-165) Troponin T 0.027ug/L (0.0-0.011) Pro-B-Type Natriuretic Peptide 80368hk/mL (0-301) Total Protein 6.6g/dL (6.4-8.4) Albumin 3.1g/dL (3.4-5.0) Phenytoin (Dilantin) Level 11.0uG/mL (10.0-20.0) Test 01/13/17 02:55 01/13/17 09:50 01/13/17 15:33 01/13/17 15:48 White Blood Count 5.8th/mm3 (3.8-10.1) 8.4th/mm3 (3.8-10.1) Red Blood Count 2.91mil/mm3 (3.90-5.20) 3.00mil/mm3 (3.90-5.20) Hemoglobin 9.8g/dL (12.0-15.6) 10.1g/dL (12.0-15.6) Hematocrit 30.4% (35.0-46.0) 31.4% (35.0-46.0) Mean Corpuscular Volume 104.5fL (81-100) 104.7fL (81-100) Mean Corpuscular Hemoglobin 33.7pg (27.0-35.0) 33.7pg (27.0-35.0) Mean Corpuscular Hemoglobin Concent 32.2% (32.0-37.0) 32.2% (32.0-37.0) Red Cell Distribution Width 15.2% (12.3-15.4) 15.1% (12.3-15.4) Platelet Count 113bil/L (150-400) 115bil/L (150-400) Neutrophils (%) (Auto) 64% (40-74) Lymphocytes (%) (Auto) 14% (14-46) Monocytes (%) (Auto) 1% (4-12) Eosinophils (%) (Auto) 0% (0-5) Basophils (%) (Auto) 0% (0-3) Band Neutrophils % 16% (1-5) Metamyelocytes % 3% (0-0) Myelocytes % 2% (0-0) Sodium Level 138mEq/L (134-144) 139mEq/L (134-144) Potassium Level 3.4mEq/L (3.5-5.2) 4.0mEq/L (3.5-5.2) Chloride Level 102mEq/L (97-108) 102mEq/L (97-108) Carbon Dioxide Level 21mmol/L (18-29) 20mmol/L (18-29) Blood Urea Nitrogen 34mg/dL (8-27) 38mg/dL (8-27) Creatinine 1.51mg/dL (0.57-1.00) 1.64mg/dL (0.57-1.00) Estimat Glomerular Filtration Rate 48mL/min (>59) 44mL/min (>59) Glucose Level 166mg/dL (60-99) 162mg/dL (60-99) Lactic Acid Level 2.8mmol/L (0.4-2.0) 3.8mmol/L (0.4-2.0) 4.3mmol/L (0.4-2.0) Calcium Level 7.3mg/dL (8.5-10.1) 7.4mg/dL (8.5-10.1) Phosphorus Level 2.0mg/dL (2.5-4.9) Magnesium Level 1.4mg/dL (1.6-2.6) Total Bilirubin 1.3mg/dL (0.0-1.2) 1.4mg/dL (0.0-1.2) Aspartate Amino Transf (AST/SGOT) 65U/L (0-50) 50U/L (0-50) Alanine Aminotransferase (ALT/SGPT) 22U/L (0-32) 21U/L (0-32) Alkaline Phosphatase 82U/L (25-165) 72U/L (25-165) Total Protein 6.0g/dL (6.4-8.4) 6.0g/dL (6.4-8.4) Albumin 2.5g/dL (3.4-5.0) 2.5g/dL (3.4-5.0) Ammonia 43ug/dL (18-53) Test 01/13/17 20:30 01/14/17 03:30 01/14/17 12:37 01/15/17 03:25 Lactic Acid Level 2.8mmol/L (0.4-2.0) 1.7mmol/L (0.4-2.0) White Blood Count 5.0th/mm3 (3.8-10.1) 4.4th/mm3 (3.8-10.1) Red Blood Count 2.97mil/mm3 (3.90-5.20) 2.84mil/mm3 (3.90-5.20) Hemoglobin 9.9g/dL (12.0-15.6) 9.4g/dL (12.0-15.6) Hematocrit 31.0% (35.0-46.0) 29.8% (35.0-46.0) Mean Corpuscular Volume 104.4fL (81-100) 104.9fL (81-100) Mean Corpuscular Hemoglobin 33.3pg (27.0-35.0) 33.1pg (27.0-35.0) Mean Corpuscular Hemoglobin Concent 31.9% (32.0-37.0) 31.5% (32.0-37.0) Red Cell Distribution Width 15.2% (12.3-15.4) 14.9% (12.3-15.4) Platelet Count 108bil/L (150-400) 88bil/L (150-400) Sodium Level 140mEq/L (134-144) 141mEq/L (134-144) Potassium Level 3.9mEq/L (3.5-5.2) 3.4mEq/L (3.5-5.2) Chloride Level 106mEq/L (97-108) 105mEq/L (97-108) Carbon Dioxide Level 22mmol/L (18-29) 22mmol/L (18-29) Blood Urea Nitrogen 45mg/dL (8-27) 53mg/dL (8-27) Creatinine 1.62mg/dL (0.57-1.00) 1.46mg/dL (0.57-1.00) Estimat Glomerular Filtration Rate 45mL/min (>59) 50mL/min (>59) Glucose Level 187mg/dL (60-99) 149mg/dL (60-99) Calcium Level 7.5mg/dL (8.5-10.1) 8.4mg/dL (8.5-10.1) Total Bilirubin 1.1mg/dL (0.0-1.2) 0.8mg/dL (0.0-1.2) Aspartate Amino Transf (AST/SGOT) 38U/L (0-50) 35U/L (0-50) Alanine Aminotransferase (ALT/SGPT) 18U/L (0-32) 16U/L (0-32) Alkaline Phosphatase 65U/L (25-165) 66U/L (25-165) Total Protein 5.9g/dL (6.4-8.4) 6.2g/dL (6.4-8.4) Albumin 2.5g/dL (3.4-5.0) 2.5g/dL (3.4-5.0) Procalcitonin 14.81ng/mL (0.00-0.08) 11.39ng/mL (0.00-0.08) Hepatitis C Antibody >11.0s/co ratio Vitamin B12 Level 1550pg/mL (211-946) Folate 7.4ng/mL (>3.0) Neutrophils (%) (Auto) 89.1% (40-74) Lymphocytes (%) (Auto) 4.1% (14-46) Monocytes (%) (Auto) 5.9% (4-12) Eosinophils (%) (Auto) 0% (0-5) Basophils (%) (Auto) 0% (0-3) Result Diagram: 01/15/1732401/15/17324 X-Rays, CTs and MRIs Patient Name: JEANNETTE OCHOA MR#: [id number] Location: [facility] [place] Ordering Phys: LOUANN ROSE MD Date of Service: 01/12/172017 PROCEDURE: X-RAY CHEST ONE VIEW, PORTABLE ([id number]) INDICATIONS: FEVER, COUGH TECHNIQUE: One view of the chest was acquired. COMPARISON: [facility], CR, XR CHEST 1VW (PORTABLE), 12/20/2016, 2: 21. [facility], CR, XR CHEST 1VW, 12/20/2016, 7:13. FINDINGS: Surgical changes and devices: None. Lungs and pleura: There is patchy areas of opacity within the right upper and lower lobes, new compared to prior exam. Anterior opacities also noted in the left upper lobe and retrocardiac region. Mediastinum: Mediastinal contours appear normal. Heart size is normal. Bones and chest wall: No suspicious bony lesions. Overlying soft tissues appear unremarkable. IMPRESSION: Bilateral areas of focal opacity most prominent in the retrocardiac and right upper lobes as above. Findings are suspicious for multifocal pneumonia. There is underlying edema and/or atelectasis cannot be excluded. Patient Name: JEANNETTE OCHOA MR#: [id number] Location: [facility] Ordering Phys: Adrien Chua MD Date of Service: 01/14/17 0500 PROCEDURE: X-RAY CHEST ONE VIEW, PORTABLE ([id number]) INDICATIONS: dyspnea TECHNIQUE: One view of the chest was acquired. COMPARISON: [facility], CR, XR CHEST 1VW (PORTABLE), 01/12/2017, 20: 15. FINDINGS: Surgical changes and devices: None. Lungs and pleura: There is patchy areas of opacity within the right upper and lower lobes, new compared to prior exam. Anterior opacities also noted in the left upper lobe and retrocardiac region. Mediastinum: Mediastinal contours appear normal. Heart size is normal. Bones and chest wall: No suspicious bony lesions. Overlying soft tissues appear unremarkable. IMPRESSION: No significant change from prior examination suggestive of multifocal pneumonia and/or pulmonary edema. Recommend clinical correlation. Dictated by: Nuno Chatterjee RRA Interpreted: Leigh Babb MD on 01/14/2017 at 9:09 Transcribed by: JOSÉ MANUEL on 01/14/2017 at 9:10 Approved by: Leigh Babb M.D. on 01/14/2017 at 16:32 Cardiac Echo Impressions Echocardiogram Report Name: JEANNETTE OCHOA LStudy Date: 06/2017 Height: 64 in Hospital Exam Location: [facility] Weight: 125 lb Gender: Female BSA: 1.6 m2 : 1945 Age: 71 yrs BP: 116/74 mmHg Reason For Study: Dyspnea Ordering Phys[facility] By: Maciel Moraes Referring Physician: ADRIEN CHUA Interpretation Summary The patient was in atrial fibrillation with rapid ventricular response during the exam with a heart rate exceeding 100 bpm. The heart rate ranged between 144-184 bpm during the study. The left ventricle is normal in size. The left ventricle is hyperdynamic. The ejection fraction is estimated to be >80%. Left ventricular wall motion is normal. The right ventricle is borderline dilated. The right ventricular systolic function is normal. The right ventricular systolic pressure is estimated at 59 mmHg assuming a right atrial pressure of 15 mm Hg. Compared to the prior echo exam, there has been an increase in the severity of pulmonary hypertension. The left atrium is severely dilated. The right atrium is moderate to severely dilated. There is mild to moderate mitral regurgitation. Compared to the prior echo study, there has been an increase in the severity of mitral regurgitation. There is severe tricuspid regurgitation. Compared to the prior echo exam, there has been no change in TR severity. There is no other significant valvular heart disease. The aortic root is normal size. Procedure: A two-dimensional transthoracic echocardiogram with color flow and Doppler was performed. The study quality was technically adequate. Comparison is made with the echocardiogram of 09/29/16. The patient was in atrial fibrillation with rapid ventricular response during the exam with a heart rate exceeding 100 bpm. The heart rate ranged between 144-184 bpm during the study. Left Ventricle: The left ventricle is normal in size. There is normal left ventricular wall thickness. Proximal septal thickening is noted. The left ventricle is hyperdynamic. The ejection fraction is estimated to be >80%. Left ventricular wall motion is normal. Right Ventricle: The right ventricle is borderline dilated. The right ventricular systolic function is normal. Atria: The left atrium is severely dilated. The right atrium is moderate to severely dilated. The interatrial septum is intact with no evidence for an atrial septal defect. Mitral Valve: The mitral valve leaflets appear to open well. There is mild to moderate mitral regurgitation. Compared to the prior echo study, there has been an increase in the severity of mitral regurgitation. Aortic Valve: The aortic valve is normal in structure and function. There is no hemodynamically significant valvular aortic stenosis. There is trace aortic regurgitation. Tricuspid Valve: The tricuspid valve leaflets are thickened and/or calcified, but open well. There is severe tricuspid regurgitation. Compared to the prior echo exam, there has been no change in TR severity. The right ventricular systolic pressure is estimated at 59 mmHg assuming a right atrial pressure of 15 mm Hg. Compared to the prior echo exam, there has been an increase in the severity of pulmonary hypertension. Pulmonic Valve: The pulmonic valve leaflets are thin and pliable; valve motion is normal. There is a trace or physiologic amount of pulmonic regurgitation. There is no other significant valvular heart disease. Great Vessels: The aortic root is normal size. The dimensions of the ascending aorta are normal. The pulmonary artery is normal size. The IVC is dilated (diameter is greater than 2.1 cm) and it collapses less than 50% with a sniff. This suggests a high right atrial pressure of 15 mm Hg. Pericardium/ Pleura There is no pericardial effusion. There is no pleural effusion. MMode/2D Measurements & Calculations LVIDd: 4.3 cm RA long axis LVOT diam: 1.7 cm LVIDs: 3.3 cm LA A2 area: 22.4 cm AoV Opening FS: 22.1 % LA A4 area: 27.1 cm RA area IVSd: 0.77 cm LA length (vol) Ao root diam LVPWd: 0.60 cm : 24.9 cm LA vol: 84.5 ml RA vol asc Aorta Diam LA vol index : 75.3 ml RA Ao Arch Diam (Prox : 47.0 mm2 Trans): 2.9 cm IVC diam: 2.1 cm LV sanchez. diameter/BSA LV sys. diameter/BSA (cm/m^2): 2.7 (cm/m^2): 2.1 Doppler Measurements & Calculations Ao V2 max MV E max villa TR max villa Ao V2 mean : 152.6 cm/sec : 100.9 cm/sec : 334.4 cm/sec : 108.2 cm/sec Ao max PG TR max PG Ao V2 VTI : 9.4 mmHg : 44.8 mmHg Ao mean PG CARMINE(V,D): 1.6 cm2 LVOT Max Villa : 105.5 cm/sec CARMINE(I,D): 1.8 cm sev ratio LV V1 max PG CARMINE indexed to BSA (cm^2/m^2): 1.1 LV V1 VTI: 15.9 cm Reading Physician:PM Assessment & Plan Patient is a 71 year old female with a history of hemochromatosis, epilepsy, COPD on home 2L O2, CHF, stage III chronic kidney disease, and chronic atrial fibrillation admitted with acute respiratory distress and fever. 1. Severe Sepsis, acute, POA -secondary to HCAP, HR>90, T>38 -The patient remains hypotensive. Pressors are not within her level of care. Will continue aggressive fluid resuscitation and trend her lactic acid which she has been elevated. Her lactic acid levels markedly improved with IV hydration. We will continue broad-spectrum antibiotics. Urine antigen is positive for streptococcus pneumonia. Appreciate infectious disease consultation and she will be on the following antibiotic regimen which includes IV Rocephin and by mouth doxycycline. Cefepime L ofloxacin and vancomycin have been DC'd. 2. Health care associated pneumonia, acute, POA -IV Rocephin and by mouth doxycycline to treat Streptococcus pneumonia -monitor I&Os, cautious fluids in the setting of acute decompensated heart failure, -patient is DNI, considered bipap despite PNA for decompensation however patient unable to tolerate -albuterol and additional nebs as below -Has increased rhonchi and tachypnea we will go ahead and check a chest x-ray today. 3. LOLIS, acute, POA -history of CKD stage III -worsening renal function -likely intrarenal vs prerenal -continue to monitor, avoid nephrotoxic medications. Ongoing fluid resuscitation. 4. Chronic compensated diastolic heart failure, acute, POA -elevated BNP from ~5000 to ~79298 -holding beta mikael in the setting of hypotension restart when appropriate -holding VEENA d/t LOLIS and hypotension, restart when appropriate. The patient does not have any have evidence of edema and chest x-ray listed saturations and in spite of an elevated BNP appears to be compensated. Weights have been fairly stable- 5. Elevated troponin, acute, POA -likely secondary to LOLIS acute illness. This could be demand ischemia. We will simply trend this at this point. -trend -EKG if patient develops CP -Check serial troponins 3 given tachycardia this morning 6. Hypokalemia, replete and follow. This was present on admit. 7. Acute toxic encephalopathy versus hepatic encephalopathy, POA. We will check ammonia and continue to treat her infection. 8. Chronic Persistent Atrial fibrillation, POA - telemetry - Hold Metoprolol Succinate d/t hypotension continue digoxin when med rec completes - Digoxin levels as needed -Tachycardic today we will go ahead and give her IV metoprolol and order IV diltiazem when necessary -Check serial troponins # Thrombocytopenia, acute, not present on admission We will go ahead and DC subcutaneous prophylactic heparin and check heparin- induced antibody. Her score on the 4Ts scale is 4 and intermediate probability # Nutrition Clear to start mechanical dysphagia diet per speech therapy and swallow eval yesterday # COPD exacerbation, acute, present on admission On IV Solu-Medrol and will titrate down dose today to 80 every 8 hours Glucoses have been not elevated Continue with current nebulization therapy 9. Epilepsy, chronic. Presumed stable - Continue antiepileptic medications: Phenytoin, order pending med rec completion - Phenytoin levels as needed - Dose recently adjusted, decreased to to elevated levels 10. Chronic hypoxic respiratory failure, chronic -h/o COPD, continue home nebs -on 2L oxygen at [facility] ([facility]) -goal oxygen level 88-92% 11. Hemochromatosis with liver cirrhosis, POA. 12. Hepatitis C. POA. Macrocytic anemia, chronic -continue to monitor -h&h are at baseline Patient admitted under inpatient status in CCU due to nursing needs with expected length of stay > 2 midnights. - PRN: Bowel/fever/pain/antiemetic - DIET: Heart healthy, Renal healthy - Code: DNR/DNI, discussed with grandson and his significant other poor prognosis at this time. They maintain DNR/DNI status. Discussed potentially transitioning to comfort focus. - PCP: Nitesh Clarify level with daughter Teresita who is not to [facility]. The patient is DNR/ DNI. We will use fluids and BiPAP and avoid intubation and pressors. Continue to address this with family members next day or 2. Resuscitation Status: DNR/DNI:Do Not Resuscitate/Intubate Time spent 30 minutes Marcy Hunter MD Jan 15, 2017 11:04
--- NOTE | 2017-01-15 14:27 | NUR ---
NUTRITION FOLLOW-UP ASSESS: Pt is a 71yo F admitted to CCU for pneumonia and sepsis. ST evaluated pt and placed her on Dysphagia mechanical w/NT liquids. She is tolerating this texture well per ST. No PO has been recorded yet. Palliative care is involved for goals of care PMHX: Cirrhosis, Hep C, CHF, COPD, HTN, Afib, Seizures LABS: Reviewed. K 3.4, Bun 53, Typecasting Machine Operator 1.46, Glu 149, Ca 8.4, Alb 2.5 MEDS: Reviewed. GI: BMx1 per pt SKIN: Ruperto 15 CURRENT WTS: 56.8kg, BMI 21.5kg/m2, admit wt 57.4kg DIET: Dysphagia mechanical. No PO intake recorded EST. NEEDS: Kcals: 1435-1725kcal/day (25-30kcal/kg) Pro: 70-85g/day (1.2-1.5g/kg) NUTRITION DIAGNOSIS: 1.) Inadequate oral intake related to decreased ability to consume sufficient energy as evidenced by current NPO status.--IMPROVING 2.) Chew/swallow difficulty related to weakness and poor dentition as evidence by need for dysphagia mechanical diet texture NUTRITION INTERVENTION: 1.) Continue diet per ST 2.) Will add Magic Cup on L and D trays and monitor for PO intake MONITOR / EVAL: ST,PO intake, wt, labs, POC, nutrition status. Will continue to monitor per high nutrition risk guidelines.
--- NOTE | 2017-01-15 14:34 | NUR ---
Social Work: Initial Assessment D: Per EMR, Pt is a 71 year old female admitted for pneumonia, sepsis. Pt is Medicare with no LTC insurance or VA Benefits. PCP Is Arlene Dowling MD. NOK is cherelle De Leon, . Advanced directive completed- pt signed POLST form and is now DNR/DNI. Readmit score is moderate, 5/8. CALL CENTER SUPPORT REPRESENTATIVE met with pt at bedside. Sw role explained and contact information provided. See initial assessment. Pt has been residing at [facility] however does not wish to return. Pt states that he grandYovani meza and his girlfriend will be taking her home to stay with them in [place]. Pt provided verbal consent for CALL CENTER SUPPORT REPRESENTATIVE to speak to her grandson to discuss discharge planning. At baseline pt uses a FWW and cane at baseline. Pt lives in a single story home in [place]. Pt has a history with [facility] for RN, PT, CALL CENTER SUPPORT REPRESENTATIVE. t/c to pt's grandson, Yovani Bonilla at [phone]. Left message requesting return phone call to discuss discharge planning. A: Pt who is from home, alone but was at [facility] for rehab due to increased falls and weakness. P: Evolving; CALL CENTER SUPPORT REPRESENTATIVE to continue to follow and await return phone call from pt's family to discuss dcp ISHAN Rosas Addendum: 01/15/17 at 1450 by JODI HAMPTON SS Amended: Links added.
--- NOTE | 2017-01-15 17:02 | DRSVH ---
PROCEDURE: X-RAY CHEST ONE VIEW, PORTABLE ([id number]) INDICATIONS: dyspnea TECHNIQUE: One view of the chest was acquired. COMPARISON: [facility], CR, XR CHEST 1VW (PORTABLE), 01/14/2017, 5:18. FINDINGS: Surgical changes and devices: None. Lungs and pleura: There is patchy areas of opacity within the right upper and lower lobes, new compar ed to prior exam. Anterior opacities also noted in the left upper lobe and retrocardiac region. Mediastinum: Mediastinal contours appear normal. Heart size is normal. Bones and chest wall: No suspicious bony lesions. Overlying soft tissues appear unremarkable. IMPRESSION: No significant change from prior examination suggestive of pneumonia and/or edema. Dictated by: Nuno Chatterjee RRA Interpreted: Fely Wilde MD on 01/15/2017 at 14:53 Approved by: Fely Wilde MD, PhD on 01/15/2017 at 17:01
[2017-01-15] MEDS ORDERED: 0.9% Sodium Chloride 250 ML ONE (18:29)
--- NOTE | 2017-01-15 19:14 | NUR ---
HR Pts. HR this morning was between 140-150 with 189being the highest. MD was made aware and ordered 5mg IV push once. Pts. HR went down to 1teens -120s. HR then started to increase again by end of shift, 5 beats of Vtach was told by lunchroom monitor will pass on to next shift.
[2017-01-15] MEDS: Diltiazem 5 mg/mL 5 mL Inj IVPUSH PRN (20:41)
[2017-01-16] VITALS (18 sets, daily range): BP systolic 116–169; BP diastolic 61–91; PULSE 69–156; RESP 18–32; O2SAT 92–97
[2017-01-16] MEDS: MethylprednisoLONE Sodium Succinate 62.5 mg/mL 2 mL Inj IVPUSH SCH ×3 (01:25→16:28)
[2017-01-16] MEDS: Albuterol-Ipratropium 3 mL Inhalation Solution NEB SCH ×4 (01:49→21:01)
[2017-01-16] MEDS: Diltiazem 5 mg/mL 5 mL Inj IVPUSH PRN ×3 (02:07→16:30)
[2017-01-16] MEDS: cefTRIAXone Inj 2,000 MG in Dextrose 5% Minibag Plus 50 ML IV SCH (05:23)
[2017-01-16 05:42] LABS: EOSINOPHILS % (AUTO) 0 % (0-5); Mean Corpuscular Hemoglobin 33.1 pg (27.0-35.0); Mean Corpuscular Volume 104.8 fL (81-100); Platelet Count 86 bil/L (150-400)
[2017-01-16 06:24] LABS: BASOPHILS % (AUTO) 0 % (0-3); MONOCYTES % (AUTO) 6 % (4-12); NEUTROPHILS % (AUTO) 87 % (40-74)
--- NOTE | 2017-01-16 07:51 | NUR ---
TELE/O2 Pt tele Afib 140s-160s at start of shift, given PRN IV Diltiazem which was effective at bringing HR down to 110s-120s. Later HR back up to 150s and given another dose of Diltiazem which was effective again at bringing HR down to mostly 90s-110s at rest. BP stable throughout. Pt denied symptoms with HR, MD notified of this and most recent troponin result. Pt had no c/o pain overnight and was at ease and sleeping between care interventions when O2 and HR were controlled. Pt will occasionally take mask off and desat quickly, sats 82 at start of shift because of this. Pt had neb treatment at this time and O2 had to be titrated up to 9L oxymask, Once rate was controlled pt titrated back down to 5L, but needs increase if too much activity.
--- NOTE | 2017-01-16 11:14 | PCM.PNMED ---
Subjective Date of Service Jan 16, 2017 Subjective Since seen an examined bedside. She is still short of breath and remained on 7 L of oxygen nasal cannula for adequate saturation. Care discussed at multidisciplinary round No chest pain, abdominal pain, nausea, vomiting. Afebrile, no chills. Exam Vital Signs Vital Sign - Last Date Time Temp Pulse Resp B/P Pulse Ox O2 Delivery O2 Flow Rate FiO2 01/16/17 10:19 100 28 92 OxyMask 7.00 01/16/17 07:43 36.8 165/88 Intake and Output 01/15/17 01/15/17 01/16/17 Cumulative From/Thru 15:00 23:00 07:00 01/12/17 20:19 - 01/16/17 05:58 Intake Total 964 ml 350 ml 4830 ml Output Total 250 ml 100 ml 900 ml Balance 714 ml 250 ml 3930 ml Intake Oral 800 ml 350 ml 2190 ml IV Total 164 ml 2640 ml Output Urine Total 250 ml 100 ml 900 ml # Voids 2 2 4 # Bowel Movements 1 1 Exam Constitutional: Ill appearing female. In bed comfortably. SOB and speak with broken sentences. HEENT : Normocephalic atraumatic, sclerae is anicteric Neck : Supple, No JVD, no stridor Chest:Shallow respiratory effort, no chest wall deformities Lung : B/L crackles and wehezes. + rochi. decreased air entry bilaterally Heart : : Irregular regular rate and rhythm tachycardic, S1-S2 Abdomen: Soft, nontender, Non distended, bowel sounds present Extremities: No cyanosis, no clubbing , no calf tenderness. Neuro: Alert and oriented 3, motor strength is intact bilaterally IVs and Medications Medications Reviewed: Medications were reviewed in detail Lab and Diagnostics Result Diagram: 01/16/1751201/16/17512 X-Rays, CTs and MRIs Patient Name: JEANENTTE OCHOA MR#: [id number] Location: [facility] [place] Ordering Phys: MILTON, ED Date of Service: 01/12/172017 PROCEDURE: X-RAY CHEST ONE VIEW, PORTABLE ([id number]) INDICATIONS: FEVER, COUGH TECHNIQUE: One view of the chest was acquired. COMPARISON: [facility], CR, XR CHEST 1VW (PORTABLE), 12/20/2016, 2: 21. [facility], CR, XR CHEST 1VW, 12/20/2016, 7:13. FINDINGS: Surgical changes and devices: None. Lungs and pleura: There is patchy areas of opacity within the right upper and lower lobes, new compared to prior exam. Anterior opacities also noted in the left upper lobe and retrocardiac region. Mediastinum: Mediastinal contours appear normal. Heart size is normal. Bones and chest wall: No suspicious bony lesions. Overlying soft tissues appear unremarkable. IMPRESSION: Bilateral areas of focal opacity most prominent in the retrocardiac and right upper lobes as above. Findings are suspicious for multifocal pneumonia. There is underlying edema and/or atelectasis cannot be excluded. Patient Name: JEANNETTE OCHOA MR#: [id number] Location: [facility] Ordering Phys: Adrien Chua MD Date of Service: 01/14/17 0500 PROCEDURE: X-RAY CHEST ONE VIEW, PORTABLE ([id number]) INDICATIONS: dyspnea TECHNIQUE: One view of the chest was acquired. COMPARISON: [facility], CR, XR CHEST 1VW (PORTABLE), 01/12/2017, 20: 15. FINDINGS: Surgical changes and devices: None. Lungs and pleura: There is patchy areas of opacity within the right upper and lower lobes, new compared to prior exam. Anterior opacities also noted in the left upper lobe and retrocardiac region. Mediastinum: Mediastinal contours appear normal. Heart size is normal. Bones and chest wall: No suspicious bony lesions. Overlying soft tissues appear unremarkable. IMPRESSION: No significant change from prior examination suggestive of multifocal pneumonia and/or pulmonary edema. Recommend clinical correlation. Dictated by: Nuno Chatterjee Mookie Interpreted: Leigh Babb MD on 01/14/2017 at 9:09 Transcribed by: JOSÉ MANUEL on 01/14/2017 at 9:10 Approved by: Leigh Babb M.D. on 01/14/2017 at 16:32 Cardiac Echo Impressions Echocardiogram Report Name: JEANNETTE OCHOA LStudy Date: 06/2017 Height: 64 in Hospital Exam Location: [facility] Weight: 125 lb Gender: Female BSA: 1.6 m2 : 1945 Age: 71 yrs BP: 116/74 mmHg Reason For Study: Dyspnea Ordering Physician: HOSPITALIST SVHPerformed By: Maciel Moraes Referring Physician: ADRIEN CHUA Interpretation Summary The patient was in atrial fibrillation with rapid ventricular response during the exam with a heart rate exceeding 100 bpm. The heart rate ranged between 144-184 bpm during the study. The left ventricle is normal in size. The left ventricle is hyperdynamic. The ejection fraction is estimated to be >80%. Left ventricular wall motion is normal. The right ventricle is borderline dilated. The right ventricular systolic function is normal. The right ventricular systolic pressure is estimated at 59 mmHg assuming a right atrial pressure of 15 mm Hg. Compared to the prior echo exam, there has been an increase in the severity of pulmonary hypertension. The left atrium is severely dilated. The right atrium is moderate to severely dilated. There is mild to moderate mitral regurgitation. Compared to the prior echo study, there has been an increase in the severity of mitral regurgitation. There is severe tricuspid regurgitation. Compared to the prior echo exam, there has been no change in TR severity. There is no other significant valvular heart disease. The aortic root is normal size. Procedure: A two-dimensional transthoracic echocardiogram with color flow and Doppler was performed. The study quality was technically adequate. Comparison is made with the echocardiogram of 09/29/16. The patient was in atrial fibrillation with rapid ventricular response during the exam with a heart rate exceeding 100 bpm. The heart rate ranged between 144-184 bpm during the study. Left Ventricle: The left ventricle is normal in size. There is normal left ventricular wall thickness. Proximal septal thickening is noted. The left ventricle is hyperdynamic. The ejection fraction is estimated to be >80%. Left ventricular wall motion is normal. Right Ventricle: The right ventricle is borderline dilated. The right ventricular systolic function is normal. Atria: The left atrium is severely dilated. The right atrium is moderate to severely dilated. The interatrial septum is intact with no evidence for an atrial septal defect. Mitral Valve: The mitral valve leaflets appear to open well. There is mild to moderate mitral regurgitation. Compared to the prior echo study, there has been an increase in the severity of mitral regurgitation. Aortic Valve: The aortic valve is normal in structure and function. There is no hemodynamically significant valvular aortic stenosis. There is trace aortic regurgitation. Tricuspid Valve: The tricuspid valve leaflets are thickened and/or calcified, but open well. There is severe tricuspid regurgitation. Compared to the prior echo exam, there has been no change in TR severity. The right ventricular systolic pressure is estimated at 59 mmHg assuming a right atrial pressure of 15 mm Hg. Compared to the prior echo exam, there has been an increase in the severity of pulmonary hypertension. Pulmonic Valve: The pulmonic valve leaflets are thin and pliable; valve motion is normal. There is a trace or physiologic amount of pulmonic regurgitation. There is no other significant valvular heart disease. Great Vessels: The aortic root is normal size. The dimensions of the ascending aorta are normal. The pulmonary artery is normal size. The IVC is dilated (diameter is greater than 2.1 cm) and it collapses less than 50% with a sniff. This suggests a high right atrial pressure of 15 mm Hg. Pericardium/ Pleura There is no pericardial effusion. There is no pleural effusion. MMode/2D Measurements & Calculations LVIDd: 4.3 cm RA long axis LVOT diam: 1.7 cm LVIDs: 3.3 cm LA A2 area: 22.4 cm AoV Opening FS: 22.1 % LA A4 area: 27.1 cm RA area IVSd: 0.77 cm LA length (vol) Ao root diam LVPWd: 0.60 cm : 24.9 cm LA vol: 84.5 ml RA vol asc Aorta Diam LA vol index : 75.3 ml RA Ao Arch Diam (Prox : 47.0 mm2 Trans): 2.9 cm IVC diam: 2.1 cm LV sanchez. diameter/BSA LV sys. diameter/BSA (cm/m^2): 2.7 (cm/m^2): 2.1 Doppler Measurements & Calculations Ao V2 max MV E max villa TR max villa Ao V2 mean : 152.6 cm/sec : 100.9 cm/sec : 334.4 cm/sec : 108.2 cm/sec Ao max PG TR max PG Ao V2 VTI : 9.4 mmHg : 44.8 mmHg Ao mean PG CARMINE(V,D): 1.6 cm2 LVOT Max Villa : 105.5 cm/sec CARMINE(I,D): 1.8 cm sev ratio LV V1 max PG CARMINE indexed to BSA (cm^2/m^2): 1.1 LV V1 VTI: 15.9 cm Reading Physician:PM Assessment & Plan . Patient is a 71 year old female with a history of hemochromatosis, epilepsy, COPD on home 2L O2, CHF, stage III chronic kidney disease, and chronic atrial fibrillation admitted with acute respiratory distress and fever. 1. Severe Sepsis, acute, POA - Source of sepsis is likely pulmonary: HCAP . - She is still very compromised from pulmonary standpoint and short of breath on minimal exertion. She is on 7 liters of oxygen now. BP improved . Lactic acid normalized. - Continue antibiotics : IV ceftriaxone and by mouth doxycycline. ID following -. Urine antigen is positive for streptococcus pneumonia. - Repeat chest x-ray yesterday shows new upper lobe infiltrate . 2. Health care associated pneumonia, acute, POA -Antibiotics as an #1 3. LOLIS, acute, POA -history of CKD stage III -Creatinine 1.5 today. Continue monitor renal function and electrolytes closely Avoid nephrotoxic agents. 4. Chronic compensated diastolic heart failure, acute, POA -elevated BNP from ~5000 to ~11911. BNP is likely secondary to pneumonia. Patient has no clinial evidence of decompensated heart failure - Repeat BMP in a.m. 5. Elevated troponin, acute, POA -likely secondary to LOLIS acute illness. This could be demand ischemia. -EKG if patient develops CP 6. Hypokalemia : Replace PRN 7. Acute toxic encephalopathy versus hepatic encephalopathy, POA. : Improved 8. Chronic Persistent Atrial fibrillation, POA - telemetry - Resume Metoprolol Succinate for rate control - Digoxin levels as needed -Tachycardic today we will go ahead and give her IV metoprolol and order IV diltiazem when necessary 9. Thrombocytopenia, acute, not present on admission : Probably secondary to infection. Platelet count 86 today. HIT antibody is pending Avoid Heparin products. SCD for DVT prophylaxis 10. Nutrition Clear to start mechanical dysphagia diet per speech therapy and swallow eval yesterday 11. COPD exacerbation, acute, present on admission Continue nebulizer, oxygen supplement, pulmonary toilets Continue IV steroid 9. Epilepsy, chronic. Presumed stable - Continue prophylactic antiepileptic medications: Phenytoin 10. Chronic hypoxic respiratory failure, chronic 11. Hemochromatosis with liver cirrhosis, POA. 12. Hepatitis C. POA. Macrocytic anemia, chronic -continue to monitor -h&h are at baseline dnights. This is a very sick patient with a myriad of medical issues and a very fragile cardiopulmonary status. Plan of care as above and being adjusted per clinical course . intermediate teacher prognosis is very poor Patient is DNR/DNI Pain Evaluation: Adequate Pain Control VTE Prophylaxis: SCDs Resuscitation Status: DNR/DNI:Do Not Resuscitate/Intubate Time spent 35 minutes He Amin MD Jan 16, 2017 11:14
[2017-01-16] MEDS ORDERED: Furosemide 10 mg/mL 4 mL Inj IVPUSH ONE (12:00)
--- NOTE | 2017-01-16 12:31 | PROG NOTE ---
[address] [address] PROGRESS NOTE PATIENT: JEANNETTE OCHOA : 1945 MR#: [id number] ADMIT: 01/13/2017 JOB ID: [id number] DATE: 01/16/2017 INFECTIOUS DISEASE FOLLOWUP NOTE: REASON FOR FOLLOWUP: Bacteremic pneumococcal pneumonia in a patient with underlying CHF and COPD. INTERVAL HISTORY: This morning the patient tells us she is not having fever and chills but she is definitely more short of breath. She notes her breathing is gradually more labored with some wheezing. She has no nausea, vomiting, diarrhea, or skin issues. PHYSICAL EXAMINATION: Reveals a woman who is obviously working hard to breathe. She has been afebrile since her admission now four days ago, currently 36.8. Pulse about 100, respiratory rate is 30, blood pressure is fine at 165/88, but she is saturating only 90% to 92% on a 7 L face mask. The patient is awake and alert but anxious. Oral cavity negative. She has dramatic jugular venous distention. Her lungs are notable. She has coarse rales and rhonchi throughout both lung lees, and the wheezing is much more noticeable than it was yesterday or the day before. Cardiac tones are rapid and irregular. No new murmurs appreciated. The abdomen is benign. The patient's overall appearance is one of deterioration. LABORATORIES: Include white count 7900. Her left shift is gradually resolving. Her creatinine 1.51 and is quite stable. In fact, exactly the same as when she came in. Her LFT are also reasonable. Albumin 2.7. Procalcitonin has been as high as 15. It is now down to 6.7, and showing a strong downward trend with antibiotics. Her hepatitis C antibody was positive, as she had told us when she came in, and we were just looking for a confirmation. Hep C genotype and viral load are pending. Urine pneumococcal antigen is positive. Multiple blood cultures grew pneumococcus, very susceptible. MRSA screen was negative. IMAGING: Yesterday's chest radiograph was reviewed. It shows no change with respect to the bilateral infiltrates. The right-sided infiltrate felt to be consistent with CHF and/or pneumonia. IMPRESSION: This patient seems to be drifting further into respiratory failure even as her pneumonia improves. Her procalcitonin, white count and fever curve are better but the patient is more short of breath and at this point, appears quite ill. I do not think her deterioration is related to infection or antibiotics but rather a worsening of her congestive heart failure and/or chronic obstructive pulmonary disease. RECOMMENDATIONS: 1. Will continue with the current antibiotics, which include ceftriaxone and doxycycline. The doxycycline can probably be stopped in the fairly near future whereas we should try continue the ceftriaxone for a week or so. 2. Will attempt and contact Dr. Amin who is the hospitalist on duty today. It would seem that if the patient's deterioration is not reversed, she will likely succumb to her problems here in the near future, as she is not a candidate for intubation.
--- NOTE | 2017-01-16 13:42 | DRSVH ---
PROCEDURE: X-RAY CHEST ONE VIEW, PORTABLE ([id number]) INDICATIONS: SHORTNESS OF BREATH TECHNIQUE: One view of the chest was acquired. COMPARISON: [facility], CR, XR CHEST 1VW (PORTABLE), 01/15/2017, 10:45. FINDINGS: Surgical changes and devices: None. Lungs and pleura: There are dense air space opacity within the lung, and left lower lobe consistent s pelled for pneumonia. No pleural effusion or pneumothorax. Mediastinum: Mediastinal contours appear normal. Heart size is normal. Bones and chest wall: No suspicious bony lesions. Overlying soft tissues appear unremarkable. IMPRESSION: Persisting bilateral pneumonia. Dictated by: Nuno Chatterjee RRMookie Interpreted: Jossy Meredith MD on 01/16/2017 at 13:40 Transcribed by: OK on 01/16/2017 at 13:41 Approved by: Jossy Meredith M.D. on 01/16/2017 at 17:26
[2017-01-16] MEDS: LORazepam 0.5 mg Tablet PO PRN (18:09)
--- NOTE | 2017-01-16 18:50 | NUR ---
Respiration/HR/Anxiety Pts. lung sounds upon auscultation are more coarse, scattered and wet than yesterday. Wheezing is heard when Pt. is exhaling in the AM and stated feeling SOB. IV lasix one time push was given and this seemed to help Pt. through the day expect for this evening. Wheezing is heard again upon exhaling but Pt. denies SOB, was made aware. Pts. HR has been fluctuating throughout the day with 130-140 this morning and IV dilt. push was given, HR dropped to the low 100s. Pts. HR was 120 and greater this afternoon and another IV dilt. push was given. Pts. started to moderate anxiety this afternoon and req. ativan to help calm her anxiety. I adm. ativan at about 1630.
[2017-01-16] MEDS ORDERED: Furosemide 10 mg/mL 2 mL Inj IV ONE (19:05)
[2017-01-16] MEDS ORDERED: PHENYTOIN 30 MG PO SCH (20:30)
[2017-01-16] MEDS: PHENYTOIN 30 MG PO SCH (21:20)
[2017-01-17] VITALS (12 sets, daily range): BP systolic 156–170; BP diastolic 63–95; PULSE 62–107; RESP 16–29; O2SAT 89–98
[2017-01-17] MEDS: MethylprednisoLONE Sodium Succinate 62.5 mg/mL 2 mL Inj IVPUSH SCH ×3 (01:03→16:45)
[2017-01-17] MEDS: Albuterol-Ipratropium 3 mL Inhalation Solution NEB SCH ×4 (02:30→20:46)
[2017-01-17 06:12] LABS: BASOPHILS % (AUTO) 0.1 % (0-3); EOSINOPHILS % (AUTO) 0 % (0-5); MONOCYTES % (AUTO) 2.9 % (4-12); Mean Corpuscular Hemoglobin 33.1 pg (27.0-35.0); Mean Corpuscular Volume 103.9 fL (81-100); NEUTROPHILS % (AUTO) 93.9 % (40-74); Platelet Count 105 bil/L (150-400)
[2017-01-17] MEDS: cefTRIAXone Inj 2,000 MG in Dextrose 5% Minibag Plus 50 ML IV SCH (06:39)
[2017-01-17] MEDS: PHENYTOIN 30 MG PO SCH ×3 (07:58→20:30)
--- NOTE | 2017-01-17 08:13 | NUR ---
Respiratory/Mentation Pt was able to be titrated to 7L oxymask with moisture added for most of the shift. Pt had to have finger probe of continuous pulse ox changed to a hard plastic one since the pt's SpO2 was difficult to obtain with any other methods. Pt and pt's family members told me about how the pt was having hallucinations of rates and spiders crawling all over the room and the pt. The light was put on in the pt's room and all other stimuli in the room was reduced. Pt is alert and oriented to self and does know what she is in a hospital but does not know which one she is in.
--- NOTE | 2017-01-17 08:19 | NUR ---
Spoke with nursing regarding pt. O2 sats. Per MD, sats 88-93%. Will titrate O2 as needed.
--- NOTE | 2017-01-17 10:19 | PCM.PNMED ---
Subjective Date of Service Jan 17, 2017 Subjective Patient seen and examined at bedside . She was very tachypneic overnight and tachycardic. She improved with Lasix x 2 for a total of 50 mg IV . Patient stated she is feeling better and has more energy today , though she still look quite sick . Afebrile. wbc elevated . No chest pain Exam Vital Signs Vital Sign - Last Date Time Temp Pulse Resp B/P Pulse Ox O2 Delivery O2 Flow Rate FiO2 01/17/17 09:35 99 01/17/17 08:00 20 96 OxyMask 7.00 01/17/17 07:44 36.4 170/92 01/16/17 23:40 96 Intake and Output 01/16/17 01/16/17 01/17/17 Cumulative From/Thru 14:59 22:59 06:59 01/12/17 20:19 - 01/17/17 05:34 Intake Total 155 ml 800 ml 20 ml 5805 ml Output Total 250 ml 1 ml 1151 ml Balance 155 ml 550 ml 19 ml 4654 ml Intake Oral 800 ml 20 ml 3010 ml IV Total 155 ml 2795 ml Output Urine Total 250 ml 1 ml 1151 ml # Voids 2 6 # Bowel Movements 1 0 2 Exam Constitutional: Fail cachectic female, pleasant , in bed comfortably. SOB HEENT : Normocephalic atraumatic, sclerae is anicteric Neck : Supple, No JVD, no stridor, taches is midline Chest:Shallow respiratory effort, Use of accessory muscles , no chest wall deformities Lung : B/L crackles and wheezes. + ronchi. decreased air entry bilaterally Heart : : Irregular regular rate and rhythm tachycardic, S1-S2 Abdomen: + BS, Soft, nontender, Non distended, No palb mass Extremities: No cyanosis, no clubbing , no calf tenderness. Neuro: Lethargic. Awake and Alert IVs and Medications Medications Reviewed: Medications were reviewed in detail Lab and Diagnostics Result Diagram: 01/17/1753901/17/17539 X-Rays, CTs and MRIs Patient Name: JEANNETTE OCHOA MR#: [id number] Location: [facility] [place] Ordering Phys: DOC, ED Date of Service: 01/12/172017 PROCEDURE: X-RAY CHEST ONE VIEW, PORTABLE ([id number]) INDICATIONS: FEVER, COUGH TECHNIQUE: One view of the chest was acquired. COMPARISON: [facility], CR, XR CHEST 1VW (PORTABLE), 12/20/2016, 2: 21. [facility], CR, XR CHEST 1VW, 12/20/2016, 7:13. FINDINGS: Surgical changes and devices: None. Lungs and pleura: There is patchy areas of opacity within the right upper and lower lobes, new compared to prior exam. Anterior opacities also noted in the left upper lobe and retrocardiac region. Mediastinum: Mediastinal contours appear normal. Heart size is normal. Bones and chest wall: No suspicious bony lesions. Overlying soft tissues appear unremarkable. IMPRESSION: Bilateral areas of focal opacity most prominent in the retrocardiac and right upper lobes as above. Findings are suspicious for multifocal pneumonia. There is underlying edema and/or atelectasis cannot be excluded. Patient Name: JEANNETTE OCHOA MR#: [id number] Location: [facility] Ordering Phys: Adrien Chua MD Date of Service: 01/14/17 0500 PROCEDURE: X-RAY CHEST ONE VIEW, PORTABLE ([id number]) INDICATIONS: dyspnea TECHNIQUE: One view of the chest was acquired. COMPARISON: [facility], CR, XR CHEST 1VW (PORTABLE), 01/12/2017, 20: 15. FINDINGS: Surgical changes and devices: None. Lungs and pleura: There is patchy areas of opacity within the right upper and lower lobes, new compared to prior exam. Anterior opacities also noted in the left upper lobe and retrocardiac region. Mediastinum: Mediastinal contours appear normal. Heart size is normal. Bones and chest wall: No suspicious bony lesions. Overlying soft tissues appear unremarkable. IMPRESSION: No significant change from prior examination suggestive of multifocal pneumonia and/or pulmonary edema. Recommend clinical correlation. Dictated by: Nuno NAPIER Interpreted: Leigh Babb MD on 01/14/2017 at 9:09 Transcribed by: JOSÉ MANUEL on 01/14/2017 at 9:10 Approved by: Leigh Babb M.D. on 01/14/2017 at 16:32 Cardiac Echo Impressions Echocardiogram Report Name: JEANNETTE OCHOA LStudy Date: 06/2017 Height: 64 in Hospital Exam Location: [facility] Weight: 125 lb Gender: Female BSA: 1.6 m2 : 1945 Age: 71 yrs BP: 116/74 mmHg Reason For Study: Dyspnea Ordering Physician: HOSPITALIST SVHPerformed By: Maciel Moraes Referring Physician: ADRIEN CHUA Interpretation Summary The patient was in atrial fibrillation with rapid ventricular response during the exam with a heart rate exceeding 100 bpm. The heart rate ranged between 144-184 bpm during the study. The left ventricle is normal in size. The left ventricle is hyperdynamic. The ejection fraction is estimated to be >80%. Left ventricular wall motion is normal. The right ventricle is borderline dilated. The right ventricular systolic function is normal. The right ventricular systolic pressure is estimated at 59 mmHg assuming a right atrial pressure of 15 mm Hg. Compared to the prior echo exam, there has been an increase in the severity of pulmonary hypertension. The left atrium is severely dilated. The right atrium is moderate to severely dilated. There is mild to moderate mitral regurgitation. Compared to the prior echo study, there has been an increase in the severity of mitral regurgitation. There is severe tricuspid regurgitation. Compared to the prior echo exam, there has been no change in TR severity. There is no other significant valvular heart disease. The aortic root is normal size. Procedure: A two-dimensional transthoracic echocardiogram with color flow and Doppler was performed. The study quality was technically adequate. Comparison is made with the echocardiogram of 09/29/16. The patient was in atrial fibrillation with rapid ventricular response during the exam with a heart rate exceeding 100 bpm. The heart rate ranged between 144-184 bpm during the study. Left Ventricle: The left ventricle is normal in size. There is normal left ventricular wall thickness. Proximal septal thickening is noted. The left ventricle is hyperdynamic. The ejection fraction is estimated to be >80%. Left ventricular wall motion is normal. Right Ventricle: The right ventricle is borderline dilated. The right ventricular systolic function is normal. Atria: The left atrium is severely dilated. The right atrium is moderate to severely dilated. The interatrial septum is intact with no evidence for an atrial septal defect. Mitral Valve: The mitral valve leaflets appear to open well. There is mild to moderate mitral regurgitation. Compared to the prior echo study, there has been an increase in the severity of mitral regurgitation. Aortic Valve: The aortic valve is normal in structure and function. There is no hemodynamically significant valvular aortic stenosis. There is trace aortic regurgitation. Tricuspid Valve: The tricuspid valve leaflets are thickened and/or calcified, but open well. There is severe tricuspid regurgitation. Compared to the prior echo exam, there has been no change in TR severity. The right ventricular systolic pressure is estimated at 59 mmHg assuming a right atrial pressure of 15 mm Hg. Compared to the prior echo exam, there has been an increase in the severity of pulmonary hypertension. Pulmonic Valve: The pulmonic valve leaflets are thin and pliable; valve motion is normal. There is a trace or physiologic amount of pulmonic regurgitation. There is no other significant valvular heart disease. Great Vessels: The aortic root is normal size. The dimensions of the ascending aorta are normal. The pulmonary artery is normal size. The IVC is dilated (diameter is greater than 2.1 cm) and it collapses less than 50% with a sniff. This suggests a high right atrial pressure of 15 mm Hg. Pericardium/ Pleura There is no pericardial effusion. There is no pleural effusion. MMode/2D Measurements & Calculations LVIDd: 4.3 cm RA long axis LVOT diam: 1.7 cm LVIDs: 3.3 cm LA A2 area: 22.4 cm AoV Opening FS: 22.1 % LA A4 area: 27.1 cm RA area IVSd: 0.77 cm LA length (vol) Ao root diam LVPWd: 0.60 cm : 24.9 cm LA vol: 84.5 ml RA vol asc Aorta Diam LA vol index : 75.3 ml RA Ao Arch Diam (Prox : 47.0 mm2 Trans): 2.9 cm IVC diam: 2.1 cm LV sanchez. diameter/BSA LV sys. diameter/BSA (cm/m^2): 2.7 (cm/m^2): 2.1 Doppler Measurements & Calculations Ao V2 max MV E max villa TR max villa Ao V2 mean : 152.6 cm/sec : 100.9 cm/sec : 334.4 cm/sec : 108.2 cm/sec Ao max PG TR max PG Ao V2 VTI : 9.4 mmHg : 44.8 mmHg Ao mean PG CARMINE(V,D): 1.6 cm2 LVOT Max Villa : 105.5 cm/sec CARMINE(I,D): 1.8 cm sev ratio LV V1 max PG CARMINE indexed to BSA (cm^2/m^2): 1.1 LV V1 VTI: 15.9 cm Reading Physician:PM Assessment & Plan . Patient is a 71 year old female with a history of hemochromatosis, epilepsy, COPD on home 2L O2, CHF, stage III chronic kidney disease, and chronic atrial fibrillation admitted with acute respiratory distress and fever. 1. Acute on chronic Respiratory Failure : Due to Pneumonia/HCAP. ? COPD exacerbation - - Continue IV ceftriaxone and by mouth doxycycline per ID recommendation/ - Case discussed with Dr. Posey -Continue nebulizer, bronchodilator, Supplemental oxygen, PRN BPAP , IV steroid 2. Health care associated pneumonia, acute, POA -Antibiotics as an #1 3. LOLIS, acute, POA -history of CKD stage III - Continue monitor renal function and electrolytes closely - Avoid nephrotoxic agents. Creat slightly better today 4. Chronic compensated diastolic heart failure, acute, POA - Patient has no clinical evidence of decompensated heart failure - 5. Elevated troponin, acute, POA -likely secondary to LOLIS and demand ischemia. - Patient has no angina . She is not a candidate for intervention anyway . Troponin is mildly elevated 6. Hypokalemia : Replace electrolytes PRN 7. Acute toxic encephalopathy versus hepatic encephalopathy, POA. : Improved 8. Chronic Persistent Atrial fibrillation, POA - telemetry - Metoprolol Succinate for rate control 9. Thrombocytopenia, acute, not present on admission : Probably secondary to infection. Platelet count 106 today and improving HIT antibody is pending Avoid Heparin products. SCD for DVT prophylaxis 10. Nutrition Clear to start mechanical dysphagia diet per speech therapy and swallow eval yesterday. Feed with assistance 11. COPD exacerbation, acute, present on admission Continue nebulizer, oxygen supplement, pulmonary toilets Continue IV steroid 9. Epilepsy, chronic. Presumed stable - Continue prophylactic antiepileptic medications: Phenytoin 10. Chronic hypoxic respiratory failure, chronic 11. Hemochromatosis with liver cirrhosis, POA. 12. Hepatitis C. POA. Macrocytic anemia, chronic -continue to monitor -h&h are at baseline dnights. Patient stated she is feeling better today and has more energy but she is still very sick and severely debilitated from pulmonary standpoint . I have a long talk with her daughter at bedside regarding her poor prognosis , regardless of her somewhat improvement overnight She remains very fragile and I doubt she will be back to her baseline . Will continue with nebulizer, antibiotics, bronchodilator, steroid as describe above . Her oral intake is quite poor but she seems to like pudding and ice cream . I try to feed er myself and she ate a whole cup . I discuee with her nurse to be liberal in her diet , as longer the consistency remains in the scope of the recommendation of by speech and swallow. Leukocytosis is due to steroids Patient is DNR/DNI Pain Evaluation: Adequate Pain Control VTE Prophylaxis: SCDs Resuscitation Status: DNR/DNI:Do Not Resuscitate/Intubate Time spent 35 minutes He Amin MD Jan 17, 2017 10:19
--- NOTE | 2017-01-17 13:20 | NUR ---
Social Work: Continued Discharge Planning D: Pt discussed in am rounds. Pt continues to require 6-7L 02 via oxy mask. Per MD pt is "very sick and severely debilitated from pulmonary standpoint" and may not survive hospitalization. Pt is now DNR/DNI. MAINFRAME DEVELOPER attempted to meet with pt at bedside. Pt laying supine with oxygen in place. Pt not alert, does not open eyes and does not respond to my verbal requests to speak. Pt's daughter, Teresita Rebolledo, is at bedside. MAINFRAME DEVELOPER provided emotional support and reviewed possible discharge possibilities if pt's clinical course improves. Dtr states that the family has unanimously decided that the pt will not be going back to [facility] or to any other skilled rehab facilities. Family plan is for the pt's grandson, Yovani, to take the pt to his home and provide care. At this point further discharge planning has been tabled as pt's status is still tenuous and unknown. A: Pt who was at [facility] for rehab and previously lived at home alone. P: Evolving; pt with poor prognosis. MAINFRAME DEVELOPER to follow closely for discharge planning needs; r/o supportive services from home health versus hospice. ISHAN Rosas
--- NOTE | 2017-01-17 13:30 | NUR ---
[facility] Signed
--- NOTE | 2017-01-17 13:55 | NUR ---
NUTRITION FOLLOW-UP ASSESS: 71 YO female admitted to CCU with pneumonia and sepsis. ST evaluated pt and placed her on Dysphagia mechanical w/NT liquids, which she appears to be tolerating. She was very tachypneic overnight and tachycardic. She improved with Lasix x 2 for a total of 50 mg IV. Patient stated she is feeling better today and has more energy, but she is still very sick and severely debilitated from pulmonary standpoint. Prognosis guarded at this point. Code status: DNR / DNI. PMHX: Cirrhosis, Hep C, CHF, COPD, HTN, Afib, Seizures LABS: Reviewed. BUN 61, Cr 1.45, Glu 129, AST 54, Alb 2.8, Procalcitonin 4.35. MEDS: Reviewed. Lasix, lopressor, solu-medrol. GI: BM x 1 (01/16). SKIN: Ruperto 14. WT: 58.3 kg, BMI 22.0 kg/m2, admit wt 57.4kg DIET: Dysphagia mechanical. PO intake 50-75% trays. EST. NEEDS: Kcals: 1435-1725kcal/day (25-30kcal/kg) Pro: 70-85g/day (1.2-1.5g/kg) NUTRITION DIAGNOSIS: 1) Inadequate oral intake related to decreased ability to consume sufficient energy as evidenced by current NPO status - IMPROVED. 2) Chew/swallow difficulty related to weakness and poor dentition as evidence by need for dysphagia mechanical diet texture - PERSISTS. NUTRITION INTERVENTION: 1) Continue diet per ST. 2) Will continue Magic Cup on L and D trays and monitor for PO intake. MONITOR / EVAL: ST,PO intake, wt, labs, POC, nutrition status. Will continue to monitor per moderate nutrition risk guidelines.
[2017-01-17] MEDS: LORazepam 0.5 mg Tablet PO PRN (17:04)
--- NOTE | 2017-01-17 18:34 | NUR ---
Mentation/O2 Patient alert and oriented to self only. Continued to grab at things not there and talk about things on the broussard and ceiling. Patient daughter at bedside and states her mother is not usually this confused. Patient pleasant and compliant for most of shift. Late afternoon she became agitated, trying to get out of bed, pulling at Oxymax and IV lines. PRN 0.5mg lorazepam PO given with good effect, patient calmed down. Patient has bee on 4-6 L Oxymax for most of shift with SpO2 maintaining around 90%. Per MD patient should be kept between 88-92% SpO2
--- NOTE | 2017-01-17 23:37 | NUR ---
Somnolence Patient extremely somnolent; rouses briefly to repeated stimuli. Family states that patient "finally" went to sleep and had been up for a while. Evening PO meds held as patient not able to follow directions sufficiently for safe swallowing. Continue to monitor.
[2017-01-18] VITALS (12 sets, daily range): BP systolic 145–178; BP diastolic 79–97; PULSE 63–132; RESP 18–28; O2SAT 88–97
[2017-01-18] MEDS: MethylprednisoLONE Sodium Succinate 62.5 mg/mL 2 mL Inj IVPUSH SCH ×3 (01:04→17:10)
[2017-01-18] MEDS: LORazepam 0.5 mg Tablet PO PRN (01:35)
[2017-01-18] MEDS: Albuterol-Ipratropium 3 mL Inhalation Solution NEB SCH ×4 (04:35→20:44)
[2017-01-18 05:47] LABS: BASOPHILS % (AUTO) 0.1 % (0-3); EOSINOPHILS % (AUTO) 0 % (0-5); MONOCYTES % (AUTO) 2.3 % (4-12); Mean Corpuscular Hemoglobin 32.9 pg (27.0-35.0); Mean Corpuscular Volume 104.4 fL (81-100); Platelet Count 110 bil/L (150-400)
[2017-01-18] MEDS: cefTRIAXone Inj 2,000 MG in Dextrose 5% Minibag Plus 50 ML IV SCH (07:11)
[2017-01-18] MEDS: PHENYTOIN 30 MG PO SCH ×3 (08:30→20:30)
[2017-01-18] MEDS: Diltiazem 5 mg/mL 5 mL Inj IVPUSH PRN ×2 (11:54→14:12)
--- NOTE | 2017-01-18 12:10 | PCM.PNMED ---
Subjective Date of Service Jan 18, 2017 Subjective Patient seen and examined at bedside . She is quite lethargic and less interactive today . I am unable to interview her. PO intake is worse per report . She is quite tachycardic , requiring diltiazem IV for rate control. Unable to take PO metoprolol for rate control . Exam Vital Signs Vital Sign - Last Date Time Temp Pulse Resp B/P Pulse Ox O2 Delivery O2 Flow Rate FiO2 01/18/17 11:51 36.8 126 28 178/97 90 OxyMask 4.00 01/16/17 23:40 96 Intake and Output 01/17/17 01/17/17 01/18/17 Cumulative From/Thru 15:00 23:00 07:00 01/12/17 20:19 - 01/18/17 05:09 Intake Total 280 ml 20 ml 6105 ml Output Total 1 ml 1152 ml Balance 279 ml 20 ml 4953 ml Intake Oral 270 ml 20 ml 3300 ml IV Total 10 ml 2805 ml Output Urine Total 1 ml 1152 ml # Voids 1 7 # Bowel Movements 1 3 Exam Constitutional: Ill appearing female. Lethargic. NAD HEENT : Normocephalic atraumatic, sclerae is anicteric Neck : Supple, No JVD, no stridor, trachea is midline Mouth : Dry oral mucosae. Chest:Shallow respiratory effort, no chest wall deformities Lung : B/L crackles and wheezes. + rochi. decreased air entry bilaterally Heart : : Irregular regular rate and rhythm tachycardic, S1-S2 Abdomen: Soft, nontender, Non distended, bowel sounds present Extremities: No cyanosis, no clubbing , no calf tenderness. Neuro: Lethargic. No acute deficit IVs and Medications Medications Reviewed: Medications were reviewed in detail Lab and Diagnostics Result Diagram: 01/18/1751401/18/17514 X-Rays, CTs and MRIs Patient Name: JEANNETTE OCHOA MR#: [id number] Location: [facility] [place] Ordering Phys: LOUANN ROSE MD Date of Service: 01/12/172017 PROCEDURE: X-RAY CHEST ONE VIEW, PORTABLE ([id number]) INDICATIONS: FEVER, COUGH TECHNIQUE: One view of the chest was acquired. COMPARISON: [facility], CR, XR CHEST 1VW (PORTABLE), 12/20/2016, 2: 21. [facility], CR, XR CHEST 1VW, 12/20/2016, 7:13. FINDINGS: Surgical changes and devices: None. Lungs and pleura: There is patchy areas of opacity within the right upper and lower lobes, new compared to prior exam. Anterior opacities also noted in the left upper lobe and retrocardiac region. Mediastinum: Mediastinal contours appear normal. Heart size is normal. Bones and chest wall: No suspicious bony lesions. Overlying soft tissues appear unremarkable. IMPRESSION: Bilateral areas of focal opacity most prominent in the retrocardiac and right upper lobes as above. Findings are suspicious for multifocal pneumonia. There is underlying edema and/or atelectasis cannot be excluded. Patient Name: JEANNETTE OCHOA MR#: [id number] Location: [facility] Ordering Phys: Adrien Chua MD Date of Service: 01/14/17 0500 PROCEDURE: X-RAY CHEST ONE VIEW, PORTABLE ([id number]) INDICATIONS: dyspnea TECHNIQUE: One view of the chest was acquired. COMPARISON: [facility], CR, XR CHEST 1VW (PORTABLE), 01/12/2017, 20: 15. FINDINGS: Surgical changes and devices: None. Lungs and pleura: There is patchy areas of opacity within the right upper and lower lobes, new compared to prior exam. Anterior opacities also noted in the left upper lobe and retrocardiac region. Mediastinum: Mediastinal contours appear normal. Heart size is normal. Bones and chest wall: No suspicious bony lesions. Overlying soft tissues appear unremarkable. IMPRESSION: No significant change from prior examination suggestive of multifocal pneumonia and/or pulmonary edema. Recommend clinical correlation. Dictated by: Nuno Chatterjee RRA Interpreted: Leigh Babb MD on 01/14/2017 at 9:09 Transcribed by: JOSÉ MANUEL on 01/14/2017 at 9:10 Approved by: Leigh aBbb M.D. on 01/14/2017 at 16:32 Cardiac Echo Impressions Echocardiogram Report Name: JEANNETTE OCHOA LStudy Date: 06/2017 Height: 64 in Hospital Exam Location: [facility] Weight: 125 lb Gender: Female BSA: 1.6 m2 : 1945 Age: 71 yrs BP: 116/74 mmHg Reason For Study: Dyspnea Ordering Physician: HOSPITALIST SVHPerformed By: Maciel Moraes Referring Physician: ADRIEN CHUA Interpretation Summary The patient was in atrial fibrillation with rapid ventricular response during the exam with a heart rate exceeding 100 bpm. The heart rate ranged between 144-184 bpm during the study. The left ventricle is normal in size. The left ventricle is hyperdynamic. The ejection fraction is estimated to be >80%. Left ventricular wall motion is normal. The right ventricle is borderline dilated. The right ventricular systolic function is normal. The right ventricular systolic pressure is estimated at 59 mmHg assuming a right atrial pressure of 15 mm Hg. Compared to the prior echo exam, there has been an increase in the severity of pulmonary hypertension. The left atrium is severely dilated. The right atrium is moderate to severely dilated. There is mild to moderate mitral regurgitation. Compared to the prior echo study, there has been an increase in the severity of mitral regurgitation. There is severe tricuspid regurgitation. Compared to the prior echo exam, there has been no change in TR severity. There is no other significant valvular heart disease. The aortic root is normal size. Procedure: A two-dimensional transthoracic echocardiogram with color flow and Doppler was performed. The study quality was technically adequate. Comparison is made with the echocardiogram of 09/29/16. The patient was in atrial fibrillation with rapid ventricular response during the exam with a heart rate exceeding 100 bpm. The heart rate ranged between 144-184 bpm during the study. Left Ventricle: The left ventricle is normal in size. There is normal left ventricular wall thickness. Proximal septal thickening is noted. The left ventricle is hyperdynamic. The ejection fraction is estimated to be >80%. Left ventricular wall motion is normal. Right Ventricle: The right ventricle is borderline dilated. The right ventricular systolic function is normal. Atria: The left atrium is severely dilated. The right atrium is moderate to severely dilated. The interatrial septum is intact with no evidence for an atrial septal defect. Mitral Valve: The mitral valve leaflets appear to open well. There is mild to moderate mitral regurgitation. Compared to the prior echo study, there has been an increase in the severity of mitral regurgitation. Aortic Valve: The aortic valve is normal in structure and function. There is no hemodynamically significant valvular aortic stenosis. There is trace aortic regurgitation. Tricuspid Valve: The tricuspid valve leaflets are thickened and/or calcified, but open well. There is severe tricuspid regurgitation. Compared to the prior echo exam, there has been no change in TR severity. The right ventricular systolic pressure is estimated at 59 mmHg assuming a right atrial pressure of 15 mm Hg. Compared to the prior echo exam, there has been an increase in the severity of pulmonary hypertension. Pulmonic Valve: The pulmonic valve leaflets are thin and pliable; valve motion is normal. There is a trace or physiologic amount of pulmonic regurgitation. There is no other significant valvular heart disease. Great Vessels: The aortic root is normal size. The dimensions of the ascending aorta are normal. The pulmonary artery is normal size. The IVC is dilated (diameter is greater than 2.1 cm) and it collapses less than 50% with a sniff. This suggests a high right atrial pressure of 15 mm Hg. Pericardium/ Pleura There is no pericardial effusion. There is no pleural effusion. MMode/2D Measurements & Calculations LVIDd: 4.3 cm RA long axis LVOT diam: 1.7 cm LVIDs: 3.3 cm LA A2 area: 22.4 cm AoV Opening FS: 22.1 % LA A4 area: 27.1 cm RA area IVSd: 0.77 cm LA length (vol) Ao root diam LVPWd: 0.60 cm : 24.9 cm LA vol: 84.5 ml RA vol asc Aorta Diam LA vol index : 75.3 ml RA Ao Arch Diam (Prox : 47.0 mm2 Trans): 2.9 cm IVC diam: 2.1 cm LV sanchez. diameter/BSA LV sys. diameter/BSA (cm/m^2): 2.7 (cm/m^2): 2.1 Doppler Measurements & Calculations Ao V2 max MV E max villa TR max villa Ao V2 mean : 152.6 cm/sec : 100.9 cm/sec : 334.4 cm/sec : 108.2 cm/sec Ao max PG TR max PG Ao V2 VTI : 9.4 mmHg : 44.8 mmHg Ao mean PG CARMINE(V,D): 1.6 cm2 LVOT Max Villa : 105.5 cm/sec CARMINE(I,D): 1.8 cm sev ratio LV V1 max PG CARMINE indexed to BSA (cm^2/m^2): 1.1 LV V1 VTI: 15.9 cm Reading Physician:PM Assessment & Plan . Patient is a 71 year old female with a history of hemochromatosis, epilepsy, COPD on home 2L O2, CHF, stage III chronic kidney disease, and chronic atrial fibrillation admitted with acute respiratory distress and fever. 1. Acute on chronic Respiratory Failure : Due to Pneumonia/HCAP. ? COPD exacerbation - Unchanged from respiratory standpoint - Continue IV ceftriaxone and by mouth doxycycline per ID recommendation/ -Continue nebulizer, bronchodilator, Supplemental oxygen, PRN BPAP , IV steroid 2. Health care associated pneumonia, acute, POA -Antibiotics as an #1 3. LOLIS, acute, POA - history of CKD stage III, Creat seems to plateaued to 1.4 - Continue monitor renal function and electrolytes closely - Avoid nephrotoxic agents. 4. Chronic compensated diastolic heart failure, acute, POA 5. Elevated troponin, acute, POA -likely secondary to LOLIS and demand ischemia. 6. Hypokalemia : Improved. Replace electrolytes PRN 7. Acute toxic and metabolic encephalopathy :POA. : Somewhat Improved 8. Chronic Persistent Atrial fibrillation, POA - PRN IV cardizem for HR above 110 - Metoprolol Succinate for rate control 9. Thrombocytopenia, acute, not present on admission : Probably secondary to infection. Platelet count 110 and continue to improve. HIT antibody is pending Avoid Heparin products. SCD for DVT prophylaxis 10. Nutrition Mechanical dysphagia diet per speech therapy and swallow Feed with assistance . PO intake is very poor. 11. COPD exacerbation, acute, present on admission Continue nebulizer, oxygen supplement, pulmonary toilets Continue IV steroid and taper 9. Epilepsy, chronic. Presumed stable - On Phenytoin for seizure prophylaxis 10. Chronic hypoxic respiratory failure, chronic 11. Hemochromatosis with liver cirrhosis, POA. 12. Hepatitis C. POA. Macrocytic anemia, chronic -continue to monitor -h&h are at baseline dnights. Clinically deteriorating . Will discussed with family members about comfort measures Prognosis is very poor Patient is DNR/DNI VTE Prophylaxis: SCDs VTE Mechanical Devices: Intermittant Pneumatic CD Resuscitation Status: DNR/DNI:Do Not Resuscitate/Intubate Time spent 35 minutes He Amin MD Jan 18, 2017 12:10
[2017-01-18] MEDS: hydrALAZINE 20 mg/mL Inj IV PRN (12:52)
--- NOTE | 2017-01-18 16:12 | NUR ---
Activity/Restraints Patient somnolent this morning, minimal response to verbal stimuli/light touch. Around noon patient became agitated, pulling at O2, IV lines, trying to climb out of bed. Family at bedside unable to calm her down. Patient placed in soft wrist restraints per MD order. patient continued to attempt to slide out of bed and pulling at her restraints. 0.5mg lorazepam IV ordered and given. Patient calmer now but still restless and pulling at restraints and repeatedly asking us to take her nasal canula off.
[2017-01-18] MEDS ORDERED: MeTOProlol 1 mg/mL 5 mL Inj IVPUSH PRN (16:55)
--- NOTE | 2017-01-18 17:26 | NUR ---
Tachycardia/ Hypertension Patient tele reading afib in 120s-140s. Systolic BP in the 150s-170s. PRN IV hydralazine, diltiazem and metoprolol given as ordered. Will continue to monitor closely.
[2017-01-19] VITALS (13 sets, daily range): BP systolic 155–198; BP diastolic 73–98; PULSE 68–126; RESP 20–28; O2SAT 89–100
[2017-01-19] MEDS: Albuterol-Ipratropium 3 mL Inhalation Solution NEB SCH ×4 (02:38→20:43)
[2017-01-19] MEDS: MethylprednisoLONE Sodium Succinate 62.5 mg/mL 2 mL Inj IVPUSH SCH ×3 (02:53→16:56)
[2017-01-19] MEDS ORDERED: 0.9% Sodium Chloride 100 ML ONE (03:02)
[2017-01-19 05:30] LABS: BASOPHILS % (AUTO) 0.2 % (0-3); EOSINOPHILS % (AUTO) 0 % (0-5); MONOCYTES % (AUTO) 2.3 % (4-12); Mean Corpuscular Hemoglobin 32.5 pg (27.0-35.0); Mean Corpuscular Volume 105.2 fL (81-100); NEUTROPHILS % (AUTO) 95.3 % (40-74); Platelet Count 115 bil/L (150-400)
[2017-01-19] MEDS: cefTRIAXone Inj 2,000 MG in Dextrose 5% Minibag Plus 50 ML IV SCH (06:24)
--- NOTE | 2017-01-19 06:33 | NUR ---
BP/HR/O2/Swallow Pt's SBP has remained in the 140s-150s and no IV pushes have been given. Pt's HR has been A-Fib 100s-140s with an instance of the 150s but pt does not maintain a high HR and no IV pushes have been given. Pt has consistently been pulling off oxymask which was applied to the pt due to consistent mouth-breathing. When pt desats that is when the pt's HR increases and jumps up and the HR decreases once the pt's SpO2 is back within range and pt is able to calm down. Pt is currently on 2.5L oxymask with SpO2 92%. Pt has not been able to follow commands and has been unable to take anything PO without risk of choking. All PO medications have been withheld due to aspiration risk.
--- NOTE | 2017-01-19 08:19 | PROG NOTE ---
[address] [address] PROGRESS NOTE PATIENT: JEANNETTE OCHOA : 1945 MR#: [id number] ADMIT: 01/13/2017 JOB ID: [id number] DATE: 01/19/2017 REASON FOR FOLLOWUP: Bacteremic pneumococcal pneumonia, with respiratory failure. INTERVAL HISTORY: Over the weekend, the patient has remained quite ill. She is not quite as severely ill this morning as she was on Thursday when I had discussed the case with the hospitalist because of my concern she might be acutely declining and nearing respiratory failure that would require intubation or result in her . Nonetheless, this morning, the patient continues to complain of shortness of breath, minimal cough and a strong desire to get out of the hospital. She does not have fevers or chills. She has not had diarrhea and does not complain about abdominal pain today. She still requires face mask O2, and this was discussed at the bedside with respiratory therapist. Of note, her oxygen requirements are actually slowly improving. PHYSICAL EXAMINATION: Reveals a chronically ill-appearing woman with face mask oxygen in place but she is only getting down to 1 L at this point. She is a bit agitated but able to answer some questions as indicated above. Temperature 36.3, and she has been afebrile. Pulse 100, respiratory rate in the mid 20s. Blood pressure 156/92. Examination of the head reveals no trauma. The eyes without scleral icterus. The mucous membranes a bit dry. Lungs with scattered rales and rhonchi bilaterally. A bit of a difficult exam as the patient is moving quite a bit. Cardiac tones rapid. Irregular rate and rhythm without murmur. The abdomen is slightly distended, and nontender. She is not having diarrhea. She has no skin rash. LABORATORIES: Include a steadily increasing white count, was normal at 7900, but with 5% bands on Thursday. Today, it is up to 24,000, but it is worth noting the patient has been on steroids because she is also having a COPD exacerbation in association with her bacteremic pneumococcal pneumonia. Her creatinine is improved at 1.15. Her LFTs are normal. Procalcitonin continues to fall from a peak of 15 on admission down to 1.87 today. Urinalysis had a 6-10 white cells on admission, and grew Enterococcus. As she had no urinary symptoms, we have not treated this. Hepatitis C antibody is positive. We await the viral load. Micro includes the positive blood cultures for a penicillin sensitive pneumococcus. Urine had grown Enterococcus which was ampicillin susceptible. MRSA screen was negative. Chest x-ray from the was our last one shows persistent bilateral infiltrates. IMPRESSION: This patient appears a bit better than she did on Thursday, the . However, she still remains in fairly significant respiratory distress with an elevated respiratory rate as well as ongoing tachycardia. Her white blood count is perplexing in that it has almost tripled over the past 72 hours, even as she has improved a bit, and I think this likely reflects the steroid she is receiving as we no longer have any bandemia and her procalcitonin is falling even as her white count rises. Other possible sources for her worsening leukocytosis would include pneumococcal endocarditis, empyema, or another infectious process such as line infection, Clostridium diff or fungemia, but I think all of these are clinically unlikely at this time in this slowly improving patient. RECOMMENDATIONS: 1. I will continue with ceftriaxone and continue to closely follow her procalcitonin. 2. We can go ahead and discontinue her doxycycline as she is basically unable to take it at this point in any event, and she has had it several days. 3. Repeat urinalysis and culture will be done. 4. If the patient fails to significantly improve over the next 24-48 hours, we will consider a CT scan of the chest without contrast to look for evidence of empyema. 5. Will continue to closely follow this patient with you.
[2017-01-19] MEDS: PHENYTOIN 30 MG PO SCH ×3 (08:30→20:30)
--- NOTE | 2017-01-19 10:48 | NUR ---
mentation/restraints/Respiratory pt drowsy, confused. able to state name however repetitive with birthdate. pt stating "I don't want to be sick anymore." restless. PO intake given. pericare. Pt with bilateral soft wrist restrainsts. pt pulling at oxygen and to protect lines. IVF infusing. Oxygen titrated to keep 88-92%, pt maintaining saturation with NC at this time. Forehead O2 probe changed location for skin protection. care continues.
[2017-01-19] MEDS ORDERED: Dextrose 5% 0.9% NaCl 1,000 ML IV SCH (10:50)
--- NOTE | 2017-01-19 11:12 | PCM.PNMED ---
Subjective Date of Service Jan 19, 2017 Subjective Patient seen and examined at bedside . She is very agitated today and has been on wrist restraint to prevent pulling out IV line, oxygen and self injury . No fever, no chills. No vomiting. PO intake is still very on mechanical soft diet . Exam Vital Signs Vital Sign - Last Date Time Temp Pulse Resp B/P Pulse Ox O2 Delivery O2 Flow Rate FiO2 01/19/17 10:42 126 01/19/17 08:00 Supplement Oxygen 01/19/17 08:00 24 181/98 95 2.50 01/19/17 03:25 36.3 01/16/17 23:40 96 Intake and Output 01/18/17 01/18/17 01/19/17 Cumulative From/Thru 15:00 23:00 07:00 01/12/17 20:19 - 01/19/17 06:12 Intake Total 90 ml 0 ml 6195 ml Output Total 1152 ml Balance 90 ml 0 ml 5043 ml Intake Oral 90 ml 0 ml 3390 ml IV Total 2805 ml Output Urine Total 1152 ml # Voids 2 2 11 # Bowel Movements 1 4 Exam Constitutional:Lethargic and agitated, on soft wrist restraint to prevent self injury. HEENT : Normocephalic atraumatic, sclerae is anicteric Neck : Supple, No JVD, no stridor, trachea is midline Chest:Shallow respiratory effort, no chest wall deformities Lung : B/L crackles and wehezes. + ronchi. decreased air entry bilaterally Heart : : Irregular regular rate and rhythm tachycardic Abdomen: Soft, nontender, Non distended, bowel sounds present Extremities: No cyanosis, no clubbing , no calf tenderness. On wrist restraint Neuro: lethargic and agitated IVs and Medications Medications Reviewed: Medications were reviewed in detail Lab and Diagnostics Result Diagram: 01/19/17 0500 01/19/17 0500 X-Rays, CTs and MRIs Patient Name: JEANNETTE OCHOA MR#: [id number] Location: [facility] [place] Ordering Phys: MILTON, LOUANN LOPEZ Date of Service: 01/12/172017 PROCEDURE: X-RAY CHEST ONE VIEW, PORTABLE ([id number]) INDICATIONS: FEVER, COUGH TECHNIQUE: One view of the chest was acquired. COMPARISON: [facility], CR, XR CHEST 1VW (PORTABLE), 12/20/2016, 2: 21. [facility], CR, XR CHEST 1VW, 12/20/2016, 7:13. FINDINGS: Surgical changes and devices: None. Lungs and pleura: There is patchy areas of opacity within the right upper and lower lobes, new compared to prior exam. Anterior opacities also noted in the left upper lobe and retrocardiac region. Mediastinum: Mediastinal contours appear normal. Heart size is normal. Bones and chest wall: No suspicious bony lesions. Overlying soft tissues appear unremarkable. IMPRESSION: Bilateral areas of focal opacity most prominent in the retrocardiac and right upper lobes as above. Findings are suspicious for multifocal pneumonia. There is underlying edema and/or atelectasis cannot be excluded. Patient Name: JEANNETTE OCHOA MR#: [id number] Location: [facility] Ordering Phys: Adrien Chua MD Date of Service: 01/14/17 0500 PROCEDURE: X-RAY CHEST ONE VIEW, PORTABLE ([id number]) INDICATIONS: dyspnea TECHNIQUE: One view of the chest was acquired. COMPARISON: [facility], CR, XR CHEST 1VW (PORTABLE), 01/12/2017, 20: 15. FINDINGS: Surgical changes and devices: None. Lungs and pleura: There is patchy areas of opacity within the right upper and lower lobes, new compared to prior exam. Anterior opacities also noted in the left upper lobe and retrocardiac region. Mediastinum: Mediastinal contours appear normal. Heart size is normal. Bones and chest wall: No suspicious bony lesions. Overlying soft tissues appear unremarkable. IMPRESSION: No significant change from prior examination suggestive of multifocal pneumonia and/or pulmonary edema. Recommend clinical correlation. Dictated by: Nuno NAPIER Interpreted: Leigh Babb MD on 01/14/2017 at 9:09 Transcribed by: JOSÉ MANUEL on 01/14/2017 at 9:10 Approved by: Leigh Babb M.D. on 01/14/2017 at 16:32 Cardiac Echo Impressions Echocardiogram Report Name: JEANNETTE OCHOA LStudy Date: 06/2017 Height: 64 in Hospital Exam Location: [facility] Weight: 125 lb Gender: Female BSA: 1.6 m2 : 1945 Age: 71 yrs BP: 116/74 mmHg Reason For Study: Dyspnea Ordering Physician: HOSPITALIST SVHPerformed By: Maciel Moraes Referring Physician: ADRIEN CHUA Interpretation Summary The patient was in atrial fibrillation with rapid ventricular response during the exam with a heart rate exceeding 100 bpm. The heart rate ranged between 144-184 bpm during the study. The left ventricle is normal in size. The left ventricle is hyperdynamic. The ejection fraction is estimated to be >80%. Left ventricular wall motion is normal. The right ventricle is borderline dilated. The right ventricular systolic function is normal. The right ventricular systolic pressure is estimated at 59 mmHg assuming a right atrial pressure of 15 mm Hg. Compared to the prior echo exam, there has been an increase in the severity of pulmonary hypertension. The left atrium is severely dilated. The right atrium is moderate to severely dilated. There is mild to moderate mitral regurgitation. Compared to the prior echo study, there has been an increase in the severity of mitral regurgitation. There is severe tricuspid regurgitation. Compared to the prior echo exam, there has been no change in TR severity. There is no other significant valvular heart disease. The aortic root is normal size. Procedure: A two-dimensional transthoracic echocardiogram with color flow and Doppler was performed. The study quality was technically adequate. Comparison is made with the echocardiogram of 09/29/16. The patient was in atrial fibrillation with rapid ventricular response during the exam with a heart rate exceeding 100 bpm. The heart rate ranged between 144-184 bpm during the study. Left Ventricle: The left ventricle is normal in size. There is normal left ventricular wall thickness. Proximal septal thickening is noted. The left ventricle is hyperdynamic. The ejection fraction is estimated to be >80%. Left ventricular wall motion is normal. Right Ventricle: The right ventricle is borderline dilated. The right ventricular systolic function is normal. Atria: The left atrium is severely dilated. The right atrium is moderate to severely dilated. The interatrial septum is intact with no evidence for an atrial septal defect. Mitral Valve: The mitral valve leaflets appear to open well. There is mild to moderate mitral regurgitation. Compared to the prior echo study, there has been an increase in the severity of mitral regurgitation. Aortic Valve: The aortic valve is normal in structure and function. There is no hemodynamically significant valvular aortic stenosis. There is trace aortic regurgitation. Tricuspid Valve: The tricuspid valve leaflets are thickened and/or calcified, but open well. There is severe tricuspid regurgitation. Compared to the prior echo exam, there has been no change in TR severity. The right ventricular systolic pressure is estimated at 59 mmHg assuming a right atrial pressure of 15 mm Hg. Compared to the prior echo exam, there has been an increase in the severity of pulmonary hypertension. Pulmonic Valve: The pulmonic valve leaflets are thin and pliable; valve motion is normal. There is a trace or physiologic amount of pulmonic regurgitation. There is no other significant valvular heart disease. Great Vessels: The aortic root is normal size. The dimensions of the ascending aorta are normal. The pulmonary artery is normal size. The IVC is dilated (diameter is greater than 2.1 cm) and it collapses less than 50% with a sniff. This suggests a high right atrial pressure of 15 mm Hg. Pericardium/ Pleura There is no pericardial effusion. There is no pleural effusion. MMode/2D Measurements & Calculations LVIDd: 4.3 cm RA long axis LVOT diam: 1.7 cm LVIDs: 3.3 cm LA A2 area: 22.4 cm AoV Opening FS: 22.1 % LA A4 area: 27.1 cm RA area IVSd: 0.77 cm LA length (vol) Ao root diam LVPWd: 0.60 cm : 24.9 cm LA vol: 84.5 ml RA vol asc Aorta Diam LA vol index : 75.3 ml RA Ao Arch Diam (Prox : 47.0 mm2 Trans): 2.9 cm IVC diam: 2.1 cm LV sanchez. diameter/BSA LV sys. diameter/BSA (cm/m^2): 2.7 (cm/m^2): 2.1 Doppler Measurements & Calculations Ao V2 max MV E max villa TR max villa Ao V2 mean : 152.6 cm/sec : 100.9 cm/sec : 334.4 cm/sec : 108.2 cm/sec Ao max PG TR max PG Ao V2 VTI : 9.4 mmHg : 44.8 mmHg Ao mean PG CARMINE(V,D): 1.6 cm2 LVOT Max Villa : 105.5 cm/sec CARMINE(I,D): 1.8 cm sev ratio LV V1 max PG CARMINE indexed to BSA (cm^2/m^2): 1.1 LV V1 VTI: 15.9 cm Reading Physician:PM Assessment & Plan . Patient is a 71 year old female with a history of hemochromatosis, epilepsy, COPD on home 2L O2, CHF, stage III chronic kidney disease, and chronic atrial fibrillation admitted with acute respiratory distress and fever. 1. Acute on chronic Respiratory Failure : Due to Pneumonia/HCAP/ COPD exacerbation - Patient still tachypneic and on 7 liters of oxygen via nasal canula . -WBC is up but that reflect side effect of steroid , rather than worsening pneumonia/Infection. Procalcitonin is down -Continue nebulizer, bronchodilator, Supplemental oxygen, PRN BPAP , IV steroid. She is end stage respiratory failure/COPD - Discussed with ID Dr. Posey. Doxycycline may be discontinued at this time. Patient mostly NPO due to severe dysphagia 2. Health care associated pneumonia, acute, POA -Antibiotics as in #1 3. LOLIS, acute, POA - history of CKD stage III, Creat seems to plateaued to 1.4 - Continue monitor renal function and electrolytes closely - Avoid nephrotoxic agents. 4. Chronic compensated diastolic heart failure, acute, POA 5. Dsysphagia Prr speech and swallow recommendation . Oral intake very poor . Start cautious Hydration with D5NS @ 50 ml/hr 6. Hypokalemia : Improved. Replace electrolytes PRN 7. Acute toxic and metabolic encephalopathy :POA. Soft restraint 8. Chronic Persistent Atrial fibrillation, POA - PRN IV cardizem for HR above 110 - Metoprolol Succinate for rate control 9. Thrombocytopenia, acute, not present on admission : Secondary to infection. Platelet count 115 and continues to improve. HIT antibody is negative . Resume heparin for DVT prophylaxis SCD for DVT prophylaxis 10. Nutrition Mechanical dysphagia diet per speech therapy and swallow Feed with assistance . PO intake is very poor. IV D5 ns for adequate hydration 11. COPD exacerbation, acute, present on admission Continue nebulizer, oxygen supplement, pulmonary toilets, PRN BIPAP Continue IV steroid and taper 9. Epilepsy, chronic. Presumed stable - On Phenytoin for seizure prophylaxis 10. Chronic hypoxic respiratory failure, chronic 11. Hemochromatosis with liver cirrhosis, POA. 12. Hepatitis C. POA. Macrocytic anemia, chronic -continue to monitor -h&h are at baseline dnights. Clinically deteriorating . I had a meeting yesterday with her POA jose will discuss with the rest of the family members about comfort measures Prognosis is very poor Patient is DNR/DNI VTE Prophylaxis: Sub-Q Heparin (Unfractionated), SCDs VTE Mechanical Devices: Intermittant Pneumatic CD Resuscitation Status: DNR/DNI:Do Not Resuscitate/Intubate Time spent 35 minutes He Amin MD Jan 19, 2017 11:12
--- NOTE | 2017-01-19 14:34 | NUR ---
Oral intake. pt more alert continues to be confused and forgetful. tolerating oral intake. improved swallowing safety with thickened liquids given via spoon. pt able to swallow medications whole with applesauce. pt tolerating 1:1 assistance with po intake. care continues.
[2017-01-19] MEDS: hydrALAZINE 20 mg/mL Inj IV PRN (16:58)
--- NOTE | 2017-01-19 17:00 | NUR ---
BP pt bp elevated, 190/97 prn hydralazine ivp given per md order. will continue to monitor.
[2017-01-19 17:52] LABS: Mean Corpuscular Hemoglobin 33.2 pg (27.0-35.0); Mean Corpuscular Volume 104.5 fL (81-100)
[2017-01-19] MEDS ORDERED: Heparin 5,000 Unit/mL Inj SUBQ SCH (20:30)
[2017-01-20] VITALS (14 sets, daily range): BP systolic 144–195; BP diastolic 73–108; PULSE 66–107; RESP 20–26; O2SAT 92–100
[2017-01-20] MEDS: MethylprednisoLONE Sodium Succinate 62.5 mg/mL 2 mL Inj IVPUSH SCH ×4 (01:08→23:52)
[2017-01-20] MEDS: Albuterol-Ipratropium 3 mL Inhalation Solution NEB SCH ×4 (02:39→20:09)
[2017-01-20 05:33] LABS: BASOPHILS % (AUTO) 0.1 % (0-3); EOSINOPHILS % (AUTO) 0 % (0-5); MONOCYTES % (AUTO) 1.6 % (4-12); Mean Corpuscular Volume 104.6 fL (81-100); NEUTROPHILS % (AUTO) 96.8 % (40-74); Platelet Count 99 bil/L (150-400)
[2017-01-20] MEDS: cefTRIAXone Inj 2,000 MG in Dextrose 5% Minibag Plus 50 ML IV SCH (06:34)
--- NOTE | 2017-01-20 07:29 | NUR ---
Mentation Pt appears drowsy. She is restless. She does not follow commands well. Pt was made NPO due to her LOC. Family (grandson) visited pt last NOC and updated with current condition. He stated he will talk to more family members and will also going to bring DPOA document. No overt complications noted.
[2017-01-20] MEDS: PHENYTOIN 30 MG PO SCH (08:30)
--- NOTE | 2017-01-20 08:44 | PCM.PNMED ---
Subjective Date of Service Jan 20, 2017 Subjective PT is minimally verbal but responsive to verbal cues - aspiration risk - swallow eval today. confusino/agitaiton - will check tsh, ammonia, consider CT head today, focus on BP contorol. pt states she has pain but unable to describe location. BMx 3 yesterday. needs switching of PO meds including dilantin to IV Exam Vital Signs Vital Sign - Last Date Time Temp Pulse Resp B/P Pulse Ox O2 Delivery O2 Flow Rate FiO2 01/20/17 08:27 Supplement Oxygen 01/20/17 08:27 36.6 82 20 169/102 92 01/20/17 07:31 2.00 01/16/17 23:40 96 Intake and Output 01/19/17 01/19/17 01/20/17 Cumulative From/Thru 15:00 23:00 07:00 01/12/17 20:19 - 01/20/17 06:18 Intake Total 900 ml 454 ml 7549 ml Output Total 1152 ml Balance 900 ml 454 ml 6397 ml Intake Oral 520 ml 0 ml 3910 ml IV Total 380 ml 454 ml 3639 ml Output Urine Total 1152 ml # Voids 4 3 18 # Bowel Movements 2 6 Exam Constitutional:Lethargic on soft wrist restraint to prevent self injury. HEENT : Normocephalic atraumatic, sclerae is anicteric, ecchymoses behind R ear Neck : Supple, No JVD, no stridor, trachea is midline Chest:Shallow respiratory effort, no chest wall deformities Lung : B/L fine crackles and wheezes. + rhonchi. Heart : : Irregular rate, no sig murmurs, reg rate Abdomen: Soft, nontender, Non distended, bowel sounds present Extremities: No cyanosis, no clubbing , no calf tenderness. On wrist restraint Neuro: lethargic IVs and Medications Medications Reviewed: Medications were reviewed in detail Lab and Diagnostics Result Diagram: 01/20/1751101/20/17511 X-Rays, CTs and MRIs Patient Name: JEANNETTE OCHOA MR#: [id number] [place] [facility] [place]ing Phys: MILTON, ED Date of Service: 01/12/172017 PROCEDURE: X-RAY CHEST ONE VIEW, PORTABLE ([id number]) INDICATIONS: FEVER, COUGH TECHNIQUE: One view of the chest was acquired. COMPARISON: [facility], CR, XR CHEST 1VW (PORTABLE), 12/20/2016, 2: 21. [facility], CR, XR CHEST 1VW, 12/20/2016, 7:13. FINDINGS: Surgical changes and devices: None. Lungs and pleura: There is patchy areas of opacity within the right upper and lower lobes, new compared to prior exam. Anterior opacities also noted in the left upper lobe and retrocardiac region. Mediastinum: Mediastinal contours appear normal. Heart size is normal. Bones and chest wall: No suspicious bony lesions. Overlying soft tissues appear unremarkable. IMPRESSION: Bilateral areas of focal opacity most prominent in the retrocardiac and right upper lobes as above. Findings are suspicious for multifocal pneumonia. There is underlying edema and/or atelectasis cannot be excluded. Patient Name: JEANNETTE OCHOA MR#: [id number] Location: [facility] Ordering Phys: Adrien Chua MD Date of Service: 01/14/17 0500 PROCEDURE: X-RAY CHEST ONE VIEW, PORTABLE ([id number]) INDICATIONS: dyspnea TECHNIQUE: One view of the chest was acquired. COMPARISON: [facility], CR, XR CHEST 1VW (PORTABLE), 01/12/2017, 20: 15. FINDINGS: Surgical changes and devices: None. Lungs and pleura: There is patchy areas of opacity within the right upper and lower lobes, new compared to prior exam. Anterior opacities also noted in the left upper lobe and retrocardiac region. Mediastinum: Mediastinal contours appear normal. Heart size is normal. Bones and chest wall: No suspicious bony lesions. Overlying soft tissues appear unremarkable. IMPRESSION: No significant change from prior examination suggestive of multifocal pneumonia and/or pulmonary edema. Recommend clinical correlation. Dictated by: Nuno Chatterjee RRMookie Interpreted: Leigh Babb MD on 01/14/2017 at 9:09 Transcribed by: JOSÉ MANUEL on 01/14/2017 at 9:10 Approved by: Leigh Babb M.D. on 01/14/2017 at 16:32 Cardiac Echo Impressions Echocardiogram Report Name: JEANNETTE OCHOA LStudy Date: 06/2017 Height: 64 in Hospital Exam Location: [facility] Weight: 125 lb Gender: Female BSA: 1.6 m2 : 1945 Age: 71 yrs BP: 116/74 mmHg Reason For Study: Dyspnea Ordering Physician: HOSPITALIST SVHPerformed By: Maciel Moraes Referring Physician: ADRIEN CHUA Interpretation Summary The patient was in atrial fibrillation with rapid ventricular response during the exam with a heart rate exceeding 100 bpm. The heart rate ranged between 144-184 bpm during the study. The left ventricle is normal in size. The left ventricle is hyperdynamic. The ejection fraction is estimated to be >80%. Left ventricular wall motion is normal. The right ventricle is borderline dilated. The right ventricular systolic function is normal. The right ventricular systolic pressure is estimated at 59 mmHg assuming a right atrial pressure of 15 mm Hg. Compared to the prior echo exam, there has been an increase in the severity of pulmonary hypertension. The left atrium is severely dilated. The right atrium is moderate to severely dilated. There is mild to moderate mitral regurgitation. Compared to the prior echo study, there has been an increase in the severity of mitral regurgitation. There is severe tricuspid regurgitation. Compared to the prior echo exam, there has been no change in TR severity. There is no other significant valvular heart disease. The aortic root is normal size. Procedure: A two-dimensional transthoracic echocardiogram with color flow and Doppler was performed. The study quality was technically adequate. Comparison is made with the echocardiogram of 09/29/16. The patient was in atrial fibrillation with rapid ventricular response during the exam with a heart rate exceeding 100 bpm. The heart rate ranged between 144-184 bpm during the study. Left Ventricle: The left ventricle is normal in size. There is normal left ventricular wall thickness. Proximal septal thickening is noted. The left ventricle is hyperdynamic. The ejection fraction is estimated to be >80%. Left ventricular wall motion is normal. Right Ventricle: The right ventricle is borderline dilated. The right ventricular systolic function is normal. Atria: The left atrium is severely dilated. The right atrium is moderate to severely dilated. The interatrial septum is intact with no evidence for an atrial septal defect. Mitral Valve: The mitral valve leaflets appear to open well. There is mild to moderate mitral regurgitation. Compared to the prior echo study, there has been an increase in the severity of mitral regurgitation. Aortic Valve: The aortic valve is normal in structure and function. There is no hemodynamically significant valvular aortic stenosis. There is trace aortic regurgitation. Tricuspid Valve: The tricuspid valve leaflets are thickened and/or calcified, but open well. There is severe tricuspid regurgitation. Compared to the prior echo exam, there has been no change in TR severity. The right ventricular systolic pressure is estimated at 59 mmHg assuming a right atrial pressure of 15 mm Hg. Compared to the prior echo exam, there has been an increase in the severity of pulmonary hypertension. Pulmonic Valve: The pulmonic valve leaflets are thin and pliable; valve motion is normal. There is a trace or physiologic amount of pulmonic regurgitation. There is no other significant valvular heart disease. Great Vessels: The aortic root is normal size. The dimensions of the ascending aorta are normal. The pulmonary artery is normal size. The IVC is dilated (diameter is greater than 2.1 cm) and it collapses less than 50% with a sniff. This suggests a high right atrial pressure of 15 mm Hg. Pericardium/ Pleura There is no pericardial effusion. There is no pleural effusion. MMode/2D Measurements & Calculations LVIDd: 4.3 cm RA long axis LVOT diam: 1.7 cm LVIDs: 3.3 cm LA A2 area: 22.4 cm AoV Opening FS: 22.1 % LA A4 area: 27.1 cm RA area IVSd: 0.77 cm LA length (vol) Ao root diam LVPWd: 0.60 cm : 24.9 cm LA vol: 84.5 ml RA vol asc Aorta Diam LA vol index : 75.3 ml RA Ao Arch Diam (Prox : 47.0 mm2 Trans): 2.9 cm IVC diam: 2.1 cm LV sanchez. diameter/BSA LV sys. diameter/BSA (cm/m^2): 2.7 (cm/m^2): 2.1 Doppler Measurements & Calculations Ao V2 max MV E max villa TR max villa Ao V2 mean : 152.6 cm/sec : 100.9 cm/sec : 334.4 cm/sec : 108.2 cm/sec Ao max PG TR max PG Ao V2 VTI : 9.4 mmHg : 44.8 mmHg Ao mean PG CARMINE(V,D): 1.6 cm2 LVOT Max Villa : 105.5 cm/sec CARMINE(I,D): 1.8 cm sev ratio LV V1 max PG CARMINE indexed to BSA (cm^2/m^2): 1.1 LV V1 VTI: 15.9 cm Reading Physician:PM Assessment & Plan . Patient is a 71 year old female with a history of hemochromatosis, epilepsy, COPD on home 2L O2, CHF, stage III chronic kidney disease, and chronic atrial fibrillation admitted with acute respiratory distress and fever. 1. Acute on chronic Respiratory Failure : Due to Pneumonia/HCAP/ COPD exacerbation - Patient weaned from 7 liters of oxygen via nasal canula --> 2L -WBC is up but that reflect side effect of steroid , rather than worsening pneumonia/Infection. Procalcitonin is down -Continue nebulizer, bronchodilator, Supplemental oxygen, PRN BPAP , IV steroid. She is end stage respiratory failure/COPD - Discussed with ID Dr. Posey. Doxycycline discontinued 01/19 - Patient mostly NPO due to severe dysphagia - cont ceftriaxone - Swallow eval today 2. Health care associated pneumonia, acute, POA -Antibiotics as in #1 3. LOLIS, acute, POA - resolved - history of CKD stage III, Creat improving - Continue monitor renal function and electrolytes closely - Avoid nephrotoxic agents. 4. Chronic compensated diastolic heart failure, acute, POA 5. Dsyphagia Prr speech and swallow recommendation . Oral intake very poor . Started D5NS @ 50 ml/hr, will switch to D5W given elev Na 6. Hypokalemia : Improved. Replace electrolytes PRN 7. Acute toxic and metabolic encephalopathy :POA. Soft restraint 8. Chronic Persistent Atrial fibrillation, POA - PRN IV cardizem for HR above 110 - Metoprolol Succinate for rate control, switch to metoprolol IV - unable to take amlodipine and metop PO at this time 9. Thrombocytopenia, acute, not present on admission : Secondary to infection. Platelet count 115 and continues to improve. HIT antibody is negative . Resume heparin for DVT prophylaxis SCD for DVT prophylaxis 10. Nutrition Mechanical dysphagia diet per speech therapy and swallow Feed with assistance . PO intake is very poor. IV D5 ns for adequate hydration 11. COPD exacerbation, acute, present on admission Continue nebulizer, oxygen supplement, pulmonary toilets, PRN BIPAP Continue IV steroid and taper 9. Epilepsy, chronic. Presumed stable - On Phenytoin for seizure prophylaxis 10. Chronic hypoxic respiratory failure, chronic 11. Hemochromatosis with liver cirrhosis, POA. 12. Hepatitis C. POA. Macrocytic anemia, chronic -continue to monitor -h&h are at baseline dnights. Clinically deteriorating . Previous hospitalist had a meeting yesterday with her POA who will discuss with the rest of the family members about comfort measures Prognosis is very poor Patient is DNR/DNI VTE Prophylaxis: Sub-Q Heparin (Unfractionated), SCDs VTE Mechanical Devices: Intermittant Pneumatic CD Resuscitation Status: DNR/DNI:Do Not Resuscitate/Intubate Time spent 45 minutes spent with eval and He Zapata DO Jan 20, 2017 08:44
[2017-01-20] MEDS: hydrALAZINE 20 mg/mL Inj IV PRN ×3 (08:46→23:03)
--- NOTE | 2017-01-20 10:12 | PROG NOTE ---
[address] [address] PROGRESS NOTE PATIENT: JEANNETTE OCHOA : 1945 MR#: [id number] ADMIT: 01/13/2017 JOB ID: [id number] DATE: 01/20/2017 INFECTIOUS DISEASE FOLLOW UP NOTE: REASON FOR FOLLOWUP: Pneumococcal sepsis in a patient with underlying CHF, COPD, seizure disorder and hep C. INTERVAL HISTORY: Overnight, the patient has been more confused and at times agitated. She is now actively restrained. She also failed her swallowing evaluation and is n.p.o. at this point. When asked about complaints this morning, the patient basically says yes to everything including abdominal pain, pain in the extremities and basically all questions are answered affirmatively. The patient is agitated and seems quite confused though she does know she is in a hospital. Otherwise has very little to be gleaned from the history from her. PHYSICAL EXAMINATION: Reveals an afebrile, agitated, restrained woman. Temperature 36.6, pulse 84, respiratory rate 20, blood pressure 169/102. She is saturating 92% on 2 L. The patient has a large bruise about 6 x 3 cm along the right side of her neck. This is unexplained and when we ask the patient, she is unable to tell us what happened. She says she had a fall but again she answers all questions affirmatively so I think that is likely not the explanation given the unusual location of this. There are no similar lesions on the anterior side of the neck nor on the left side. Eyes without conjunctivitis. Oral cavity without thrush or pharyngitis. Lungs still with coarse breath sounds bilaterally. Cardiac tones without change. Abdomen soft, nontender. The fingers are discolored and purplish especially on the right hand but they do appear to be perfused and have blanching. The lower extremities likewise hypoperfused but still warm and she is moving all extremities. LABORATORIES: Include white count dropping slightly 21,000, 97% segs but she is on broad-spectrum antibiotics. Creatinine 1.06. LFTs normal. Procalcitonin down to 1.23. It has been declining from 15 in a really steady fashion. Hep C is strongly positive. Hep C viral load and genotype pending. No new blood cultures have been obtained. IMAGING: Has not been repeated since the 10th when it showed persistent bilateral pneumonia. IMPRESSION: This patient seems to be improving from an ID point of view, in that she does not have fever, white count slowly coming down and her procalcitonin is responding nicely as we treat her pneumococcal sepsis. Despite this, her mental status, if anything, seems worse and it is unclear to me what the mental status changes are secondary to. The patient's neck has been supple and early in her hospital stay she was not confused so I think pneumococcal meningitis would be extraordinarily unlikely. Given that she does have some trauma to the right side of her neck of uncertain etiology, I do agree with the plan to CAT scan her brain. In addition, I think we should attempt and remove any drugs which are capable of causing confusion and I note that she is on p.r.n. lorazepam which may not help here. I also note that the hospitalist is checking an ammonia level which I agree with in this patient with chronic hepatitis C. RECOMMENDATIONS: 1. Will continue with ceftriaxone and closely follow her procalcitonin. 2. We are requesting a repeat urinalysis to attempt and that result up with the urine which grew Enterococcus. 3. We agree with the checking her ammonia level. 4. Will continue to closely follow this patient with you.
--- NOTE | 2017-01-20 11:08 | NUR ---
JULIO Verbal Consent with pt son Pacheco and daughter in law [place] via Phone call. ISHAN Knight
--- NOTE | 2017-01-20 11:32 | NUR ---
Evaluation completed. Please go to "Notes" then click on "Assessments and Notes" (bottom left corner of screen). Then select appropriate discipline tab on top of screen.
--- NOTE | 2017-01-20 12:57 | NUR ---
Palliative care note FCTM D/A: Case discussed in PCC rounds this am. Dr. Patrick asks for PC to re-consult. Current needs include identification of DPOA for medical decision making. Family has identified that pt will not be returning to SNF and wishes for her to go home. Please note that in past PC consults pt was very clear about wanting her grandsons Gómez and Pacheco Bonilla, to be her POA's. Contact numbers 1. Gómez Bonilla [phone]. 2. Pacheco Bonilla [phone] 3. [place]-partner to Pacheco at [phone] Also note that pt dtr Teresita Rebolledo has been involved in family discussions as well. Phone call to family and left messages on grandsons phones (Pacheco and Gómez). Note that Gómez works for [employer]. Able to talk to [place] and arrange for 1400 FCTM for today. Asked Pacheco and [place] to see if Gómez could also participate at 1400. Discuss with bhumi Gutierrez who relates that family has not been able to get DPOA paperwork signed. Will continue to act upon pt verbal identification of grandsons as her decision makers. Phone call to Lola at [facility]. Arrange for 3:00 [facility] info visit for today, assuming that family would like to learn more about support available at home via hospice as they learn more about pt prognosis and needs at home. Phone call to Todd at [facility] ) and discuss Medicaid application from 12/11/16. Todd is able to identify that Medicaid pauline was submitted on 12/12/16 by Judy. She also checks online and finds that there is not an active case yet. She will call Medicaid and ask where application is in process. Todd to call this worker back. Phone call from [place] at about 1300. She relates that Gómez is not able to make it today to discussion. She asks if we can schedule meeting for 01/21/17. Explain that meeting is necessary today and that PC provider would be happy to discuss separately with Gómez either in person on 01/21 or via phone call. Brooklyn then wonders about 1800/1900 meeting for joel but is told this time will not work. Able to arrange for continued discussion today at 1400, via phone call. Brooklyn notes that this worker/Dr. Garcia to call [phone] Phone call to [facility]. Have left message for Aida/Lola to cancel 1500 info visit for today. Have indicated that hospice will be discussed today in phone conference and that PC team will work to get identified info visit time from family for 01/21/17. P: PC to follow. Sulma Schmitz [facility] Addendum: 01/20/17 at 1521 by BROOKLYN SCHMITZ PC note amendment Phone call from Josiah at [facility]. She was able to determine that application for Medicaid was denied on 01/19/17 and reason given was that supporting financial documentation was not provided. Should family wish to submit documentation-can do so until 02/18/17. Family can either call at [phone] and discuss with staff or fax documentation to [phone]. Discussion with pt grandson Pacheco and his partner [place]. Discuss results of ST eval today and that pt is not able to swallow well at this point. In an earlier admit-pt had been able to discuss her wishes with Dr. Terry and had indicated that she did not wish to have artificial nutrition. Also discuss Dr. Patrick's efforts today to determine cause for pt's continued decline in function-including a CT head. Family estimates that pt has lost 25-30 pds in the last few months. They were able to visit with her last night and feel that they are up to date on her current presentation. Pacheco indicates that he is very close to his grandmother (pt) and feels he can get responses from her that others are not able to get. Discuss pt current prognosis and acknowledge that at this point, medical team has not been able to find cause for deterioration that might be impacted by treatment. Discuss possibility of home with hospice. Family is open to consideration of this option. Arrange with Pacheco -who indicates that a visit on 01/21/17 anytime from 11:00 would be fine. This worker to call family with info visit time at [phone]. Phone call to [facility] and leave message for Aida/Lola to request info visit for 01/21/17. P: Palliative care to follow. Sulma GONZALEZ, [facility] Addendum: 01/20/17 at 1558 by BROOKLYN SCHMITZ PC note amendment [facility] (Rin) able to meet with family on 01/21/17 at 1100. Phone call to Brooklyn at alert-she indicates that Pacheco will be there. Phone call to bhumi Gutierrez to explain that Medicaid/Brgiht application was not approved due to lack of supporting financial documentation. CLARKE
[2017-01-20] MEDS: Dextrose 5% 1,000 ML IV SCH (13:41)
--- NOTE | 2017-01-20 14:19 | PCM.CONPHA ---
Subjective Date of Service: Jan 20, 2017 Objective Weight (Kilograms): 55.300 Height (Feet): 5 Height (Inches): 4.00 01/12/17 ptn level = 11, albumin = 2.9, estimated CrCl 43. Corrected ptn level from 01/12 = 16.2 Assessment/Plan Assessment/Plan Pt is a 71yo female admitted for PNA and sepsis who takes phenytoin PO for epilepsy. Patient's ptn level upon admission was 11 mcg/mL, 16.2 mcg/mL after adjustment for low albumin. It is unknown if patient missed any doses prior to this level being taken. Asked by hospitalist to convert oral phenytoin dose of 90 mg PO TID to IV fosphenytoin. Conversion is approximately 1:1, oral mg of phenytoin to IV mg PE for fosphenytoin. Since patient may have been supratherapeutic and it is unknown if there were missed doses, will conservatively start fosphenytoin 100 mg PE BID and check a phenytoin level 3/ 17 am. Pharmacy will follow this pt's phenytoin level. Brooklyn Wong S PharmD Jan 20, 2017 14:19
[2017-01-20] MEDS: MeTOProlol 1 mg/mL 5 mL Inj IVPUSH SCH ×3 (14:51→19:46)
--- NOTE | 2017-01-20 14:58 | NUR ---
spiritual care: follow up brief caring visit. pt non-responsive to quiet conversational tone and blessing. pt continued to rec. eucharistic clam shucker visits for prayer/support per her stated desire.
--- NOTE | 2017-01-20 15:06 | PCM.PNPALL ---
Date of Service Jan 20, 2017 Date of Hospital Admission: Jan 13, 2017 at 00:16 Date of Palliative Consult: Jan 13, 2017 Palliative Care Recommendation Summary of palliative recommendations: 01/20/17- Delirium/agitation-med list reviewed. Last lorazepam dose 48 hours ago. No other likely causes yet identified. CT scan brain pending with bruise mastoid area. Repeat labs pending. Consider haldol prn Dysphagia-rooted in her delirium and profound debility Nutrition and hydration-reviewed this with her grandson and GF. OK to feed her to her comfort. Reviewed dietary recommendations. If she takes in minimal PO time course may be in few weeks only. P: hospice visit tomorrow with cherelle and Brooklyn if possible. If no identifiable cause for her decline-they are interested in getting pt home with assist from hospice. No feeding tube to be considered based on her wishes. Symptom management (Pain/other): DPOA/Advanced Directives/POLST: 1. Code status: DNR/DNI. 2. Advanced Directives: not on paper but established through prior talks with family and pt. 01/15: unable to reach family to confirm POA paperwork. 01/14: Yovani and his GF have been here today, but Dr. Hay missed them on rounds. Pall Care trying to ask family to bring in old POLST and ask if POA paperwork was ever completed. 01/13: Daughter Teresita sitting at bedside reports to Dr. Hay that Gracia had told family a long time ago that she did not want to be intubated/put on a breathing machine. They are sorrowful about this, but accept that this is her wish and they accept this decision of the patient. To this end, family asks providers to use IVFs to support her blood pressure , IV antibiotics to treat infection, and face masks (as patient tolerates them) to assist in her breathing. They do not want more escalation of her care with advanced life support procedures/interventions. Background Information: At her Dec 2016 admission, Dr. Terry of Palliative Care gave her a blank POA document. At that time she said she wants her gsons Pacheco and Gómez to share POA duty. It was not completed at time of that discharge. Dr. Terry also found out from pt in Dec 2016 that she has a POLST on her refrigerator at home. He reviewed its status. She told him, she was very clear ( in Dec 2016) that she wants DO NOT RESUSCITATE/DO NOT INTUBATE/limited interventions/hospitalization and antibiotics OK/no artificial nutrition. Family members were going to bring in the POLST so we could make a copy, but apparently that didn't happen prior to her Dec discharge. Pall Care Goals: POLST: Dr. Hay will ask family to bring in that POLST this admission. POA: again, not clear if pt ever signed a POA, but she did state she would want Pacheco and Gómez to share this role. Pacheco not available today to discuss goals any further (he was working). Family/emotional support: Excellent support from daughter, pt's 4 adult grandsons. Oldest grandson Yovani and his GF [place] are committed to taking care of Gracia in their home, when she recovers enough to go home. Spiritual support: not yet explored. Patient Goals: As Above. Reasonable interventions to try to recover to former baseline, but no heroics. Additional Medical Diagnoses with primary management by Hospitalist team include : Patient is a 71 year old female with a history of hemochromatosis, epilepsy, COPD on home 2L O2, CHF, stage III chronic kidney disease, and chronic atrial fibrillation admitted with acute respiratory distress and fever. 1. Severe Sepsis, acute, POA -secondary to HCAP, HR>90, T>38 -The patient remains hypotensive. Pressors are not within her level of care. Will continue aggressive fluid resuscitation and trend her lactic acid which she has been elevated. Her lactic acid levels markedly improved with IV hydration. We will continue broad-spectrum antibiotics. Urine antigen is positive for streptococcus pneumonia. Appreciate infectious disease consultation and she will be on the following antibiotic regimen which includes IV Rocephin and by mouth doxycycline. Cefepime L ofloxacin and vancomycin have been DC'd. 2. Health care associated pneumonia, acute, POA -IV Rocephin and by mouth doxycycline to treat Streptococcus pneumonia -monitor I&Os, cautious fluids in the setting of acute decompensated heart failure, -patient is DNI, considered bipap despite PNA for decompensation however patient unable to tolerate -albuterol and additional nebs as below 3. LOLIS, acute, POA -history of CKD stage III -worsening renal function -likely intrarenal vs prerenal -continue to monitor, avoid nephrotoxic medications. Ongoing fluid resuscitation. 4. Chronic compensated diastolic heart failure, acute, POA -elevated BNP from ~5000 to ~29683 -holding beta mikael in the setting of hypotension restart when appropriate -holding VEENA d/t LOLIS and hypotension, restart when appropriate. The patient does not have any have evidence of edema and chest x-ray listed saturations and in spite of an elevated BNP appears to be compensated. 5. Elevated troponin, acute, POA -likely secondary to LOLIS acute illness. This could be demand ischemia. We will simply trend this at this point. -trend -EKG if patient develops CP 6. Hypokalemia, replete and follow. This was present on admit. 7. Acute toxic encephalopathy versus hepatic encephalopathy, POA. We will check ammonia and continue to treat her infection. 8. Chronic Persistent Atrial fibrillation, POA - telemetry - Hold Metoprolol Succinate d/t hypotension continue digoxin when med rec completes - Digoxin levels as needed 9. Epilepsy, chronic. Presumed stable - Continue antiepileptic medications: Phenytoin, order pending med rec completion - Phenytoin levels as needed - Dose recently adjusted, decreased to to elevated levels 10. Chronic hypoxic respiratory failure, chronic -h/o COPD, continue home nebs -on 2L oxygen at SNF ([facility]) -goal oxygen level 88-92% 11. Hemochromatosis with liver cirrhosis, POA. 12. Hepatitis C. POA. Macrocytic anemia, chronic -continue to monitor -h&h are at baseline Problems: End of Life Preferences DNR/DNI Disposition Hoping for home with grandson. Hospice to interview 01/21 Resuscitation Status Resuscitation Status: DNR/DNI:Do Not Resuscitate/Intubate POLST Updates/Changes Previous POLST?: Yes POLST Discussed with: Spouse/Other (daughter at bedside (but she is not POA), waiting for POA to arrive.) . Symptom management: Delirium Palliative Subjective Palliative Care Daily Responde: Patient, Family/Proxy, Team, Nurse Brief History 71 [address] female patient of Dr. Dowling with a hx of COPD, CRF, CHF-diastolic, HTN, chronic Afib, cirrhosis with hx of hemochromatosis, untreated hep C, hx seizure disorder with a hx of progressive weakness, multiple hospitalizations and most recently transfer to [facility] for hope of rehab. She continued to decline there with frequent falls, weakness and AMS and admitted here following ER eval for hypotension, chills, fever with profound bandemia with normal WBC and pneumococcal bacteremia with multiple +BC. She has been treated with antibiotics and fluids but has continued to decline here with worsening MS. Her grandson Pacheco and GF [place] state whe has had a progressive weight loss of 30# over the past 4 months. At her last hospitalization she was seen by PC with definition then for Pacheco and Gómez(both grandsons) to be DPOAHC. The paperwork was never completed She also expressed a request for DNR/DNI and no FT at that consult. Subjective Patient can barely speak and appears slightly agitated Palliative Performance Scale PPS Ambulation: Mainly Bed PPS Activity: Unable to do any activity PPS Self-Care: 2 person assist Performace Scale: 30% Responsive Patient Symptoms Delirium unable to verbalize ROS Unclear with asking if she stated NO WRT pain Objective Findings Exam Vital Sign - Last Date Time Temp Pulse Resp B/P Pulse Ox O2 Delivery O2 Flow Rate FiO2 01/20/17 14:33 105 22 95 Nasal Cannula 2.00 01/20/17 12:12 36.6 170/100 01/16/17 23:40 96 Intake and Output 01/19/17 01/19/17 01/20/17 Cumulative From/Thru 15:00 23:00 07:00 01/12/17 20:19 - 01/20/17 06:18 Intake Total 900 ml 454 ml 7549 ml Output Total 1152 ml Balance 900 ml 454 ml 6397 ml Intake Oral 520 ml 0 ml 3910 ml IV Total 380 ml 454 ml 3639 ml Output Urine Total 1152 ml # Voids 4 3 18 # Bowel Movements 2 6 Objective generally cachectic, squirming in bed.Possibly saying help me General: Agitated (attmpting to verbalize but nearly unintelligable.) HEENT: Scleral Anicteric, Corneal Dryness, Mucous Membranes Dry Heart: Dysrhythmia Present Lungs: Diminished Abdomen: Soft, Other (scaphoid) Extremities: No Edema Skin: Other (ecchymoses primarily on UE some on LE and large eccymosis on R Occipital area.) Lab/Diagnostics Lab and Imaging results reviewed in detail in EMR. Mildly abnormal LFT, INR 1.35, normal ammonia WBC normal initially with significant bandemia-not since admit Patient/Family Conference Members Present Family Members Present Pacheco and his partner [place] by phone Medical Team Members Present? Sulma guo MSW PC, Jeffrey LOPEZ PC Discussion/Goals of Care Discussion FAMILY UNDERSTANDING OF DISEASE: Reviewed severity of illness and that not sure there is a reversible cause for decline. Issue of difficulty with nutrition and hydration but pt request for no FT etc. Pacheco and [place] have been primary contact and support for patient. They seem to understand her downhill trajectory. They are interested in having her at home hopefully with help of hospice. Pacheco has already moved much of her things out of her apt for this. Reviewed level of care this will entail. Potential need of recruiting other family to assist. If she is taking no PO time course would be 1-2 weeks, with some PO it may take weeks to months HOPES/WORRIES: The acknowledge some concern with the significant burden and responsibility of this role of caregiver and appreciate idea of hospice being involved. FAMILY WISHES/VALUES: They seem to appreciate brayan discussions and prognostication as best possible. Pacheco has a li with his grandmother and she has verbalized that trust in past discussions. Pacheco believes she wants to be comfortable. Time spent Total time 65 minutes; >50% face to face with patient and/or family, providing counselling regarding plans and recommendations, and in care coordination with his/her medical teams. This included review of chart and possible causes of deterioration and review with Dr. Patrick as well as phone conference with Pacheco (grandson) and his partner [place] I also spent an additional [ ] minutes counseling for advanced care planning with the patient/the patients family/the surrogate decision maker. copies to: Arlene Dowling MD, Marguerite Damico MD Jan 20, 2017 15:06
--- NOTE | 2017-01-20 16:30 | NUR ---
Social Work Note: Continued Discharge Planning Data& Assessment: Per Palliative Care SW, pt family will be meeting with hospice tomorrow 01/21/2017. SW to follow up with pt family after hospice informational meeting to discuss discharge planning, SW to continue to follow. Plan: SW to follow up with pt family after hospice informational meeting to discuss discharge planning, SW to continue to follow. ISHAN Knight
[2017-01-20] MEDS: Fosphenytoin 50 mgPE/mL 2 mL Inj IV SCH (16:32)
--- NOTE | 2017-01-20 17:53 | DRSVH ---
PROCEDURE: CT BRAIN WITHOUT CONTRAST ([id number]) INDICATIONS: 71 year-old female with right-sided ecchymosis. TECHNIQUE: Noncontrast 4.5 mm thick angled axial sections acquired from the foramen magnum to the vertex, with c oronal reformats. COMPARISON: [facility], CT, CT BRAIN WO CON, 01/09/2017, 9:52. [facility], C T, CT BRAIN WO CON, 01/02/2017, 8:06. FINDINGS: Image quality: Several images are degraded by patient motion despite repeat scanning attempts. CSF spaces: Basal cisterns are patent. No extra-axial fluid collections. The ventricles are symmet raf in size and shape. Brain: No intracranial bleeds or masses. There are mild periventricular and deep white matter chron ic small vessel ischemic changes. There is intracranial internal carotid artery atherosclerosis. Skull and face: Calvarium and visualized facial bones appear intact, without suspicious lesions. Sinuses: There is persistent mild left maxillary sinus mucosal thickening. Other visualized sinuses a nd mastoids appear clear. IMPRESSION: 1. No acute intracranial abnormalities. Mild periventricular white matter chronic small vessel ischem ic change. 2. Persistent mild left maxillary sinus mucosal thickening, possibly sinusitis. Dictated by: Elder Davenport M.D. on 01/20/2017 at 17:47 Approved by: Elder Davenport M.D. on 01/20/2017 at 17:52
--- NOTE | 2017-01-20 18:16 | NUR ---
MENTATION/RESTRAINTS Patient taken out of restraints at 1600, she appears quite and c/o pain at this time, new orders for pain medications received from MD. Patient was negative for CT of brain today, oriented to person and place but pretty non verbal most of shift. Hydralazine given twice for BP> 160, fluids changed to D5W, and plan is to find which member of family has POA to make decision about future care. Addendum: 01/20/17 at 1826 by YASHIRA CROOK RN URINE Patient incontinent, nurse tried straight catheter for UA x2 unsuccessfully, patient is making urine brief changed x2.
[2017-01-21] VITALS (13 sets, daily range): BP systolic 140–185; BP diastolic 70–111; PULSE 76–95; RESP 17–28; O2SAT 92–99
[2017-01-21] MEDS: MeTOProlol 1 mg/mL 5 mL Inj IVPUSH SCH ×2 (03:04→09:39)
[2017-01-21] MEDS: Albuterol-Ipratropium 3 mL Inhalation Solution NEB SCH ×4 (04:20→20:37)
[2017-01-21] MEDS: cefTRIAXone Inj 2,000 MG in Dextrose 5% Minibag Plus 50 ML IV SCH (05:00)
--- NOTE | 2017-01-21 06:09 | NUR ---
Mentation: Pt awakes to verbal stimuli. Family at bedside throughout majority of the night. Pt intermittently restless- PRN IV morphine given x1 for restlessness/ discomfort tachypnea with good results. pt sleeping intermittently throughout night.
[2017-01-21] MEDS: Fosphenytoin 50 mgPE/mL 2 mL Inj IV SCH ×2 (08:30→19:35)
[2017-01-21] MEDS: MethylprednisoLONE Sodium Succinate 62.5 mg/mL 2 mL Inj IVPUSH SCH ×2 (09:40→16:58)
--- NOTE | 2017-01-21 09:44 | PCM.PALLBR ---
Palliative Care Recommendation 71-year-old female with advanced COPD with multiple comorbidities and progressive decline, readmitted with pneumonia. Palliative medicine consulted to assist with determination of goals of care. Hospice information visit scheduled for later this morning. Family has expressed hope that they will be able to take her home with hospice support for end-of-life care. Summary of palliative recommendations: Symptom management- 01/21/17- patient's family strongly requests/prefers use of lorazepam if she becomes agitated or distressed. They say that this is always worked very well for her. They are aware of the potential risks of the medication and still request it be used preferentially. I have added an order for lorazepam 0.5 mg IV TID prn and reviewed the family's wishes with her bedside nurse. Dysphagia-rooted in her delirium and profound debility Nutrition and hydration- reviewed this with her family members who continue to feel it is OK to feed her to her comfort. Reviewed dietary recommendations. If she takes in minimal PO time course may be in few weeks only. Discussed transition to oral metoprolol with her hospitalist; as able, would like to discontinue her telemetry as the presence of the box on her chest is uncomfortable as are the multiple wires. DPOA/Advanced Directives/POLST: 1. Code status: DNR/DNI/limited interventions/antibiotics and IVs OK/no artificial nutrition 2. Advanced Directives: not on paper but established through prior talks with family and pt. To this end, family asks providers to use IVFs to support her blood pressure , IV antibiotics to treat infection, and face masks (as patient tolerates them) to assist in her breathing. They do not want more escalation of her care with advanced life support procedures/interventions. We will plan on completing a POLST prior to discharge that reflects patient and family wishes current at that time Family/emotional support: Excellent support from daughter, pt's 4 adult grandsons. Oldest grandson Yovani and his GF [place] are committed to taking care of Gracia in their home, when she recovers enough to go home. Spiritual support: not yet explored. Patient Goals: As Above. Reasonable interventions to try to recover to former baseline, but no heroics. Additional Medical Diagnoses with primary management by Hospitalist team include : Patient is a 71 year old female with a history of hemochromatosis, epilepsy, COPD on home 2L O2, CHF, stage III chronic kidney disease, and chronic atrial fibrillation admitted with acute respiratory distress and fever. 1. Severe Sepsis, acute, POA 2. Health care associated pneumonia, acute, POA 3. LOLIS, acute, POA 4. Chronic compensated diastolic heart failure, acute, POA 5. Elevated troponin, acute, POA 6. Hypokalemia, replete and follow. This was present on admit. 7. Acute toxic encephalopathy versus hepatic encephalopathy, POA. 8. Chronic Persistent Atrial fibrillation, POA 9. Epilepsy, chronic. Presumed stable 10. Chronic hypoxic respiratory failure, chronic 11. Hemochromatosis with liver cirrhosis, POA. 12. Hepatitis C. POA. 13. Macrocytic anemia, chronic Problems: End of Life Preferences DNR/DNI Goals of Care Return home, probably with hospice support Disposition Hoping for home with grandson. Hospice to interview 01/21 Resuscitation Status Resuscitation Status: DNR/DNI:Do Not Resuscitate/Intubate POLST Updates/Changes Previous POLST?: Yes POLST Discussed with: Spouse/Other (daughter at bedside (but she is not POA), waiting for POA to arrive.) . Pain: None Symptom management: Anxiety, Dyspnea Total time 45 minutes; >50% face to face with patient and family, providing counselling regarding plans and recommendations, and in care coordination with her medical teams. Palliative Brief Note Date of Service Jan 21, 2017 . Returned to reevaluate patient. Prior to visiting, reviewed her updated records in the EMR in detail and spoke with her bedside nurse. After evaluating her, spoke with her hospitalist as well. When I arrived, multiple family members at bedside. They report that the patient seems to be a little bit better today- a little bit more alert and interactive, a little bit stronger. Patient has been requesting that she be allowed to get up in a wheelchair. Family had a number of questions about her laboratory and imaging studies done yesterday and I reviewed these with him in detail, answering questions they had. Patient herself is awake and alert, but speaks in a very weak voice. Skin is pale, warm and dry. Head and neck exam without acute focal findings. Lungs with scattered crackles especially posterolaterally. Heart sounds regular. Reviewed telemetry- consistently atrial fibrillation, usually in the 90s, but with occasional spikes to the 120-130 range. She has been receiving intermittent doses of IV metoprolol. Family also expressed concerns that the patient was given morphine last evening for distress. They perceive this as a "comfort" medication and are worried that it might hasten her demise. They strongly prefer that she received lorazepam, IV or by mouth, as needed for any sort of distress or anxiety. She is scheduled for a hospice informational visit later this morning. He Terry MD Jan 21, 2017 09:44
[2017-01-21] MEDS: Dextrose 5% 1,000 ML IV SCH (10:14)
[2017-01-21] MEDS: hydrALAZINE 20 mg/mL Inj IV PRN (10:18)
--- NOTE | 2017-01-21 11:22 | PROG NOTE ---
[address] [address] PROGRESS NOTE PATIENT: JEANNETTE OCHOA : 1945 MR#: [id number] ADMIT: 01/13/2017 JOB ID: [id number] DATE: 01/21/2017 INFECTIOUS DISEASE FOLLOWUP NOTE: REASON FOR FOLLOWUP: Bacteremic pneumococcal pneumonia in an elderly woman with multiple medical problems. INTERVAL HISTORY: Overnight, the patient seems to be more alert and interactive. She has one theme during our discussion this morning and that is her desire to get out of the hospital and go home and almost all questions were answered with the request to go home. She does not have subjective fevers or chills, states her breathing is a bit better, and has no notable GI symptoms, but mainly she just wants to go home. PHYSICAL EXAMINATION: Reveals an elderly debilitated woman who looks better than yesterday. Temp 36.3, pulse 92, respiratory rate in the mid 20s, blood pressure 178/111. She is saturating pretty well on 3 L. She is oriented x3 it appears this morning, which is a big improvement for her, though her speech is still bit laconic. Oral cavity negative. Lungs: Fair air flow. Some crackles at the bases. Cardiac tones without change. Abdomen benign. No skin rash. LABORATORIES: Include white count 21,000 yesterday, not repeated today. Creatinine 1.06 yesterday. Hep C is strongly positive. We await the quantitation, although I doubt this patient would be a candidate for treatment. Urine pneumococcal antigen was positive and we had numerous positive blood cultures for Strep pneumo all back on the . No new imaging has been obtained. IMPRESSION: This patient is slowly getting a bit better with respect to her underlying pneumococcal pneumonia but she remains a very fragile and chronically ill woman with chronic obstructive pulmonary disease and many other problems. How long to treat this patient with antibiotics for pneumococcus pneumonia is a little unclear but most experts would favor somewhere in the range of 5-10 days and we are currently on day 8 of treatment. I think there has been a substantial improvement and we probably will be able to stop within the next couple days. RECOMMENDATIONS: 1. Will continue with ceftriaxone for the next couple of days if the patient removes her remains here, but will check a procalcitonin tomorrow morning and if this has basically normalized we may go ahead and just stop tomorrow or might continue as long as Thursday the , but in any event we are very close to the end of her pneumococcal pneumonia therapy. 2. I agree with the ongoing discussions with hospice in this very chronically ill and debilitated woman.
[2017-01-21] MEDS: MeTOProlol XL 25 mg ER24 Tablet PO SCH (11:33)
[2017-01-21] MEDS: LORazepam 0.5 mg Tablet PO PRN ×2 (11:56→20:21)
--- NOTE | 2017-01-21 13:07 | PCM.PNMED ---
Subjective Date of Service Jan 21, 2017 Subjective She is sedated from lorazepam. She is comfortable and unable to answer any questions. Motor today she was not really answering questions and she was more awake but was repeatedly asking to go home. Exam Vital Signs Vital Sign - Last Date Time Temp Pulse Resp B/P Pulse Ox O2 Delivery O2 Flow Rate FiO2 01/21/17 11:34 96 01/21/17 09:30 Supplement Oxygen 01/21/17 09:22 36.3 28 178/111 95 3.00 01/16/17 23:40 96 Intake and Output 01/20/17 01/20/17 01/21/17 Cumulative From/Thru 14:59 22:59 06:59 01/12/17 20:19 - 01/21/17 04:56 Intake Total 540 ml 634 ml 8723 ml Output Total 1152 ml Balance 540 ml 634 ml 7571 ml Intake Oral 140 ml 100 ml 4150 ml IV Total 400 ml 534 ml 4573 ml Output Urine Total 1152 ml # Voids 3 3 24 # Bowel Movements 0 6 Exam Sedated, comfortable. Dry oral mucosa Neck supple Lungs are clear with normal effort and slight increase right Heart is irregular without murmur gallop or rub. Abdomen is soft nontender. Extremities are free of edema with good pedal and radial pulses. Skin is free of rash or lesions. IVs and Medications Medications Reviewed: Medications were reviewed in detail Lab and Diagnostics Result Diagram: 01/20/1751101/20/17511 X-Rays, CTs and MRIs Patient Name: JEANNETTE OCHOA MR#: [id number] Location: [facility] Ordering Phys: DOC, ED Date of Service: 01/12/172017 PROCEDURE: X-RAY CHEST ONE VIEW, PORTABLE ([id number]) INDICATIONS: FEVER, COUGH TECHNIQUE: One view of the chest was acquired. COMPARISON: [facility], CR, XR CHEST 1VW (PORTABLE), 12/20/2016, 2: 21. [facility], CR, XR CHEST 1VW, 12/20/2016, 7:13. FINDINGS: Surgical changes and devices: None. Lungs and pleura: There is patchy areas of opacity within the right upper and lower lobes, new compared to prior exam. Anterior opacities also noted in the left upper lobe and retrocardiac region. Mediastinum: Mediastinal contours appear normal. Heart size is normal. Bones and chest wall: No suspicious bony lesions. Overlying soft tissues appear unremarkable. IMPRESSION: Bilateral areas of focal opacity most prominent in the retrocardiac and right upper lobes as above. Findings are suspicious for multifocal pneumonia. There is underlying edema and/or atelectasis cannot be excluded. Patient Name: JEANNETTE OCHOA MR#: [id number] Location: [facility] Ordering Phys: Adrien Chua MD Date of Service: 01/14/17 0500 PROCEDURE: X-RAY CHEST ONE VIEW, PORTABLE ([id number]) INDICATIONS: dyspnea TECHNIQUE: One view of the chest was acquired. COMPARISON: [facility], CR, XR CHEST 1VW (PORTABLE), 01/12/2017, 20: 15. FINDINGS: Surgical changes and devices: None. Lungs and pleura: There is patchy areas of opacity within the right upper and lower lobes, new compared to prior exam. Anterior opacities also noted in the left upper lobe and retrocardiac region. Mediastinum: Mediastinal contours appear normal. Heart size is normal. Bones and chest wall: No suspicious bony lesions. Overlying soft tissues appear unremarkable. IMPRESSION: No significant change from prior examination suggestive of multifocal pneumonia and/or pulmonary edema. Recommend clinical correlation. Dictated by: Nuno Chatterjee [facility] Interpreted: Leigh Babb MD on 01/14/2017 at 9:09 Transcribed by: JOSÉ MANUEL on 01/14/2017 at 9:10 Approved by: Leigh Babb M.D. on 01/14/2017 at 16:32 Cardiac Echo Impressions Echocardiogram Report Name: JEANNETTE OCHOA LStudy Date: 06/2017 Height: 64 in Hospital Exam Location: [facility] Weight: 125 lb Gender: Female BSA: 1.6 m2 : 1945 Age: 71 yrs BP: 116/74 mmHg Reason For Study: Dyspnea Ordering Physician: HOSPITALIST SVHPerformed By: Maciel Moraes Referring Physician: ADRIEN CHUA Interpretation Summary The patient was in atrial fibrillation with rapid ventricular response during the exam with a heart rate exceeding 100 bpm. The heart rate ranged between 144-184 bpm during the study. The left ventricle is normal in size. The left ventricle is hyperdynamic. The ejection fraction is estimated to be >80%. Left ventricular wall motion is normal. The right ventricle is borderline dilated. The right ventricular systolic function is normal. The right ventricular systolic pressure is estimated at 59 mmHg assuming a right atrial pressure of 15 mm Hg. Compared to the prior echo exam, there has been an increase in the severity of pulmonary hypertension. The left atrium is severely dilated. The right atrium is moderate to severely dilated. There is mild to moderate mitral regurgitation. Compared to the prior echo study, there has been an increase in the severity of mitral regurgitation. There is severe tricuspid regurgitation. Compared to the prior echo exam, there has been no change in TR severity. There is no other significant valvular heart disease. The aortic root is normal size. Procedure: A two-dimensional transthoracic echocardiogram with color flow and Doppler was performed. The study quality was technically adequate. Comparison is made with the echocardiogram of 09/29/16. The patient was in atrial fibrillation with rapid ventricular response during the exam with a heart rate exceeding 100 bpm. The heart rate ranged between 144-184 bpm during the study. Left Ventricle: The left ventricle is normal in size. There is normal left ventricular wall thickness. Proximal septal thickening is noted. The left ventricle is hyperdynamic. The ejection fraction is estimated to be >80%. Left ventricular wall motion is normal. Right Ventricle: The right ventricle is borderline dilated. The right ventricular systolic function is normal. Atria: The left atrium is severely dilated. The right atrium is moderate to severely dilated. The interatrial septum is intact with no evidence for an atrial septal defect. Mitral Valve: The mitral valve leaflets appear to open well. There is mild to moderate mitral regurgitation. Compared to the prior echo study, there has been an increase in the severity of mitral regurgitation. Aortic Valve: The aortic valve is normal in structure and function. There is no hemodynamically significant valvular aortic stenosis. There is trace aortic regurgitation. Tricuspid Valve: The tricuspid valve leaflets are thickened and/or calcified, but open well. There is severe tricuspid regurgitation. Compared to the prior echo exam, there has been no change in TR severity. The right ventricular systolic pressure is estimated at 59 mmHg assuming a right atrial pressure of 15 mm Hg. Compared to the prior echo exam, there has been an increase in the severity of pulmonary hypertension. Pulmonic Valve: The pulmonic valve leaflets are thin and pliable; valve motion is normal. There is a trace or physiologic amount of pulmonic regurgitation. There is no other significant valvular heart disease. Great Vessels: The aortic root is normal size. The dimensions of the ascending aorta are normal. The pulmonary artery is normal size. The IVC is dilated (diameter is greater than 2.1 cm) and it collapses less than 50% with a sniff. This suggests a high right atrial pressure of 15 mm Hg. Pericardium/ Pleura There is no pericardial effusion. There is no pleural effusion. MMode/2D Measurements & Calculations LVIDd: 4.3 cm RA long axis LVOT diam: 1.7 cm LVIDs: 3.3 cm LA A2 area: 22.4 cm AoV Opening FS: 22.1 % LA A4 area: 27.1 cm RA area IVSd: 0.77 cm LA length (vol) Ao root diam LVPWd: 0.60 cm : 24.9 cm LA vol: 84.5 ml RA vol asc Aorta Diam LA vol index : 75.3 ml RA Ao Arch Diam (Prox : 47.0 mm2 Trans): 2.9 cm IVC diam: 2.1 cm LV sanchez. diameter/BSA LV sys. diameter/BSA (cm/m^2): 2.7 (cm/m^2): 2.1 Doppler Measurements & Calculations Ao V2 max MV E max villa TR max villa Ao V2 mean : 152.6 cm/sec : 100.9 cm/sec : 334.4 cm/sec : 108.2 cm/sec Ao max PG TR max PG Ao V2 VTI : 9.4 mmHg : 44.8 mmHg Ao mean PG CARMINE(V,D): 1.6 cm2 LVOT Max Villa : 105.5 cm/sec CARMINE(I,D): 1.8 cm sev ratio LV V1 max PG CARMINE indexed to BSA (cm^2/m^2): 1.1 LV V1 VTI: 15.9 cm Reading Physician:PM Assessment & Plan . Patient is a 71 year old female with a history of hemochromatosis, epilepsy, COPD on home 2L O2, CHF, stage III chronic kidney disease, and chronic atrial fibrillation admitted with acute respiratory distress and fever. 1. Acute on chronic hypoxic respiratory Failure : Due to Pneumonia/HCAP/ COPD exacerbation - Patient weaned from 7 liters of oxygen via nasal canula --> 2L -WBC is up but that reflect side effect of steroid , rather than worsening pneumonia/Infection. Procalcitonin is down -Continue nebulizer, bronchodilator, Supplemental oxygen, PRN BPAP , IV steroid. She is end stage respiratory failure/COPD Patient mostly NPO due to severe dysphagia - cont ceftriaxone - Swallow eval today She is stable to perhaps very mildly improved. 2. Streptococcal pneumonia pneumonia and strep septicemia, acute, POA, slowly improving. Continue ceftriaxone intravenous. 3. LOLIS, acute, POA - resolved - history of CKD stage III, Creat improving - Continue monitor renal function and electrolytes closely - Avoid nephrotoxic agents. 4. Chronic compensated diastolic heart failure, acute, POA. This remains stable. No change to chronic medications. 5. Dsyphagia , POA. Prr speech and swallow recommendation . Oral intake very poor . Started D5NS @ 50 ml/hr, will switch to D5W given elev Na 6. Hypokalemia : Improved. Replace electrolytes PRN, will follow electrolytes daily. 7. Acute toxic and metabolic encephalopathy :POA. Soft restraint . She remains encephalopathic 8. Chronic Atrial fibrillation with rapid ventricular response, POA - PRN IV cardizem for HR above 110 - Metoprolol Succinate for rate control, switch to metoprolol IV - We will try to convert her to oral medications and get her off from IV medications today. 9. Thrombocytopenia, acute, not present on admission : Secondary to infection. Platelet count 115 and continues to improve. HIT antibody is negative . Resume heparin for DVT prophylaxis SCD for DVT prophylaxis Follow-up platelet count closely. 10. Nutrition Mechanical dysphagia diet per speech therapy and swallow Feed with assistance . PO intake is very poor. IV D5 ns for adequate hydration 11. COPD exacerbation, acute, present on admission Continue nebulizer, oxygen supplement, pulmonary toilets, PRN BIPAP Continue IV steroid and taper 9. Epilepsy, chronic. Presumed stable - On Phenytoin for seizure prophylaxis 10. Chronic hypoxic respiratory failure, chronic 11. Hemochromatosis with liver cirrhosis, POA. 12. Hepatitis C. POA. Macrocytic anemia, chronic -continue to monitor -h&h are at baseline dnights. Clinically deteriorating . Previous hospitalist had a meeting yesterday with her POA who will discuss with the rest of the family members about comfort measures Prognosis is very poor Patient is DNR/DNI Family met with hospice today. We will await word in the decision making following that meeting. Pain Evaluation: Adequate Pain Control VTE Prophylaxis: Sub-Q Heparin (Unfractionated), SCDs VTE Mechanical Devices: Intermittant Pneumatic CD Resuscitation Status: DNR/DNI:Do Not Resuscitate/Intubate Time spent 20 minute Adrien Chua MD Jan 21, 2017 13:07
--- NOTE | 2017-01-21 15:01 | NUR ---
spiritual care: follow up caring visit. pt made little response to conversational tone. blessing. pt continues to rec eucharistic visit per request.
--- NOTE | 2017-01-21 15:20 | NUR ---
Palliative Care note [facility] D/A: Met briefly with pt and her family and then later with pt grandson Yovani, his partner [place] and pt dtr's partner Elliot, as well as ISHAN Gar [facility] Discussed hospice services at length. Discussed equipment which [facility] will order ( hospital bed, O2, w/c) pt has commode. Discussed Medicaid application and [place] program. Supplied family with phone number (see previous notes) to [facility] to discuss application and what is needed and also supplied fax number. [facility] to supply a list for the family of necessary documentation for RIANA application. Additionally, informed family of deadline of 02/18/17 deadline to add documents to current application and that if deadline is missed, will need to begin new application. Note the following phone numbers for family members; Elliot at [phone] Teresita (Elliot partner and pt dtr, mother to Yovani and Gómez) [phone] Emanuel (other brother to GómezEran with Teresita as mother) [phone] Family elects to sign on to Hospice. Yovani signs paperwork for pt. Discuss with Dr. Terry expected prognosis for pt. Will supply this information to family on 01/22/17, family needs info for future planning regarding the space in their apt. Dr. Barnes estimates pt has no more than 3 months but is also very frail from a pulmonary standpoint and could really at any time given an infection. Family obtains pt prescriptions from [facility]. Pt voicing strong desire to go home now. Dr. Terry kindly calls bedside RN and gives verbal order for pt to be able be taken outside in W/c. She can also visit with her dog who is in family car. [facility] can open Sat 01/24 between 10-11. Family does not feel able to take pt home without [facility]. Dr. Terry also agrees noting that pt could experience severe dyspnea/inability to breath and would be a potential readmit. [facility] to put on cancellation list. Phone call to Denia OLMSTEAD to inform regarding above and plan for dc home. P: Palliative care to follow as needed. Sulma Soler [facility], CCM
--- NOTE | 2017-01-21 16:19 | NUR ---
NUTRITION FOLLOW-UP ASSESS: 71 YO female admitted to CCU with pneumonia and sepsis. Diet downgraded to stimulation. PO intake remains variable. Hospice being considered. Pt does not wish to receive nutrition via tube. PMHX: Cirrhosis, Hep C, CHF, COPD, HTN, Afib, Seizures LABS: Reviewed. (01/20) Na 149, Cl 112, BUN 69, Cr 1.06, Glu 217, Albumin 2.9 MEDS: Reviewed. GI: BM x3 01/19 SKIN: Ruperto 12 WT: 55.3 kg, BMI 20.9 kg/m2, admit wt 57.4kg DIET: Stimulation + Magic Cups BID, PO bites-100% EST. NEEDS: Kcals: 1435-1725kcal/day (25-30kcal/kg) Pro: 70-85g/day (1.2-1.5g/kg) NUTRITION DIAGNOSIS: 1) Inadequate oral intake related to decreased ability to consume sufficient energy as evidenced by current NPO status - PERSISTS 2) Chew/swallow difficulty related to weakness and poor dentition as evidence by need for dysphagia mechanical diet texture - PERSISTS. NUTRITION INTERVENTION: 1) Continue diet per ST. 2) Will continue Magic Cup on L and D MONITOR / EVAL: ST, PO intake, wt, labs, POC, nutrition status. Will continue to monitor per moderate nutrition risk guidelines.
--- NOTE | 2017-01-21 16:42 | NUR ---
Social Work Note: Continued Discharge Planning Data& Assessment: Per Palliative care SW, pt family has signed consents with Hospice and Hospice will be opening this Thursday between 10-11am. Pt is on a waiting list in case an opening time becomes available sooner than this Thursday. Per Palliative care MD, it is recommended pt remain hospitalized until hospice is able to open services with pt in the home. SW to continue to follow for pt being medically stable for transfer and a possible opening date sooner than this coming Thursday. SW to continue to follow for pt and pt family support and needs. Plan: Anticipated discharge home with hospice this Thursday between 10-11am. SW to continue to follow for pt and pt family support and needs. ISHAN Knight
--- NOTE | 2017-01-21 18:04 | NUR ---
Blood Pressure/Mentation/Anxiety Pts. blood pressure this morning around 1020 and was 170/94 and PRN hydralazine was given, rechecked after 15min and blood pressure was 150/84. Pt. denied CP as well. Pt. was more alert and awake this morning, Pt. was able to state her name and date of as well as her location, but she could not give me the year or day. Pt. stated no anxiety until 1150 and was looking for her children who just left the room. Pt. stated feeling anxiety when asked if she had anxiety some and wanted something to calm her down. I admin. PRN ativan and Pt. has had no anxiety at this time and has been sleeping most of the afternoon. Pt. is still able to be aroused and can answer questions at this time but falls back asleep.
[2017-01-22] VITALS (9 sets, daily range): BP systolic 113–170; BP diastolic 62–90; PULSE 67–90; RESP 17–28; O2SAT 89–97
[2017-01-22] MEDS: MethylprednisoLONE Sodium Succinate 62.5 mg/mL 2 mL Inj IVPUSH SCH ×3 (00:31→16:18)
[2017-01-22] MEDS: Albuterol-Ipratropium 3 mL Inhalation Solution NEB SCH ×4 (04:42→20:30)
[2017-01-22] MEDS: cefTRIAXone Inj 2,000 MG in Dextrose 5% Minibag Plus 50 ML IV SCH (05:18)
[2017-01-22] MEDS: Dextrose 5% 1,000 ML IV SCH ×2 (05:18→21:51)
[2017-01-22] MEDS: Fosphenytoin 50 mgPE/mL 2 mL Inj IV SCH ×2 (09:11→20:30)
[2017-01-22] MEDS: hydrALAZINE 20 mg/mL Inj IV PRN (09:13)
[2017-01-22] MEDS: LORazepam 0.5 mg Tablet PO PRN (09:13)
--- NOTE | 2017-01-22 10:24 | PCM.PNMED ---
Subjective Date of Service Jan 22, 2017 Subjective She is barely arousable but does state that she is comfortable and is getting enough air. She is otherwise not really the able to interact and respond to numerous questions. Exam Vital Signs Vital Sign - Last Date Time Temp Pulse Resp B/P Pulse Ox O2 Delivery O2 Flow Rate FiO2 01/22/17 08:57 36.3 80 28 170/90 95 Nasal Cannula 2.00 01/16/17 23:40 96 Intake and Output 01/21/17 01/21/17 01/22/17 Cumulative From/Thru 15:00 23:00 07:00 01/12/17 20:19 - 01/22/17 05:22 Intake Total 973 ml 646 ml 86815 ml Output Total 2 ml 1154 ml Balance 971 ml 646 ml 9188 ml Intake Oral 280 ml 100 ml 4530 ml IV Total 693 ml 546 ml 5812 ml Output Urine Total 1152 ml Urine/Stool Mix 2 ml 2 ml # Voids 4 28 # Bowel Movements 1 0 7 Exam Comfortable, arousable. Anicteric sclera Normal JVP. Lungs with normal rate and effort, scattered rhonchi. Heart is regular without murmur or gallop Abdomen is nontender. Extremities are free of edema control pulses IVs and Medications Medications Reviewed: Medications were reviewed in detail Lab and Diagnostics Result Diagram: 01/20/1751101/20/17511 X-Rays, CTs and MRIs Patient Name: JEANNETTE OCHOA MR#: [id number] [place] [facility] [place] Phys: DOC, ED Date of Service: 01/12/172017 PROCEDURE: X-RAY CHEST ONE VIEW, PORTABLE ([id number]) INDICATIONS: FEVER, COUGH TECHNIQUE: One view of the chest was acquired. COMPARISON: [facility], CR, XR CHEST 1VW (PORTABLE), 12/20/2016, 2: 21. [facility], CR, XR CHEST 1VW, 12/20/2016, 7:13. FINDINGS: Surgical changes and devices: None. Lungs and pleura: There is patchy areas of opacity within the right upper and lower lobes, new compared to prior exam. Anterior opacities also noted in the left upper lobe and retrocardiac region. Mediastinum: Mediastinal contours appear normal. Heart size is normal. Bones and chest wall: No suspicious bony lesions. Overlying soft tissues appear unremarkable. IMPRESSION: Bilateral areas of focal opacity most prominent in the retrocardiac and right upper lobes as above. Findings are suspicious for multifocal pneumonia. There is underlying edema and/or atelectasis cannot be excluded. Patient Name: JEANNETTE OCHOA MR#: [id number] Location: [facility] Ordering Phys: Adrien Chua MD Date of Service: 01/14/17 0500 PROCEDURE: X-RAY CHEST ONE VIEW, PORTABLE ([id number]) INDICATIONS: dyspnea TECHNIQUE: One view of the chest was acquired. COMPARISON: [facility], CR, XR CHEST 1VW (PORTABLE), 01/12/2017, 20: 15. FINDINGS: Surgical changes and devices: None. Lungs and pleura: There is patchy areas of opacity within the right upper and lower lobes, new compared to prior exam. Anterior opacities also noted in the left upper lobe and retrocardiac region. Mediastinum: Mediastinal contours appear normal. Heart size is normal. Bones and chest wall: No suspicious bony lesions. Overlying soft tissues appear unremarkable. IMPRESSION: No significant change from prior examination suggestive of multifocal pneumonia and/or pulmonary edema. Recommend clinical correlation. Dictated by: Nuno Chatterjee [facility] Interpreted: Leigh Babb MD on 01/14/2017 at 9:09 Transcribed by: JOSÉ MANUEL on 01/14/2017 at 9:10 Approved by: Leigh Babb M.D. on 01/14/2017 at 16:32 Cardiac Echo Impressions Echocardiogram Report Name: JEANNETTE OCHOA LStudy Date: 06/2017 Height: 64 in Hospital Exam Location: [facility] Weight: 125 lb Gender: Female BSA: 1.6 m2 : 1945 Age: 71 yrs BP: 116/74 mmHg Reason For Study: Dyspnea [facility]: Maciel Moraes Referring Physician: ADRIEN CHUA Interpretation Summary The patient was in atrial fibrillation with rapid ventricular response during the exam with a heart rate exceeding 100 bpm. The heart rate ranged between 144-184 bpm during the study. The left ventricle is normal in size. The left ventricle is hyperdynamic. The ejection fraction is estimated to be >80%. Left ventricular wall motion is normal. The right ventricle is borderline dilated. The right ventricular systolic function is normal. The right ventricular systolic pressure is estimated at 59 mmHg assuming a right atrial pressure of 15 mm Hg. Compared to the prior echo exam, there has been an increase in the severity of pulmonary hypertension. The left atrium is severely dilated. The right atrium is moderate to severely dilated. There is mild to moderate mitral regurgitation. Compared to the prior echo study, there has been an increase in the severity of mitral regurgitation. There is severe tricuspid regurgitation. Compared to the prior echo exam, there has been no change in TR severity. There is no other significant valvular heart disease. The aortic root is normal size. Procedure: A two-dimensional transthoracic echocardiogram with color flow and Doppler was performed. The study quality was technically adequate. Comparison is made with the echocardiogram of 09/29/16. The patient was in atrial fibrillation with rapid ventricular response during the exam with a heart rate exceeding 100 bpm. The heart rate ranged between 144-184 bpm during the study. Left Ventricle: The left ventricle is normal in size. There is normal left ventricular wall thickness. Proximal septal thickening is noted. The left ventricle is hyperdynamic. The ejection fraction is estimated to be >80%. Left ventricular wall motion is normal. Right Ventricle: The right ventricle is borderline dilated. The right ventricular systolic function is normal. Atria: The left atrium is severely dilated. The right atrium is moderate to severely dilated. The interatrial septum is intact with no evidence for an atrial septal defect. Mitral Valve: The mitral valve leaflets appear to open well. There is mild to moderate mitral regurgitation. Compared to the prior echo study, there has been an increase in the severity of mitral regurgitation. Aortic Valve: The aortic valve is normal in structure and function. There is no hemodynamically significant valvular aortic stenosis. There is trace aortic regurgitation. Tricuspid Valve: The tricuspid valve leaflets are thickened and/or calcified, but open well. There is severe tricuspid regurgitation. Compared to the prior echo exam, there has been no change in TR severity. The right ventricular systolic pressure is estimated at 59 mmHg assuming a right atrial pressure of 15 mm Hg. Compared to the prior echo exam, there has been an increase in the severity of pulmonary hypertension. Pulmonic Valve: The pulmonic valve leaflets are thin and pliable; valve motion is normal. There is a trace or physiologic amount of pulmonic regurgitation. There is no other significant valvular heart disease. Great Vessels: The aortic root is normal size. The dimensions of the ascending aorta are normal. The pulmonary artery is normal size. The IVC is dilated (diameter is greater than 2.1 cm) and it collapses less than 50% with a sniff. This suggests a high right atrial pressure of 15 mm Hg. Pericardium/ Pleura There is no pericardial effusion. There is no pleural effusion. MMode/2D Measurements & Calculations LVIDd: 4.3 cm RA long axis LVOT diam: 1.7 cm LVIDs: 3.3 cm LA A2 area: 22.4 cm AoV Opening FS: 22.1 % LA A4 area: 27.1 cm RA area IVSd: 0.77 cm LA length (vol) Ao root diam LVPWd: 0.60 cm : 24.9 cm LA vol: 84.5 ml RA vol asc Aorta Diam LA vol index : 75.3 ml RA Ao Arch Diam (Prox : 47.0 mm2 Trans): 2.9 cm IVC diam: 2.1 cm LV sanchez. diameter/BSA LV sys. diameter/BSA (cm/m^2): 2.7 (cm/m^2): 2.1 Doppler Measurements & Calculations Ao V2 max MV E max villa TR max villa Ao V2 mean : 152.6 cm/sec : 100.9 cm/sec : 334.4 cm/sec : 108.2 cm/sec Ao max PG TR max PG Ao V2 VTI : 9.4 mmHg : 44.8 mmHg Ao mean PG CARMINE(V,D): 1.6 cm2 LVOT Max Villa : 105.5 cm/sec CARMINE(I,D): 1.8 cm sev ratio LV V1 max PG CARMINE indexed to BSA (cm^2/m^2): 1.1 LV V1 VTI: 15.9 cm Reading Physician:PM Assessment & Plan . Patient is a 71 year old female with a history of hemochromatosis, epilepsy, COPD on home 2L O2, CHF, stage III chronic kidney disease, and chronic atrial fibrillation admitted with acute respiratory distress and fever. 1. Acute on chronic hypoxic respiratory Failure : Due to Pneumonia/ COPD exacerbation Supplemental oxygen as needed 2. Streptococcal pneumonia pneumonia and strep septicemia, acute, POA, This point we will probably plan on finishing a course of antibiotics, will discuss the duration of ceftriaxone with infectious disease. 3. LOLIS, acute, POA - resolved - Avoid nephrotoxic agents. 4. Chronic compensated diastolic heart failure, acute, POA. This remains stable. No change to chronic medications. 5. Dsyphagia , POA. No clinical changes. 6. Hypokalemia : Improved. Replace electrolytes PRN, will follow electrolytes daily. 7. Acute toxic and metabolic encephalopathy :POA. Soft restraint . She remains encephalopathic 8. Chronic Atrial fibrillation with rapid ventricular response, POA - We will try to convert her to oral medications and get her off from IV medications today. 9. Thrombocytopenia, acute, not present on admission : Secondary to infection. Platelet count 115 and continues to improve. HIT antibody is negative . Resume heparin for DVT prophylaxis SCD for DVT prophylaxis Follow-up platelet count closely. 10. Nutrition Mechanical dysphagia diet per speech therapy and swallow Feed with assistance . PO intake is very poor. IV D5 ns for adequate hydration 11. COPD exacerbation, acute, present on admission Continue nebulizer, oxygen supplement, pulmonary toilets, PRN BIPAP Continue IV steroid and taper 9. Epilepsy, chronic. Presumed stable - On Phenytoin for seizure prophylaxis 10. Chronic hypoxic respiratory failure, chronic 11. Hemochromatosis with liver cirrhosis, POA. 12. Hepatitis C. POA. Macrocytic anemia, chronic -continue to monitor -h&h are at baseline dnights. Clinically deteriorating . Previous hospitalist had a meeting yesterday with her POA who will discuss with the rest of the family members about comfort measures Prognosis is very poor Patient is DNR/DNI Discharge and level of care planning. The patient met with hospice yesterday and will initiate home hospice on Thursday. Discussed the situation with palliative medicine today. She will be treated in the hospital until Thursday at which time she will be discharged to the family home in [place]. In the meantime the family is assembling durable medical equipment. Pain Evaluation: Adequate Pain Control VTE Prophylaxis: Sub-Q Heparin (Unfractionated), SCDs VTE Mechanical Devices: Intermittant Pneumatic CD Resuscitation Status: DNR/DNI:Do Not Resuscitate/Intubate Time spent 30 minutes Adrien Chua MD Jan 22, 2017 10:24
--- NOTE | 2017-01-22 10:51 | PROG NOTE ---
[address] [address] PROGRESS NOTE PATIENT: JEANNETTE OCHOA : 1945 MR#: [id number] ADMIT: 01/13/2017 JOB ID: [id number] DATE: 01/22/2017 INFECTIOUS DISEASE FOLLOWUP NOTE: REASON FOR FOLLOWUP: Bacteremic pneumococcal pneumonia in a debilitated patient. INTERVAL HISTORY: Overnight, the patient has been free of fever or chills. She continues to have an intermittently productive cough. No GI or other new complications have arisen. The patient continues to state that she wants to be discharged home and plans are underway for her to go home with hospice within the next couple of days. PHYSICAL EXAMINATION: Reveals a chronically ill, very debilitated woman sitting up in bed, and with an occasional wet sounding cough. Temperature 36.3. She has been consistently afebrile now for many days. Pulse 80, respiratory rate in the mid 20s, blood pressure 170/90, saturating well on 2 L. She is awake and able to answer questions. Oral cavity unremarkable. Lungs continue to have coarse breath sounds on the right side. Cardiac tones without new murmur. Abdomen benign. No skin rash. LABORATORIES: Include a white count of 21,000 with left shift but, of course, she is on steroids. Creatinine is 1.06, which is actually better than it has been. LFT are completely normal. Procalcitonin is falling steadily and has now reached 0.6, having started at a peak of 15. Interestingly, her hep C viral load is greater than 100 million, which is beyond the reference range in our lab. Hep C genotype is still pending. Micro includes the positive blood cultures and urine antigen for pneumococcus, which now dates back almost 10 days ago. IMAGING: No recent x-rays have been done. IMPRESSION: This patient is doing reasonably well with respect to her bacteremic pneumococcal pneumonia but unfortunately, her overall medical situation is quite complex, and she is very debilitated. The family has made what seems like a very appropriate choice in terms of hospice for this patient, and we are just going to wrap up her antibiotics in preparation for her discharge home. It would appear, based on her overall condition, as well as the trend with her procalcitonin, that we can complete her course of antibiotics tomorrow for the bacteremic pneumococcal pneumonia. The hepatitis C is obviously not going to be treated in this patient who is going on hospice but it is interesting that her viral load is so extraordinarily high despite having normal liver function tests. RECOMMENDATIONS: 1. Will continue ceftriaxone through tomorrow and then discontinue. 2. The patient can be discharged at any time from an infectious disease point of view. 3. Infectious Disease will go ahead and sign off on this case at this time but thank you very much for consulting.
--- NOTE | 2017-01-22 11:27 | PCM.PALLBR ---
Palliative Care Recommendation 71-year-old female with advanced COPD with multiple comorbidities and progressive decline, readmitted with pneumonia. Palliative medicine consulted to assist with determination of goals of care. Hospice information visit on 01/21. Family plans on taking her home with hospice support for end-of-life care. Summary of palliative recommendations: Symptom management- 01/21/17- patient's family strongly requests/prefers use of lorazepam if she becomes agitated or distressed. They say that this is always worked very well for her. They are aware of the potential risks of the medication and still request it be used preferentially. Continue lorazepam oral/IV prn for symptom relief Dysphagia-rooted in her delirium and profound debility. Liberalize diet that she is progressing to comfort care. Discussed with ST. Nutrition and hydration- reviewed this with her family members who continue to feel it is OK to feed her to her comfort. Reviewed dietary recommendations. If she takes in minimal PO time course may be in few weeks only. DPOA/Advanced Directives/POLST: 1. Code status: DNR/DNI/limited interventions/antibiotics and IVs OK/no artificial nutrition 2. Advanced Directives: not on paper but established through prior talks with family and pt. To this end, family asks providers to use IVFs to support her blood pressure , IV antibiotics to treat infection, and face masks (as patient tolerates them) to assist in her breathing. They do not want more escalation of her care with advanced life support procedures/interventions. We will plan on completing a POLST prior to discharge that reflects patient and family wishes current at that time Family/emotional support: Excellent support from daughter, pt's 4 adult grandsons. Oldest grandson Yovani and his GF [place] are committed to taking care of Gracia in their home, when she recovers enough to go home. Patient Goals: As Above. Reasonable interventions to try to recover to former baseline, but no heroics. Additional Medical Diagnoses with primary management by Hospitalist team include : Patient is a 71 year old female with a history of hemochromatosis, epilepsy, COPD on home 2L O2, CHF, stage III chronic kidney disease, and chronic atrial fibrillation admitted with acute respiratory distress and fever. 1. Severe Sepsis, acute, POA 2. Health care associated pneumonia, acute, POA 3. LOLIS, acute, POA 4. Chronic compensated diastolic heart failure, acute, POA 5. Elevated troponin, acute, POA 6. Hypokalemia, replete and follow. This was present on admit. 7. Acute toxic encephalopathy versus hepatic encephalopathy, POA. 8. Chronic Persistent Atrial fibrillation, POA 9. Epilepsy, chronic. Presumed stable 10. Chronic hypoxic respiratory failure, chronic 11. Hemochromatosis with liver cirrhosis, POA. 12. Hepatitis C. POA. 13. Macrocytic anemia, chronic Problems: End of Life Preferences DNR/DNI- hospice/comfort care once discharged Goals of Care Return home with hospice support Disposition As above Resuscitation Status Resuscitation Status: DNR/DNI:Do Not Resuscitate/Intubate POLST Updates/Changes Previous POLST?: Yes POLST Discussed with: Spouse/Other (daughter at bedside (but she is not POA), waiting for POA to arrive.) . Advanced Care Planning Address: Comfort care Pain: None Symptom management: Anxiety, Dyspnea Total time 35 minutes; >50% face to face with patient and family, providing counselling regarding plans and recommendations, and in care coordination with her medical teams. Palliative Brief Note Date of Service Jan 22, 2017 . Returned to reevaluate patient. Prior to visiting, reviewed her updated records in the EMR. Had reviewed her case with hospice loan servicing representative yesterday afternoon- patient and family have decided to enroll in hospice with anticipated discharge this Thursday. Spoke with her bedside nurse as well. Patient's family was very pleased that he was able to arrange for her to get out of her room in a wheelchair yesterday. Spoke with her grandson and granddaughter, updated them on her status and plans. On brief exam, frail, chronically ill-appearing elderly woman lying in bed. Appeared to be in no distress. Did complain of some modest abdominal discomfort but had just been treated by the nurse. No emesis. Vital signs noted. Skin pale, warm and dry. Lungs with diminished breath sounds diffusely. Heart sounds regular. Abdomen is rounded but without discrete tenderness or masses. No peritoneal signs. Pro-calcitonin continues to fall. She remains on IV ceftriaxone for presumed strep pneumoniae pneumonia. Input of infectious disease appreciated. He Terry MD Jan 22, 2017 11:27
[2017-01-22] MEDS: MeTOProlol XL 25 mg ER24 Tablet PO SCH (12:22)
[2017-01-22] MEDS ORDERED: Nystatin 100,000 Unit/Gm 15 Gm Powder TOPICAL SCH (16:25)
--- NOTE | 2017-01-22 18:09 | NUR ---
[place] [facility] [place] Pts. blood pressure was 170/90 and I admin. PRN hydralazine. When I rechecked Pts. BP it was 138/82. Pt. blood pressure has not gone above 160 systolically the rest of the sift. Pt. was [place] [facility] [place] 239 bed 2. Pts. family was notified and they where thankful for the call. Pt. left with VS stable and no c/o pain or SOB. Transfer report was given to Yara Jacinto RN [place] [facility] [place] Pt. left room [address] [facility] [place] [facility] [place] 239 bed 2 at ~ 1800 and took all her belongings with her.
--- NOTE | 2017-01-22 18:36 | NUR ---
Transfer Report called earlier from lEmer Guerrero 1800 pt arrived in bed with 2 assistants. Pt alert and conversant. Asking about family. Per transporters they are coming in shortly and usually stay the night. Oriented to room and call light.
[2017-01-23] VITALS (8 sets, daily range): BP systolic 142–168; BP diastolic 66–85; PULSE 62–83; RESP 18–24; O2SAT 91–97
[2017-01-23] MEDS: MethylprednisoLONE Sodium Succinate 62.5 mg/mL 2 mL Inj IVPUSH SCH ×2 (00:10→08:42)
[2017-01-23] MEDS: Albuterol-Ipratropium 3 mL Inhalation Solution NEB SCH ×4 (02:30→21:16)
[2017-01-23] MEDS: cefTRIAXone Inj 2,000 MG in Dextrose 5% Minibag Plus 50 ML IV SCH (04:58)
--- NOTE | 2017-01-23 06:29 | NUR ---
Shift Note Assumed pt care at 1900. pt alert/oriented with intermittent confusion,redirectable, pt [id number], mepilex protective dressing on coccyx area, continues with IVF, had last dose of IV ABO this am, qhrly checks done, tresa alarm on for safety.
[2017-01-23] MEDS: MeTOProlol XL 25 mg ER24 Tablet PO SCH (08:38)
--- NOTE | 2017-01-23 09:55 | NUR ---
angelica LOPEZ notified that IV needs to be changed in order to admin medication. Per , to request pharmacy switch to po. palliative visited pt at bedside this am. Notified of possible thrush, per Dr. Terry no intervention at this time per pt request.
--- NOTE | 2017-01-23 10:30 | NUR ---
IV/stool Per hospitalist, pt does not need re-start of IV, will change and IV meds to po. Per palliative MD, notified that stools are dark/black. No new orders/guiaic.
[2017-01-23] MEDS: Phenytoin 100 mg ER Capsule PO SCH ×2 (10:56→19:58)
[2017-01-23] MEDS: LORazepam 0.5 mg Tablet PO PRN ×2 (12:34→23:58)
[2017-01-23] MEDS ORDERED: predniSONE 20 mg Tablet PO SCH (12:55)
--- NOTE | 2017-01-23 14:50 | NUR ---
patient received scheduled bronchodilator therapy. RN called to assess patient for sob and possible prn tx. however, by the time i arrived pt was resting comfortably without sob. per RN she had ativan and is no longer in respiratory distress.
--- NOTE | 2017-01-23 14:53 | PCM.PNMED ---
Subjective Date of Service Jan 23, 2017 Subjective NO NEW COMPLAINTS,BREATHING UNCHANGED Exam Vital Signs Vital Sign - Last Date Time Temp Pulse Resp B/P Pulse Ox O2 Delivery O2 Flow Rate FiO2 01/23/17 14:47 74 20 96 Nasal Cannula 3.00 01/23/17 10:40 36.3 168/85 Intake and Output 01/22/17 01/22/17 01/23/17 Cumulative From/Thru 15:00 23:00 07:00 01/12/17 20:19 - 01/23/17 06:28 Intake Total 400 ml 600 ml 22116 ml Output Total 1154 ml Balance 400 ml 600 ml 56671 ml Intake Oral 400 ml 4930 ml IV Total 600 ml 6412 ml Output Urine Total 1152 ml Urine/Stool Mix 2 ml # Voids 4 2 34 # Bowel Movements 1 8 Exam Comfortable, arousable. Anicteric sclera Normal JVP. Lungs with normal rate and effort, scattered rhonchi. Heart is regular without murmur or gallop Abdomen is nontender. Extremities are free of edema control pulses IVs and Medications Medications Reviewed: Medications were reviewed in detail Lab and Diagnostics Result Diagram: 01/20/1751101/20/17511 X-Rays, CTs and MRIs Patient Name: JEANNETTE OCHOA MR#: [id number] [place] [facility] [place]ing Phys: LOUANN ROSE MD Date of Service: 01/12/172017 PROCEDURE: X-RAY CHEST ONE VIEW, PORTABLE ([id number]) INDICATIONS: FEVER, COUGH TECHNIQUE: One view of the chest was acquired. COMPARISON: [facility], CR, XR CHEST 1VW (PORTABLE), 12/20/2016, 2: 21. [facility], CR, XR CHEST 1VW, 12/20/2016, 7:13. FINDINGS: Surgical changes and devices: None. Lungs and pleura: There is patchy areas of opacity within the right upper and lower lobes, new compared to prior exam. Anterior opacities also noted in the left upper lobe and retrocardiac region. Mediastinum: Mediastinal contours appear normal. Heart size is normal. Bones and chest wall: No suspicious bony lesions. Overlying soft tissues appear unremarkable. IMPRESSION: Bilateral areas of focal opacity most prominent in the retrocardiac and right upper lobes as above. Findings are suspicious for multifocal pneumonia. There is underlying edema and/or atelectasis cannot be excluded. Patient Name: JEANNETTE OCHOA MR#: [id number] Location: [facility] Ordering Phys: Adrien Chua MD Date of Service: 01/14/17 0500 PROCEDURE: X-RAY CHEST ONE VIEW, PORTABLE ([id number]) INDICATIONS: dyspnea TECHNIQUE: One view of the chest was acquired. COMPARISON: [facility], CR, XR CHEST 1VW (PORTABLE), 01/12/2017, 20: 15. FINDINGS: Surgical changes and devices: None. Lungs and pleura: There is patchy areas of opacity within the right upper and lower lobes, new compared to prior exam. Anterior opacities also noted in the left upper lobe and retrocardiac region. Mediastinum: Mediastinal contours appear normal. Heart size is normal. Bones and chest wall: No suspicious bony lesions. Overlying soft tissues appear unremarkable. IMPRESSION: No significant change from prior examination suggestive of multifocal pneumonia and/or pulmonary edema. Recommend clinical correlation. Dictated by: Nuno Chatterjee RR Interpreted: Leigh Babb MD on 01/14/2017 at 9:09 Transcribed by: JOSÉ MANUEL on 01/14/2017 at 9:10 Approved by: Leigh Babb M.D. on 01/14/2017 at 16:32 Cardiac Echo Impressions Echocardiogram Report Name: JEANNETTE OCHOA LStudy Date: 06/2017 Height: 64 in Hospital Exam Location: [facility] Weight: 125 lb Gender: Female BSA: 1.6 m2 : 1945 Age: 71 yrs BP: 116/74 mmHg Reason For Study: Dyspnea [facility]ing [facility] By: Maciel Moraes Referring Physician: ADRIEN CHUA Interpretation Summary The patient was in atrial fibrillation with rapid ventricular response during the exam with a heart rate exceeding 100 bpm. The heart rate ranged between 144-184 bpm during the study. The left ventricle is normal in size. The left ventricle is hyperdynamic. The ejection fraction is estimated to be >80%. Left ventricular wall motion is normal. The right ventricle is borderline dilated. The right ventricular systolic function is normal. The right ventricular systolic pressure is estimated at 59 mmHg assuming a right atrial pressure of 15 mm Hg. Compared to the prior echo exam, there has been an increase in the severity of pulmonary hypertension. The left atrium is severely dilated. The right atrium is moderate to severely dilated. There is mild to moderate mitral regurgitation. Compared to the prior echo study, there has been an increase in the severity of mitral regurgitation. There is severe tricuspid regurgitation. Compared to the prior echo exam, there has been no change in TR severity. There is no other significant valvular heart disease. The aortic root is normal size. Procedure: A two-dimensional transthoracic echocardiogram with color flow and Doppler was performed. The study quality was technically adequate. Comparison is made with the echocardiogram of 09/29/16. The patient was in atrial fibrillation with rapid ventricular response during the exam with a heart rate exceeding 100 bpm. The heart rate ranged between 144-184 bpm during the study. Left Ventricle: The left ventricle is normal in size. There is normal left ventricular wall thickness. Proximal septal thickening is noted. The left ventricle is hyperdynamic. The ejection fraction is estimated to be >80%. Left ventricular wall motion is normal. Right Ventricle: The right ventricle is borderline dilated. The right ventricular systolic function is normal. Atria: The left atrium is severely dilated. The right atrium is moderate to severely dilated. The interatrial septum is intact with no evidence for an atrial septal defect. Mitral Valve: The mitral valve leaflets appear to open well. There is mild to moderate mitral regurgitation. Compared to the prior echo study, there has been an increase in the severity of mitral regurgitation. Aortic Valve: The aortic valve is normal in structure and function. There is no hemodynamically significant valvular aortic stenosis. There is trace aortic regurgitation. Tricuspid Valve: The tricuspid valve leaflets are thickened and/or calcified, but open well. There is severe tricuspid regurgitation. Compared to the prior echo exam, there has been no change in TR severity. The right ventricular systolic pressure is estimated at 59 mmHg assuming a right atrial pressure of 15 mm Hg. Compared to the prior echo exam, there has been an increase in the severity of pulmonary hypertension. Pulmonic Valve: The pulmonic valve leaflets are thin and pliable; valve motion is normal. There is a trace or physiologic amount of pulmonic regurgitation. There is no other significant valvular heart disease. Great Vessels: The aortic root is normal size. The dimensions of the ascending aorta are normal. The pulmonary artery is normal size. The IVC is dilated (diameter is greater than 2.1 cm) and it collapses less than 50% with a sniff. This suggests a high right atrial pressure of 15 mm Hg. Pericardium/ Pleura There is no pericardial effusion. There is no pleural effusion. MMode/2D Measurements & Calculations LVIDd: 4.3 cm RA long axis LVOT diam: 1.7 cm LVIDs: 3.3 cm LA A2 area: 22.4 cm AoV Opening FS: 22.1 % LA A4 area: 27.1 cm RA area IVSd: 0.77 cm LA length (vol) Ao root diam LVPWd: 0.60 cm : 24.9 cm LA vol: 84.5 ml RA vol asc Aorta Diam LA vol index : 75.3 ml RA Ao Arch Diam (Prox : 47.0 mm2 Trans): 2.9 cm IVC diam: 2.1 cm LV sanchez. diameter/BSA LV sys. diameter/BSA (cm/m^2): 2.7 (cm/m^2): 2.1 Doppler Measurements & Calculations Ao V2 max MV E max villa TR max villa Ao V2 mean : 152.6 cm/sec : 100.9 cm/sec : 334.4 cm/sec : 108.2 cm/sec Ao max PG TR max PG Ao V2 VTI : 9.4 mmHg : 44.8 mmHg Ao mean PG CARMINE(V,D): 1.6 cm2 LVOT Max Villa : 105.5 cm/sec CARMINE(I,D): 1.8 cm sev ratio LV V1 max PG CARMINE indexed to BSA (cm^2/m^2): 1.1 LV V1 VTI: 15.9 cm Reading Physician:PM Assessment & Plan . Patient is a 71 year old female with a history of hemochromatosis, epilepsy, COPD on home 2L O2, CHF, stage III chronic kidney disease, and chronic atrial fibrillation admitted with acute respiratory distress and fever. 1. Acute on chronic hypoxic respiratory Failure : Due to Pneumonia/ COPD exacerbation Supplemental oxygen as needed 2. Streptococcal pneumonia pneumonia and strep septicemia, acute, POA, This point we will probably plan on finishing a course of antibiotics, will discuss the duration of ceftriaxone with infectious disease. 3. LOLIS, acute, POA - resolved - Avoid nephrotoxic agents. 4. Chronic compensated diastolic heart failure, acute, POA. This remains stable. No change to chronic medications. 5. Dsyphagia , POA. No clinical changes. 6. Hypokalemia : Improved. Replace electrolytes PRN, will follow electrolytes daily. 7. Acute toxic and metabolic encephalopathy :POA. Soft restraint . She remains encephalopathic 8. Chronic Atrial fibrillation with rapid ventricular response, POA - We will try to convert her to oral medications and get her off from IV medications today. 9. Thrombocytopenia, acute, not present on admission : Secondary to infection. Platelet count 115 and continues to improve. HIT antibody is negative . Resume heparin for DVT prophylaxis SCD for DVT prophylaxis Follow-up platelet count closely. 10. Nutrition Mechanical dysphagia diet per speech therapy and swallow Feed with assistance . PO intake is very poor. IV D5 ns for adequate hydration 11. COPD exacerbation, acute, present on admission Continue nebulizer, oxygen supplement, pulmonary toilets, PRN BIPAP Continue IV steroid and taper 9. Epilepsy, chronic. Presumed stable - On Phenytoin for seizure prophylaxis 10. Chronic hypoxic respiratory failure, chronic 11. Hemochromatosis with liver cirrhosis, POA. 12. Hepatitis C. POA. Macrocytic anemia, chronic -continue to monitor -h&h are at baseline dnights. Patient is DNR/DNI Discharge and level of care planning. The patient met with hospice and will initiate home hospice on Thursday. Discussed the situation with palliative medicine today. She will be treated in the hospital until Thursday at which time she will be discharged to the family home in [place]. In the meantime the family is assembling durable medical equipment. VTE Prophylaxis: Sub-Q Heparin (Unfractionated), SCDs VTE Mechanical Devices: Intermittant Pneumatic CD Resuscitation Status: DNR/DNI:Do Not Resuscitate/Intubate Isaiah Aguilar MD Jan 23, 2017 14:52
--- NOTE | 2017-01-23 14:57 | PCM.PALLBR ---
Palliative Care Recommendation 71-year-old female with advanced COPD with multiple comorbidities and progressive decline, readmitted with pneumonia. Palliative medicine consulted to assist with determination of goals of care. Hospice information visit on 01/21. Family plans on taking her home with hospice support for end-of-life care, with anticipated discharge 01/24/17. Summary of palliative recommendations: Symptom management- 01/21/17- patient's family strongly requests/prefers use of lorazepam if she becomes agitated or distressed. They say that this is always worked very well for her. They are aware of the potential risks of the medication and still request it be used preferentially. Continue lorazepam oral/IV prn for symptom relief Dysphagia-rooted in her delirium and profound debility. Liberalize diet that she is progressing to comfort care. Discussed with ST. Nutrition and hydration- reviewed this with her family members who continue to feel it is OK to feed her to her comfort. Reviewed dietary recommendations. If she takes in minimal PO time course may be in few weeks only. DPOA/Advanced Directives/POLST: 1. Code status: DNR/DNI/limited interventions/antibiotics and IVs OK/no artificial nutrition while in hospital, but transitioning to hospice/comfort care once at home 2. Advanced Directives: not on paper but established through prior talks with family and pt. 3. Completed a new POLST with the family's input today- they are given a copy and the original, a copy is left in her hospital chart and a copy is in the palliative care office Family/emotional support: Excellent support from daughter, pt's 4 adult grandsons. Oldest grandson Yovani and his GF [place] are committed to taking care of Gracia in their home, when she recovers enough to go home. Patient Goals: As Above. Reasonable interventions to try to recover to former baseline, but no heroics. Additional Medical Diagnoses with primary management by Hospitalist team include : Patient is a 71 year old female with a history of hemochromatosis, epilepsy, COPD on home 2L O2, CHF, stage III chronic kidney disease, and chronic atrial fibrillation admitted with acute respiratory distress and fever. 1. Severe Sepsis, acute, POA 2. Health care associated pneumonia, acute, POA 3. LOLIS, acute, POA 4. Chronic compensated diastolic heart failure, acute, POA 5. Elevated troponin, acute, POA 6. Hypokalemia, replete and follow. This was present on admit. 7. Acute toxic encephalopathy versus hepatic encephalopathy, POA. 8. Chronic Persistent Atrial fibrillation, POA 9. Epilepsy, chronic. Presumed stable 10. Chronic hypoxic respiratory failure, chronic 11. Hemochromatosis with liver cirrhosis, POA. 12. Hepatitis C. POA. 13. Macrocytic anemia, chronic Problems: End of Life Preferences DNR/DNI- hospice/comfort care once discharged Goals of Care Return home with hospice support Disposition As above Resuscitation Status Resuscitation Status: DNR/DNI:Do Not Resuscitate/Intubate POLST Updates/Changes Previous POLST?: Yes POLST Discussed with: Spouse/Other (daughter at bedside (but she is not POA), waiting for POA to arrive.) POLST Review Outcome: New Form Completed (DO NOT RESUSCITATE/DO NOT INTUBATE/ comfort/antibiotics okay for comfort/no artificial nutrition) . Advanced Care Planning Address: POLST, Comfort care Pain: None Total time 60 minutes; >50% face to face with patient and family, providing counselling regarding plans and recommendations, and in care coordination with her medical teams. Of the above total time, 20 minutes counseling for advanced care planning with the patient and family, reviewing comfort care/hospice/creating a new POLST Palliative Brief Note Date of Service Jan 23, 2017 . Return to reevaluate patient. Prior to visiting, reviewed her updated records in the EMR in detail. Spoke with her bedside nurse. When I arrived, she is lying in bed with head of bed elevated, but she is the brightest that I have seen her in the last 3 days. She greets me with a normal speaking voice (after only speaking in a whisper the last several days) and says that she is feeling better and is looking forward to going home tomorrow. She denies any undue shortness of breath, pain, nausea or other symptoms. She is very happy that she is now able to eat and drink what she wants and that she has been able to get up in the chair. On exam, vital signs noted. Very fatigued, frail appearing woman lying in bed. Skin pale, warm and dry. Cachectic. Lungs clear anterolaterally, heart sounds regular, abdomen rounded, soft and nontender. Her nurse also been concerned about possible oral candidiasis- patient denied any sense of oral irritation, pain, sensitivity. Her oropharynx has some dried whitish mucoid material on the cheeks and soft palate, but no evidence of underlying erythema and the material is not typical for Sara. When I asked the patient if she would be interested in some medication "just in case" she said absolutely not- which I think is alright as I suspect this is not candidiasis. Returned later and spoke with her family members at bedside as well. We are pleased with her progress. We reviewed hospice and its goals and completed a new POLST for her Hoeft, He Steen MD Jan 23, 2017 14:01
--- NOTE | 2017-01-23 15:17 | NUR ---
[facility] signed
[2017-01-24] MEDS: Albuterol-Ipratropium 3 mL Inhalation Solution NEB SCH ×2 (00:09→06:08)
[2017-01-24 00:10] VITALS: PULSE 70; RESP 20; O2SAT 93
--- NOTE | 2017-01-24 00:46 | NUR ---
ANXIETY/SOB At ~0000, pt put visual communications instructor light and called out for help. When in room, pt stated "I can't breathe." NC not in place, pt often takes off for reason unknown. Initial reading of O2 60%, but slowly increased to high 80s%. Pt extremities cold and poorly perfused. Gave pt PRN ativan and RT administered PRN neb txment. RN suggested oxymask, and pt promptly said no and said "I can't breathe with those." Upon asking, pt said she gets claustrophobic. NC currently on 2 L NC for goal of 89-92%m goal met. Will continue to assess level of anxiety and respiratory status. Family currently in room to help meet needs. Hourly rounding. Addendum: 01/24/17 at 0511 by ANASTASIA HAYS RN At ~0500, family member reported pt saying she can't breathe and has been taking off her oxygen throughout the night. On assessment, O2 is 89% on 2.5L NC. Gave ativan to help with anxiety, called RT for PRN neb txment. Addendum: 01/24/17 at 0542 by ANASTASIA HAYS RN Pt sleeping--ativan and neb txment effective.
[2017-01-24] MEDS: LORazepam 0.5 mg Tablet PO PRN ×2 (05:01→09:47)
[2017-01-24 05:08] VITALS: BP 143/77; PULSE 82; RESP 20; O2SAT 92
[2017-01-24 05:10] VITALS: RESP 18; O2SAT 96
[2017-01-24] MEDS ORDERED: predniSONE 20 mg Tablet PO SCH (08:30)
--- NOTE | 2017-01-24 08:56 | PCM.DIMED ---
Discharge Instructions Date of Service Jan 24, 2017 Dates of Hospitalization Jan 13, 2017 at 00:16 Discharge Diagnosis Discharge Diagnosis 1. Acute on chronic hypoxic respiratory Failure : Due to Pneumonia/ COPD exacerbation 2. Streptococcal pneumonia pneumonia and strep septicemia, acute, POA, 3. LOLIS, acute, POA - resolved 4. Chronic compensated diastolic heart failure, acute, POA. 5. Dsyphagia , POA. 6. Hypokalemia : Improved. 7. Acute toxic and metabolic encephalopathy :POA. 8. Chronic Atrial fibrillation with rapid ventricular response, POA 9. Thrombocytopenia, acute, not present on admission : Secondary to infection. 10. malnutrition 12. COPD exacerbation, acute, present on admission 13. Epilepsy, chronic. Presumed stable 14. Chronic hypoxic respiratory failure, chronic 14. Hemochromatosis with liver cirrhosis, POA. 15. Hepatitis C. POA. Diet No restrictions Activity No restrictions Call your provider Fever or Chills, Shortness of breath, Bleeding, Chest pain, Vomitting, Excessive diarrhea, Weakness (unilateral) Patient Instructions You were hospitalized due to acute on chronic hypoxic respiratory failure due to COPD exacerbation and pneumonia . You have been treated with antibiotics .You are being discharged to home on hospice care as you opted. Please follow up with hospice at home. Follow-up plan Please follow up with Hospice team at home. Follow-up Provider: Arlene Dowling MD Follow-up with PCP in: 3 weeks Isaiah Aguilar MD Jan 24, 2017 08:55
[2017-01-24 09:10] VITALS: BP 155/72; PULSE 70; RESP 20; O2SAT 92
[2017-01-24] MEDS: Phenytoin 100 mg ER Capsule PO SCH (09:14)
[2017-01-24] MEDS: MeTOProlol XL 25 mg ER24 Tablet PO SCH (09:14)
--- NOTE | 2017-01-24 09:14 | PCM.DC.MED ---
Discharge Summary Date of Service Jan 24, 2017 Dates of Hospitalization Date of Hospital Admission Jan 13, 2017 at 00:16 Date of Discharge: Jan 24, 2017 Providers: Admitting Physician: Diane Anand DO Primary Care Physician: Arlene Dowling MD Attending Physician: Diane Anand DO Diagnosis at Time of Discharge Diagnosis at Time of Discharge 1. Acute on chronic hypoxic respiratory Failure : Due to Pneumonia/ COPD exacerbation 2. Streptococcal pneumonia pneumonia and strep septicemia, acute, POA, 3. LOLIS, acute, POA - resolved 4. Chronic compensated diastolic heart failure, acute, POA. 5. Dsyphagia , POA. 6. Hypokalemia : Improved. 7. Acute toxic and metabolic encephalopathy :POA. 8. Chronic Atrial fibrillation with rapid ventricular response, POA 9. Thrombocytopenia, acute, not present on admission : Secondary to infection. 10. malnutrition 12. COPD exacerbation, acute, present on admission 13. Epilepsy, chronic. Presumed stable 14. Chronic hypoxic respiratory failure, chronic 14. Hemochromatosis with liver cirrhosis, POA. 15. Hepatitis C. POA. Consultations ID Dr Posey palliative Dr Lara Procedures XRay, CTs & MRIs Patient Name: JEANNETTE REBOLLEDO MR#: [id number] Location: [facility] Ordering Phys: LOUANN ROSE MD Date of Service: 01/12/172017 PROCEDURE: X-RAY CHEST ONE VIEW, PORTABLE ([id number]) INDICATIONS: FEVER, COUGH TECHNIQUE: One view of the chest was acquired. COMPARISON: [facility], CR, XR CHEST 1VW (PORTABLE), 12/20/2016, 2: 21. [facility], CR, XR CHEST 1VW, 12/20/2016, 7:13. FINDINGS: Surgical changes and devices: None. Lungs and pleura: There is patchy areas of opacity within the right upper and lower lobes, new compared to prior exam. Anterior opacities also noted in the left upper lobe and retrocardiac region. Mediastinum: Mediastinal contours appear normal. Heart size is normal. Bones and chest wall: No suspicious bony lesions. Overlying soft tissues appear unremarkable. IMPRESSION: Bilateral areas of focal opacity most prominent in the retrocardiac and right upper lobes as above. Findings are suspicious for multifocal pneumonia. There is underlying edema and/or atelectasis cannot be excluded. Patient Name: JEANNETTE REBOLLEDO MR#: [id number] Location: [facility] Ordering Phys: Adrien Chua MD Date of Service: 01/14/17 0500 PROCEDURE: X-RAY CHEST ONE VIEW, PORTABLE ([id number]) INDICATIONS: dyspnea TECHNIQUE: One view of the chest was acquired. COMPARISON: [facility], CR, XR CHEST 1VW (PORTABLE), 01/12/2017, 20: 15. FINDINGS: Surgical changes and devices: None. Lungs and pleura: There is patchy areas of opacity within the right upper and lower lobes, new compared to prior exam. Anterior opacities also noted in the left upper lobe and retrocardiac region. Mediastinum: Mediastinal contours appear normal. Heart size is normal. Bones and chest wall: No suspicious bony lesions. Overlying soft tissues appear unremarkable. IMPRESSION: No significant change from prior examination suggestive of multifocal pneumonia and/or pulmonary edema. Recommend clinical correlation. Dictated by: Nuno Chatterjee RRA Interpreted: Leigh Babb MD on 01/14/2017 at 9:09 Transcribed by: JOSÉ MANUEL on 01/14/2017 at 9:10 Approved by: Leigh Babb M.D. on 01/14/2017 at 16:32 Cardiac Echo Impression Echocardiogram Report Name: JEANNETTE REBOLLEDO LStudy Date: 06/2017 Height: 64 in Hospital Exam Location: [facility] Weight: 125 lb Gender: Female BSA: 1.6 m2 : 1945 Age: 71 yrs BP: 116/74 mmHg Reason For Study: Dyspnea Ordering Physician: HOSPITALIST SVHPerformed By: Maciel Moraes Referring Physician: ADRIEN CHUA Interpretation Summary The patient was in atrial fibrillation with rapid ventricular response during the exam with a heart rate exceeding 100 bpm. The heart rate ranged between 144-184 bpm during the study. The left ventricle is normal in size. The left ventricle is hyperdynamic. The ejection fraction is estimated to be >80%. Left ventricular wall motion is normal. The right ventricle is borderline dilated. The right ventricular systolic function is normal. The right ventricular systolic pressure is estimated at 59 mmHg assuming a right atrial pressure of 15 mm Hg. Compared to the prior echo exam, there has been an increase in the severity of pulmonary hypertension. The left atrium is severely dilated. The right atrium is moderate to severely dilated. There is mild to moderate mitral regurgitation. Compared to the prior echo study, there has been an increase in the severity of mitral regurgitation. There is severe tricuspid regurgitation. Compared to the prior echo exam, there has been no change in TR severity. There is no other significant valvular heart disease. The aortic root is normal size. Procedure: A two-dimensional transthoracic echocardiogram with color flow and Doppler was performed. The study quality was technically adequate. Comparison is made with the echocardiogram of 09/29/16. The patient was in atrial fibrillation with rapid ventricular response during the exam with a heart rate exceeding 100 bpm. The heart rate ranged between 144-184 bpm during the study. Left Ventricle: The left ventricle is normal in size. There is normal left ventricular wall thickness. Proximal septal thickening is noted. The left ventricle is hyperdynamic. The ejection fraction is estimated to be >80%. Left ventricular wall motion is normal. Right Ventricle: The right ventricle is borderline dilated. The right ventricular systolic function is normal. Atria: The left atrium is severely dilated. The right atrium is moderate to severely dilated. The interatrial septum is intact with no evidence for an atrial septal defect. Mitral Valve: The mitral valve leaflets appear to open well. There is mild to moderate mitral regurgitation. Compared to the prior echo study, there has been an increase in the severity of mitral regurgitation. Aortic Valve: The aortic valve is normal in structure and function. There is no hemodynamically significant valvular aortic stenosis. There is trace aortic regurgitation. Tricuspid Valve: The tricuspid valve leaflets are thickened and/or calcified, but open well. There is severe tricuspid regurgitation. Compared to the prior echo exam, there has been no change in TR severity. The right ventricular systolic pressure is estimated at 59 mmHg assuming a right atrial pressure of 15 mm Hg. Compared to the prior echo exam, there has been an increase in the severity of pulmonary hypertension. Pulmonic Valve: The pulmonic valve leaflets are thin and pliable; valve motion is normal. There is a trace or physiologic amount of pulmonic regurgitation. There is no other significant valvular heart disease. Great Vessels: The aortic root is normal size. The dimensions of the ascending aorta are normal. The pulmonary artery is normal size. The IVC is dilated (diameter is greater than 2.1 cm) and it collapses less than 50% with a sniff. This suggests a high right atrial pressure of 15 mm Hg. Pericardium/ Pleura There is no pericardial effusion. There is no pleural effusion. MMode/2D Measurements & Calculations LVIDd: 4.3 cm RA long axis LVOT diam: 1.7 cm LVIDs: 3.3 cm LA A2 area: 22.4 cm AoV Opening FS: 22.1 % LA A4 area: 27.1 cm RA area IVSd: 0.77 cm LA length (vol) Ao root diam LVPWd: 0.60 cm : 24.9 cm LA vol: 84.5 ml RA vol asc Aorta Diam LA vol index : 75.3 ml RA Ao Arch Diam (Prox : 47.0 mm2 Trans): 2.9 cm IVC diam: 2.1 cm LV sanchez. diameter/BSA LV sys. diameter/BSA (cm/m^2): 2.7 (cm/m^2): 2.1 Doppler Measurements & Calculations Ao V2 max MV E max villa TR max villa Ao V2 mean : 152.6 cm/sec : 100.9 cm/sec : 334.4 cm/sec : 108.2 cm/sec Ao max PG TR max PG Ao V2 VTI : 9.4 mmHg : 44.8 mmHg Ao mean PG CARMINE(V,D): 1.6 cm2 LVOT Max Villa : 105.5 cm/sec CARMINE(I,D): 1.8 cm sev ratio LV V1 max PG CARMINE indexed to BSA (cm^2/m^2): 1.1 LV V1 VTI: 15.9 cm Reading Physician:PM Brief History per HPI by Dr Anand on 01/13/17 Patient is a 71 year old female with a history of hemochromatosis, epilepsy, COPD on home 2L O2, CHF, stage III chronic kidney disease, and chronic atrial fibrillation admitted with acute respiratory distress and fever. Patient is unable to give any information as she is minimally responsive at this time. Family is at bedside and feel that during visits over the past week Mrs. Rebolledo has been steadily declining. She has been admitted 9 times over the past 12 months and has been seen numerous times in the emergency department as well. She was admitted from 11/27-12/01 and 12/09-12/12. Today she was sent in from [facility] due to 1-2 days of dyspnea and new onset fevers. Hospital Course Patient is a 71 year old female with a history of hemochromatosis, epilepsy, COPD on home 2L O2, CHF, stage III chronic kidney disease, and chronic atrial fibrillation admitted with acute respiratory distress and fever. 1. Acute on chronic hypoxic respiratory Failure : Due to Pneumonia/ COPD exacerbation Supplemental oxygen as needed 2. Streptococcal pneumonia pneumonia and strep septicemia, acute, POA, completed antibiotics 3. LOLIS, acute, POA - resolved 4. Chronic compensated diastolic heart failure, acute, POA. This remains stable. discontinued lasix, euvolumic now 5. Dsyphagia , POA. No clinical changes. 6. Hypokalemia : Improved. 7. Acute toxic and metabolic encephalopathy :POA. 8. Chronic Atrial fibrillation with rapid ventricular response, POA,resolved 9. Thrombocytopenia, acute, not present on admission : Secondary to infection. 10. malnutrition 11. COPD exacerbation, acute, present on admission 12. Epilepsy, chronic. Presumed stable 13. Chronic hypoxic respiratory failure, chronic 14. Hemochromatosis with liver cirrhosis, POA. 15. Hepatitis C. POA. Patient is DNR/DNI The patient met with hospice and will initiate home hospice on Wednesday 01/24. discharge home today on hospice . Exam Vital Signs (Last) Date Time Temp Pulse Resp B/P Pulse Ox O2 Delivery O2 Flow Rate FiO2 01/24/17 05:36 Supplement Oxygen 01/24/17 05:10 18 96 3.00 01/24/17 05:08 36.5 82 143/77 Exam Comfortable, arousable. Anicteric sclera Normal JVP. Lungs with normal rate and effort, scattered rhonchi. Heart is regular without murmur or gallop Abdomen is nontender. Extremities are free of edema control pulses Test 01/12/17 20:17 01/12/17 20:21 01/12/17 20:38 01/13/17 02:55 Hold Urine Received (Received) Prothrombin Time 14.5sec (8.1-12.5) Prothromb Time International Ratio 1.35ratio Urine Color Dark yellow (YELLOW) Urine Appearance Clear (CLEAR,HAZY) Urine pH 5.5 (5.0-8.0) Urine Specific [place] 1.020 (1.003-1.035) Urine Protein Tracemg/dL (NEG,TRACE) Urine Glucose (UA) Negativemg/dL (NEGATIVE) Urine Ketones Negativemg/dL (NEGATIVE) Urine Occult Blood Negative (NEGATIVE) Urine Nitrite Negative (NEGATIVE) Urine Bilirubin Negative (NEGATIVE) Urine Urobilinogen Normalmg/dL (NORMAL) Urine Leukocyte Esterase Small (NEGATIVE) Urine RBC 0-2/hpf (0-2) Urine WBC 6-10/hpf (0-5) Urine Epithelial Cells Moderate/hpf (NONE-MOD) Urine Crystals None seen (NONE SEEN) Urine Bacteria Many/hpf (NONE-FEW) Urine Hyaline Casts Occasional/lpf (NONE) Urine Granular Casts None seen (NONE SEEN) Urine Waxy Casts None seen (NONE SEEN) Urine Red Blood Cell Casts None seen (NONE SEEN) Urine White Blood Cell Casts None seen (NONE SEEN) Urine Mucus None seen (None Seen) Urine Trichomonas None seen (NONE SEEN) Urine Yeast None (NONE SEEN) Urinalysis Comment None Urine Culture Reflexed Indicated Pro-B-Type Natriuretic Peptide 19337ju/mL (0-301) Metamyelocytes % 3% (0-0) Myelocytes % 2% (0-0) Phosphorus Level 2.0mg/dL (2.5-4.9) Magnesium Level 1.4mg/dL (1.6-2.6) Test 01/14/17 03:30 01/14/17 12:37 01/15/17 12:03 01/15/17 23:08 Lactic Acid Level 1.7mmol/L (0.4-2.0) Hepatitis C Antibody >11.0s/co ratio Hepatitis C Virus Quantitation >100,000,000IU/mL (.) Hepatitis C RNA (PCR) log10 (.) Hepatitis C Genotype 1b (.) Hepatitis C Genotype Comment Comment (.) Hepatitis C Comment Comment (.) Vitamin B12 Level 1550pg/mL (211-946) Folate 7.4ng/mL (>3.0) Heparin-PF4 Ab Optical Density 0.066OD (<0.4) Heparin-PF4 Antibody Interpretation Not indicated Troponin T 0.012ug/L (0.0-0.011) Test 01/16/17 05:13 01/18/17 05:15 01/20/17 05:12 01/20/17 09:26 Band Neutrophils % 5% (1-5) Prolactin 10.5ng/mL (4.8-23.3) White Blood Count 21.1th/mm3 (3.8-10.1) Red Blood Count 2.82mil/mm3 (3.90-5.20) Hemoglobin 9.3g/dL (12.0-15.6) Hematocrit 29.5% (35.0-46.0) Mean Corpuscular Volume 104.6fL (81-100) Mean Corpuscular Hemoglobin 33.0pg (27.0-35.0) Mean Corpuscular Hemoglobin Concent 31.5% (32.0-37.0) Red Cell Distribution Width 14.7% (12.3-15.4) Platelet Count 99bil/L (150-400) Neutrophils (%) (Auto) 96.8% (40-74) Lymphocytes (%) (Auto) 1.2% (14-46) Monocytes (%) (Auto) 1.6% (4-12) Eosinophils (%) (Auto) 0% (0-5) Basophils (%) (Auto) 0.1% (0-3) Sodium Level 149mEq/L (134-144) Potassium Level 4.1mEq/L (3.5-5.2) Chloride Level 112mEq/L (97-108) Carbon Dioxide Level 25mmol/L (18-29) Blood Urea Nitrogen 69mg/dL (8-27) Creatinine 1.06mg/dL (0.57-1.00) Estimat Glomerular Filtration Rate 73mL/min (>59) Glucose Level 217mg/dL (60-99) Calcium Level 9.2mg/dL (8.5-10.1) Total Bilirubin 0.7mg/dL (0.0-1.2) Aspartate Amino Transf (AST/SGOT) 33U/L (0-50) Alanine Aminotransferase (ALT/SGPT) 17U/L (0-32) Alkaline Phosphatase 116U/L (25-165) Total Protein 6.2g/dL (6.4-8.4) Albumin 2.9g/dL (3.4-5.0) Thyroid Stimulating Hormone (TSH) 1.550uIU/mL (0.450-4.500) Free Thyroxine 0.74ng/dL (0.82-1.77) Ammonia 19ug/dL (18-53) Test 01/22/17 05:30 01/23/17 07:59 Procalcitonin 0.61ng/mL (0.00-0.08) Phenytoin (Dilantin) Level 4.1uG/mL (10.0-20.0) Discharge Medications Discharge Medications Buspirone (Buspirone) 15 Mg Tablet 15 MG PO TID AM, NOON, PM Prescribed by: PATSY XIE MD Fluoxetine (Fluoxetine) 20 Mg Capsule 40 MG PO DAILY Prescribed by: PATSY XIE MD Fluticasone Propionate (Flovent Diskus) 100 Mcg Disk.w.dev 1 PUFF INHALATION BID Prescribed by: PATSY XIE MD Furosemide (Furosemide) 20 Mg Tab 60 MG PO DAILY Prescribed by: PATSY XIE MD Mirtazapine (Mirtazapine) 15 Mg Tablet 15 MG PO HS Prescribed by: PATSY XIE MD Oxybutynin Chloride (Oxybutynin Chloride) 5 Mg Tablet 5 MG PO TID Prescribed by: PATSY XIE MD Phenytoin Sodium ER (Dilantin) 30 Mg Capsule 90 MG PO TID Prescribed by: PATSY XIE MD Phenytoin Sodium ER (Dilantin) 30 Mg Capsule 60 MG PO BID Prescribed by: LUCY SQUIRES MD Potassium Chloride (Potassium Chloride) 20 Meq Tab.er.prt 20 MEQ PO DAILYWL Prescribed by: PATSY XIE MD Prednisone (Deltasone) 20 Mg Tablet 20 MG PO DAILY Prescribed by: PATSY XIE MD Tiotropium [place] (Spiriva) 18 Mcg Cap.w.dev 1 CAPSULE DAILY (Reported) As needed Albuterol HFA (Proair HFA) 8.5 Gm Hfa.aer.ad 1 PUFFS INHALATION Q4H PRN PRN For Shortness of Breath Prescribed by: PATSY XIE MD Albuterol Neb Soln (Albuterol Neb Soln) 2.5 Mg/3 Ml Vial.neb 1 NEB INHALATION Q4H PRN PRN For Shortness of Breath Prescribed by: PATSY XIE MD Lorazepam (Ativan) 0.5 Mg Tablet 0.5 MG PO BID PRN PRN For Anxiety Prescribed by: PATSY XIE MD oxyCODONE-Acetaminophen 5-325 mg (oxyCODONE-Acetaminophen 5-325 mg) 1 Each Tablet 1 TAB PO Q6 PRN PRN FOR PAIN Prescribed by: PATSY XIE MD Followup Plan Disposition: home on hospice Follow-up plan Please follow up with Hospice team at home. Discharge Diet: No restrictions Discharge Activity: No restrictions Patient Instructions You were hospitalized due to acute on chronic hypoxic respiratory failure due to COPD exacerbation and pneumonia . You have been treated with antibiotics .You are being discharged to home on hospice care as you opted. Please follow up with hospice at home. Follow-up Provider: Arlene Dowling MD Follow-up with PCP in: 3 weeks Time spent 35 minutes coordinating copies to: Arlene Dowling MD, Melaku MD Jan 24, 2017 09:14 Isaiah Aguilar MD Jan 24, 2017 09:14
--- NOTE | 2017-01-24 10:21 | NUR ---
Mentation/Weakness Patient only A/O to self only. Patient reports thinking she is at home and the year is 1975. Patient unable to get out of bed r/t severe weakness.
--- NOTE | 2017-01-24 10:25 | NUR ---
Discharge Patient left floor at 0950 via EMS. No IV access. All d/c information discussed with pt's family, all questions answered.
--- NOTE | 2017-01-28 10:39 | NUR ---
Palliative care note D/A: Notified by Dr. Garcia that pt on 01/27/17. Phone call to the family home and talk to [place], pt grand son Yovani partner. Spoke to her about the bereavement program at [facility] and also their library. Passed along condolences from PC program. [place] noted that the of pt has been hard for family. P: Palliative to follow as needed. Sulma GONZALEZ, CCM
== END 2017-01-24 09:50 | disposition hospice, home (50) | DRG 871 ==
LOC: SED 20:03 → CCU 01-13 00:16 → PCC 01-13 18:32 → MOC 01-22 18:00
PROVIDERS: ADMIT Internal Medicine; ATTEND Internal Medicine
PROC: 4A033R1 Measurement of Arterial Saturation, Peripheral, Percutaneous Approach (ICD-10-PCS; principal; 2017-01-13)
DX: A40.3 Sepsis due to Streptococcus pneumoniae (principal); J13 Pneumonia due to Streptococcus pneumoniae; R65.21 Severe sepsis with septic shock; G92 Toxic encephalopathy; J96.21 Acute and chronic respiratory failure with hypoxia; N17.9 Acute kidney failure, unspecified; I48.1 Persistent atrial fibrillation; J44.1 Chronic obstructive pulmonary disease with (acute) exacerbation; I50.32 Chronic diastolic (congestive) heart failure; N18.3 Chronic kidney disease, stage 3 (moderate); Z79.01 Long term (current) use of anticoagulants; Z99.81 Dependence on supplemental oxygen; D69.6 Thrombocytopenia, unspecified; I12.9 Hypertensive chronic kidney disease with stage 1 through stage 4 chronic kidney disease, or unspecified chronic kidney disease; G40.909 Epilepsy, unspecified, not intractable, without status epilepticus; E83.119 Hemochromatosis, unspecified; D53.9 Nutritional anemia, unspecified; Z66 Do not resuscitate; B18.2 Chronic viral hepatitis C